=== PATIENT | male | born 1945 | race Caucasian/White ===

== ENCOUNTER 2017-06-01 18:57 | Emergency (ER) | payer MEDICARE, SELFPAY ==
[2017-06-01 18:59] VITALS: BP 133/97; PULSE 78; PULSE 82; RESP 16; TEMP 36.8; O2SAT 96; BMI 26.1
--- NOTE | 2017-06-01 19:07 | ED.DCSUM_ITS ---
- ER Visit Summary Date of Service: 06/01/17 Chief Complaint: Laceration History of Present Illness: The patient is a 71 M presents for evaluation laceration right inner thigh 7 hours prior to arrival. States was using a knife opening a box for his grandchild when it slipped down. No anticoagulation medications. Denies any pain. Tetanus unknown. Bleeding controlled. No other injuries. Physical Examination: General: Alert and oriented ?3, no acute distress HEENT: Normocephalic, atraumatic. Moist mucosa membranes Neck: supple, nontender. Cardiovascular: Regular rate and rhythm, no murmurs Respiratory: Normal breath sounds, symmetric, no distress Abdomen: Soft, nontender, nondistended Extremities: Nontender, no edema, pulses intact ?4 Neuro: no focal neurological deficits. Skin: Right thigh, 3 cm horizontal laceration across the distal medial aspect of the thigh. Subcu exposure. Dry blood. No active bleeding. Test Results: [] Emergency Department Course and Treatment: Tetanus updated. Wound was thoroughly washed and prepared. Total of 4, 4-0 nylon simple sutures were placed. Wound care discussed. He will follow-up with PCP 7-10 days for suture removal. Treatment Plan: [] Disposition: Discharge Impression: 1. Right thigh laceration status post repair 2. Tetanus update This note was generated with [employer] dictation software. It may contain incorrect words, spelling, and punctuation that were not noted in review of the chart prior to signing ED Disposition - Plan for ED Patient: Disposition: Home or Assisted Living Chief Complaint: Laceration Diagnosis: Laceration of right thigh Instructions: ED Laceration All Referrals: Corey Scott MD [Primary Care Provider] - 10 Day for suture removal
[2017-06-01] MEDS: Diphth,Pertuss(Acell),Tet Vac 0.5 ML Vial IM (19:18)
--- NOTE | 2017-06-01 20:16 | ED.RN ---
pt given written and verbal discharge instructions. pt ambulates out of dept. alone.
== END 2017-06-01 20:18 | disposition home or self-care (01) ==
PROVIDERS: Emergency Provider Emergency Medicine; Family Provider Family Medicine; PCP Family Medicine
DX: S71.111A Laceration without foreign body, right thigh, initial encounter (principal); Z23 Encounter for immunization; Z79.82 Long term (current) use of aspirin; W26.0XXA Contact with knife, initial encounter; Y93.89 Activity, other specified; Y92.009 Unspecified place in unspecified non-institutional (private) residence as the place of occurrence of the external cause; Y99.8 Other external cause status
CPT/HCPCS: 12002; 90471; 90715; 99284

== ENCOUNTER 2017-06-09 02:54 | Emergency (ER) | payer MEDICARE, SELFPAY ==
[2017-06-09 02:55] VITALS: BP 144/97; PULSE 69; RESP 16; TEMP 36.6; O2SAT 98; BMI 25.9
--- NOTE | 2017-06-09 04:11 | ED.DCSUM_ITS ---
- ER Visit Summary Date of Service: 06/09/17 Chief Complaint: Suture removal History of Present Illness: The patient is a 71 M patient returns for suture removal. Partially 1 week ago last Saturday he was using a knife and I say lacerated his right medial thigh. 4 sutures were placed at the time. He says been doing well. He has not been ill. Is been no discharge or bleeding. Physical Examination: Well-appearing older male. Vital signs are stable afebrile. Lungs are clear. Heart is regular rhythm without murmur. Right medial thigh well-healed laceration with 4 simple interrupted sutures. No signs of infection. No bleeding. No hematoma. I removed the sutures easily without difficulty patient tolerated that well. Test Results: None Emergency Department Course and Treatment: Suture removal. Treatment Plan: [] Disposition: Discharge Impression: Return for suture removal from right thigh laceration. This note was generated with [employer] dictation software. It may contain incorrect words, spelling, and punctuation that were not noted in review of the chart prior to signing ED Disposition - Plan for ED Patient: Chief Complaint: Suture Remv Referrals: Corey Scott MD [Primary Care Provider] -
--- NOTE | 2017-06-09 04:11 | ED.DEP ---
ED Disposition - Plan for ED Patient: Disposition: Home or Assisted Living Chief Complaint: Suture Remv Referrals: Corey Scott MD [Primary Care Provider] - As Needed Additional Instructions: Well healing wound. Keep the wound clean. Watch for any signs of infection.
== END 2017-06-09 04:21 | disposition home or self-care (01) ==
PROVIDERS: Emergency Provider Emergency Medicine; Family Provider Family Medicine; PCP Family Medicine
DX: Z48.02 Encounter for removal of sutures (principal); Z79.82 Long term (current) use of aspirin; Z79.899 Other long term (current) drug therapy
CPT/HCPCS: 99282

== ENCOUNTER 2025-02-12 09:23 | Emergency (ER) | payer MEDICARE, SELFPAY ==
[2025-02-12 09:24] VITALS: BP 148/86; PULSE 71; RESP 16; TEMP 36.3; O2SAT 98; BMI 23.9
--- NOTE | 2025-02-12 09:34 | CT_ITS ---
PROCEDURE: CHEST WITHOUT CONTRAST 02/12/2025 REASON FOR EXAM: LEFT MID POSTERIOR/LATERAL RIB TRAUMA TECHNIQUE: Chest CT without contrast. Coronal and Sagittal reconstruction series were provided. One or more dose reduction techniques were used (e.g., Automated exposure control, adjustment of the mA and/or kV according to patient size, use of iterative reconstruction technique RADIATION DOSE SUMMARY: CTDlvol: 22.90 mGy DLP: 439.65 mGycm COMPARISON: None FINDINGS: Lung windows show the lungs to be normally expanded with nonspecific pleural thickening in both hemithoraces. No organized infiltrate. Small bilateral pleural effusions, [id number]-right with associated atelectasis and linear scarring in the lung bases. No suspicious noncalcified mass or nodule. Soft tissue windows show a normal-appearing thyroid gland. No suspicious axillary mediastinal or perihilar adenopathy. The thoracic aorta tapers normally. Calcified coronary vessels are noted. Limited cuts through the upper abdomen do not show a suspicious abnormality. Incidental note is made of the hepatic flexure being transposed between the anterior edge of the liver in the peritoneal surface which can cause pain in the right clinical setting. Bony structures show degenerative change CT/Chest without Contrast IMPRESSION: Coronary artery calcification (CAC) is is present Small bilateral pleural effusions, [id number]-right with bibasilar atele ctasis and linear fibrotic scarring in the lung bases. No organized infiltrate or suspicious noncalcified mass or nodule No suspicious adenopathy Degenerative bony changes Reading Location: [id number]
--- NOTE | 2025-02-12 09:34 | EX.ED.GENINJ ---
HPI History of Present Illness Chief Complaint: Chest Other Informant: patient Narrative Narrative: 79-year-old male presenting to the emergency room with left rib pain. Patient states that on Saturday he slipped and fell on ice. He landed on his left side injuring the left ribs. He states he had some soreness in the left shoulder but that is better. He states he has been utilizing ibuprofen but it seems that the pain in the ribs seems to be worsening. He denies any hematuria. He denies any abdominal pain. He denies any shortness of breath or cough or hemoptysis. 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 PFSH PFS Home Medications ?Medication ?Instructions ?Recorded ?Last Taken ?Type atorvastatin 40 mg tablet 40 mg PO QHS cholesterol 02/12/25 Unknown History oxycodone-acetaminophen 5 mg-325 1 tab PO Q6H PRN pain 5 days #20 02/12/25 Unknown Rx mg tablet (Percocet) tabs Allergy/AdvReac Type Severity Reaction Status Date / Time No Known Allergies Allergy Verified 02/12/25 09:26 Family History no significant family his Surgical History (Updated 02/12/25 @ 10:25 by Ramila Samano) Status post hip replacement Social History Smoking Status: Never smoker ROS ROS ED Constitutional Constitutional ED: Denies chills or weight loss Eyes Eyes: Denies change in vision or diplopia ENT ENT ED: Denies ear pain, rhinorrhea or sore throat Cardiovascular Cardiovascular: Denies chest pain, orthopnea, palpitations or racing heartbeat Respiratory/Chest Respiratory/Chest: Reports other Details: Left rib pain ; Denies cough, dyspnea or orthopnea Gastrointestinal Gastrointestinal: Denies abdominal pain, diarrhea, nausea or vomiting Genitourinary Genitourinary ED: Denies dysuria, hematuria or urinary frequency Musculoskeletal Musculoskeletal: Denies arthralgias or myalgias Integumentary Denies abscess or rash Neurologic Neurologic: Denies headache(s) or weakness Psychiatric Psychiatric: Denies anxiety, depression, suicidal ideation or suicidal thoughts Endocrine Endocrinology: Denies polydipsia, polyphagia or polyuria Allergic/Immunologic Allergic/Immunologic ED: Denies mouth swelling, tongue swelling or urticaria EXAM Physical Exam Const Vital Signs: 02/12/25 09:24 02/12/25 10:23 02/12/25 12:19 Temperature 97.4 F L 97.9 F Temperature Source Oral Pulse Rate 71 60 Respiratory Rate 16 16 Respiratory Effort Normal Blood Pressure 148/86 H 144/77 H Blood Pressure Mean 106 99 Pulse Ox 98 99 Oxygen Delivery Method Room Air Positive well nourished and well developed General Appearance ED: well developed HEENT Reports normocephalic, head/scalp atraumatic and moist mucous membranes Eyes PERRL and EOMs intact bilaterally Neck no lymphadenopathy, supple and no JVD Chest Wall Chest Narrative: I do not appreciate any obvious chest wall deformity. There is some pain in the left mid lateral posterior ribs with movement. There is no ecchymosis or hematoma seen. Resp normal respiratory effort and clear to auscultation bilaterally Cardio regular rate, regular rhythm and no murmurs GI normal to inspection, nondistended, normoactive bowel sounds and non-tender Palpation: soft Back/Spine no CVA tenderness and normal ROM Extremity normal to inspection General Extremety ED: Negative for edema General Extremity: Negative for edema Neuro oriented x3 and CN's II-XII intact bilaterally Sensorium / Orientation: alert Motor Exam: strength 5/5 throughout Psych mental status grossly normal Mood & Affect: Negative for depressed or tearful Skin no rashes or lesions noted and no wounds MDM MDM MDM Narrative Medical decision making narrative: Differential diagnosis includes pneumothorax hemothorax rib fracture rib contusion thoracic myofascial strain CT of the chest was obtained. Please see radiologist read. Upon my review there are 3 nondisplaced fractures in the left posterior lateral aspect. There is a small associated hemothorax. No pneumothorax is appreciated. Discussed with the patient the above images as well as expected time of recovery and plan of care. I can write for some Percocet for pain control and I feel that is okay if he continues to use ibuprofen. Would recommend follow-up 1 to 2 weeks. Return if worsening or concerns History & Record Review Discussion w/independent historian: Patient Radiography Diagnostic Testing: Clinical Impression(s) from Imaging Studies Chest CT 02/12/25 09:34 IMPRESSION: Coronary artery calcification (CAC) is is present Small bilateral pleural effusions, [id number]-right with bibasilar atelectasis and linear fibrotic scarring in the lung bases. No organized infiltrate or suspicious noncalcified mass or nodule No suspicious adenopathy Degenerative bony changes Reading Location: [facility] Discharge Plan Triage Chief Complaint: Chest Other ED Provider: Aram Bush Dx/Rx/DC Orders Clinical Impression: Hemothorax on left, Multiple closed fractures of ribs of left side, Fall, Chest pain Instructions: ED Rib Fracture Prescriptions: New oxycodone-acetaminophen [Percocet] 5-325 mg tablet 1 tab PO Q6H PRN (Reason: pain) 5 Days Qty: 20 0RF No Action atorvastatin 40 mg tablet 40 mg PO QHS Primary Care Provider: Lonny Kee Referrals: Corey Scott MD [[facility]] - 1 Week Print Language: Indian Disposition Disposition: Home, Self Care Discharge Date/Time: 02/12/25 12:20
--- OUTSIDE RECORDS SUMMARY | 2025-02-12 09:44 | XMS RPT_ITS | CCD ---
Author Organization [facility] Care Team Providers Care Vp Global Name Role Phone Louis Scott MD Primary Care Provider [phone] LILIAN MARSHALL Referring Unavailable LOUIS SCOTT Primary Care Unavailable Louis Scott MD Primary Care Provider Irmahof BELT NOTCHER.Enid DAY Unavailable Jaron BELT NOTCHER.Patrice DAY Unavailable Chano Young Unavailable Unavailable LOUIS SCOTT Primary Care Unavailable ETHAN COYA Referring Unavailable LOUIS SCOTT Primary Care Unavailable ALFREDITO MICHELE Referring Unavailable YUDY DELACRUZ A Referring Unavailable LOUIS SCOTT Primary Care Unavailable SHAMAR KIRAN Consulting Unavailable ALFREDITO MICHELE Admitting Unavailable ALFREDITO MICHELE Attending Unavailable LOUIS SCOTT Primary Care Unavailable Randall Chatman MA Unavailable Randall Chatman MA Unavailable Tannhof BELT NOTCHER.Enid DAY Unavailable Unavail able Tannhof BELT NOTCHER.Enid DAY Unavailable LOUIS SCOTT Primary Care Unavailable LOUIS SCOTT Attending Unavailable LOUIS SCOTT Primary Care Unavailable ALFREDITO MICHELE Referring Unavailable LOUIS SCOTT Primary Care Unavailable ALFREDITO MICHELE Referring Unavailable ALFREDITO MICHELE Attending Unavailable LOUIS SCOTT Primary Care Unavailable LOUIS SCOTT Referring Unavailable DAVID KIMBROUGH Attending Unavailable LOUIS SCOTT Primary Care Unavailable LOUIS SCOTT Referring Unavailable DAVID KIMBROUGH Attending Unavailable LOUIS SCOTT Primary Care Unavailable LOUIS SCOTT Referring Unavailable DAVID KIMBROUGH Attending Unavailable ELDERBROCK, LOUIS D Primary Care Unavailable ELDERBROCK, LOUIS D Referring Unavailable RENNY KIMBROUGHN Attending Unavailable ELDERBROCK, LOUIS D Primary Care Unavailable ELDERBROCK, LOUIS D Referring Unavailable ELDERBROCK, LOUIS D Primary Care Unavailable ALFREDITO MICHELE Attending Unavailable CINTHIA KEE Primary Care Unavailab CINTHIA Porter Attending Unavailab le ELDERBROCK, LOUIS Choi Primary Care Unavailable VETOVITZ, SHELBY Attending Unavailable ELDERBROCK, LOUIS Choi Primary Care Unavailable VETOVITZ, SHELBY Referring Unavailable ELDERBROCK, LOUIS Steph Primary Care Unavailable ELDERBROCK, LOUIS D Referring Unavailable ELDERBROCK, LOUIS D Primary Care Unavailable ELDERBROCK, LOUIS D Referring Unavailable DAVID KIMBROUGH Attending Unavailable ELDERBROCK, LOUIS Choi Primary Care Unavailable ELDERBROCK, LOUIS D Referring Unavailable DAVID KIMBROUGH Attending Unavailable ELDERBROCK, LOUIS Choi Primary Care Unavailable ALFREDITO MICHELE Referring Unavailable ELDERBROCK, LOUIS Choi Primary Care Unavailable ALFREDITO MICHELE Referring Unavailable ALFREDITO MICHELE Attending Unavailable CINTHIA KEE Primary Care Unavailab CINTHIA Porter Referring Unavailab le ELDERBROCK, LOUIS Steph Primary Care Unavailable ELDERBROCK, LOUIS D Referring Unavailable DAVID KIMBROUGH Attending Unavailable ELDERBROCK, LOUIS Choi Primary Care Unavailable ELDERBROCK, LOUIS Steph Referring Unavailable ELDERBROCK, LOUIS D Primary Care Unavailable ELDERBROCK, LOUIS D Referring Unavailable ELDERBROCK, LOUIS D Primary Care Unavailable ELDERBROCK, LOUIS D Referring Unavailable ELDERBROCK, LOUIS D Primary Care Unavailable ELDERBROCK, LOUIS D Referring Unavailable ELDERBROCK, LOUIS D Primary Care Unavailable VETOVITZ, SHELBY Referring Unavailable ELDERBROCK, LOUIS Steph Primary Care Unavailable ELDERBROCK, LOUIS D Referring Unavailable ELDERBROCK, LOUIS D Primary Care Unavailable ELDERBROCK, LOUIS D Referring Unavailable RENNY KIMBROUGHN Attending Unavailable ELDERBROCK, LOUIS Choi Primary Care Unavailable ELDERBROCK, LOUIS D Referring Unavailable RENNY KIMBROUGHN Attending Unavailable ELDERBROCK, LOUIS D Primary Care Unavailable ELDERBROCK, LOUIS D Referring Unavailable RENNY KIMBROUGHN Attending Unavailable ELDERBROCK, LOUIS D Primary Care Unavailable ELDERBROCK, LOUIS D Referring Unavailable RENNY KIMBROUGHN Attending Unavailable ELDERBROCK, LOUIS D Primary Care Unavailable ALFREDITO MICHELE Referring Unavailable DRETOBRENTON, SHELBY Attending Unavailable Medications Current Medications Medication Drug Class(es) Dates Sig (Normalized) Sig (Original) acetaminophen 325 mg / HYDROcodone bitartrate 5 mg oral tablet (4 sources) Opioid Agonist Start: 04-02-2024 End: 04-09-2024 take 1-2 tablets by mouth every six hours as needed HYDROcodone-acetam inophen (NORCO) 5-325 mg per tablet Take 1-2 tablets by mouth every 6 hours as needed for pain for up to 7 days. 04/02/2024 04/09/2024 Active Administered Medications Medication Order MAR Action Action Date Dose Rate Site tuberculin skin test, unspecified formulation Given 04/03/2024 tuberculin skin test, unspecified formulation Given 04/12/2024 (2 sources) Administered Medications Medication Order MAR Action Action Date Dose Rate Site tuberculin skin test, unspecified formulation Given 04/03/2024 tuberculin skin test, unspecified formulation Given 04/12/2024 ascorbic acid 500 mg oral tablet (20 sources) Vitamin C Start: 04-02-2024 End: 04-16-2024 take 1 tablet by mouth twice daily at mealtime ascorbic acid, vitamin C, (VITAMIN C) 500 mg tablet Take 1 tablet by mouth two times a day with meals for 27 doses. 27 tablet 04/02/2024 Active aspirin 81 mg delayed release oral tablet (20 sources) Platelet Aggregation Inhibitor, Nonsteroidal Anti-inflammatory Drug Start: 04-02-2024 End: 04-30-2024 take 1 tablet by mouth twice daily aspirin, enteric coated (ASPIRIN, ENTERIC COATED) 81 mg EC tablet Take 1 tablet by mouth two times a day for 28 days. 56 tablet 04/02/2024 Active Start: 01-07-2008 End: 12-11-2022 aspirin(ECOTRIN LOW STRENGTH 81 MG TAB) Take one(1) tablet daily. 0 01/07/2008 12/11/2022 Discontinued Comment on above: Take one(1) tablet d aily. ferrous sulfate 325 mg oral tablet (20 sources) Start: 04-02-2024 End: 04-09-2024 take 1 tablet by mouth once daily at lunch ferrous sulfate 325 mg (65 mg iron) tablet Take 1 tablet by mouth daily with lunch for 7 doses. 7 tablet 04/02/2024 04/09/2024 Active take 1 tablet by mouth once sandra y ferrous sulfate (IRON) 325 mg (65 mg iron) tablet Take 325 mg by mouth once daily. Active mupirocin 0.02 mg/mg topical ointment (1 source) RNA Synthetase Inhibitor Antibacterial Start: 03-19-2024 End: 03-24-2024 mupirocin (BACTROBAN) 2 % ointment two times a day for 5 days. Apply 0.5 inch with cotton swab (Q-tip) to each nostril in the morning and evening for 5 days prior to and including day of surgery. 22 g 03/19/2024 03/24/2024 Active polyethylene glycol 3350 04995 mg powder for oral solution (4 sources) Osmotic Laxative Start: 04-02-2024 End: 04-12-2024 polyethylene glycol 3350 (MIRALAX) 17 gram/dose powder Take 17 g by mouth once daily as needed for constipation for up to 10 days. Dissolve dose in 4 - 8 ounces of liquid and take as directed. 170 g 04/02/2024 04/12/2024 Active Completed/Discontinued Medications Medication Drug Class(es) Dates Sig (Normalized) Sig (Original) acetaminophen 500 mg oral tablet (1 source) Start: 04-02-2024 End: 04-02-2024 take 2 tablets by mouth every eight hours as needed acetaminophen (TYLENOL) 500 mg tablet Take 2 tablets by mouth every 8 hours as needed for pain. 04/02/2024 04/02/2024 Discontinued docusate sodium 100 mg oral capsule (9 sources) Start: 04-02-2024 End: 05-02-2024 take 1 capsule by mouth every twelve hours as needed docusate sodium (COLACE) 100 mg capsule Take 1 capsule by mouth two times a day as needed for constipation. 60 capsule 04/02/2024 04/23/2024 Discontinued (Course of therapy completed) multivitamin ORAL tablet (1 source) Start: 05-24-2010 End: 12-11-2022 take 1 tablet by mouth once daily multivitamin ORAL tablet Take 1 tablet by mouth once daily. 0 05/24/2010 12/11/2022 Discontinued Comment on above: Take 1 tablet by narinder th once daily. OXcarbazepine 300 mg oral tablet (1 source) Anti-epileptic Agent Start: 01-20-2020 End: 12-11-2022 take 1 tablet by mouth once daily at bedtime OXcarbazepine (TRILEPTAL) 300 mg tablet Indications: Vertigo Take 1 tablet by mouth daily at bedtime. 90 tablet 3 01/20/2020 12/11/2022 Discontinued Comment on above: Take 1 tablet by narinder th daily at bedtime. pantoprazole 40 mg delayed release oral tablet (9 sources) Proton Pump Inhibitor Start: 04-02-2024 End: 05-02-2024 take 1 tablet by mouth once daily in the morning pantoprazole DR (PROTONIX) 40 mg tablet Take 1 tablet by mouth every morning. 30 tablet 04/02/2024 04/23/2024 Discontinued (Discontinued by Patient) sennosides, jail 8.6 mg oral tablet (1 source) Start: 04-02-2024 End: 04-02-2024 take 2 tablets by mouth once daily at bedtime senna (SENOKOT) 8.6 mg tab Take 2 tablets by mouth daily at bedtime. 60 tablet 04/02/2024 04/02/2024 Discontinued Problems Active Problems Problem Classification Problem Date Documented Date Episodic/Chronic Deficiency and other anemia (4 sources) Anemia; Translations: [Anemia, unspecified] 04-06-2024 Episodic Disorders of lipid metabolism (1 source) Hyperlipidemia; Translations: [Hyperlipidemia, unspecified] 12-11-2022 Chronic Immunizations and screening for infectious disease (5 sources) Patient encounter status; Translations: [Encounter for screening for other viral diseases] Onset: 12-16-2024 12-11-2022 Episodic Malaise and fatigue (4 sources) Asthenia; Translations: [Other malaise] 04-06-2024 Episodic Osteoarthritis (19 sources) Arthritis of hip; Translations: [Unilateral primary osteoarthritis, unspecified hip] Onset: 07-29-2023 04-16-2023 Chronic Other aftercare (1 source) Post-discharge follow-up; Translations: [Encounter for follow-up examination after completed treatment for conditions other than malignant neoplasm] 04-23-2024 Episodic Other connective tissue disease (20 sources) History of total hip arthroplasty; Translations: [Presence of right artificial hip joint] Onset: 04-02-2024 04-02-2024 Chronic Other connective tissue disease (20 sources) History of repair of hip joint; Translations: [Presence of right artificial hip joint] Onset: 04-02-2024 04-23-2024 Chronic Other connective tissue disease (2 sources) History of total replacement of right hip joint; Translations: [Presence of right artificial hip joint] 06-06-2024 Chronic Other connective tissue disease (4 sources) Presence of right artificial hip joint; Translations: [S/P hip replacement, right] Onset: 04-29-2024 Chronic Other connective tissue disease (1 source) Repeated falls; Translations: [Falling episodes] Onset: 12-16-2024 Episodic Other lower respiratory disease (1 source) Cough; Translations: [Acute cough] 09-19-2023 Episodic Other nervous system disorders (20 sources) Neuropathy; Translations: [Polyneuropathy, unspecified] Onset: 03-19-2024 03-19-2024 Chronic Other nervous system disorders (1 source) Polyneuropathy, unspecified; Translations: [Neuropathy] Onset: 03-19-2024 Chronic Other nervous system disorders (1 source) Other chronic pain; Translations: [Chronic pain of right knee] Onset: 03-19-2024 Chronic Other nervous system disorders (1 source) Paresthesia of foot ; Translations: [Anesthesia of skin] 12-11-2022 Episodic Other nervous system disorders (1 source) Unspecified abnormalities of gait and mobility; Translations: [Abnormality of gait] Onset: 12-16-2024 Episodic Other non-traumatic joint disorders (3 sources) Pain in right knee; Translations: [Pain in joint, lower leg] Onset: 03-19-2024 03-16-2024 Episodic Other non-traumatic joint disorders (1 source) Stiffness of left shoulder, not elsewhere classified; Translations: [Impaired range of motion of left shoulder] Onset: 12-16-2024 Episodic Other upper respiratory infections (2 sources) Acute upper respiratory infection; Translations: [Acute upper respiratory infection, unspecified] Onset: 12-16-2024 09-19-2023 Episodic Unclassified (1 source) OPENED IN ERROR 04-07-2024 Unclassified (1 source) History of repair of hip joint 04-23-2024 Past or Other Problems Problem Classification Problem Date Documented Da te Episodic/Chronic Abdominal hernia (20 sources) Right inguinal hernia ; Translations: [Unilateral inguinal hernia, without obstruction or gangrene, not specified as recurrent] Onset: 11-23-2013 11-23-2013 Episodic Conditions associated with dizziness or vertigo (20 sources) Vertigo; Translations: [Dizziness and giddiness] Onset: 03-22-2009 12-11-2022 Episodic Other connective tissue disease (20 sources) Adhesive capsulitis of shoulder; Translations: [Adhesive capsulitis of unspecified shoulder] Onset: 05-24-2008 05-24-2008 Episodic Other connective tissue disease (1 source) Adhesive capsulitis of left shoulder; Translations: [Adhesive capsulitis of left shoulder] Onset: 05-24-2008 Episodic Other non-traumatic joint disorders (6 sources) Pain in right hip joint; Translations: [Pain in right hip] Onset: 06-19-2023 06-17-2023 Episodic Other non-traumatic joint disorders (20 sources) Hip pain; Translations: [Pain in right hip] Onset: 06-19-2023 06-19-2023 Episodic Other non-traumatic joint disorders (2 sources) Pain in right hip; Translations: [Pain of right hip] Onset: 03-09-2024 Episodic Results Test Name Value Interpretation Reference Range Facility CBC W Auto Differential pane l (Bld)on 12-16-2024 Basophils (Bld) [#/Vol] 0.03 10*3/uL Normal <0.11 [facility] Comment on above: Order Comment: Speci men Type: BLOOD SPECIMEN Ordering Facility: [facility] Address: [address] [place] [address] Performed By: #### 5 7021-8 #### [facility] CLIA [id number] [address] [place] [address] [place] Basophils/100 WBC (Bld) 0.4 % Normal [facility] Comment on above: Order Comment: Speci men Type: BLOOD SPECIMEN Ordering Facility: [facility] Address: [address] [place] [address] Performed By: #### 5 7021-8 #### [facility] CLIA [id number] [address] [place] [address] [place] Differential cell count method Nom (Bld) Auto Normal [facility] Comment on above: Order Comment: Speci men Type: BLOOD SPECIMEN Ordering Facility: [facility] Address: [address] [place] [address] Performed By: #### 5 7021-8 #### [facility] CLIA [id number] [address] [place] [address] [place] Eosinophils (Bld) [#/Vol] 0.06 10*3/uL Normal <0.46 [facility] Comment on above: Order Comment: Speci men Type: BLOOD SPECIMEN Ordering Facility: [facility] Address: [address] [place] [address] Performed By: #### 5 7021-8 #### [facility] CLIA [id number] [address] [place] [address] [place] Eosinophils/100 WBC (Bld) 0.8 % Normal [facility] Comment on above: Order Comment: Speci men Type: BLOOD SPECIMEN Ordering Facility: [facility] Address: [address] [place] [address] Performed By: #### 5 7021-8 #### [facility] CLIA [id number] [address] [place] [address] [place] Erythrocyte distribution width (RBC) [Ratio] 16.0 % High 11.5-15.0 [facility] Comment on above: Order Comment: Speci men Type: BLOOD SPECIMEN Ordering Facility: [facility] Address: [address] [place] [address] Performed By: #### 5 7021-8 #### [facility] CLIA [id number] [address] [place] [address] [place] Hematocrit (Bld) [Volume fraction] 40.2 % Normal 39.0-51.0 [facility] Comment on above: Order Comment: Speci men Type: BLOOD SPECIMEN Ordering Facility: [facility] Address: [address] [place] [address] Performed By: #### 5 7021-8 #### [facility] CLIA [id number] [address] [place] [address] [place] Hemoglobin (Bld) [Mass/Vol] 12.7 g/dL Low 13.0-17.0 [facility] Comment on above: Order Comment: Speci men Type: BLOOD SPECIMEN Ordering Facility: [facility] Address: [address] [place] [address] Performed By: #### 5 7021-8 #### [facility] CLIA [id number] [address] [place] [address] [place] Immature granulocytes (Bld) [#/Vol] 0.03 10*3/uL Normal <0.10 [facility] Comment on above: Order Comment: Speci men Type: BLOOD SPECIMEN Ordering Facility: [facility] Address: [address] [place] [address] Performed By: #### 5 7021-8 #### [facility] CLIA [id number] [address] [place] [address] [place] Immature granulocytes/100 WBC (Bld) 0.4 % Normal [facility] Comment on above: Order Comment: Speci men Type: BLOOD SPECIMEN Ordering Facility: [facility] Address: [address] [place] [address] Performed By: #### 5 7021-8 #### [facility] CLIA [id number] [address] [place] [address] [place] Lymphocytes (Bld) [#/Vol] 1.30 10*3/uL Normal 1.00-4.00 [facility] Comment on above: Order Comment: Speci men Type: BLOOD SPECIMEN Ordering Facility: [facility] Address: [address] [place] [address] Performed By: #### 5 7021-8 #### [facility] CLIA [id number] [address] [place] [address] [place] Lymphocytes/100 WBC (Bld) 17.9 % Normal [facility] Comment on above: Order Comment: Speci men Type: BLOOD SPECIMEN Ordering Facility: [facility] Address: [address] [place] [address] Performed By: #### 5 7021-8 #### [facility] CLIA [id number] [address] [place] [address] [place] MCH (RBC) [Entitic mass] 26.1 pg Normal 26.0-34.0 [facility] Comment on above: Order Comment: Speci men Type: BLOOD SPECIMEN Ordering Facility: [facility] Address: [address] [place] [address] Performed By: #### 5 7021-8 #### [facility] CLIA [id number] [address] [place] [address] [place] MCHC (RBC) [Mass/Vol] 31.6 g/dL Normal 30.5-36.0 [facility] Comment on above: Order Comment: Speci men Type: BLOOD SPECIMEN Ordering Facility: [facility] Address: [address] [place] [address] Performed By: #### 5 7021-8 #### [facility] CLIA [id number] [address] [place] [address] [place] MCV (RBC) [Entitic vol] 82.7 fL Normal 80.0-100.0 [facility] Comment on above: Order Comment: Speci men Type: BLOOD SPECIMEN Ordering Facility: [facility] Address: [address] [place] [address] Performed By: #### 5 7021-8 #### [facility] CLIA [id number] [address] [place] [address] [place] Monocytes (Bld) [#/Vol] 0.43 10*3/uL Normal <0.87 [facility] Comment on above: Order Comment: Speci men Type: BLOOD SPECIMEN Ordering Facility: [facility] Address: [address] [place] [address] Performed By: #### 5 7021-8 #### [facility] CLIA [id number] [address] [place] [address] [place] Monocytes/100 WBC (Bld) 5.9 % Normal [facility] Comment on above: Order Comment: Speci men Type: BLOOD SPECIMEN Ordering Facility: [facility] Address: [address] [place] [address] Performed By: #### 5 7021-8 #### [facility] CLIA [id number] [address] [place] [address] [place] Neutrophils (Bld) [#/Vol] 5.42 10*3/uL Normal 1.45-7.50 [facility] Comment on above: Order Comment: Speci men Type: BLOOD SPECIMEN Ordering Facility: [facility] Address: [address] [place] [address] Performed By: #### 5 7021-8 #### [facility] CLIA [id number] [address] [place] [address] [place] Neutrophils/100 WBC (Bld) 74.6 % Normal [facility] Comment on above: Order Comment: Speci men Type: BLOOD SPECIMEN Ordering Facility: [facility] Address: [address] [place] [address] Performed By: #### 5 7021-8 #### [facility] CLIA [id number] [address] [place] [address] [place] Nucleated RBC (Bld) [#/Vol] 10*3/uL Normal <0.01 [facility] Comment on above: Order Comment: Speci men Type: BLOOD SPECIMEN Ordering Facility: [facility] Address: [address] [place] [address] Performed By: #### 5 7021-8 #### [facility] CLIA [id number] [address] [place] [address] [place] Nucleated RBC/100 WBC (Bld) [Ratio] 0.0 /100 WBC Normal [facility] Comment on above: Order Comment: Speci men Type: BLOOD SPECIMEN Ordering Facility: [facility] Address: [address] [place] [address] Performed By: #### 5 7021-8 #### [facility] CLIA [id number] [address] [place] [address] [place] Platelet mean volume (Bld) [Entitic vol] 11.3 fL Normal 9.0-12.7 [facility] Comment on above: Order Comment: Speci men Type: BLOOD SPECIMEN Ordering Facility: [facility] Address: [address] [place] [address] Performed By: #### 5 7021-8 #### [facility] CLIA [id number] [address] [place] [address] [place] Platelets (Bld) [#/Vol] 293 10*3/uL Normal 150-400 [facility] Comment on above: Order Comment: Speci men Type: BLOOD SPECIMEN Ordering Facility: [facility] Address: [address] [place] [address] Performed By: #### 5 7021-8 #### [facility] CLIA [id number] [address] [place] [address] [place] RBC (Bld) [#/Vol] 4.86 10*6/uL Normal 4.20-6.00 [facility] Comment on above: Order Comment: Speci men Type: BLOOD SPECIMEN Ordering Facility: [facility] Address: [address] [place] [address] Performed By: #### 5 7021-8 #### [facility] CLIA [id number] [address] [place] [address] [place] WBC (Bld) [#/Vol] 7.27 10*3/uL Normal 3.70-11.00 [facility] Comment on above: Order Comment: Speci men Type: BLOOD SPECIMEN Ordering Facility: [facility] Address: [address] [place] [address] Performed By: #### 5 7021-8 #### [facility] CLIA [id number] [address] [place] [address] [facility] [place] CNOVon 12-16-2024 CNOV Office Visit (FAMPWS ) PAOLO HERNANDEZ ([id number]) 1945 M Date Time Provider Department 12/16/24 2:00 PM CINTHIA KEE During your visit today, we recorded the following information about you: Temperature Pulse Respiration Blood pressure 97.7 degrees 68/minute 14/minute 134/71 Weight Height 72.2 kg 1.765 m Cinthia Kee MD 12/17/2024 9:05 AM Signed Paolo Hernandez is a 79 year old male here for a Medicare Wellness visit. Recording using [employer] software for draft documentation of the visit was discussed with the patient/authorized customer response representative; all questions welcomed and answered. Patient/authorized customer response representative agreed to proceed Paolo Hernandez is a 79-year-old male with a history of neuropathy, frozen shoulder, and GERD, presenting for a Medicare wellness exam. 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 - Denies pain, but reports weakness and inability to lift arm above head. - Engaging in exercises, including wall crawls and halos, with some improvement. - History of right shoulder rotator cuff issues ~15-20 years ago, resolved with cortisone injection and time. - Denies recent trauma or injury to the left shoulder. GERD: - Chronic mild sore throat x1 year, daily occurrence, worse at night. - Suspects GERD, has not tried OTC medications. - Denies pain with swallowing or food getting stuck. - Denies early satiety. - Denies specific food triggers for throat irritation. - Does get occasional post nasal drip. Hip Replacement: - Right hip replacement in March, follow-up with Dr. Michele next year. - Engaging in physical therapy exercises post-surgery. Family History: - Mother: Arthritis, HTN, tuberculosis. - Father: CVA. - Maternal grandmother: Breast cancer. - Siblings: Brother and sister, both healthy. - Children: Two daughters, both healthy. Advanced Directives: - No living will or healthcare power of environmental attorney. - Plans to discuss with a real estate lawyer for estate planning. Medicare Health Risk Assessment General Health Very good Exercise: Minutes/Day 20 min Exercise: Days/Week 7 days Alcohol: Daily Use Never Alcohol: Drinks/Day Patient does not drink Alcohol: 6 or more drinks Never Feel off balance No (Admits to balance not being as good as it once was. Think his Neuropathy has something to do with it.) Concerns: Teeth/Dentures No Concerns: Sexual function No Troubled by feelings None of the above Frequency: Eating healthy diet Nearly every day ADLs requiring help None of the above Safety precautions in home/vehicle Yes Smoke, vape, chews tobacco No Difficulty hearing No Difficulty seeing No Current Providers Specialists: I have reviewed specialist-related care of the patient in the medical record. Current care team: Patient Care Team: Louis Scott MD as PCP - General (Family Medicine) Patrice Salmeron APRN.CRIMINOLOGY TEACHER as Scrap Preparation Supervisor (Family Medicine) Outside specialists seen: Ortho: Dr. Michele, Dentist: [facility], Optho: Dr. Chau Medical/Family history review Reviewed and updated problem list, medical/surgical/famil y/social history, medications, and allergies. Opioid use review Prescribed: No opioid use on file in the last 90 days Patient-reported: No opioid use on file in the last 90 days Depression screening PHQ-2 Score: 0 PHQ-9 Score: 0 Anxiety screening NATASHA-2 Score: 0 Cognitive screening Mini Cog Score: 5 Cognitive screening reviewed and No further action needed (score 3-5). Functional Observation Was the patient's Timed Up AND Go test unsteady or >= 12 seconds? No Advance Directives Patient did not wish or was not able to name a surrogate decision maker or provide an advance care plan FULL CODE Measurements BP 134/71 Pulse 68 Temp 36.5 ?C (97.7 ?F) Resp 14 Ht 176.5 cm (5' 9.5) Wt 72.2 kg (159 lb 3.2 oz) BMI 23.17 kg/m? Vision Screening: Right: 20/25 Left: 20/ 20 Both: 20/25 Sees Ophthalmology yearly. General Appearance: Well appearing, alert, in no acute distress, well-hydrated, well nourished.. Skin: Skin color, texture, turgor normal, no suspicious rashes or lesions. Oropharynx: Lips, mucosa, and tongue normal, teeth and gums normal, oropharynx normal. Neck: Supple, no adenopathy; thyroid symmetric, normal size, no bruits. Lungs: Lungs clear to auscultation. No wheezing, rhonchi, rales.. Heart: RRR without murmur, gallop, or rubs. No ectopy. Abdomen: Normal abdominal exam, Abdomen soft, non-tender. Bowel sounds normal. No masses, organomegaly. Extremities: No deformities, edema, skin discoloration, clubbing or cyanosis. Good capillary refill. Shoulder: Location: Left. Redness: No. Warmth: No. Tenderness to palpation: No. Swelling: No. Range of motion: Limited to about 30 degrees abduction and flexion with pa (more content not included)... Normal [facility] Comprehensive metabolic 2000 panelon 12-16-2024 Albumin [Mass/Vol] 4.3 g/dL Normal 3.9-4.9 [facility] Comment on above: Order Comment: Speci men Type: BLOOD SPECIMENOrdering Facility: [facility] Address: [address] [place] [address] Performed By: #### 2 4323-8, LIPNF ####[facility] LABCLIA [id number] [place] [address] [place] ALP [Catalytic activity/Vol] 70 U/L Normal 38-113 [facility] Comment on above: Order Comment: Speci men Type: BLOOD SPECIMENOrdering Facility: [facility] Address: [address] [place] [address] Performed By: #### 2 4323-8, LIPNF ####[facility] LABCLIA [id number] [place] [address] [place] ALT [Catalytic activity/Vol] 23 U/L Normal 10-54 [facility] Comment on above: Order Comment: Speci men Type: BLOOD SPECIMENOrdering Facility: [facility] Address: [address] [place] [address] Performed By: #### 2 4323-8, LIPNF ####[facility] LABCLIA [id number] [place] [address] [place] Anion gap [Moles/Vol] 12 mmol/L Normal 8-15 [facility] Comment on above: Order Comment: Speci men Type: BLOOD SPECIMENOrdering Facility: [facility] Address: [address] [place] [address] Performed By: #### 2 4323-8, LIPNF ####[facility] LABCLIA [id number] [place] [address] [place] AST [Catalytic activity/Vol] 31 U/L Normal 14-40 [facility] Comment on above: Order Comment: Speci men Type: BLOOD SPECIMENOrdering Facility: [facility] Address: [address] [place] [address] Performed By: #### 2 4323-8, LIPNF ####[facility] LABCLIA [id number] [place] [address] [place] Bilirubin [Mass/Vol] 0.2 mg/dL Normal 0.2-1.3 [facility] Comment on above: Order Comment: Speci men Type: BLOOD SPECIMENOrdering Facility: [facility] Address: [address] [place] [address] Performed By: #### 2 4323-8, LIPNF ####[facility] LABCLIA [id number] [place] [address] [place] Calcium [Mass/Vol] 9.9 mg/dL Normal 8.5-10.2 [facility] Comment on above: Order Comment: Speci men Type: BLOOD SPECIMENOrdering Facility: [facility] Address: [address] [place] [address] Performed By: #### 2 4323-8, LIPNF ####[facility] LABCLIA [id number] [place] [address] [place] Chloride [Moles/Vol] 104 mmol/L Normal 98-107 [facility] Comment on above: Order Comment: Speci men Type: BLOOD SPECIMENOrdering Facility: [facility] Address: [address] [place] [address] Performed By: #### 2 4323-8, LIPNF ####[facility] LABCLIA [id number] [place] [address] [place] CO2 [Moles/Vol] 24 mmol/L Normal 22-30 [facility] Comment on above: Order Comment: Speci men Type: BLOOD SPECIMENOrdering Facility: [facility] Address: [address] [place] [address] Performed By: #### 2 4323-8, LIPNF ####[facility] LABCLIA [id number] [place] [address] [place] Creatinine [Mass/Vol] 0.99 mg/dL Normal 0.73-1.22 [facility] Comment on above: Order Comment: Speci men Type: BLOOD SPECIMENOrdering Facility: [facility] Address: [address] [place] [address] Performed By: #### 2 4323-8, LIPNF ####[facility] LABCLIA [id number] [place] [address] [place] eGFRcr SerPlBld CKD-EPI 2020 78 mL/min/1.73m??? Normal >=60 [facility] Comment on above: Order Comment: Speci men Type: BLOOD SPECIMENOrdering Facility: [facility] Address: [address] [place] [address] Result Comment: Dary mated Glomerular Filtration Rate (eGFR) is calculated using the 2020 CKD-EPI creatinine equation. This equation utilizes serum creatinine, sex, and age as parameters. The creatinine assay has traceable calibration to isotope dilution-mass spectrometry. Refer to KDIGO guidelines for clinical interpretation. In patients with unstable renal function, e.g. those with acute kidney injury, the eGFR may not accurately reflect actual GFR. Performed By: #### 2 4323-8, LIPNF ####[facility] LABCLIA [id number] [place] [address] [place] Glucose [Mass/Vol] 95 mg/dL Normal 74-99 [facility] Comment on above: Order Comment: Speci men Type: BLOOD SPECIMENOrdering Facility: [facility] Address: [address] [place] [address] Result Comment: The [place] Diabetes Association (ADA) provides guidance for cutoff values for fasting glucose and random glucose. The ADA defines fasting as no caloric intake for at least 8 hours. Fasting plasma glucose results between 100 to 125 mg/dL indicate increased risk for diabetes (prediabetes). Fasting plasma glucose results greater than or equal to 126 mg/dL meet the criteria for diagnosis of diabetes. In the absence of unequivocal hyperglycemia, results should be confirmed by repeat testing. In a patient with classic symptoms of hyperglycemia or hyperglycemic crisis, random plasma glucose results greater than or equal to 200 mg/dL meet the criteria for diagnosis of diabetes. Reference: Standards of Medical Care in Diabetes 2016, [place] Diabetes Association. Diabetes Care. 2016.39(Suppl 1). Performed By: #### 2 4323-8, LIPNF ####[facility] LABCLIA [id number] [place] [address] [place] Potassium [Moles/Vol] 4.1 mmol/L Normal 3.7-5.1 [facility] Comment on above: Order Comment: Speci men Type: BLOOD SPECIMENOrdering Facility: [facility] Address: [address] [place] [address] Performed By: #### 2 4323-8, LIPNF ####[facility] LABCLIA [id number] [place] [address] [place] Protein [Mass/Vol] 7.2 g/dL Normal 6.3-8.0 [facility] Comment on above: Order Comment: Speci men Type: BLOOD SPECIMENOrdering Facility: [facility] Address: [address] [place] [address] Performed By: #### 2 4323-8, LIPNF ####[facility] LABCLIA [id number] [place] [address] [place] Sodium [Moles/Vol] 140 mmol/L Normal 136-144 [facility] Comment on above: Order Comment: Speci men Type: BLOOD SPECIMENOrdering Facility: [facility] Address: [address] [place] [address] Performed By: #### 2 4323-8, LIPNF ####[facility] LABCLIA [id number] [place] [address] [place] Urea nitrogen [Mass/Vol] 23 mg/dL Normal 9-24 [facility] Comment on above: Order Comment: Speci men Type: BLOOD SPECIMENOrdering Facility: [facility] Address: [address] [place] [address] Performed By: #### 2 4323-8, LIPNF ####[facility] LABCLIA [id number] [place] [address] [place] LIPID PANEL, NONFASTINGon Cholesterol [Mass/Vol] 215 mg/dL High <200 [facility] Comment on above: Order Comment: Speci men Type: BLOOD SPECIMENOrdering Facility: [facility] Address: [address] [place] [address] Result Comment: <200 mg/dL, Desirable 200-239 mg/dL, Borderline high >239 mg/dL, High Performed By: #### 2 4323-8, LIPNF ####[facility] LABCLIA [id number] [place] [address] [place] HDL CHOLESTEROL, NF 58 mg/dL Normal >39 [facility] Comment on above: Order Comment: Speci men Type: BLOOD SPECIMENOrdering Facility: [facility] Address: [address] [place] [address] Result Comment: 40-5 9 mg/dL, Acceptable >59 mg/dL, High: Negative risk factor for coronary heart disease <40 mg/dL, Low: Positive risk factor for coronary heart disease Performed By: #### 2 4323-8, LIPNF ####[facility] LABCLIA [id number] [place] [address] [place] LDL CHOLESTEROL CALCULATED, NF 137 mg/dL High <100 [facility] Comment on above: Order Comment: Speci men Type: BLOOD SPECIMENOrdering Facility: [facility] Address: [address] [place] [address] Result Comment: <100 mg/dL, Optimal 100-129 mg/dL, Near optimal/above optimal 130-159 mg/dL, Borderline high 160-189 mg/dL, High >189 mg/dL, Very high Secondary prevention optimal LDL Cholesterol levels are recommended to be <70 mg/dL LDL cholesterol is calculated using the Marti-NIH equation. Performed By: #### 2 4323-8, LIPNF ####[facility] LABCLIA [id number] [address] LDL/HDL RATIO, NF 2.36 mg/dL Normal <2.[address] [facility] Comment on above: Order Comment: Speci men Type: BLOOD SPECIMENOrdering Facility: [facility] Address: [address] [place] [address] Result Comment: Refe rence: 1. National Cholesterol Education Program ATP III Guideline At-A-Glance Quick Desk Reference: National Heart, Lung, and Blood [place]. National Institutes of Health. 2001: NIH Publication No. 01-3305. 2. An International Atherosclerosis Society position paper: global recommendations for the management of dyslipidemia: executive summary, Atherosclerosis. 2014: 232(2):410-413. Performed By: #### 2 4323-8, LIPNF ####[facility] LABIA [id number] [address] NON HDL CHOL, NF 157 mg/dL High <130 [facility] Comment on above: Order Comment: Rebecca bailon Type: BLOOD SPECIMENOrdering Facility: [facility] Address: [address] [place] [address] Result Comment: <130 mg/dL, Optimal 130-159 mg/dL, Near optimal/above optimal 160-189 mg/dL, Borderline high 190-219 mg/dL, High >219 mg/dL, Very high Secondary prevention optimal non HDL Cholesterol levels are recommended to be <100 mg/dL Performed By: #### 2 4323-8, LIPNF ####[facility] LABCLIA [id number] [address] OF [facility] T CHOL/HDL RATIO NF 3.71 mg/dL Normal <5.10 [facility] Comment on above: Order Comment: Valentinei men Type: BLOOD SPECIMENOrdering Facility: [facility] Address: [address] [place] [address] Performed By: #### 2 4323-8, LIPNF ####[facility] LABCLIA [id number] [place] [address] [place] TRIGLYCERIDES, NF 111 mg/dL Normal <[address] [facility] Comment on above: Order Comment: Speci men Type: BLOOD SPECIMENOrdering Facility: [facility] Address: [address] [place] [address] Result Comment: <150 mg/dL, Normal 150-199 mg/dL, Borderline high 200-499 mg/dL, High >499 mg/dL, Very high Performed By: #### 2 4323-8, LIPNF ####[facility] LABCLIA [id number] [place] [address] [place] VLDL CHOLESTEROL, NF 20 mg/dL Normal <30 [facility] Comment on above: Order Comment: Speci men Type: BLOOD SPECIMENOrdering Facility: [facility] Address: [address] [place] [address] Performed By: #### 2 4323-8, LIPNF ####[facility] LABCLIA [id number] [address] OF [place] CNTHERAPYon 06-25-2024 CNTHERAPY OT/PT/Speech Visit (PTWS) PAOLO HERNANDEZ ([id number]) 1945 M Date Time Provider Department 06/25/24 10:45 AM DAVID KIMBROUGH PTWS Date Time Provider Department Center 06/25/2024 10:45 AM [id number], COLIN PTWS Tigist Navarrete Reason for Visit: PT Discharge [752] Primary Visit Diagnosis:S/P hip replacement, right [Z96.641] Allergies As of Date: 06/25/2024 (No Known Allergies) Date Reviewed: 06/22/2024 Reviewed by: Marbella Chicas MA - Fully Assessed Prescriptions as of 06/25/2024 - ferrous sulfate (IRON) 325 mg (65 mg iron) tablet Take 325 mg by mouth once daily. - aspirin, enteric coated (ASPIRIN, ENTERIC COATED) 81 mg EC tablet Take 1 tablet by mouth two times a day for 28 days. - ascorbic acid, vitamin C, (VITAMIN C) 500 mg tablet Take 1 tablet by mouth two times a day with meals for 27 doses. Facility-Administered Medications as of 06/25/2024 - lidocaine 10 mg/mL (1 %) injection (XYLOCAINE) - triamcinolone acetonide injection (KeNALog 40) Stoneworker: Therapy (PT/OT/Speech/Resp) ID: [id number] 06/25/2024 11:02 AM Author: DAVID KIMBROUGH Signed by DAVID KIMBROUGH PT on 06/25/2024 at 11:02 AM Document text: Program_ID:[id number] Access Code: [email or web address] URL: [email or web address] Date: 06-25-2024 Prepared By: David Kimbrough Program Notes Exercises - Standing Hip Abduction with Anchored Resistance - 2 x daily - 5 x weekly - 2 sets - 10 reps - Standing Hip Extension with Anchored Resistance - 2 x daily - 5 x weekly - 2 sets - 10 reps - Standing Hip Flexion with Anchored Resistance and Chair Support - 2 x daily - 5 x weekly - 2 sets - 10 reps - Side Stepping with Resistance at Ankles - 2 x daily - 5 x weekly - 1 sets - 4 reps - Standing Marching - 2 x daily - 5 x weekly - 2 sets - 10 reps - Standing Knee Flexion - 2 x daily - 5 x weekly - 2 sets - 10 reps - Goblet Squat with Kettlebell - 2 x daily - 5 x weekly - 2 sets - 8-12 reps - Supine Active Straight Leg Raise - 2 x daily - 5 x weekly - 2-3 sets - 10 reps - Forward and Backward Monster Walk with Resistance at Ankles and Counter Support - 2 x daily - 5 x weekly - 2 sets - 3 reps -- Normal [facility] THERAPY NTon 06-25-2024 THERAPY NT HNO ID: [id number] Author: DAVID KIMBROUGH PT Service: ? Author Type: Physical Therapist Type: Therapy (PT/OT/Speech/Resp) Filed: 06/25/2024 11:02 Note Text: Program_ID:[id number] Access Code: [email or web address] URL: [email or web address] Date: 06-25-2024 Prepared By: David Kimbrough Program Notes Exercises - Standing Hip Abduction with Anchored Resistance - 2 x daily - 5 x weekly - 2 sets - 10 reps - Standing Hip Extension with Anchored Resistance - 2 x daily - 5 x weekly - 2 sets - 10 reps - Standing Hip Flexion with Anchored Resistance and Chair Support - 2 x daily - 5 x weekly - 2 sets - 10 reps - Side Stepping with Resistance at Ankles - 2 x daily - 5 x weekly - 1 sets - 4 reps - Standing Marching - 2 x daily - 5 x weekly - 2 sets - 10 reps - Standing Knee Flexion - 2 x daily - 5 x weekly - 2 sets - 10 reps - Goblet Squat with Kettlebell - 2 x daily - 5 x weekly - 2 sets - 8-12 reps - Supine Active Straight Leg Raise - 2 x daily - 5 x weekly - 2-3 sets - 10 reps - Forward and Backward Monster Walk with Resistance at Ankles and Counter Support - 2 x daily - 5 x weekly - 2 sets - 3 reps Normal [facility] CNOVon 06-22-2024 CNOV Office Visit (ORTHWS ) PAOLO HERNANDEZ ([id number]) 1945 M Date Time Provider Department 06/22/24 8:30 AM ALFREDITO MICHELE During your visit today, we recorded the following information about you: Alfredito Michele MD 06/22/2024 9:21 AM Signed Alfredito Michele MD Department of Orthopaedics Orthopaedics [address] [facility] [address] Dept: [phone] Dept June 22, 2024 CHIEF COMPLAINT: Post Op of the Right Hip (11 weeks 5 days post op Robotic Assisted Right LOGAN) HPI: HPI Patient here for post op visit robotic assisted right LOGAN. Patient states he is continuing home exercises. Denies any pain. New x-rays done today. ASSESSMENT: Z96.641 History of total right hip arthroplasty (primary encounter diagnosis) PLAN: Feeling what sounds like, a little bit of right sided sciatica. If that persists, we could get him in with pain management to evaluate for possible injection treatment. In the meantime, he is going to continue strengthening of the hip and working on his balance and normal gait. 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 OBJECTIVE: Mr. Paolo Hernandez is a pleasant 78 year old in no apparent distress. Gen:There were no vitals taken for this visit. nl development, non obese, no deformities ENT: Normocephalic, normal hearing, moist mucosa CV: Pulses:DP/PT= 2+ and symmetric, capillary refill < 2 secs, no peripheral edema/varicosities Skin: no rash, bruising or lesions. Good turgor. Psych: cooperative and appropriate, alert and oriented x 3, good mood and affect. Musculoskeletal: He does appear to have a bit of an unsteady gait on observation. Healed incision. Range of motion without pain. Imaging: AP pelvis and 2 views of the hip show an intact arthroplasty without any concerns. Supporting Subjective Information Below: Past Medical History: PAST MEDICAL HISTORY Diagnosis Date Right inguinal hernia Rotator cuff tear Right shoulder Vertigo Past Surgical History: PAST SURGICAL HISTORY Procedure Laterality Date APPENDECTOMY 02/18/1963 LAPAROSCOPY SURG RPR INITIAL INGUINAL HERNIA 12/09/2013 right PAST SURGICAL HISTORY OF 10/19/1969 wisdom teeth PAST SURGICAL HISTORY OF Bilateral 2020 B/L cataract surgery TOTAL HIP REPLACEMENT Right 04/01/2024 Robotic assisted Right total hip arthroplasty Medications: Current Outpatient Medications Medication Sig ferrous sulfate (IRON) 325 mg (65 mg iron) tablet Take 325 mg by mouth once daily. (Patient not taking: Reported on 06/22/2024) aspirin, enteric coated (ASPIRIN, ENTERIC COATED) 81 mg EC tablet Take 1 tablet by mouth two times a day for 28 days. ascorbic acid, vitamin C, (VITAMIN C) 500 mg tablet Take 1 tablet by mouth two times a day with meals for 27 doses. No current facility-administered medications for this visit. Facility-Administered Medications Ordered in Other Visits Medication Dose Route Frequency lidocaine 10 mg/mL (1 %) injection (XYLOCAINE) OTHER PRN triamcinolone acetonide injection (KeNALog 40) INTRA-ARTICULAR PRN Allergies: Patient has no known allergies. ROS: General (negative for fatigue, malaise, weight loss/gain) HEENT (negative for headache, earache, recent vision changes, sinus pain, sore throat) Respiratory (no recent shortness of breath, hemoptysis) CV (negative for chest tightness, palpitations) Musculoskeletal (see HPI) Psych (no depression, anxiety) Recording using [employer] software for draft documentation of the visit was discussed with the patient/authorized customer response representative; all questions welcomed and answered. Patient/authorized customer response representative agreed to proceed Alfredito Michele MD Referring Provider: ALFREDITO MICHELE [[id number]] Allergies As of Date: 06/22/2024 (No Known Allergies) Date Reviewed: 06/22/2024 Reviewed by: Marbella Chicas MA - Fully Assessed Reason for Visit: Post Op [174] Cmt: 11 weeks 5 days post op Robotic Assisted Right LOGAN Primary Visit Diagnosis:History of total right hip arthroplasty [Z96.641] Prescriptions as of 06/22/2024 - ferrous sulfate (IRON) 325 mg (65 mg iron) tablet Take 325 mg by mouth once daily. - aspirin, enteric coated (ASPIRIN, ENTERIC COATED) 81 mg EC tablet Take 1 tablet by mouth two times a day for 28 days. - ascorbic acid, vitamin C, (VITAMIN C) 500 mg tablet Take 1 tablet by mouth two times a day with meals for 27 doses. 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 Normal [facility] CNTHERAPYon 06-22-2024 CNTHERAPY OT/PT/Speech Visit (PTWS) PAOLO HERNANDEZ ([id number]) 1945 M Date Time Provider Department 06/22/24 9:30 AM BECKA VALLE PTMIRIAM Date Time Provider Department Center 06/22/2024 9:30 AM [id number], MARIAH PTMIRIAM Navarrete Reason for Visit: Physical Therapy [503] Primary Visit Diagnosis:S/P hip replacement, right [Z96.641] Allergies As of Date: 06/22/2024 (No Known Allergies) Date Reviewed: 06/22/2024 Reviewed by: Marbella Chicas MA - Fully Assessed Prescriptions as of 06/22/2024 - ferrous sulfate (IRON) 325 mg (65 mg iron) tablet Take 325 mg by mouth once daily. - aspirin, enteric coated (ASPIRIN, ENTERIC COATED) 81 mg EC tablet Take 1 tablet by mouth two times a day for 28 days. - ascorbic acid, vitamin C, (VITAMIN C) 500 mg tablet Take 1 tablet by mouth two times a day with meals for 27 doses. Facility-Administered Medications as of 06/22/2024 - lidocaine 10 mg/mL (1 %) injection (XYLOCAINE) - triamcinolone acetonide injection (KeNALog 40) Normal [facility] XR HIP 3V PELV+ AP/LAT RTon 06-22-2024 XR HIP 3V PELV+ AP/LAT RT * * *Final Report* * * DATE OF EXAM: Jun 22 2024 8:16AM WRX 5352 - XR HIP 3V PELV+ AP/LAT RT / PROCEDURE REASON: multiple diagnoses * * * * Physician Interpretation * * * * EXAMINATION / TECHNIQUE: XR HIP 3V PELV+ AP/LAT RT HISTORY: PT STATES 3 MONTH FOLLOW UP RIGHT LOGAN Primary osteoarthritis of right hip Status post total replacement of right hip COMPARISON: 05/11/2024. FINDINGS: Status post right total hip arthroplasty with orthopedic hardware in standard position and alignment. There is no periprosthetic lucency or fracture. Left hip joint space is maintained. Lower lumbar degenerative changes. IMPRESSION: Status post right total hip arthroplasty without evidence of complication. Rolling Up Machine Operator: DELISA Transcribe Date/Time: Jun 25 2024 7:23P Dictated by : CECY WEIR MD This examination was interpreted and the report reviewed and electronically signed by: CECY WEIR MD on Jun 25 2024 7:23PM EST [id number] [facility] CNTHERAPYon 06-18-2024 CNTHERAPY OT/PT/Speech Visit (PTWS) PAOLO HERNANDEZ ([id number]) 1945 M Date Time Provider Department 06/18/24 11:30 AM DAVID KIMBROUGH PTWS Date Time Provider Department Center 06/18/2024 11:30 AM [id number], COLIN PTWS [facility] Navarrete Reason for Visit: Physical Therapy [503] Primary Visit Diagnosis:S/P hip replacement, right [Z96.641] Allergies As of Date: 06/18/2024 (No Known Allergies) Date Reviewed: 06/06/2024 Reviewed by: Alfredito Michele MD - Fully Assessed Prescriptions as of 06/18/2024 - ferrous sulfate (IRON) 325 mg (65 mg iron) tablet Take 325 mg by mouth once daily. - aspirin, enteric coated (ASPIRIN, ENTERIC COATED) 81 mg EC tablet Take 1 tablet by mouth two times a day for 28 days. - ascorbic acid, vitamin C, (VITAMIN C) 500 mg tablet Take 1 tablet by mouth two times a day with meals for 27 doses. Facility-Administered Medications as of 06/18/2024 - lidocaine 10 mg/mL (1 %) injection (XYLOCAINE) - triamcinolone acetonide injection (KeNALog 40) [facility] CNTHERAPYon 06-16-2024 CNTHERAPY OT/PT/Speech Visit (PTWS) PAOLO HERNANDEZ ([id number]) 1945 M Date Time Provider Department 06/16/24 10:00 AM DAVID KIMBROUGH PTMIRIAM Date Time Provider Department Center 06/16/2024 10:00 AM [id number], COLIN PTWS [facility] Navarrete Reason for Visit: Physical Therapy [503] Primary Visit Diagnosis:S/P hip replacement, right [Z96.641] Allergies As of Date: 06/16/2024 (No Known Allergies) Date Reviewed: 06/06/2024 Reviewed by: Alfredito Michele MD - Fully Assessed Prescriptions as of 06/16/2024 - ferrous sulfate (IRON) 325 mg (65 mg iron) tablet Take 325 mg by mouth once daily. - aspirin, enteric coated (ASPIRIN, ENTERIC COATED) 81 mg EC tablet Take 1 tablet by mouth two times a day for 28 days. - ascorbic acid, vitamin C, (VITAMIN C) 500 mg tablet Take 1 tablet by mouth two times a day with meals for 27 doses. Facility-Administered Medications as of 06/16/2024 - lidocaine 10 mg/mL (1 %) injection (XYLOCAINE) - triamcinolone acetonide injection (KeNALog 40) [facility]/PT/Speech Visit (PTWS) MARYPAOLO YANG ([id number]) 1945 M Date Time Provider Department 06/11/24 11:30 AM DAVID KIMBROUGH PTWS Date Time Provider Department Center 06/11/2024 11:30 AM [id number], COLIN PTWS [facility] Navarrete Reason for Visit: Physical Therapy [503] Primary Visit Diagnosis:S/P hip replacement, right [Z96.641] Allergies As of Date: 06/11/2024 (No Known Allergies) Date Reviewed: 06/06/2024 Reviewed by: Alfredito Michele MD - Fully Assessed Prescriptions as of 06/11/2024 - ferrous sulfate (IRON) 325 mg (65 mg iron) tablet Take 325 mg by mouth once daily. - aspirin, enteric coated (ASPIRIN, ENTERIC COATED) 81 mg EC tablet Take 1 tablet by mouth two times a day for 28 days. - ascorbic acid, vitamin C, (VITAMIN C) 500 mg tablet Take 1 tablet by mouth two times a day with meals for 27 doses. Facility-Administered Medications as of 06/11/2024 - lidocaine 10 mg/mL (1 %) injection (XYLOCAINE) - triamcinolone acetonide injection (KeNALog 40) [facility] OT/PT/Speech Visit (PTWS) PAOLO HERNANDEZ ([id number]) 1945 M Date Time Provider Department 06/09/24 10:00 AM DAVID KIMBROUGH PTWS Date Time Provider Department Center 06/09/2024 10:00 AM [id number], COLIN PTWS [facility] Ivett Reason for Visit: Physical Therapy [503] Primary Visit Diagnosis:S/P hip replacement, right [Z96.641] Allergies As of Date: 06/09/2024 (No Known Allergies) Date Reviewed: 06/06/2024 Reviewed by: Alfredito Michele MD - Fully Assessed Prescriptions as of 06/09/2024 - ferrous sulfate (IRON) 325 mg (65 mg iron) tablet Take 325 mg by mouth once daily. - aspirin, enteric coated (ASPIRIN, ENTERIC COATED) 81 mg EC tablet Take 1 tablet by mouth two times a day for 28 days. - ascorbic acid, vitamin C, (VITAMIN C) 500 mg tablet Take 1 tablet by mouth two times a day with meals for 27 doses. Facility-Administered Medications as of 06/09/2024 - lidocaine 10 mg/mL (1 %) injection (XYLOCAINE) - triamcinolone acetonide injection (KeNALog 40) [facility] [id number] 06-04-2024 [id number] HNO ID: [id number] Author: DAVID KIMBROUGH PT Service: ? Author Type: Physical Therapist Type: [id number] Filed: 06/04/2024 11:28 Note Text: [facility] Physical Therapy Plan of Care Certification Patient Name: Paolo Hernandez : 1945 CC #: [id number] Date: 06/04/2024 To: Louis Scott MD From Therapist: David Kimbrough PT RE: Patient Certification/ Recertification Your review, approval and electronic signature are required in order to comply with Payor: MEDICARE / Plan: MEDICARE A AND B / Product Type: Medicare / regulations. The identified Physical Therapy PLAN OF CARE for the patient is as follows: Z96.641 S/P hip replacement, right (primary encounter diagnosis) PLAN OF CARE UPDATE: Assessment: Paolo Hernandez is 64 days post-op Posterior R LOGAN. Today is his progress report and 12th appointment. He demonstrates significant improvement in stair negotiation without rail, walking far distances without fatigue, pain frequency AND severity, decreased R Hip stiffness and improved ROM, returning to lifting 30-35#, starting to do more yard AND home management phys. activities. No set RTW date yet, going to see Dr. Michele to discuss. The patient has progressed toward goals. Patient continues to present with impairments in ADL's, balance, gait, overall function, and strength that interfere with working, lifting (Balance vs. uneven surfaces. 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 Current prognosis is Excellent due to: current objective clinical presentation, good overall health status, positive past response to therapy . The patient will benefit from continued skilled therapy services to meet the updated goals for this plan of care as noted below. Updated: 06/04/24. Goals for Episode of Care: established 04/29/24 [place] in home exercise program. (Currently Met, Continuing) Patient will increase passive ROM of L hip to 120 degrees flexion to allow pt to improve performance of ADLs/IADLs. (Currently Met, Continuing) Improve R Hip ER, IR, AND ABD to WFL for improved functional mobility. (Currently Met, Continuing) Patient will demonstrate increase in RHip strength to 5/5 during manual muscle testing in order to improve function for home management tasks, occupational demands, and prior functional tasks. (Progressing Towards) Patient will be able to perform walking without pain and deviations. (Progressing Towards) Reciprocal Stair Negotiation without use of hands for assist. (Progressing Towards, can improve stability still). 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 (Progressing Towards) Time Frame for Goals and Treatment : 07/16/24 Planned Interventions, Frequency, and Duration: 2x/week, 2 weeks Total Number of Visits Planned: 4 (Schedule 4 more visits onto 6 planned.) Patient to be seen for Therapeutic exercise (02787), Neuromuscular re-education (31840), Manual therapy (75711), Therapeutic activities (27305), Self-senior care management (64775), Gait Training (22005), Patient/Family/Caregiv er Education PLAN FOR NEXT VISIT: Frontal Plane Strength; Balance. For further details regarding this patient refer to the Physical Therapy electronically documented visit dated 06/04/2024. Provider Attestation I have reviewed the treatment plan for Paolo Hernandez, [facility]# [id number] for the period of 06/05/24 -- 07/17/24, established on 06/04/2024. Signature certifies the need for therapy services. [facility] OT/PT/Speech Visit (PTWS) PAOLO HERNANDEZ ([id number]) 1945 M Date Time Provider Department 06/04/24 10:45 AM DAVID KIMBROUGH Date Time Provider Department Center 06/04/2024 10:45 AM [id number] KIMBROUGH Reason for Visit: Physical Therapy [503] Primary Visit Diagnosis:S/P hip replacement, right [Z96.641] Allergies As of Date: 06/04/2024 (No Known Allergies) Date Reviewed: 05/11/2024 Reviewed by: Marbella Chicas MA - Fully Assessed Prescriptions as of 06/04/2024 - ferrous sulfate (IRON) 325 mg (65 mg iron) tablet Take 325 mg by mouth once daily. - aspirin, enteric coated (ASPIRIN, ENTERIC COATED) 81 mg EC tablet Take 1 tablet by mouth two times a day for 28 days. - ascorbic acid, vitamin C, (VITAMIN C) 500 mg tablet Take 1 tablet by mouth two times a day with meals for 27 doses. Facility-Administered Medications as of 06/04/2024 - lidocaine 10 mg/mL (1 %) injection (XYLOCAINE) - triamcinolone acetonide injection (KeNALog 40) [facility]Y OT/PT/Speech Visit (PTWS) PAOLO HERNANDEZ ([id number]) 1945 M Date Time Provider Department 06/02/24 10:00 AM DAVID KIMBROUGH PTWS Date Time Provider Department Center 06/02/2024 10:00 AM [id number], COLIN PTWS [facility]arrete Reason for Visit: Physical Therapy [503] Primary Visit Diagnosis:S/P hip replacement, right [Z96.641] Allergies As of Date: 06/02/2024 (No Known Allergies) Date Reviewed: 05/11/2024 Reviewed by: Marbella Chicas MA - Fully Assessed Prescriptions as of 06/02/2024 - ferrous sulfate (IRON) 325 mg (65 mg iron) tablet Take 325 mg by mouth once daily. - aspirin, enteric coated (ASPIRIN, ENTERIC COATED) 81 mg EC tablet Take 1 tablet by mouth two times a day for 28 days. - ascorbic acid, vitamin C, (VITAMIN C) 500 mg tablet Take 1 tablet by mouth two times a day with meals for 27 doses. Facility-Administered Medications as of 06/02/2024 - lidocaine 10 mg/mL (1 %) injection (XYLOCAINE) - triamcinolone acetonide injection (KeNALog 40) Stoneworker: Therapy (PT/OT/Speech/Resp) ID: [id number] 06/02/2024 10:43 AM Author: DAVID KIMBROUGH Signed by DAVID KIMBROUGH PT on 06/02/2024 at 10:43 AM Document text: Program_ID:[id number] Access Code: [email or web address] URL: https://[email or web address]/ Date: 06-02-2024 Prepared By: David Kimbrough Program Notes Exercises - Standing Hip Abduction with Anchored Resistance - 2 x daily - 7 x weekly - 2 sets - 10 reps - Standing Hip Extension with Anchored Resistance - 2 x daily - 7 x weekly - 2 sets - 10 reps - Standing Hip Flexion with Anchored Resistance and Chair Support - 2 x daily - 7 x weekly - 2 sets - 10 reps - Side Stepping with Resistance at Ankles - 2 x daily - 7 x weekly - 1 sets - 4 reps - Squat with Chair Touch and Resistance Loop - 2 x daily - 7 x weekly - 2 sets - 15 reps - Standing Marching - 2 x daily - 7 x weekly - 2 sets - 10 reps - Standing Knee Flexion - 2 x daily - 7 x weekly - 2 sets - 10 reps -- [facility] THERAPY NTon 06-02-2024 THERAPY NT HNO ID: [id number] Author: DAVID KIMBROUGH PT Service: ? Author Type: Physical Therapist Type: Therapy (PT/OT/Speech/Resp) Filed: 06/02/2024 10:43 Note Text: Program_ID:[id number] Access Code: [email or web address] URL: [email or web address] Date: 06-02-2024 Prepared By: David Kimbrough Program Notes Exercises - Standing Hip Abduction with Anchored Resistance - 2 x daily - 7 x weekly - 2 sets - 10 reps - Standing Hip Extension with Anchored Resistance - 2 x daily - 7 x weekly - 2 sets - 10 reps - Standing Hip Flexion with Anchored Resistance and Chair Support - 2 x daily - 7 x weekly - 2 sets - 10 reps - Side Stepping with Resistance at Ankles - 2 x daily - 7 x weekly - 1 sets - 4 reps - Squat with Chair Touch and Resistance Loop - 2 x daily - 7 x weekly - 2 sets - 15 reps - Standing Marching - 2 x daily - 7 x weekly - 2 sets - 10 reps - Standing Knee Flexion - 2 x daily - 7 x weekly - 2 sets - 10 reps [facility] CNTHERAPYon 05-28-2024 CNTHERAPY OT/PT/Speech Visit (PTWS) PAOLO HERNANDEZ ([id number]) 1945 M Date Time Provider Department 05/28/24 11:30 AM DAVID KIMBROUGH Date Time Provider Department Center 05/28/2024 11:30 AM [id number] BATRES Reason for Visit: Physical Therapy [503] Primary Visit Diagnosis:S/P hip replacement, right [Z96.641] Allergies As of Date: 05/28/2024 (No Known Allergies) Date Reviewed: 05/11/2024 Reviewed by: Marbella Chicas MA - Fully Assessed Prescriptions as of 05/28/2024 - ferrous sulfate (IRON) 325 mg (65 mg iron) tablet Take 325 mg by mouth once daily. - aspirin, enteric coated (ASPIRIN, ENTERIC COATED) 81 mg EC tablet Take 1 tablet by mouth two times a day for 28 days. - ascorbic acid, vitamin C, (VITAMIN C) 500 mg tablet Take 1 tablet by mouth two times a day with meals for 27 doses. Facility-Administered Medications as of 05/28/2024 - lidocaine 10 mg/mL (1 %) injection (XYLOCAINE) - triamcinolone acetonide injection (KeNALog 40) [facility] CNTHERAPYon 05-26-2024 CNTHERAPY OT/PT/Speech Visit (PTWS) PAOLO HERNANDEZ ([id number]) 1945 M Date Time Provider Department 05/26/24 9:15 AM DAVID KIMBROUGH Date Time Provider Department Center 05/26/2024 9:15 AM [id number] KIMBROUGH Reason for Visit: Physical Therapy [503] Primary Visit Diagnosis:S/P hip replacement, right [Z96.641] Allergies As of Date: 05/26/2024 (No Known Allergies) Date Reviewed: 05/11/2024 Reviewed by: Marbella Chicas MA - Fully Assessed Prescriptions as of 05/26/2024 - ferrous sulfate (IRON) 325 mg (65 mg iron) tablet Take 325 mg by mouth once daily. - aspirin, enteric coated (ASPIRIN, ENTERIC COATED) 81 mg EC tablet Take 1 tablet by mouth two times a day for 28 days. - ascorbic acid, vitamin C, (VITAMIN C) 500 mg tablet Take 1 tablet by mouth two times a day with meals for 27 doses. Facility-Administered Medications as of 05/26/2024 - lidocaine 10 mg/mL (1 %) injection (XYLOCAINE) - triamcinolone acetonide injection (KeNALog 40) [facility] CNTHERAPYon 05-21-2024 CNTHERAPY OT/PT/Speech Visit (PTWS) PAOLO HERNANDEZ ([id number]) 1945 M Date Time Provider Department 05/21/24 11:45 AM BECKA VALLE Date Time Provider Department [place] 05/21/2024 11:45 AM [id number] VALLE Reason for Visit: Physical Therapy [503] Primary Visit Diagnosis:S/P hip replacement, right [Z96.641] Allergies As of Date: 05/21/2024 (No Known Allergies) Date Reviewed: 05/11/2024 Reviewed by: Marbella Chicas MA - Fully Assessed Prescriptions as of 05/21/2024 - ferrous sulfate (IRON) 325 mg (65 mg iron) tablet Take 325 mg by mouth once daily. - aspirin, enteric coated (ASPIRIN, ENTERIC COATED) 81 mg EC tablet Take 1 tablet by mouth two times a day for 28 days. - ascorbic acid, vitamin C, (VITAMIN C) 500 mg tablet Take 1 tablet by mouth two times a day with meals for 27 doses. Facility-Administered Medications as of 05/21/2024 - lidocaine 10 mg/mL (1 %) injection (XYLOCAINE) - triamcinolone acetonide injection (KeNALog 40) [facility] CNTHERAPYon 05-19-2024 CNTHERAPY OT/PT/Speech Visit (PTWS) PAOLO HERNANDEZ ([id number]) 1945 M Date Time Provider Department 05/19/24 2:00 PM BECKA VALLE Date Time Provider Department Center 05/19/2024 2:00 PM [id number] VALLE Reason for Visit: Physical Therapy [503] Primary Visit Diagnosis:S/P hip replacement, right [Z96.641] Allergies As of Date: 05/19/2024 (No Known Allergies) Date Reviewed: 05/11/2024 Reviewed by: Marbella Chicas MA - Fully Assessed Prescriptions as of 05/19/2024 - ferrous sulfate (IRON) 325 mg (65 mg iron) tablet Take 325 mg by mouth once daily. - aspirin, enteric coated (ASPIRIN, ENTERIC COATED) 81 mg EC tablet Take 1 tablet by mouth two times a day for 28 days. - ascorbic acid, vitamin C, (VITAMIN C) 500 mg tablet Take 1 tablet by mouth two times a day with meals for 27 doses. Facility-Administered Medications as of 05/19/2024 - lidocaine 10 mg/mL (1 %) injection (XYLOCAINE) - triamcinolone acetonide injection (KeNALog 40) [facility]/Speech [facility] (PTWS) PAOLO HERNANDEZ ([id number]) 1945 M Date Time Provider Department 05/14/24 8:45 AM BECKA VALLE Date Time Provider Department Center 05/14/2024 8:45 AM [id number] VALLE Reason for Visit: Physical Therapy [503] Primary Visit Diagnosis:S/P hip replacement, right [Z96.641] Allergies As of Date: 05/14/2024 (No Known Allergies) Date Reviewed: 05/11/2024 Reviewed by: Marbella Chicas MA - Fully Assessed Prescriptions as of 05/14/2024 - ferrous sulfate (IRON) 325 mg (65 mg iron) tablet Take 325 mg by mouth once daily. - aspirin, enteric coated (ASPIRIN, ENTERIC COATED) 81 mg EC tablet Take 1 tablet by mouth two times a day for 28 days. - ascorbic acid, vitamin C, (VITAMIN C) 500 mg tablet Take 1 tablet by mouth two times a day with meals for 27 doses. Facility-Administered Medications as of 05/14/2024 - lidocaine 10 mg/mL (1 %) injection (XYLOCAINE) - triamcinolone acetonide injection (KeNALog 40) [facility] CNTHERAPYon 05-12-2024 CNTHERAPY OT/PT/Speech Visit (PTWS) PAOLO HERNANDEZ ([id number]) 1945 M Date Time Provider Department 05/12/24 2:00 PM BECKA VALLE Date Time Provider Department Center 05/12/2024 2:00 PM [id number], MARIAH PTWS [facility] Navarrete Reason for Visit: Physical Therapy [503] Primary Visit Diagnosis:S/P hip replacement, right [Z96.641] Allergies As of Date: 05/12/2024 (No Known Allergies) Date Reviewed: 05/11/2024 Reviewed by: Marbella Chicas MA - Fully Assessed Prescriptions as of 05/12/2024 - ferrous sulfate (IRON) 325 mg (65 mg iron) tablet Take 325 mg by mouth once daily. - aspirin, enteric coated (ASPIRIN, ENTERIC COATED) 81 mg EC tablet Take 1 tablet by mouth two times a day for 28 days. - ascorbic acid, vitamin C, (VITAMIN C) 500 mg tablet Take 1 tablet by mouth two times a day with meals for 27 doses. Facility-Administered Medications as of 05/12/2024 - lidocaine 10 mg/mL (1 %) injection (XYLOCAINE) - triamcinolone acetonide injection (KeNALog 40) Stoneworker: Therapy (PT/OT/Speech/Resp) ID: [id number] 05/12/2024 2:27 PM Author: BECKA VALLE Signed by BECKA VALLE JUDICIAL ADMINISTRATIVE ASSISTANT on 05/12/2024 at 2:28 PM Document text: Program_ID:[id number] Access Code: [email or web address] URL: [email or web address] [employer]/ Date: 05-12-2024 Prepared By: David Kimbrough Program Notes Exercises - Supine Active Straight Leg Raise - 2 x daily - 7 x weekly - 2-3 sets - 10-15 reps - Sidelying Hip Abduction - 2 x daily - 7 x weekly - 2-3 sets - 10 reps - Sit to Stand Without Arm Support - 2 x daily - 7 x weekly - 2 sets - 6-10 reps - Heel Toe Raises with Counter Support - 2 x daily - 7 x weekly - 2 sets - 10-15 reps - Seated Gastroc Stretch with Strap - 1 x daily - 7 x weekly - 1 sets - 3 reps - Seated Soleus Stretch with Strap - 1 x daily - 7 x weekly - 1 sets - 3 reps - Seated Long Arc Quad - 2 x daily - 7 x weekly - 2 sets - 10 reps - Side Stepping with Resistance at Thighs - 2 x daily - 7 x weekly - 3 sets - reps - Standing Hip Extension with Anchored Resistance - 1-2 x daily - 7 x weekly - 1-2 sets - 10 reps - Standing Hip Abduction with Anchored Resistance - 1-2 x daily - 7 x weekly - 1-2 sets - 10 reps - Standing Hip Flexion with Resistance Loop - 1-2 x daily - 7 x weekly - 1-2 sets - 10 reps -- [facility] THERAPY NTon 05-12-2024 THERAPY NT HNO ID: [id number] Author: BECKA VALLE PTA Service: ? Author Type: Materials Development Engineer Type: Therapy (PT/OT/Speech/Resp) Filed: 05/12/2024 14:28 Note Text: Program_ID:[id number] Access Code: [email or web address] URL: https://[facility]/ Date: 05-12-2024 Prepared By: David Kimbrough Program Notes Exercises - Supine Active Straight Leg Raise - 2 x daily - 7 x weekly - 2-3 sets - 10-15 reps - Sidelying Hip Abduction - 2 x daily - 7 x weekly - 2-3 sets - 10 reps - Sit to Stand Without Arm Support - 2 x daily - 7 x weekly - 2 sets - 6-10 reps - Heel Toe Raises with Counter Support - 2 x daily - 7 x weekly - 2 sets - 10-15 reps - Seated Gastroc Stretch with Strap - 1 x daily - 7 x weekly - 1 sets - 3 reps - Seated Soleus Stretch with Strap - 1 x daily - 7 x weekly - 1 sets - 3 reps - Seated Long Arc Quad - 2 x daily - 7 x weekly - 2 sets - 10 reps - Side Stepping with Resistance at Thighs - 2 x daily - 7 x weekly - 3 sets - reps - Standing Hip Extension with Anchored Resistance - 1-2 x daily - 7 x weekly - 1-2 sets - 10 reps - Standing Hip Abduction with Anchored Resistance - 1-2 x daily - 7 x weekly - 1-2 sets - 10 reps - Standing Hip Flexion with Resistance Loop - 1-2 x daily - 7 x weekly - 1-2 sets - 10 reps [facility] CNOVon 05-11-2024 CNOV Office Visit (ORTHWS ) PAOLO HERNANDEZ ([id number]) 1945 M Date Time Provider Department 05/11/24 1:00 PM ALFREDITO MICHELE During your visit today, we recorded the following information about you: Alfredito Michele MD 06/06/2024 10:54 PM Signed Alfredito Michele MD Department of Orthopaedics Orthopaedics [address] [facility] [address] Dept: [phone] Dept May 11, 2024 CHIEF COMPLAINT: Post Op of the Right Hip (5 weeks 5 days post op Robotic assisted Right LOGAN). HPI Patient here for post op Robotic assisted right LOGAN. Patient denies any pain. Continuing home exercises. New x-rays done today. ASSESSMENT: Z96.641 History of total right hip arthroplasty (primary encounter diagnosis) SUMMARY/PLAN: Six weeks out and he is doing very well. Continue PT, hip precautions, etc. We'll see him back in 6 weeks. Exam: Healed incision. Walking well. Imaging: Normal post op films Supporting Information Below: Medications: Current Outpatient Medications Medication Sig ferrous sulfate (IRON) 325 mg (65 mg iron) tablet Take 325 mg by mouth once daily. aspirin, enteric coated (ASPIRIN, ENTERIC COATED) 81 mg EC tablet Take 1 tablet by mouth two times a day for 28 days. ascorbic acid, vitamin C, (VITAMIN C) 500 mg tablet Take 1 tablet by mouth two times a day with meals for 27 doses. No current facility-administered medications for this visit. Facility-Administered Medications Ordered in Other Visits Medication Dose Route Frequency lidocaine 10 mg/mL (1 %) injection (XYLOCAINE) OTHER PRN triamcinolone acetonide injection (KeNALog 40) INTRA-ARTICULAR PRN Allergies: Patient has no known allergies. Alfredito Michele MD Referring Provider: ALFREDITO MICHELE [[id number]] Allergies As of Date: 05/11/2024 (No Known Allergies) Date Reviewed: 05/11/2024 Reviewed by: Marbella Chicas MA - Fully Assessed Reason for Visit: Post Op [174] Cmt: 5 weeks 5 days post op Robotic assisted Right LOGAN Primary Visit Diagnosis:History of total right hip arthroplasty [Z96.641] Prescriptions as of 06/06/2024 - ferrous sulfate (IRON) 325 mg (65 mg iron) tablet Take 325 mg by mouth once daily. - aspirin, enteric coated (ASPIRIN, ENTERIC COATED) 81 mg EC tablet Take 1 tablet by mouth two times a day for 28 days. - ascorbic acid, vitamin C, (VITAMIN C) 500 mg tablet Take 1 tablet by mouth two times a day with meals for 27 doses. 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] 05/24/2008 Vertigo [R42] 03/22/2009 Right inguinal hernia [K40.90] 11/23/2013 Right hip pain [M25.551] 06/19/2023 Neuropathy [G62.9] 03/19/2024 S/P hip replacement, right [Z96.641] 04/02/2024 Encounter Status:Closed by ALFREDITO MICHELE on 06/06/24 [facility] XR HIP 3V PELV+ AP/LAT RTon 05-11-2024 XR HIP 3V PELV+ AP/LAT RT * * *Final Report* * * DATE OF EXAM: May 11 2024 12:19PM WRX 5352 - XR HIP 3V PELV+ AP/LAT RT / PROCEDURE REASON: multiple diagnoses * * * * Physician Interpretation * * * * PROCEDURE: Pelvis and right hip INDICATION: Primary osteoarthritis of right hip Status post total hip replacement, right .PT STATES RIGHT HIP POST OP 6 WEEKS TECHNIQUE: XR HIP 3V PELV+ AP/LAT RT COMPARISON: 04/13/2024 FINDINGS: The right total hip arthroplasty remains in satisfactory position. No periprosthetic lucency, fracture or subsidence. Mild left hip osteoarthrosis and advanced degenerative disc disease in the lower lumbar spine. 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[facility] Transcribe Date/Time: May 18 2024 9:11A Dictated by : FARZANEH CARRILLO MD This examination was interpreted and the report reviewed and electronically signed by: FARZANEH CARRILLO MD on May 18 2024 9:12AM EST [id number] [facility] CNTHERAPYon 05-08-2024 CNTHERAPY OT/PT/Speech Visit (PTWS) PAOLO HERNANDEZ ([id number]) 1945 M Date Time Provider Department 05/08/24 8:30 AM DAVID KIMBROUGH PTWS Date Time Provider Department Center 05/08/2024 8:30 AM [id number], COLIN PTWS Tigist Navarrete Reason for Visit: Physical Therapy [503] Primary Visit Diagnosis:S/P hip replacement, right [Z96.641] Allergies As of Date: 05/08/2024 (No Known Allergies) Date Reviewed: 04/23/2024 Reviewed by: Prudence Ornelas MA - Fully Assessed Prescriptions as of 05/08/2024 - ferrous sulfate (IRON) 325 mg (65 mg iron) tablet Take 325 mg by mouth once daily. - aspirin, enteric coated (ASPIRIN, ENTERIC COATED) 81 mg EC tablet Take 1 tablet by mouth two times a day for 28 days. - ascorbic acid, vitamin C, (VITAMIN C) 500 mg tablet Take 1 tablet by mouth two times a day with meals for 27 doses. Facility-Administered Medications as of 05/08/2024 - lidocaine 10 mg/mL (1 %) injection (XYLOCAINE) - triamcinolone acetonide injection (KeNALog 40) Stoneworker: Therapy (PT/OT/Speech/Resp) ID: [id number] 05/08/2024 9:08 AM Author: DAVID KIMBROUGH Signed by DAVID KIMBROUGH PT on 05/08/2024 at 9:08 AM Document text: Program_ID:[id number] Access Code: [email or web address] URL: [email or web address] Date: 05-08-2024 Prepared By: David Kimbrough Program Notes Exercises - Supine Active Straight Leg Raise - 2 x daily - 7 x weekly - 2-3 sets - 10-15 reps - Sidelying Hip Abduction - 2 x daily - 7 x weekly - 2-3 sets - 10 reps - Sit to Stand Without Arm Support - 2 x daily - 7 x weekly - 2 sets - 6-10 reps - Heel Toe Raises with Counter Support - 2 x daily - 7 x weekly - 2 sets - 10-15 reps - Seated Gastroc Stretch with Strap - 1 x daily - 7 x weekly - 1 sets - 3 reps - Seated Soleus Stretch with Strap - 1 x daily - 7 x weekly - 1 sets - 3 reps - Seated Long Arc Quad - 2 x daily - 7 x weekly - 2 sets - 10 reps - Side Stepping with Resistance at Thighs - 2 x daily - 7 x weekly - 3 sets - reps -- [facility] THERAPY NTon 05-08-2024 THERAPY NT HNO ID: [id number] Author: DAVID KIMBROUGH PT Service: ? Author Type: Physical Therapist Type: Therapy (PT/OT/Speech/Resp) Filed: 05/08/2024 09:08 Note Text: Program_ID:[id number] Access Code: [email or web address] URL: [email or web address] Date: 05-08-2024 Prepared By: David Kimbrough Program Notes Exercises - Supine Active Straight Leg Raise - 2 x daily - 7 x weekly - 2-3 sets - 10-15 reps - Sidelying Hip Abduction - 2 x daily - 7 x weekly - 2-3 sets - 10 reps - Sit to Stand Without Arm Support - 2 x daily - 7 x weekly - 2 sets - 6-10 reps - Heel Toe Raises with Counter Support - 2 x daily - 7 x weekly - 2 sets - 10-15 reps - Seated Gastroc Stretch with Strap - 1 x daily - 7 x weekly - 1 sets - 3 reps - Seated Soleus Stretch with Strap - 1 x daily - 7 x weekly - 1 sets - 3 reps - Seated Long Arc Quad - 2 x daily - 7 x weekly - 2 sets - 10 reps - Side Stepping with Resistance at Thighs - 2 x daily - 7 x weekly - 3 sets - reps [facility] CNTHERAPYon 05-05-2024 CNTHERAPY OT/PT/Speech Visit (PTWS) PAOLO HERNANDEZ ([id number]) 1945 M Date Time Provider Department 05/05/24 8:00 AM BECKA VALLE PTWS Date Time Provider Department Center 05/05/2024 8:00 AM [id number], MARIAH PTMIRIAM Navarrete Reason for Visit: Physical Therapy [503] Primary Visit Diagnosis:S/P hip replacement, right [Z96.641] Allergies As of Date: 05/05/2024 (No Known Allergies) Date Reviewed: 04/23/2024 Reviewed by: Prudence Ornelas MA - Fully Assessed Prescriptions as of 05/05/2024 - ferrous sulfate (IRON) 325 mg (65 mg iron) tablet Take 325 mg by mouth once daily. - aspirin, enteric coated (ASPIRIN, ENTERIC COATED) 81 mg EC tablet Take 1 tablet by mouth two times a day for 28 days. - ascorbic acid, vitamin C, (VITAMIN C) 500 mg tablet Take 1 tablet by mouth two times a day with meals for 27 doses. Facility-Administered Medications as of 05/05/2024 - lidocaine 10 mg/mL (1 %) injection (XYLOCAINE) - triamcinolone acetonide injection (KeNALog 40) [facility] CNTHERAPYon 05-01-2024 CNTHERAPY OT/PT/Speech Visit (PTWS) PAOLO HERNANDEZ ([id number]) 1945 M Date Time Provider Department 05/01/24 2:00 PM BECKA VALLE PTMIRIAM Date Time Provider Department [place] 05/01/2024 2:00 PM [id number] [id number] Reason for Visit: Physical Therapy [503] Primary Visit Diagnosis:S/P hip replacement, right [Z96.641] Allergies As of Date: 05/01/2024 (No Known Allergies) Date Reviewed: 04/23/2024 Reviewed by: Prudence Ornelas MA - Fully Assessed Prescriptions as of 05/04/2024 - ferrous sulfate (IRON) 325 mg (65 mg iron) tablet Take 325 mg by mouth once daily. - aspirin, enteric coated (ASPIRIN, ENTERIC COATED) 81 mg EC tablet Take 1 tablet by mouth two times a day for 28 days. - ascorbic acid, vitamin C, (VITAMIN C) 500 mg tablet Take 1 tablet by mouth two times a day with meals for 27 doses. Facility-Administered Medications as of 05/04/2024 - lidocaine 10 mg/mL (1 %) injection (XYLOCAINE) - triamcinolone acetonide injection (KeNALog 40) Stoneworker: Addendum Therapy (PT/OT/Speech/Resp) ID: [id number] 05/01/2024 2:26 PM Author: BECKA VALLE Signed by BECKA VALLE JUDICIAL ADMINISTRATIVE ASSISTANT on 05/01/2024 at 2:26 PM * * * This document replaces document [id number] * * * Document text: Program_ID:[id number] Access Code: [email or web address] URL: https://[email or web address]/ Date: 05-01-2024 Prepared By: David Kimbrough Program Notes Exercises - Supine Active Straight Leg Raise - 2 x daily - 7 x weekly - 2-3 sets - 10-15 reps - Sidelying Hip Abduction - 2 x daily - 7 x weekly - 2-3 sets - 10 reps - Sit to Stand Without Arm Support - 2 x daily - 7 x weekly - 2 sets - 6-10 reps - Heel Toe Raises with Counter Support - 2 x daily - 7 x weekly - 2 sets - 10-15 reps - Seated Gastroc Stretch with Strap - 1 x daily - 7 x weekly - 1 sets - 3 reps - Seated Soleus Stretch with Strap - 1 x daily - 7 x weekly - 1 sets - 3 reps - Seated Long Arc Quad - 2 x daily - 7 x weekly - 2 sets - 10 reps -- [facility] THERAPY NTon 05-01-2024 THERAPY NT HNO ID: [id number] Author: BECKA VALLE PTA Service: ? Author Type: Materials Development Engineer Type: Therapy (PT/OT/Speech/Resp) Filed: 05/01/2024 14:26 Note Text: Program_ID:[id number] Access Code: [email or web address] URL: https://[email or web address]/ Date: 05-01-2024 Prepared By: David Kimbrough Program Notes Exercises - Supine Active Straight Leg Raise - 2 x daily - 7 x weekly - 2-3 sets - 10-15 reps - Sidelying Hip Abduction - 2 x daily - 7 x weekly - 2-3 sets - 10 reps - Sit to Stand Without Arm Support - 2 x daily - 7 x weekly - 2 sets - 6-10 reps - Heel Toe Raises with Counter Support - 2 x daily - 7 x weekly - 2 sets - 10-15 reps - Seated Gastroc Stretch with Strap - 1 x daily - 7 x weekly - 1 sets - 3 reps - Seated Soleus Stretch with Strap - 1 x daily - 7 x weekly - 1 sets - 3 reps - Seated Long Arc Quad - 2 x daily - 7 x weekly - 2 sets - 10 reps [facility] [id number] 04-30-2024 [id number] HNO ID: [id number] Author: DAVID KIMBROUGH PT Service: ? Author Type: Physical Therapist Type: [id number] Filed: 04/30/2024 09:48 Note Text: [facility] Physical Therapy Plan of Care Certification Patient Name: Paolo Hernandez : 1945 CC #: [id number] Date: 04/29/2024 To: Louis Scott MD From Therapist: David Kimbrough PT RE: Patient Certification/ Recertification Your review, approval and electronic signature are required in order to comply with Payor: MEDICARE / Plan: MEDICARE A AND B / Product Type: Medicare / regulations. The identified Physical Therapy PLAN OF CARE for the patient is as follows: Z96.641 S/P hip replacement, right (primary encounter diagnosis) PLAN OF CARE: Assessment: Paolo Hernandez presents with diagnosis of 28 days status-post R Hip LOGAN (posterior) that interferes with stair negotiation, squatting, physical activities, working, walking in the community (Stiffness in the R Leg; Stairs without rail) . The patient presents with impairments in ADL's, balance, flexibility, gait, independence in exercise, overall function, range of motion, soft tissue healing, and strength. PROMIS? (Patient-Reported Outcomes Measurement Information System) scores were reviewed and identified as within normal limits. Prognosis for therapy is Good due to: current objective clinical presentation, good overall health status, good support system/ coping skills .The patient will benefit from skilled therapy services to meet the goals established for this plan of care as noted below. Goals for Episode of Care: established 04/29/24 [place] in home exercise program. Patient will increase passive ROM of L hip to 120 degrees flexion to allow pt to improve performance of ADLs/IADLs. Improve R Hip ER, IR, AND ABD to WFL for improved functional mobility. Patient will demonstrate increase in RHip strength to 5/5 during manual muscle testing in order to improve function for home management tasks, occupational demands, and prior functional tasks. Patient will be able to perform walking without pain and deviations. Reciprocal Stair Negotiation without use of hands for assist. 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 Planned Interventions, Frequency, and Duration: Current Frequency: 2x/week Duration: 8 weeks Total Number of Visits Planned: 16 Planned Treatment Interventions: Therapeutic exercise (20552), Neuromuscular re-education (75572), Manual therapy (03278), Therapeutic activities (31279), Self-senior care management (51442), Gait Training (44436), Patient/Family/Caregiv er Education PLAN FOR NEXT VISIT: Hip ABD Series as tolerated; Hip A/AA/PROM as tolerated. Patient demonstrates good understanding of plan of care and treatment. The above goals and plan of care were discussed and agreed upon by patient/family. For further details regarding this patient refer to the Physical Therapy electronically documented visit dated 04/29/2024. Provider Attestation I have reviewed the treatment plan for Paolo Hernandez, [facility]# [id number] for the period of 04/29/24 -- 06/05/24, established on 04/29/2024. Signature certifies the need for therapy services. [facility] THERAPY NTon 04-30-2024 THERAPY NT HNO ID: [id number] Author: DAVID KIMBROUGH, PT Service: ? Author Type: Physical Therapist Type: Therapy (PT/OT/Speech/Resp) Filed: 04/30/2024 09:46 Note Text: Program_ID:[id number] Access Code: [email or web address] URL: [email or web address]/ Date: 04-30-2024 Prepared By: David Kimbrough Program Notes Exercises - Supine Active Straight Leg Raise - 2 x daily - 7 x weekly - 2-3 sets - 10-15 reps - Sidelying Hip Abduction - 2 x daily - 7 x weekly - 2-3 sets - 10 reps - Sit to Stand Without Arm Support - 2 x daily - 7 x weekly - 2 sets - 6-10 reps - Heel Toe Raises with Counter Support - 2 x daily - 7 x weekly - 2 sets - 10-15 reps - Gastroc Stretch on Wall - 2 x daily - 7 x weekly - sets - 3 reps [facility] CNTHERAPYon 04-29-2024 CNTHERAPY OT/PT/Speech Visit (PTWS) PAOLO HERNANDEZ ([id number]) 1945 M Date Time Provider Department 04/29/24 1:30 PM DAVID KIMBROUGH PTWS Date Time Provider Department Center 04/29/2024 1:30 PM [id number], COLIN PTWS Tigist Navarrete Reason for Visit: PT Eval [747] Primary Visit Diagnosis:S/P hip replacement, right [Z96.641] Allergies As of Date: 04/29/2024 (No Known Allergies) Date Reviewed: 04/23/2024 Reviewed by: Prudence Ornelas MA - Fully Assessed Prescriptions as of 04/30/2024 - ferrous sulfate (IRON) 325 mg (65 mg iron) tablet Take 325 mg by mouth once daily. - aspirin, enteric coated (ASPIRIN, ENTERIC COATED) 81 mg EC tablet Take 1 tablet by mouth two times a day for 28 days. - ascorbic acid, vitamin C, (VITAMIN C) 500 mg tablet Take 1 tablet by mouth two times a day with meals for 27 doses. Facility-Administered Medications as of 04/30/2024 - lidocaine 10 mg/mL (1 %) injection (XYLOCAINE) - triamcinolone acetonide injection (KeNALog 40) Stoneworker: Therapy (PT/OT/Speech/Resp) ID: [id number] 04/30/2024 9:46 AM Author: DAVID KIMBROUGH Signed by DAVID KIMBROUGH PT on 04/30/2024 at 9:46 AM Document text: Program_ID:[id number] Access Code: [email or web address] URL: https://[employer]/ Date: 04-30-2024 Prepared By: David Kimbrough Program Notes Exercises - Supine Active Straight Leg Raise - 2 x daily - 7 x weekly - 2-3 sets - 10-15 reps - Sidelying Hip Abduction - 2 x daily - 7 x weekly - 2-3 sets - 10 reps - Sit to Stand Without Arm Support - 2 x daily - 7 x weekly - 2 sets - 6-10 reps - Heel Toe Raises with Counter Support - 2 x daily - 7 x weekly - 2 sets - 10-15 reps - Gastroc Stretch on Wall - 2 x daily - 7 x weekly - sets - 3 reps -- Therapy (PT/OT/Speech/Resp) ID: [id number] 04/29/2024 2:04 PM Author: DAVID KIMBROUGH Signed by DAVID KIMBROUGH PT on 04/29/2024 at 2:04 PM Document text: Program_ID:[id number] Access Code: [email or web address] URL: https://[employer]/ Date: 04-29-2024 Prepared By: David Kimbrough Program Notes Exercises - Supine Active Straight Leg Raise - 2 x daily - 7 x weekly - 2-3 sets - 10-15 reps - Sidelying Hip Abduction - 2 x daily - 7 x weekly - 2-3 sets - 10 reps - Sit to Stand Without Arm Support - 2 x daily - 7 x weekly - 2 sets - 6-10 reps - Heel Toe Raises with Counter Support - 2 x daily - 7 x weekly - 2 sets - 10-15 reps - Gastroc Stretch on Wall - 2 x daily - 7 x weekly - sets - 3 reps -- [facility] THERAPY NTon 04-29-2024 THERAPY NT HNO ID: [id number] Author: DAVID KIMBROUGH PT Service: ? Author Type: Physical Therapist Type: Therapy (PT/OT/Speech/Resp) Filed: 04/29/2024 14:04 Note Text: Program_ID:[id number] Access Code: [email or web address] URL: [email or web address]/ Date: 04-29-2024 Prepared By: David Kimbrough Program Notes Exercises - Supine Active Straight Leg Raise - 2 x daily - 7 x weekly - 2-3 sets - 10-15 reps - Sidelying Hip Abduction - 2 x daily - 7 x weekly - 2-3 sets - 10 reps - Sit to Stand Without Arm Support - 2 x daily - 7 x weekly - 2 sets - 6-10 reps - Heel Toe Raises with Counter Support - 2 x daily - 7 x weekly - 2 sets - 10-15 reps - Gastroc Stretch on Wall - 2 x daily - 7 x weekly - sets - 3 reps [facility] CNOVon 04-23-2024 CNOV Office Visit (FAMPWS ) PAOLO HERNANDEZ ([id number]) 1945 M Date Time Provider Department 04/23/24 10:00 AM LOUIS SCOTT FAMPWS During your visit today, we recorded the following information about you: Pulse Respiration Blood pressure Weight 68/minute 16/minute 118/78 71.1 kg Louis Scott MD 04/23/2024 11:31 AM Signed Chief Complaint Patient presents with: Hospital Follow Up: Penitentiary release HPI Paolo Hernandez is a 78 year old male who presents here today for rehab follow up. Pt here for a follow up from SNF. Pt had T THR replaced on 04/01/24 and was just recently discharged from [facility] on 04/18/24. Pt currently taking ASA 81 mg bid, Vit C 1 tab po bid, and Iron 65 mg once daily. This was given to him on d/c from the Hospital. These were prescribed to take for 28 days. Pt at this time overall feels pretty good. Is able to get around fairly well since being home. Notes with the weather being nicer, he tries to get out and walk a little bit. Right leg feels stiff and has some issues with neuropathy. Does have some aching when up and moving around a lot. Does note that he feels much better than prior to having his surgery. Denies using anything for pain at this time. Was d/c home from SNF with walker, but has not used for the past couple of days. Was d/c home with restrictions with bending past 90 degree, twisting, and crossing legs as well as modifications such as using a shower bench. Would like to continue his PT and prefers to stay locally in [place]. Reports that when he was d/c from SNF they went through a checklist and he went from Doctor to Doctor and unsure what he needed to do. Scheduled today to get PT so he could continue this. Do not see outreach to Ortho to obtain PT order? Has f/u appt with Dr. Michele on 05/11/24. Pt notes that after surgery he had issues with balance, but this has improved. Plans on returning back to work, but will have to have restrictions due to his occupation. Plans on discussing this with Dr. Michele. Hospital visit 04/01/24-04/02/24: SUMMARY OF WHAT HAPPENED WHILE PATIENT WAS IN THE HOSPITAL: The patient was followed by Dr. Michele in clinic for right hip osteoarthritis. It was determined the patient would benefit from right total hip arthroplasty. The procedure, its risks, benefits, and potential complications were discussed in detail prior to surgery. The patient conveyed understanding of all topics and consented to surgery. The patient was admitted to the hospital. Underwent an elective right total hip arthroplasty on 04/01/[address] Michele. The patient tolerated the procedure well and was returned to the Post Anesthesia Care Unit in stable condition. Vital signs per PACU protocol. VTE risk assessment performed. O2 therapy monitored by Respiratory Therapy to include incentive spirometry, ADL, wound and support per physician order set postop protocol. PT and OT to evaluate and treat. IV antibiotics, antiemetics, DVT prophylaxis and pain medication were given. The patient progressed with physical therapy. Lab values and vital signs were monitored and remained stable. The incision remained clean, dry and intact. Thigh and calf are not swollen. No signs of DVT or infection. The patient progressed with physical therapy towards goal of safety and independence. Patient was determined safe for discharge to SNF on 04/02/2024. Past medical history, appointments, medications, allergies reviewed. Previous Medical History PAST MEDICAL HISTORY Diagnosis Date Right inguinal hernia Rotator cuff tear Right shoulder Vertigo Previous Surgical History PAST SURGICAL HISTORY Procedure Laterality Date APPENDECTOMY 02/18/1963 LAPAROSCOPY SURG RPR INITIAL INGUINAL HERNIA 12/09/2013 right PAST SURGICAL HISTORY OF 10/19/1969 wisdom teeth PAST SURGICAL HISTORY OF Bilateral 2020 B/L cataract surgery TOTAL HIP REPLACEMENT Right 04/01/2024 Robotic assisted Right total hip arthroplasty Family History FAMILY HISTORY Problem Relation Age of Onset Hypertension Mother Arthritis Mother other (tuberculosis [Other]) Mother Stroke Father Breast Cancer Maternal Grandmother Anesthesia Problems No Family History Patient Allergies ALLERGIES No Known Allergies Current Medications Current Outpatient Medications on File Prior to Visit Medication Sig ferrous sulfate (IRON) 325 mg (65 mg iron) tablet Take 325 mg by mouth once daily. aspirin, enteric coated (ASPIRIN, ENTERIC COATED) 81 mg EC tablet Take 1 tablet by mouth two times a day for 28 days. ascorbic acid, vitamin C, (VITAMIN C) 500 mg tablet Take 1 tablet by mouth two times a day with meals for 27 doses. docusate sodium (COLACE) 100 mg capsule Take 1 capsule by mouth two times a day as needed for constipation. pantoprazole DR (PROTONIX) 40 mg tablet Take 1 t (more content not included)... [facility] CNOVon 04-13-2024 CNOV Office Visit (ORTHWS ) PAOLO HERNANDEZ ([id number]) 1945 M Date Time Provider Department 04/13/24 9:00 AM SHELBY COY During your visit today, we recorded the following information about you: Shelby Coy PA-C 04/13/2024 10:05 AM Signed Full weight bear as tolerated. Continue with hip protocol, follow up in 1 month as planned. Shelby Coy PA-C 04/13/2024 12:19 PM Signed Ortho Hip Follow Up Note Narrative Referring Provider: Alfredito Michele [address] [facility] [address] PCP: Louis Scott MD = IMPRESSION/PLAN: Impressions indicate: = 78 year old s/p Right Total Hip Replacement completed on 04/01/24. Patient here for post op visit Right LOGAN. Patient taking no med's for the pain. Continuing to use walker to ambulate. Has been getting therapy at nursing facility. Daughter with patient today. X-rays done today. Recent Surgeries this specialty 04/01/2024 (1w, 5d) ROBOTIC ASSISTED TOTAL HIP ARTHROPLASTY (Right), COMPUTER ASSIST MUSCULOSKETAL SURG NAVIGATION ORTHO PROCED W/IMAGE GUIDANCE BASED ON CT/MRI IMAGES (Right) Alfredito Michele MD - Posted PAIN EVALUATION 04/08/2024 7085 Pain Level: 2 Pain Location: Hip-Right Description: Aching Duration Amount of Time: 11 Duration Units: Months Frequency: Intermittent Intervention/Comfort measure: Reposition IMPRESSION: No complaints or limitations. PLAN: Continue current conservative treatment. Rest, Ice, Compression, Elevation PRN. Patient Reassurance: Progress appears to be with the normal speed of recovery. Patient reassured and supported. All questions answered. Follow up 1 month X-Rays Needed ACTIVE PROBLEM LIST Adhesive Capsulitis of Shoulder Vertigo Right Inguinal Hernia Right Hip Pain Neuropathy S/P Total Right Hip Arthroplasty HPI: Paolo Hernandez presents today for a routine 1st post-op visit. STATUS POST: BMI: There is no height or weight on file to calculate BMI. Post operative recovery was complicated by uneventful/none. Readmission(s) since surgery (90 days post)? No ED Visits AND Hospitalizations - Last 180 days 04/01/24 Alfredito Michele MD, ME2E Primary osteoarthritis of right hip, Admission (Discharged) Patient rates their condition as improving. Does the patient still experience pain? No. Post Op discharge patient location: at a rehab facility. Functional Assessment is as follows: remains in rehabilitation facility. Functional difficulties: None. Pain Medication: None 06/17/2023 Physical Therapy Data AROM R hip internal rotation 50 Degrees AROM R hip external rotation 50 Degrees AROM L hip internal rotation 60 Degrees AROM L hip external rotation 50 Degrees PROM R hip flexion 90 Degrees PROM L hip flexion 125 Degrees Therapist that will oversee plan of care Melinda Abernathy Prognosis Good Prognosis limited by chronic nature of impairments;occupation al demands Frequency 1 visit Duration 8 weeks Total number of visits 1 Planned treatment interventions Therapeutic exercise (78478);Manual therapy (76864);Self-senior care management (62665);Patient/Family /Caregiver Education;Gait Training (56893) Plan for next visit Assess response to HEP and modifications to work/daily activities. May progress exercises/HEP. May add manual soft tissue techniques as appropriate. May add gait training as needed. EXAM: POST OP HIP LEFT POST-OPERATIVE HIP SKIN: Appropriate postop appearance. Range of Motion: Pain Free Neurovascular Status: Sensation Intact, Moves foot and ankle up AND down, and 2+ dorsalis pedis Gait: Normal, the patient did not have trouble getting onto the exam table. HIP EXAM: Left: ROM: Extension: Normal Painless passive ROM Neurovascular Status: Sensation Intact and Moves foot and ankle up AND down IMAGING: X-ray Hips: Post op Implants are well fixed. Provider: Shelby Coy PA-C Completed by: Shelby Coy PA-C Referring Provider: ALFREDITO MICHELE [[id number]] Allergies As of Date: 04/13/2024 (No Known Allergies) Date Reviewed: 04/13/2024 Reviewed by: Marbella Chicas MA - Fully Assessed Reason for Visit: Post Op [174] Cmt: 1 week 5 days post op Robotic assisted Right LOGAN Primary Visit Diagnosis:Primary osteoarthritis of right hip [M16.11] Prescriptions as of 04/13/2024 - ferrous sulfate (IRON) 325 mg (65 mg iron) tablet Take 325 mg by mouth once daily. - aspirin, enteric coated (ASPIRIN, ENTERIC COATED) 81 mg EC tablet Take 1 tablet by mouth two times a day for 28 days. - ascorbic acid, vitamin C, (VITAMIN C) 500 mg tablet Take 1 tablet by mouth two times a day with meals for 27 doses. - docusate sodium (COLACE) 100 mg capsule Take 1 capsule by mouth (more content not included)... Normal [facility] XR HIP 3V PELV+ AP/LAT RTon 04-13-2024 XR HIP 3V PELV+ AP/LAT RT * * *Final Report* * * DATE OF EXAM: Apr 13 2024 9:26AM WRX [id number] - XR HIP 3V PELV+ AP/LAT RT / PROCEDURE REASON: multiple diagnoses * * * * Physician Interpretation * * * * Pelvis/RIGHT hip HISTORY: 78 years old Clinical information: Primary osteoarthritis of right hip Status post total hip replacement, right F/U. Hip replacement done 04/01/24. TECHNIQUE: Images: XR HIP 3V PELV+ AP/LAT RT Comparison: None. RESULT: Findings: Status post RIGHT total hip arthroplasty with noncemented femoral stem. No periprosthetic lucency or subsidence. Alignment anatomic. Narrowing lower lumbar disc spaces. IMPRESSION: No acute bony finding. No evidence of postsurgical complication. Lower lumbar degenerative disc disease Rolling Up Machine Operator: DELISA Transcribe Date/Time: Apr 15 2024 2:38P Dictated by : LOUIS BARTLETT MD This examination was interpreted and the report reviewed and electronically signed by: LOUIS BARTLETT MD on Apr 15 2024 2:40PM EST [id number] Normal [facility] Basic metabolic 2000 panelon 04-02-2024 Anion gap [Moles/Vol] 10 mmol/L Normal 8-15 [facility] Comment on above: Order Comment: Speci men Type: BLOOD SPECIMENOrdering Facility: [facility] Address: [address] [place] [address] Performed By: #### 2 4321-2 ####[facility] LABORATORYCLIA [id number] [place] [address] [place] Calcium [Mass/Vol] 9.9 mg/dL Normal 8.5-10.2 [facility] Comment on above: Order Comment: Speci men Type: BLOOD SPECIMENOrdering Facility: [facility] Address: [address] [place] [address] Performed By: #### 2 4321-2 ####MALLOY LABORATORYCLIA [id number] [place] [address] [place] Chloride [Moles/Vol] 103 mmol/L Normal 98-107 [facility] Comment on above: Order Comment: Speci men Type: BLOOD SPECIMENOrdering Facility: [facility] Address: [address] [place] [address] Performed By: #### 2 4321-2 ####MALLOY LABORATORYCLIA [id number] [place] [id number] [place] CO2 [Moles/Vol] 25 mmol/L Normal 22-30 [facility] Comment on above: Order Comment: Speci men Type: BLOOD SPECIMENOrdering Facility: [facility] Address: [address] [place] [address] Performed By: #### 2 4321-2 ####MALL[facility] LABORATORYCLIA [id number] [place] [address] [place] Creatinine [Mass/Vol] 0.89 mg/dL Normal 0.73-1.22 [facility] Comment on above: Order Comment: Speci men Type: BLOOD SPECIMENOrdering Facility: [facility] Address: [address] [place] [address] Performed By: #### 2 4321-2 ####MALLOY LABORATORYCLIA [id number] [place] [id number] [facility] Creatinine and Glomerular filtration rate.predicted panel (S/P/Bld) 88 mL/min/1.73m??? Normal >=60 [facility] Comment on above: Order Comment: Rebecca bailon Type: BLOOD SPECIMENOrdering Facility: [facility] Address: [address] [place] [address] Result Comment: Dary mated Glomerular Filtration Rate (eGFR) is calculated using the 2020 CKD-EPI creatinine equation. This equation utilizes serum creatinine, sex, and age as parameters. The creatinine assay has traceable calibration to isotope dilution-mass spectrometry. Refer to KDIGO guidelines for clinical interpretation. In patients with unstable renal function, e.g. those with acute kidney injury, the eGFR may not accurately reflect actual GFR. Performed By: #### 2 4321-2 ####MALLOY LABORATORYCLIA [id number] [place] [address] [place] [facility] Glucose [Mass/Vol] 124 mg/dL High 74-99 [facility] Comment on above: Order Comment: Rebecca bailon Type: BLOOD SPECIMENOrdering Facility: [facility] Address: [address] [place] [address] Result Comment: The [place] Diabetes Association (ADA) provides guidance for cutoff values for fasting glucose and random glucose. The ADA defines fasting as no caloric intake for at least 8 hours. Fasting plasma glucose results between 100 to 125 mg/dL indicate increased risk for diabetes (prediabetes). Fasting plasma glucose results greater than or equal to 126 mg/dL meet the criteria for diagnosis of diabetes. In the absence of unequivocal hyperglycemia, results should be confirmed by repeat testing. In a patient with classic symptoms of hyperglycemia or hyperglycemic crisis, random plasma glucose results greater than or equal to 200 mg/dL meet the criteria for diagnosis of diabetes. Reference: Standards of Medical Care in Diabetes 2016, [place] Diabetes Association. Diabetes Care. 2016.39(Suppl 1). Performed By: #### 2 4321-2 ####MALL[facility] LABORATORYCLIA [id number] [address] Potassium [Moles/Vol] 4.2 mmol/L Normal 3.7-5.1 [facility] Comment on above: Order Comment: Speci men Type: BLOOD SPECIMENOrdering Facility: [facility] Address: [address] [place] [address] Performed By: #### 2 4321-2 ####MALLOY LABORATORYCLIA [id number] [address] Sodium [Moles/Vol] 138 mmol/L Normal 136-144 [facility] Comment on above: Order Comment: Speci men Type: BLOOD SPECIMENOrdering Facility: [facility] Address: [address] [place] [address] Performed By: #### 2 4321-2 ####MALLOY LABORATORYCLIA [id number] [address] Urea nitrogen [Mass/Vol] 16 mg/dL Normal 9-24 [facility] Comment on above: Order Comment: Speci men Type: BLOOD SPECIMENOrdering Facility: [facility] Address: [address] [place] [address] Performed By: #### 2 4321-2 ####MALLOY LABORATORYCLIA [id number] [address] CASE MANAGEMon 04-02-2024 CASE MANAGEM HNO ID: [id number] Author: YOLANDA STERLING RN Service: ? Author Type: Registered Nurse Type: Care Mgt Progress Note Filed: 04/02/2024 14:31 Note Text: CARE MANAGEMENT DISCHARGE NOTE SERVICE DATE: April 02, 2024 SERVICE TIME: 12:21 PM Admission Date: 04/01/2024 LOS: 0 days Discharge Arrangement Discharge Arrangement: Jail Facility Was an expedited discharge program used?: Yes Type: Medicare ACO 3 Day Waiver Provider Name: Harshad Caregiver Assessment Caregiver is ready, willing and able to meet the patient's needs as recommended by the inter-professional team: Other: See Comment (Discharging to SNF) Transportation Arrangements Transportation Arrangements: Ambulance Transportation Agency and Phone #:: [facility] [phone] Date of Trip: 04/02/24 Time of Trip: 1800 Type of Service: BLS Non-emergency Is Patient Medicaid Pending?: No Was transportation financial coverage discussed with 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 Louis Scott- [phone] Additional Information: Discharge order written for today. [facility] ambulance transport set up for a 6:00 quill picking machine operator. Met with the patient regarding his discharge to [facility] today with a 6:00 quill picking machine operator time scheduled. Notified the RN and DECKHAND ENGINEER of the quill picking machine operator time. Notified [facility] of the patients discharge today and quill picking machine operator time. Discharge instructions sent to [facility] via [employer]. 2:31 pm- Daughter is now transporting the patient. SIGNATURE: Yolanda Sterling RN PATIENT NAME: Paolo Olmedo Mary DATE: April 02, 2024 TIME: 12:21 PM Normal [facility] CASE MANAGEM HNO ID: [id number] Author: YOLANDA STERLING RN Service: ? Author Type: Registered Nurse Type: Care Mgt Progress Note Filed: 04/02/2024 11:28 Note Text: CARE MANAGEMENT PROGRESS NOTE SERVICE DATE: 04/02/2024 SERVICE TIME: 10:28 AM LOS: 0 days Needs Prior to Discharge: Accepting Facility [place] of Choice Given: Yes Level of Care Discussed: Jail Facility Financial Disclosure Provided: Yes Provider List: Jail Facility Provider list within the patient's requested geographic area shared with the patient/family: Yes within: 30 miles of zip code: [address] Quality and resource use metrics shared with the patient that are relevant to the patient's goals of care and treatment preferences:: Yes PT-SNF. Met with the patient. Discussed PT recommendations with the patient. Patient is an ACO patient. ACO SNF list given to the patient. The patient would like [facility] and [facility]. Referrals placed. CM department will continue to follow for DC needs. 11:27 am- Both facilities able to accept, Updated the patient, the patient would like [facility]. SIGNATURE: Yolanda Sterling RN PATIENT NAME: Paolo Hernandez DATE: April 02, 2024 TIME: 10:28 AM Normal [facility] CBC panel Auto (Bld)on 04-02 Erythrocyte distribution width (RBC) [Ratio] 15.9 % High 11.5-15.0 [facility] Comment on above: Order Comment: Speci men Type: BLOOD SPECIMENOrdering Facility: [facility] Address: [address] [place] [address] Performed By: #### 5 8410-2 ####M[facility] LABORATORYCLIA [id number] [address] Hematocrit (Bld) [Volume fraction] 38.1 % Low 39.0-51.0 [facility] Comment on above: Order Comment: Speci men Type: BLOOD SPECIMENOrdering Facility: [facility] Address: [address] [place] [address] Performed By: #### 5 8410-2 ####MALLOY LABORATORYCLIA [id number] [address] OF [facility] Hemoglobin (Bld) [Mass/Vol] 12.3 g/dL Low 13.0-17.0 [facility] Comment on above: Order Comment: Speci men Type: BLOOD SPECIMENOrdering Facility: [facility] Address: [address] [place] [address] Performed By: #### 5 8410-2 ####M[facility] LABORATORYCLIA [id number] [address] MCH (RBC) [Entitic mass] 26.5 pg Normal 26.0-34.0 [facility] Comment on above: Order Comment: Speci men Type: BLOOD SPECIMENOrdering Facility: [facility] Address: [address] [place] [address] Performed By: #### 5 8410-2 ####MALL[facility] LABORATORYCLIA [id number] [address] MCHC (RBC) [Mass/Vol] 32.3 g/dL Normal 30.5-36.0 [facility] Comment on above: Order Comment: Speci men Type: BLOOD SPECIMENOrdering Facility: [facility] Address: [address] [place] [address] Performed By: #### 5 8410-2 ####MALLOY LABORATORYCLIA [id number] [place] [address] [place] MCV (RBC) [Entitic vol] 82.1 fL Normal 80.0-100.0 [facility] Comment on above: Order Comment: Speci men Type: BLOOD SPECIMENOrdering Facility: [facility] Address: [address] [place] [address] Performed By: #### 5 8410-2 ####M[facility] LABORATORYCLIA [id number] [address] OF [place] Nucleated RBC (Bld) [#/Vol] 10*3/uL Normal <0.01 [facility] Comment on above: Order Comment: Speci men Type: BLOOD SPECIMENOrdering Facility: [facility] Address: [address] [place] [address] Performed By: #### 5 8410-2 ####MALLOY LABORATORYCLIA [id number] [address] [place] Platelet mean volume (Bld) [Entitic vol] 10.2 fL Normal 9.0-12.7 [facility] Comment on above: Order Comment: Speci men Type: BLOOD SPECIMENOrdering Facility: [facility] Address: [address] [place] [address] Performed By: #### 5 8410-2 ####MALLOY LABORATORYCLIA [id number] [address] OF [place] Platelets (Bld) [#/Vol] 307 10*3/uL Normal 150-400 [facility] Comment on above: Order Comment: Speci men Type: BLOOD SPECIMENOrdering Facility: [facility] Address: [address] [place] [address] Performed By: #### 5 8410-2 ####MALLOY LABORATORYCLIA [id number] [place] [address] [facility] OF [place] RBC (Bld) [#/Vol] 4.64 10*6/uL Normal 4.20-6.00 [facility] Comment on above: Order Comment: Rebecca bailon Type: BLOOD SPECIMENOrdering Facility: [facility] Address: [address] [facility] [place] [id number] Performed By: #### 5 8410-2 ####MALLOY LABORATORYCLIA [id number] [address] OF [place] WBC (Bld) [#/Vol] 10.47 10*3/uL Normal 3.70-11.00 [facility] Comment on above: Order Comment: Rebecca bailon Type: BLOOD SPECIMENOrdering Facility: [facility] Address: [address] [place] [address] Performed By: #### 5 8410-2 ####[facility] LABORATORYCLIA [id number] [place] [id number] [facility] CNDSon 04-02-2024 CNDS HNO ID: [id number] Author: ARAM ALFARO PA-C Service: Orthopaedic Surgery Author Type: Physician Airplane Pilot Helper Type: Discharge Summary Filed: 04/02/2024 11:56 Note Text: Attestation signed by Alfredito Michele MD at 04/02/2024 4:28 PM Alfredito Michele MD DISCHARGE SUMMARY PATIENT NAME: Paolo Hernandez ADMISSION DATE: 04/01/2024 DISCHARGE DATE: 04/02/2024 PATIENT DISCHARGE SUMMARY C O N F I D E N T I A L I N F O R M A T I O N The following is a brief overview of your hospitalization. Some of the information contained on this summary may be confidential. This information should be kept in your records and should be shared with your regular doctor. These instructions explain what you or your acute care surgeon need to do to continue your care at home or at another healthcare facility Please go over these instructions with your nurse and acute care surgeon. If you are not sure about something, please ask. Highest Readmission Risk Score: 8 The 30 day readmissions risk score is derived from an internally validated risk model which evaluates patient level characteristics, utilization history, medication orders and lab results up until the day of discharge. Patients with a score of 40 or above are considered highest risk for readmission. Specific patient level drivers will be listed at the bottom of the summary. The 30 day readmissions risk score is derived from an internally validated risk model which evaluates patient level characteristics, utilization history, medication orders and lab results up until the day of discharge. Patients with a score of 40 or above are considered highest risk for readmission. Where I Will be Going after Discharge: Jail Facility My Condition at Discharge: Stable PRINCIPAL DIAGNOSIS: (Reason after study for this admission): Procedure(s): ROBOTIC ASSISTED TOTAL HIP ARTHROPLASTY OTHER DIAGNOSES: Patient Active Hospital Problem List: S/P total right hip arthroplasty Date Noted: 04/02/2024 OPERATIONS PERFORMED: Procedure(s): ROBOTIC ASSISTED TOTAL HIP ARTHROPLASTY My Doctors and Medical Team: My Main Hospital Doctor: Alfredito Cardenas MD PHYSICAL EXAM: See daily progress note Vitals: BP 100/61 Pulse 105 Temp 36.9 ?C (98.4 ?F) (Oral) Resp 16 Ht 177.8 cm (5' 10) Wt 70 kg (154 lb 5.2 oz) SpO2 96% BMI 22.14 kg/m? SUMMARY OF WHAT HAPPENED WHILE PATIENT WAS IN THE HOSPITAL: The patient was followed by Dr. Michele in clinic for right hip osteoarthritis. It was determined the patient would benefit from right total hip arthroplasty. The procedure, its risks, benefits, and potential complications were discussed in detail prior to surgery. The patient conveyed understanding of all topics and consented to surgery. The patient was admitted to the hospital. Underwent an elective right total hip arthroplasty on 04/01/[address] Michele. The patient tolerated the procedure well and was returned to the Post Anesthesia Care Unit in stable condition. Vital signs per PACU protocol. VTE risk assessment performed. O2 therapy monitored by Respiratory Therapy to include incentive spirometry, ADL, wound and support per physician order set postop protocol. PT and OT to evaluate and treat. IV antibiotics, antiemetics, DVT prophylaxis and pain medication were given. The patient progressed with physical therapy. Lab values and vital signs were monitored and remained stable. The incision remained clean, dry and intact. Thigh and calf are not swollen. No signs of DVT or infection. The patient progressed with physical therapy towards goal of safety and independence. Patient was determined safe for discharge to SNF on 04/02/2024. TREATMENT / WOUND CARE: If you have any concerns about your wound, please contact the office. Keep wound and incision area clean and dry. You may remove your dressing on POD #7-10 (7 to 10 days after surgery). If it remains drainage-free, you may leave the dressing off, keeping the wound open to air. If there is any drainage please contact the office You may not submerge the wound under standing water for 6 weeks time after surgery (i.e. no baths, no hot tubs, no swimming pools). Do not rub the wound, but rather pat dry. If you have non-absorbable sutures in place, these will be taken out on your 1st follow-up appointment. Observe the wound for signs of infection, including increased redness, swelling, or persistent drainage around the incision site. It is normal for your wound to be warmer immediately after surgery (even up to 4-6 weeks after surgery). If you begin to experience fevers, chills, night sweats, or flu-like symptoms and yo (more content not included)... Normal [facility] 04-02-2024 [facility] Telephone (HCS[facility]) POALO HERNANDEZ ([id number]) 1945 M Date Time Provider Department 04/02/24 DONALD VOSSIND During your visit today, we recorded the following information about you: Donald Voss, [facility] 04/02/2024 10:37 AM Signed Patient would like to go to rehab. Allergies As of Date: 04/02/2024 (No Known Allergies) Date Reviewed: 04/02/2024 Reviewed by: Emily Merrill RN - Fully Assessed Reason for Visit: Home Care [4073] Cmt: Confirmation Call Prescriptions as of 04/02/2024 - acetaminophen (TYLENOL) 500 mg tablet Take 2 tablets by mouth every 8 hours as needed for pain. - aspirin, enteric coated (ASPIRIN, ENTERIC COATED) 81 mg EC tablet Take 1 tablet by mouth two times a day for 28 days. - ferrous sulfate 325 mg (65 mg iron) tablet Take 1 tablet by mouth daily with lunch for 7 doses. - senna (SENOKOT) 8.6 mg tab Take 2 tablets by mouth daily at bedtime. Facility-Administered Medications as of 04/02/2024 - ondansetron orally disintegrating 4 mg tab(s) (ZOFRAN ODT) - ondansetron (PF) 4 mg injection (ZOFRAN) - magnesium hydroxide 400 mg/5 mL 30 mL (MOM) - bisacodyl EC 10 mg tab(s) (DULCOLAX) - aluminum-magnesium hydroxide-simethicone 200-200-20 mg/5 mL 30 mL - ferrous sulfate 325 mg tab(s) - ascorbic acid (vitamin C) 500 mg tab(s) (VITAMIN C) - senna 17.2 mg tab(s) (SENOKOT) - aspirin, enteric coated 81 mg tab(s) - acetaminophen 1,000 mg tab(s) (TYLENOL) - traMADol 50 mg tab(s) (ULTRAM) - HYDROcodone 5 mg - acetaminophen 325 mg tablet (NORCO) - lidocaine 10 mg/mL (1 %) injection (XYLOCAINE) - triamcinolone acetonide injection (KeNALog 40) Problem List As Of Date 04/02/2024 Noted Resolved 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] 05/24/2008 Vertigo [R42] 03/22/2009 Right inguinal hernia [K40.90] 11/23/2013 Right hip pain [M25.551] 06/19/2023 Neuropathy [G62.9] 03/19/2024 S/P total right hip arthroplasty [Z96.641] 04/02/2024 Encounter Status:Closed by DONALD VOSS on 04/02/24 [facility] THERAPY NTon 04-02-2024 THERAPY NT HNO ID: [id number] Author: DONNY LACKEY OTR/Mark Service: Occupational Therapy Author Type: Occupational Therapist Type: Therapy (PT/OT/Speech/Resp) Filed: 04/02/2024 10:56 Note Text: Summary: OT evaluation Occupational Therapy Evaluation Summary SERVICE DATE: 04/02/2024 SERVICE TIME: 909 to 1004 ROOM: [place] [address] OT 6 Clicks Score: 17 Total Joint Replacement Discharge Readiness: Cleared from Occupational Therapy DISCHARGE RECOMMENDATIONS Subacute/SNF Recommended Discharge Disposition Comments: patient is below functional baseline and could benefit from continued OT services to progress independence with ADLS, IADLS Recommended Discharge Disposition Due to: Functional deficits requiring ongoing therapy service prior to discharge home., ADL impairment, Anticipated community discharge, Functional status decline, Requires multiple therapy disciplines Anticipated Discharge Needs: Physical Assist at Home Physical Assist at Home for: Cleaning, Laundry, Meals, Safety, Self Care Recommended Discharge Equipment: Commode-Raised, ADL Kit ASSESSMENT Response to Therapy Interventions: Good Participation in Activities, Improved Tolerance for Activity, Pain, Requires Additional Time to Complete Activities Patient willing to participate in all tasks. Patient was unknowledgable of several aspects of equipment and post hip replacement recommendations. Patient requires Fletcher- modA for sit to stand transfers with fair standing balance. PRECAUTIONS Fall Risk, Lines/Tubes/Drains, Posterior Hip Precautions, Weight Bearing Restrictions Right Lower Extremity Weight Bearing Status: (PWB 40-50#) CURRENT HOSPITAL COURSE 04/01/24 right total hip replacement Relevant Past Medical History: vertigo, rotator cuff tear HOME LIVING Patient Lives With: Self/Alone Assistance Available: PRN (plans to go to daughter's home at discharge) Entry To Home: Stairs, Without Rail Number Of Stairs Into Home: 2 Number Of Stairs To Bed/Bath: 0 Tub/Shower Type: tub shower with grab bars Laundry: daughter to assist Equipment Owned: Walker- Standard, Rollator, Cane, Grab Bars- Shower, Shower Chair PRIOR FUNCTIONAL LEVEL Within Functional Limits Pt reports independence with ADLs/IADLs, intermittent use of cane, + driving, denies falls in last 6 months, plans to sleep in recliner at daughter's home. 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 COGNITION Orientation Deficits: (AO x4) THERAPY DIAGNOSIS Decreased activities of daily living (ADL) TREATMENT INTERVENTIONS Evaluation, Therapeutic Activity (10026), Self Skilled Nursing Management (46194) Timed Code Treatment (minutes): 40 Skilled Treatment Time (minutes): 55 TRAINING AND EDUCATION PROVIDED Activity Adaptation/Gas Engine Operator Compressors y Strategies, Adaptive Equipment/DME, Assistive Device Use, Bed Mobility, Benefits of In-Hospital Mobility, Discharge Planning, Expected Functional Level, Functional Mobility Involving ADLs, Home Set-up/Modifications, Identification of Systems of Support, Lower Extremity Bathing, Lower Extremity Dressing, Pain Management, Positioning, Precautions/Restrictio ns, Role of Occupational Therapy, Safety/Judgment, Toileting , Standing Balance to Improve [place] with ADLs/Self-Care, Transfer - Sit to Stand, Transfer - Toilet/Commode THERAPEUTIC SKILLS USED Assessment of Tolerance Including Vitals Response to Activity, Cues for Sequencing/Proper Technique for Activity, Cuing Tactile, Cuing Verbal, Cuing Visual, Physical Assist, Therapeutic Use of Self, Teach-Back for Education FUNCTIONAL STATUS Activities of Daily Living Assist Level Additional Information Feeding Independent Grooming Minimal Assistance, Additional Information for safety during standing portion of task Bathing Upper Body Set Up Bathing Lower Body Moderate Assistance, Additional Information for thoroughness of task Dressing Upper Body Set Up Dressing Lower Body Moderate Assistance, Additional Information for safety in standing, pt able to don underwear and sock aid with adaptive equipment Toileting Minimal Assistance Mobility Assist Level Additional Information Bed Mobility Sit to Stand Moderate Assistance Stand to Sit Contact Guard Assistance Bed to Chair Toilet/Commode Shower Functional Mobility GOALS Patient will demonstrate progress to optimize self-care activities, cognitive and/or coping to maximize function upon discharge. Progress Toward Goals: Progressing as expected Rehab Potential: Good PLAN OT Frequency: 3 Times Per Week Treatment Interventions: Education, Self Care/Home Management, Functional Mobility Training Plan for Next Visit: Bathing Training, Dressing Training, Standing Tolerance, Standing Balance SI (more content not included)... [facility] THERAPY NT HNO ID: [id number] Author: MARIANNE JOY, PT Service: Physical Therapy Author Type: Physical Therapist Type: Therapy (PT/OT/Speech/Resp) Filed: 04/02/2024 09:19 Note Text: Summary: PT Eval Physical Therapy Evaluation Summary SERVICE DATE: 04/02/2024 SERVICE TIME: 1210 to 7514 ROOM: [place] [address] PT 6 Clicks Score: 16 Total Joint Replacement Discharge Readiness: Pending Physical Therapy Clearance DISCHARGE RECOMMENDATIONS Subacute/SNF Recommended Discharge Disposition Comments: Pt with decreased balance and strength post LOGAN, requires increased assist with functional activity indicating a need for continued daily skilled therapy post acute stay. Recommended Discharge Disposition Due to: Functional deficits requiring ongoing therapy service prior to discharge home., Balance deficits, Functional status decline Recommended Discharge Equipment: To Be Determined (possible FWW) ASSESSMENT Response to Therapy Interventions: Good Participation in Activities, On-Track to Achieve Discharge Goals, Needs Frequent Redirection or Reinstruction, Requires Additional Time to Complete Activities Pt is moderate to minimal assist with activity, unsteady with transfers and ambulation, requries frequent cues for safety, proper technique for ambulation. Pt is AANDO x 3, delayed processing however follows cues appropriately. SNF is currently recommended. PRECAUTIONS Fall Risk, Lines/Tubes/Drains, Posterior Hip Precautions, Weight Bearing Restrictions Right Lower Extremity Weight Bearing Status: (PWB 40-50#) CURRENT HOSPITAL COURSE post ROBOTIC ASSISTED TOTAL HIP ARTHROPLASTY, Right Relevant Past Medical History: vertigo, rotator cuff tear HOME LIVING Patient Lives With: Self/Alone Assistance Available: PRN (plans to go to daughter's home at discharge) Entry To Home: Stairs, Without Rail Number Of Stairs Into Home: 2 Number Of Stairs To Bed/Bath: 0 Tub/Shower Type: tub shower Laundry: daughter to assist Equipment Owned: Walker- Standard, Rollator, Cane, Grab Bars- Shower, Shower Chair PRIOR FUNCTIONAL LEVEL Within Functional Limits Pt reports independence with ADLs/IADLs, intermittent use of cane, + driving, denies falls in last 6 months, plans to sleep in recliner at daughter's home. SUBJECTIVE Pt agreeable to PT, ok per nursing to treat. THERAPY DIAGNOSIS Reduced mobility-other, Difficulty walking-musculoskeleta l TREATMENT INTERVENTIONS $ Evaluation-Low (33432) Billed Units: 1 unit Therapeutic Activity (17522) Treatment Minutes: 13 $ Therapeutic Activity (52787) Billed Units: 1 unit Exercise Ankle Pumps (number of reps): BLE x 10 Quad Sets (number of reps): BLE x 10 Glut Sets (number of reps): BLE x 10 Exercise: Pt educated in purpose and parameters of performance of anti-embolics. Gait Training (36366) Treatment Minutes: 13 $ Gait Training (89109) Billed Units: 1 unit Evaluation, Therapeutic Activity (55499), Gait Training (71796) Timed Code Treatment (minutes): 26 Skilled Treatment Time (minutes): 41 TRAINING AND EDUCATION PROVIDED Advanced Balance Activities, Anatomy and Impact on Deficits, Assistive Device Use, Bed Mobility, Benefits of In-Hospital Mobility, Discharge Planning, Disease Specific Education, Equipment, Exercise Program, Expected Functional Level, Falls Prevention, Gait Pattern, Reduction of Deviations, Home Safety, Modalities, Positioning, Precautions/Restrictio ns, Pre-gait Activities, Role of Physical Therapy, Sitting Balance, Standing Balance, Transfers, Treatment Protocol THERAPEUTIC SKILLS USED Activity Dosing, Assessment of Tolerance Including Vitals Response to Activity, Cues for Sequencing/Proper Technique for Activity, Cuing Tactile, Cuing Verbal, Cuing Visual, Muscle Activation Facilitation, Physical Assist, Postural Alignment Correction FUNCTIONAL STATUS Bed Mobility Rolling: Additional Information Supine To Sit: Minimal Assistance HOB elevated, assist with operative LE management, cues for technique and effective use of UEs for assist. Performed toward side to emulate home environment Sit to Supine: Additional Information in chair upon exit Scooting: Contact Guard Assistance cues to maintain LOGAN precautions with progression of forward scooting Transfers Sit To Stand: Moderate Assistance, Minimal Assistance, Additional Information Cues provided for proper hand and operative LE positioning, initial demonstration provided. Initial poor weight shifting and with difficulty transitioning hands to walker. Progression to Fletcher, X 5 trials Stand To Sit: Moderate Assistance Cues for safe approach to surface, proper hand and operative LE positioning and controlled descent to sit, decreased eccentric conrol. unsteady. Bed to Chair Gait Minimal As (more content not included)... Normal [facility] ANES POSTPROC EVALon 025 ANES POSTPROC EVAL HNO ID: [id number] Author: KEVIN EVERETT MD Service: Anesthesiology Author Type: Anesthesiologist Type: Anesthesia Postprocedure Evaluation Filed: 04/01/2024 14:14 Note Text: POST ANESTHESIA EVALUATION NOTE : 1945 Procedure Summary Date: 04/01/24 Room / Location: [place] OR / IA OR Anesthesia Start: 1116 Anesthesia Stop: 1408 Procedure: ROBOTIC ASSISTED TOTAL HIP ARTHROPLASTY (Right: Hip) Diagnosis: Primary osteoarthritis of right hip (Primary osteoarthritis of right hip [M16.11]) Surgeons: Alfredito Michele MD Responsible Provider: Kevin Everett MD Anesthesia Type: spinal ASA Status: 3 Anesthesia Type: spinal Last Vitals Vitals Value Taken Time BP 93/51 04/01/24 1407 Temp 36.3 ?C (97.3 ?F) 04/01/24 1407 Pulse 54 04/01/24 1413 Resp 12 04/01/24 1413 SpO2 97 % 04/01/24 1413 Vitals shown include unfiled device data. Post Anesthesia Patient Status Patient Evaluation: bedside. Anticipated Disposition: inpatient floor planned admission. Neurological Status: aware and responsive. Pulmonary Status: breathing comfortably on room air Airway Control: returned to baseline unsupported. Cardiovascular Status: stable. Pain Management: clinically adequate Postoperative Hydration: acceptable. Intraoperative Events: no significant anesthesia events Post Operative Nausea/Vomiting Status: no significant post operative nausea or vomiting Recommendation: continue current plan of care. Anesthesia Observations No Documentation SIGNATURE: Kevin Everett MD PATIENT NAME: Paolo Hernandez DATE: April 01, 2024 TIME: 2:14 PM CSN: [id number] [facility] ANES PRE-OPon 04-01-2024 ANES PRE-OP HNO ID: [id number] Author: KEVIN EVERETT MD Service: Anesthesiology Author Type: Anesthesiologist Type: Anesthesia Preprocedure Evaluation Filed: 04/01/2024 09:21 Note Text: ANESTHESIOLOGY DAY OF SURGERY NOTE : 1945 Procedure Information Date/Time: 04/01/2455 Procedure: ROBOTIC ASSISTED TOTAL HIP ARTHROPLASTY (Right: Hip) Location: [place] OR / [place] OR Surgeons: Alfredito Michele MD Estimated body mass index is 22.11 kg/m? as calculated from the following: Height as of 03/19/24: 177.8 cm (5' 10). Weight as of 03/19/24: 69.9 kg (154 lb 1.6 oz). Most recent hematocrit and potassium results: Hematocrit 40.1 03/19/2024 Potassium 4.4 03/19/2024 Relevant Problems No relevant active problems I - PHYSICAL EVALUATION AIRWAY Patient intubated: No. Tracheostomy tube not present Mallampati: II. TM distance: >3 FB. Neck ROM: full ROM without neurological symptoms. Mouth opening: adequate. Short neck: no. Thick neck: no DENTAL Normal dental observations. Dental findings: teeth intact and poor dentition. II - ANESTHESIA PLAN ASA Score: 3 Anesthetic Plan: spinal The patient is not a current smoker. NPO Status: adequate Beta Vira Monitoring Plan Monitoring plan: standard ASA. Post Procedure Analgesic Plan Postoperative analgesic plan: parenteral or oral opioids and multimodal analgesia. Informed Consent Anesthetic risks, benefits, alternatives, personnel and consent discussed: yes. Patient / Responsible Democrat agrees to proceed: yes Patient / Surrogate agrees to blood products: blood products not planned DNR status not reviewed with patient and/or family prior to surgery. Significant changes in the patient condition since the History and Physical, not otherwise documented in primary service progress note: no. Potential Anesthesia issues that may suggest increased risk of complications or contraindication to planned procedure: none. Discussed the possibility of lip / dental damage: yes Vitals Value Taken Time BP 140/85 04/01/24810 Pulse 80 04/01/24810 Resp 16 04/01/24810 Temp 36.5 ?C (97.7 ?F) 04/01/24810 SpO2 99 % 04/01/24810 Facility-Administered Medications as of 04/01/2024 Medication Dose Route Frequency lidocaine (PF) 10 mg/mL (1 %) 1-2 mg injection (XYLOCAINE) 0.1-0.2 mL INTRADERMAL PRN NaCl 0.9% iv flush bag 20 mL INTRAVENOUS PRN ceFAZolin iv piggyback 2 g in D5W (iso-osmotic) 100 mL (ANCEF) 2 g INTRAVENOUS Pre-Op Once [COMPLETED] acetaminophen 1,000 mg tab(s) (TYLENOL) 1,000 mg ORAL Pre-Op Once [COMPLETED] celecoxib 200 mg cap(s) (CeleBREX) 200 mg ORAL Pre-Op Once [COMPLETED] oxyCODONE ER 10 mg tab(s) (OxyCONTIN) 10 mg ORAL Pre-Op Once scopolamine (delivers 1 mg over 3 days) 1 Patch (TRANSDERM-SCOP) 1 Patch TRANSDERMAL ONCE scopolamine - VERIFY patch OTHER q 8 H [START ON 04/02/2024] scopolamine - REMOVE PATCH OTHER ONCE lactated ringers iv infusion 5-30 mL/hr INTRAVENOUS CONTINUOUS lidocaine 10 mg/mL (1 %) injection (XYLOCAINE) OTHER PRN triamcinolone acetonide injection (KeNALog 40) INTRA-ARTICULAR PRN No current outpatient medications on file as of 04/01/2024. I have interviewed and examined the patient. I have reviewed the medical record and/or the pre-anesthesia evaluation, pertinent labs, and test results. This contains updated information obtained within 48 hours of Surgery/Procedure. SIGNATURE: Kevin Everett MD PATIENT NAME: Paolo Hernandez DATE: April 01, 2024 TIME: 9:21 AM CSN: [id number] [facility] CASE MGT INIT Lauren [facility]: [id number] Author: ANDREY BECERRA LSW Service: ASSESSMENT Author Type: Legal Secretary Receptionist Type: Care Mgt Initial Assessment Filed: 04/01/2024 22:32 Note Text: CARE MANAGEMENT: ASSESSMENT AND DISCHARGE PLAN SERVICE DATE: April 01, 2024 SERVICE TIME: 10:29 PM PCP: Louis Scott MD/reviewed Primary Contact: Extended Emergency Contact Information Primary Emergency Contact: Karis chatman Relation: Daughter Admission Status: Extended Recovery Insurance Provider: MEDICARE A AND B Discharge Planning requested by: Per Department Practice Potential Transition Plans Home, Home Care, Home OT/PT, To Be Determined Advance Directives Current Advance Directive: Health Care Power of Lead Javascript Engineer, Living Will In Chart: No Industrial Engineering Director Attempted to Assist with AD Completion: Yes Action: Education Provided Current Living Arrangements and Support Lives with: Alone Type of Residence: Private Residence (Apartment or Condo) Does the patient have to climb stairs at home?: Yes, stairs outside the home (1 outside/0 inside) Support: Children How do you manage to accomplish the following: Independent: Dress, Bathe/Shower, Ambulation, Meals/Meal Prep, Going to the bathroom, Medication Management, Transportation to appointments/community Current Services/Equipment Current Post-Acute Service(s): None Discharge Planning Patient Goal(s): Better mobility, General wellness, Increase strength [place]ige[place] of Choice Explained: [place]ige[place] of Choice Given: Yes Level of Care Discussed: Home Care Are you interested in bedside delivery of your medications? No Discharge Planning Participant(s): Patient Patient/Family Comments: Pt plans to d/c home when medically clear. Caregiver Assessment: Caregiver is ready, willing and able to meet the patient's needs as recommended by the inter-professional team: No Caregiver needed Transport at Discharge: Transportation Arrangements: Car Needs Prior to Discharge: Needs Prior to Discharge: To Be Determined, OT/PT Evaluation Post-Acute Discharge Plan: CM reviewed EMR. Diagnosis include: Osteoarthritis lt hip, Neuropathy of feet, HTN. Pt lives alone. Pt is independent in ADL's. Pt stated he uses a cane, as needed. No hx of SNF. Pt stated he would be agreeable to [facility], if recommended. Pt uses [facility], in [place]. Daughter will p/u on d/c. CM will follow with d/c planning needs. SIGNATURE: RAIN Martel, ACYi PATIENT NAME: Paolo Hernandez DATE: April 01, 2024 TIME: 10:29 PM Normal [facility] CONSULTon 04-01-2024 CONSULT HNO ID: [id number] Author: SHAMAR KIRAN MD Service: General Internal Medicine Author Type: Physician Type: Consults Filed: 04/09/2024 21:02 Note Text: [facility]- Consultation PAOLO HERNANDEZ : 1945 AGE: 78 SEX: M ACCTNUM: [id number] [facility]: [facility] LOCATION: [address] ATTENDING PHYSICIAN: ALFREDITO MICHELE DATE OF SERVICE: 04/01/2024 TIME OF SERVICE: 05:25 PM REASON FOR CONSULTATION: Medical management. HISTORY: This 78-year-old gentleman, whose significant medical history includes osteoarthritis and neuropathy of feet, etiology not clear. The patient underwent electively right total hip arthroplasty. The patient had uneventful intraoperative course. Estimated blood loss 250 mL. During initial evaluation, alert, oriented. No nausea, lightheaded, dizzy, shortness of breath. Continued to have numbness of the lower extremities. PAST MEDICAL HISTORY: As mentioned above. PAST SURGICAL HISTORY: Arthroscopic surgery, inguinal hernia repair, and bilateral cataract surgery. FAMILY HISTORY: Positive for hypertension. SOCIAL HISTORY: Does not smoke or drink alcohol. MEDICATIONS: His current home medication none. ALLERGIES: He has no known drug allergies. REVIEW OF SYSTEMS: Essentially unremarkable. He has occasionally once a night micturition. PHYSICAL EXAM: General: Elderly gentleman who is alert, oriented. HEENT: Sclerae anicteric. No thyromegaly. No carotid bruit. No lymphadenopathy of the neck. Lungs: Clear to auscultation bilaterally. No wheezing, rales present. Cardiovascular: S1, S2. Regular rhythm. No murmur, gallop, or rub appreciated. Abdomen: Soft, nontender, nondistended. No mass felt. Extremities: Lower extremities examination, no ankle edema noted. IMPRESSION: 1. Osteoarthritis, status post right total hip arthroplasty. Deep venous thrombosis prophylaxis with aspirin 81 mg twice a day. 2. Neuropathy of the feet, etiology not clear. Thank you very much for kind referral. Continue to follow while in the hospital. Shamar Kiran M.D. Internal Medicine SKJ:[id number] /[id number] [facility] OPERATIVE NOon 04-01-2024 OPERATIVE NO HNO ID: [id number] Author: ALFREDITO MICHELE MD Service: Orthopaedic Surgery Author Type: Physician Type: Operative Report Filed: 04/15/2024 10:14 Note Text: OPERATIVE/PROCEDURE REPORT LOG ID: [id number] SURGERY/PROCEDURE DATE: 04/01/2024 INCISION/PROCEDURE START TIME: 12:00 PM INCISION CLOSE/PROCEDURE END TIME: 1:51 PM SURGEON(S)/PROCEDURALI ST(S) AND AGRICULTURAL SCIENCES PROFESSOR(S): Surgeons and Role: * Alfredito Michele MD - Primary Nurse Practitioner: Beba Patel APRN.CRIMINOLOGY TEACHER Physician Airplane Pilot Helper: Shelby Coy PA-C (retail administrative assistant) SURGERY/PROCEDURE(S): ROBOTIC ASSISTED TOTAL HIP ARTHROPLASTY, Right Anesthesia: Spinal with supplemental. Attestation: I was present for and performed all critical portions of the case. retail administrative assistant was necessary for proctoring with the Robot, safe patient positioning, assistance, positioning and protection, soft tissue retraction, protection of vital structures and suture management during the case. Skin closure, bandage and pillow application and safe transport to the hospital bed. Preop Diagnosis: Pre-Op Diagnosis Codes: Right hip, osteoarthritis. Postop Diagnosis: Same as Pre-Op Diagnosis OPERATIVE INDICATIONS: The patient has a history of progressive Right hip pain and arthritis. Their hip pain is severe with activity and has progressed significantly over time . X-rays reveal severe loss of articular cartilage of the hip with osteophytes consistent with advanced hip osteoarthritis. Non-operative treatment has been attempted, but is now ineffective at controlling symptoms during normal daily activities. Motion has become limited and rotation severely restricted. A total hip arthroplasty was recommended at this time. The risks, benefits and potential complications of the arthroplasty surgery were discussed with the patient in detail. Specific details of the procedure, hospitalization, recovery, rehabilitation, and long-term precautions were also provided. Pre-operative teaching was provided. Implant/prosthesis selection was outlined, and the many options available were explained; the final choice will be made at the time of the procedure to match the anatomy and condition of the bone, ligaments, tendons, and muscles. Understanding of all topics was conveyed to me by the patient, and consent was given to proceed with a Right total hip arthroplasty. The patient was evaluated medically for pre-operative optimization. Nicole-operative blood management and the potential for blood transfusion were discussed with risks and options clearly outlined. OPERATIVE PROCEDURE: The patient was identified and brought into the Operating Room by the anesthesia and nursing team. Spinal was placed. Intravenous antibiotic prophylaxis dosing was confirmed as was use of TXA during the case of 1 and 1. The patient was then positioned in the lateral decubitus position with the assistance of a beanbag. An axillary roll was placed, and all other pressure points were checked and padded. The hip was then examined and restrictions noted. A relative leg length assessment was carried out. The leg was then prepped and draped in the usual sterile fashion. We reviewed the operative template according to the CT scan and navigation screen on the robotic device. We assessed an altered cup size and position, stem size and position, as well as possible areas of impingement in changes to leg length and offset. Once satisfied we confirmed the plan is appropriate. A surgical time-out was performed immediately preceding the incision with all personnel in the operating room; the patient identity was again confirmed, the surgical site and extremity were identified and confirmed, X-rays were reviewed, and availability of the appropriate surgical equipment was established. 3 small poke incisions were made over the iliac crest. The 3 robotic array pins were placed individually, each via palpation, feeling the bone anteriorly and posteriorly, and then directing the pain in the middle of the iliac crest. The array was then placed on the pins, sliding to bone, and firmly tightened. We confirmed that the robot was able to see this. The hip was then exposed through a skin incision centered over the greater trochanter. Dissection was carried down through skin and subcutaneous tissue to the tensor and gluteal fascia. The fascia was split posteriorly over the trochanter in the direction of its fibers, and the gluteus freddie muscle was spread. Bleeders were controlled with electrocautery. A Charnley self retaining retractor was then placed after careful palpation of the sciatic nerve. The bursa was taken down off of the back of the femur. The gluteus medius was identified and protected with a cobra retractor. The foot was placed on the curtis stand to facilitated internal rotation and exposure. The piriformis was identified and taken down off of its insertion. And the capsule was divided, f (more content not included)... Normal [facility] Pathology biopsy report Carlton (Tiss)on 04-01-2024 CASE REPORT [facility] Comment on above: Order Comment: Speci men Type: TISSUE SPECIMENOrdering Facility: [facility] Address: [address] [place] [address] Result Comment: Surg ica Pathology Report Case: [id number] Authorizing Provider: Alfredito Michele MD Collected: 04/01/2024 12:07 PM Ordering Location: [facility] Surgery Received: 04/01/2024 02:47 PM Pathologist: Dylan Beltran MD Specimen: Femoral Head, Right Performed By: #### 6 6121-5 ####[facility] [id number] [address] LABIA [id number] [address] OF [facility] CLINICAL HISTORY Normal [facility] Comment on above: Order Comment: Speci men Type: TISSUE SPECIMENOrdering Facility: [facility] Address: [address] [place] [address] Result Comment: Pre- op diagnosis: Primary osteoarthritis of right hip [M16.11] Performed By: #### 6 6121-5 ####[facility] LABORATORYIA [id number] [place], [place] [id number] [place] [address] LABCLIA [id number] [address] FINAL DIAGNOSIS [facility] Comment on above: Order Comment: Rebecca bailon Type: TISSUE SPECIMENOrdering Facility: [facility] Address: [address] [place] [address] Result Comment: A. R ight femoral head, arthroplasty: - Severe degenerative joint disease. - Nonspecific chronic synovitis. at 0922 EST Performed By: #### 6 6121-5 ####[facility]ORYCLIA [id number] [place] [address] [facility] LABCLIA [id number] [address] FINAL PERFORMING LAB [facility] Comment on above: Order Comment: Speci uvaldo Type: TISSUE SPECIMENOrdering Facility: [facility] Address: [address] [place] [address] Result Comment: Diag nostic interpretation performed at: [facility], [address] [address] [facility] [address] CLIA# [id number] Slot Router: Louis Lindsay MD Performed By: #### 6 6121-5 ####[facility]ORYCLIA [id number] [place] [address] [facility] LABCLIA [id number] [address] GROSS DESCRIPTION [facility] Comment on above: Order Comment: [facility] Type: TISSUE SPECIMENOrdering Facility: [facility] Address: [address] [place] [address] Result Comment: A. F emoral Head, Right Received in formalin, labeled right femoral head is a femoral head measuring approximately 5.5 x 5.0 x 4.8 cm. The articular surface shows an area of eburnation. Recognizable cartilage appears roughened and several osteophytes are present. The femoral head is cut with a band saw, revealing hard, trabecular bone beneath areas of eburnation. No grossly necrotic bone is identified. Sql Report Analyst sections are submitted, as follows: A1: Articulating surface, following decalcification A2: Non-articulating, peripheral surface, following decalcification A3: Soft tissue from femoral neck AKA April 02, 2024 11:11 AM Gross examination performed at [facility], [address], [place] [address] Performed By: #### 6 6121-5 ####[facility] LABORATORYCLIA [id number] [facility] [place] [address] [facility] LABCLIA [id number] [facility] [address] [id number] [id number] [facility] XR PELVIS 1V APon 04-01-2024 XR PELVIS 1V AP * * *Final Report* * * DATE OF EXAM: Apr 01 2024 2:28PM MDX 5239 - XR PELVIS 1V AP / PROCEDURE REASON: Post-operative / post-procedure assessment, asymptomatic * * * * Physician Interpretation * * * * TITLE: XR PELVIS 1V AP CLINICAL INDICATION: Postprocedure assessment TECHNIQUE: Portable AP radiograph of the pelvis COMPARISON: A radiograph dated 03/09/2024 FINDINGS: Immediate post surgical changes from a new total right hip replacement including right subcutaneous emphysema. No radiographic evidence of hardware complications. Status post right pelvic herniorrhaphy with mesh. Atherosclerotic calcification of the vasculature IMPRESSION: Immediate post surgical changes from a new total right hip replacement Rolling Up Machine Operator: DELISA Transcribe Date/Time: Apr 01 2024 2:36P Dictated by : BRYON ALDRIDGE MD This examination was interpreted and the report reviewed and electronically signed by: BRYON ALDRIDGE MD on Apr 01 2024 2:37PM EST [id number] [facility] PAOLO HERNANDEZ ([id number]) 1945 M Date Time Provider Department 03/31/24 ALFREDITO MICHELE During your visit today, we recorded the following information about you: Joanna Ybarra 03/31/2024 11:38 AM Signed Patient called in stating the last few mornings he has woken up with a slight sore throat that goes away during the day. He is asking if this will affect his surgery tomorrow. Please advise. Meena Alejo MA 03/31/2024 2:54 PM Addendum I spoke with the patient to further clarify. He reports throat is scratchy when he wakes up, but clears up quickly. He noticed this started about the same time that he started using mupirocin ointment in his nose for surgery. He denies any fever, congestion, nausea, vomiting, diarrhea, headache. He does not feel ill. Asking if ok to proceed with surgery tomorrow? Shelby Coy PA-C 03/31/2024 2:56 PM Signed Patient should be fine to proceed with surgery as planned. Thank you. Meena Alejo MA 03/31/2024 2:58 PM Signed Patient has been notified of message from Shelby Coy PA-C and verbalized understanding. 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] 05/24/2008 Vertigo [R42] 03/22/2009 Right inguinal hernia [K40.90] 11/23/2013 Right hip pain [M25.551] 06/19/2023 Neuropathy [G62.9] 03/19/2024 Encounter Status:Closed by MEENA ALEJO on 03/31/24 Normal [facility] CBC W Auto Differential pane l (Bld)on 03-19-2024 Basophils (Bld) [#/Vol] 0.03 10*3/uL [facility] Basophils/100 WBC (Bld) 0.4 % [facility] Differential cell count method Nom (Bld) Auto [facility] Eosinophils (Bld) [#/Vol] 0.03 10*3/uL [facility] Eosinophils/100 WBC (Bld) 0.4 % [facility] Erythrocyte distribution width (RBC) [Ratio] 15.8 % High 11.5 - 15.0 % [facility] Hematocrit (Bld) [Volume fraction] 40.1 % 39.0 - 51.0 % [facility] Hemoglobin (Bld) [Mass/Vol] 12.9 g/dL Low 13.0 - 17.0 g/dL [facility] Immature granulocytes (Bld) [#/Vol] [facility] Immature granulocytes/100 WBC (Bld) 0.3 % [facility] Interpretation and review of laboratory results Abnormal [facility] Lymphocytes (Bld) [#/Vol] 1.45 10*3/uL [facility] Lymphocytes/100 WBC (Bld) 20.2 % [facility] MCH (RBC) [Entitic mass] 26.1 pg 26.0 - 34.0 pg [facility] MCHC (RBC) [Mass/Vol] 32.2 g/dL 30.5 - 36.0 g/dL [facility] MCV (RBC) [Entitic vol] 81.0 fL 80.0 - 100.0 fL [facility] Monocytes (Bld) [#/Vol] 0.43 10*3/uL [facility] Monocytes/100 WBC (Bld) 6.0 % [facility] Neutrophils (Bld) [#/Vol] 5.23 10*3/uL [facility] Neutrophils/100 WBC (Bld) 72.7 % [facility] Nucleated RBC (Bld) [#/Vol] [facility] Nucleated RBC/100 WBC (Bld) [Ratio] 0.0 % /100 WBC [facility] Platelet mean volume (Bld) [Entitic vol] 10.1 fL 9.0 - 12.7 fL [facility] Platelets (Bld) [#/Vol] 370 10*3/uL [facility] RBC (Bld) [#/Vol] 4.95 10*6/uL 4.20 - 6.0 0 m/uL [facility] WBC (Bld) [#/Vol] 7.19 10*3/uL [facility] Basophils (Bld) [#/Vol] 0.03 10*3/uL Normal <0.11 [facility] Comment on above: Order Comment: Speci men Type: BLOOD SPECIMENOrdering Facility: [facility] Address: [address] [place] [address] Performed By: #### 5 7021-8 ####[facility] LABORATORYCLIA [id number] [address] Basophils/100 WBC (Bld) 0.4 % Normal [facility] Comment on above: Order Comment: Speci men Type: BLOOD SPECIMENOrdering Facility: [facility] Address: [address] [place] [address] Performed By: #### 5 7021-8 ####[facility] LABORATORYCLIA [id number] [address] [place] Differential cell count method Nom (Bld) Auto Normal [facility] Comment on above: Order Comment: Speci men Type: BLOOD SPECIMENOrdering Facility: [facility] Address: [address] [place] [address] Performed By: #### 5 7021-8 ####[facility] LABORATORYCLIA [id number] [address] [place] Eosinophils (Bld) [#/Vol] 0.03 10*3/uL Normal <0.46 [facility] Comment on above: Order Comment: Speci men Type: BLOOD SPECIMENOrdering Facility: [facility] Address: [address] [place] [address] Performed By: #### 5 7021-8 ####[facility] LABORATORYCLIA [id number] [address] STATES [facility] Eosinophils/100 WBC (Bld) 0.4 % Normal [facility] Comment on above: Order Comment: Speci men Type: BLOOD SPECIMENOrdering Facility: [facility] Address: [address] [place] [address] Performed By: #### 5 7021-8 ####M[facility] LABORATORYCLIA [id number] [place] [address] [place] Erythrocyte distribution width (RBC) [Ratio] 15.8 % High 11.5-15.0 [facility] Comment on above: Order Comment: Speci men Type: BLOOD SPECIMENOrdering Facility: [facility] Address: [address] [place] [address] Performed By: #### 5 7021-8 ####[facility] LABORATORYCLIA [id number] [place] [address] [place] Hematocrit (Bld) [Volume fraction] 40.1 % Normal 39.0-51.0 [facility] Comment on above: Order Comment: Speci men Type: BLOOD SPECIMENOrdering Facility: [facility] Address: [address] [place] [address] Performed By: #### 5 7021-8 ####M[facility] LABORATORYCLIA [id number] [place] [address] [place] Hemoglobin (Bld) [Mass/Vol] 12.9 g/dL Low 13.0-17.0 [facility] Comment on above: Order Comment: Speci men Type: BLOOD SPECIMENOrdering Facility: [facility] Address: [address] [place] [address] Performed By: #### 5 7021-8 ####MALL[facility] LABORATORYCLIA [id number] [address] [place] Immature granulocytes (Bld) [#/Vol] 10*3/uL Normal <0.10 [facility] Comment on above: Order Comment: Speci men Type: BLOOD SPECIMENOrdering Facility: [facility] Address: [address] [place] [address] Performed By: #### 5 7021-8 ####MALL[facility] LABORATORYCLIA [id number] [address] [place] Immature granulocytes/100 WBC (Bld) 0.3 % Normal [facility] Comment on above: Order Comment: Speci men Type: BLOOD SPECIMENOrdering Facility: [facility] Address: [address] [place] [address] Performed By: #### 5 7021-8 ####[facility] LABORATORYCLIA [id number] [address] Lymphocytes (Bld) [#/Vol] 1.45 10*3/uL Normal 1.00-4.00 [facility] Comment on above: Order Comment: Speci men Type: BLOOD SPECIMENOrdering Facility: [facility] Address: [address] [place] [address] Performed By: #### 5 7021-8 ####M[facility] LABORATORYCLIA [id number] [address] Lymphocytes/100 WBC (Bld) 20.2 % Normal [facility] Comment on above: Order Comment: Speci men Type: BLOOD SPECIMENOrdering Facility: [facility] Address: [address] [place] [address] Performed By: #### 5 7021-8 ####M[facility] LABORATORYCLIA [id number] [address] MCH (RBC) [Entitic mass] 26.1 pg Normal 26.0-34.0 [facility] Comment on above: Order Comment: Speci men Type: BLOOD SPECIMENOrdering Facility: [facility] Address: [address] [place] [address] Performed By: #### 5 7021-8 ####[facility] LABORATORYCLIA [id number] [address] MCHC (RBC) [Mass/Vol] 32.2 g/dL Normal 30.5-36.0 [facility] Comment on above: Order Comment: Speci men Type: BLOOD SPECIMENOrdering Facility: [facility] Address: [address] [place] [address] Performed By: #### 5 7021-8 ####[facility] LABORATORYCLIA [id number] [address] MCV (RBC) [Entitic vol] 81.0 fL Normal 80.0-100.0 [facility] Comment on above: Order Comment: Speci men Type: BLOOD SPECIMENOrdering Facility: [facility] Address: [address] [place] [address] Performed By: #### 5 7021-8 ####M[facility] LABORATORYCLIA [id number] [place] [address] [place] Monocytes (Bld) [#/Vol] 0.43 10*3/uL Normal <0.87 [facility] Comment on above: Order Comment: Speci men Type: BLOOD SPECIMENOrdering Facility: [facility] Address: [address] [place] [address] Performed By: #### 5 7021-8 ####[facility] LABORATORYCLIA [id number] [address] [place] Monocytes/100 WBC (Bld) 6.0 % Normal [facility] Comment on above: Order Comment: Speci men Type: BLOOD SPECIMENOrdering Facility: [facility] Address: [address] [place] [address] Performed By: #### 5 7021-8 ####[facility] LABORATORYCLIA [id number] [address] [place] Neutrophils (Bld) [#/Vol] 5.23 10*3/uL Normal 1.45-7.50 [facility] Comment on above: Order Comment: Speci men Type: BLOOD SPECIMENOrdering Facility: [facility] Address: [address] [place] [address] Performed By: #### 5 7021-8 ####[facility] LABORATORYCLIA [id number] [address] [place] Neutrophils/100 WBC (Bld) 72.7 % Normal [facility] Comment on above: Order Comment: Speci men Type: BLOOD SPECIMENOrdering Facility: [facility] Address: [address] [place] [address] Performed By: #### 5 7021-8 ####[facility] LABORATORYCLIA [id number] [address] [place] Nucleated RBC (Bld) [#/Vol] 10*3/uL Normal <0.01 [facility] Comment on above: Order Comment: Speci men Type: BLOOD SPECIMENOrdering Facility: [facility] Address: [address] [place] [address] Performed By: #### 5 7021-8 ####[facility] LABORATORYCLIA [id number] [address] [place] Nucleated RBC/100 WBC (Bld) [Ratio] 0.0 /100 WBC Normal [facility] Comment on above: Order Comment: Speci men Type: BLOOD SPECIMENOrdering Facility: [facility] Address: [address] [place] [address] Performed By: #### 5 7021-8 ####[facility] LABORATORYCLIA [id number] [address] [place] Platelet mean volume (Bld) [Entitic vol] 10.1 fL Normal 9.0-12.7 [facility] Comment on above: Order Comment: Speci men Type: BLOOD SPECIMENOrdering Facility: [facility] Address: [address] [place] [address] Performed By: #### 5 7021-8 ####M[facility] LABORATORYCLIA [id number] [address] [place] Platelets (Bld) [#/Vol] 370 10*3/uL Normal 150-400 [facility] Comment on above: Order Comment: Speci men Type: BLOOD SPECIMENOrdering Facility: [facility] Address: [address] [place] [address] Performed By: #### 5 7021-8 ####M[facility] LABORATORYCLIA [id number] [address] [place] RBC (Bld) [#/Vol] 4.95 10*6/uL Normal 4.20-6.00 [facility] Comment on above: Order Comment: Speci men Type: BLOOD SPECIMENOrdering Facility: [facility] Address: [address] [place] [address] Performed By: #### 5 7021-8 ####M[facility] LABORATORYCLIA [id number] [address] [place] WBC (Bld) [#/Vol] 7.19 10*3/uL Normal 3.70-11.00 [facility] Comment on above: Order Comment: Speci men Type: BLOOD SPECIMENOrdering Facility: [facility] Address: [address] [place] [place] [id number] Performed By: #### 5 7021-8 ####[facility] LABORATORYCLIA [id number] [place] [address] [place] HIP WO IVCON RTon 025 CT HIP WO IVCON RT * * *Final Report* * * DATE OF EXAM: Mar 19 2024 2:09PM [facility] [place] H[place] WO IVCON RT / PROCEDURE REASON: M25.551-Pain of right hip * * * * Physician Interpretation * * * * EXAMINATION: CT HIP WO IVCON RT CLINICAL HISTORY: 78 years old Male with Pain of right hip . Preoperative planning . TECHNIQUE: CT RIGHT hip without contrast Christian protocol, 0.62 mm axial slices pelvis-hips, 2.5 mm axial slices both knees CT Radiation dose: Integrated Dose-length product (DLP) for this visit = 920 mGy*cm. CT Dose Reduction Employed: Automated exposure control(AEC) and iterative recon COMPARISON: Radiographs 03/09/2024 RESULT: Advanced right hip osteoarthritis. 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 Partially visualized large left lower pole renal cyst. Atherosclerotic calcifications without aneurysm. Prior right herniorrhaphy. Sigmoid diverticulosis. Bilateral knees: No significant finding Pension Examiner: No significant finding. IMPRESSION: Limited CT images for the purposes of presurgical planning. Rolling Up Machine Operator: DELISA Transcribe Date/Time: Mar 19 2024 3:19P Dictated by : FARZANEH CARRILLO MD This examination was interpreted and the report reviewed and electronically signed by: FARZANEH CARRILLO MD on Mar 19 2024 3:21PM EST [id number] Normal [facility] CT Hip - right WO contraston 03-19-2024 IMPRESSION: Limited CT images for the purposes of presurgical planning. Rolling Up Machine Operator: DELISA Transcribe Date/Time: Mar 19 2024 3:19P Dictated by : FARZANEH CARRILLO MD This examination was interpreted and the report reviewed and electronically signed by: FARZANEH CARRILLO MD on Mar 19 2024 3:21PM EST [facility] * * *Final Report* * * DATE OF EXAM: Mar 19 2024 2:09PM [facility] [place] HIP WO IVCON RT / PROCEDURE REASON: M25.551-Pain of right hip * * * * Physician Interpretation * * * * EXAMINATION: CT HIP WO IVCON RT CLINICAL HISTORY: 78 years old Male with Pain of right hip . Preoperative planning . TECHNIQUE: CT RIGHT hip without contrast Christian protocol, 0.62 mm axial slices pelvis-hips, 2.5 mm axial slices both knees CT Radiation dose: Integrated Dose-length product (DLP) for this visit = 920 mGy*cm. CT Dose Reduction Employed: Automated exposure control(AEC) and iterative recon COMPARISON: Radiographs 03/09/2024 RESULT: Advanced right hip osteoarthritis. 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 Partially visualized large left lower pole renal cyst. Atherosclerotic calcifications without aneurysm. Prior right herniorrhaphy. Sigmoid diverticulosis. Bilateral knees: No significant finding Pension Examiner: No significant finding. [facility] Provider, [facility] - 03/19/2024 * * *Final Report* * * DATE OF EXAM: Mar 19 2024 2:09PM [facility] [place] HIP WO IVCON RT / PROCEDURE REASON: M25.551-Pain of right hip * * * * Physician Interpretation * * * * EXAMINATION: CT HIP WO IVCON RT CLINICAL HISTORY: 78 years old Male with Pain of right hip . Preoperative planning . TECHNIQUE: CT RIGHT hip without contrast Christian protocol, 0.62 mm axial slices pelvis-hips, 2.5 mm axial slices both knees CT Radiation dose: Integrated Dose-length product (DLP) for this visit = 920 mGy*cm. CT Dose Reduction Employed: Automated exposure control(AEC) and iterative recon COMPARISON: Radiographs 03/09/2024 RESULT: Advanced right hip osteoarthritis. 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 Partially visualized large left lower pole renal cyst. Atherosclerotic calcifications without aneurysm. Prior right herniorrhaphy. Sigmoid diverticulosis. Bilateral knees: No significant finding Pension Examiner: No significant finding. IMPRESSION IMPRESSION: Limited CT images for the purposes of presurgical planning. Rolling Up Machine Operator: DELISA Transcribe Date/Time: Mar 19 2024 3:19P Dictated by : FARZANEH CARRILLO MD This examination was interpreted and the report reviewed and electronically signed by: FARZANEH CARRILLO MD on Mar 19 2024 3:21PM EST [facility] Radiology Study observation (narrative) [facility] CT Hip - right WO contrastOr dered By: [facility] Provider on 03-19-2024 [facility] Comprehensive metabolic 2000 panelon 03-19-2024 Albumin [Mass/Vol] 4.2 g/dL 3.9 - 4.9 g/dL [facility] ALP [Catalytic activity/Vol] 109 U/L 38 - 113 U/L [facility] ALT [Catalytic activity/Vol] 12 U/L 10 - 54 U/L [facility] Anion gap [Moles/Vol] 11 mmol/L 8 - 15 mmol/L [facility] AST [Catalytic activity/Vol] 21 U/L 14 - 40 U/L [facility] Bilirubin [Mass/Vol] 0.5 mg/dL 0.2 - 1 .3 mg/dL [facility] Calcium [Mass/Vol] 10.7 mg/dL High 8.5 - 10. 2 mg/dL [facility] Chloride [Moles/Vol] 101 mmol/L 98 - 10 7 mmol/L [facility] CO2 [Moles/Vol] 26 mmol/L 22 - 30 mmol/L [facility] Creatinine [Mass/Vol] 0.79 mg/dL 0.73 - 1.22 mg/dL [facility] GFR/1.73 sq M.predicted among non-blacks MDRD (S/P/Bld) [Vol rate/Area] 91 mL/min/{1.73_m2} - PINF [facility] Comment on above: Estimated Glomerular Filtration Rate (eGFR) is calculated using the 2020 CKD-EPI creatinine equation. This equation utilizes serum creatinine, sex, and age as parameters. The creatinine assay has traceable calibration to isotope dilution-mass spectrometry. Refer to KDIGO guidelines for clinical interpretation. In patients with unstable renal function, e.g. those with acute kidney injury, the eGFR may not accurately reflect actual GFR. Glucose [Mass/Vol] 97 mg/dL 74 - 99 mg/dL [facility] Comment on above: The [place] Diab[employer] s Association (ADA) provides guidance for cutoff values for fasting glucose and random glucose. The ADA defines fasting as no caloric intake for at least 8 hours. Fasting plasma glucose results between 100 to 125 mg/dL indicate increased risk for diabetes (prediabetes). Fasting plasma glucose results greater than or equal to 126 mg/dL meet the criteria for diagnosis of diabetes. In the absence of unequivocal hyperglycemia, results should be confirmed by repeat testing. In a patient with classic symptoms of hyperglycemia or hyperglycemic crisis, random plasma glucose results greater than or equal to 200 mg/dL meet the criteria for diagnosis of diabetes. Reference: Standards of Medical Care in Diabetes 2016, [place] [employer]. Diabetes Care. 2016.39(Suppl 1). Interpretation and review of laboratory results Abnormal [facility] Potassium [Moles/Vol] 4.4 mmol/L 3.7 - 5.1 mmol/L [facility] Protein [Mass/Vol] 8.0 g/dL 6.3 - 8.0 g/dL [facility] Sodium [Moles/Vol] 138 mmol/L 136 - 144 mmol/L [facility] Urea nitrogen [Mass/Vol] 18 mg/dL 9 - 24 mg/dL [facility] Albumin [Mass/Vol] 4.2 g/dL Normal 3.9-4.9 [facility] Comment on above: Order Comment: Rebecca bailon Type: BLOOD SPECIMENOrdering Facility: [facility] Address: [address] [place] [address] Performed By: #### 2 4323-8 ####[facility] LABORATORYCLIA [id number] [place] [address] [place] [facility] ALP [Catalytic activity/Vol] 109 U/L Normal 38-113 [facility] Comment on above: Order Comment: Rebecca bailon Type: BLOOD SPECIMENOrdering Facility: [facility] Address: [address] [place] [address] Performed By: #### 2 4323-8 ####[facility] LABORATORYCLIA [id number] [place] [address] [place] [facility] ALT [Catalytic activity/Vol] 12 U/L Normal 10-54 [facility] Comment on above: Order Comment: Rebecca bailon Type: BLOOD SPECIMENOrdering Facility: [facility] Address: [address] [place] [address] Performed By: #### 2 4323-8 ####[facility] LABORATORYCLIA [id number] [place] [address] [place] Anion gap [Moles/Vol] 11 mmol/L Normal 8-15 [facility] Comment on above: Order Comment: Speci men Type: BLOOD SPECIMENOrdering Facility: [facility] Address: [address] [place] [address] [place] [address] Performed By: #### 2 4323-8 ####[facility] LABORATORYCLIA [id number] [place] [address] [place] AST [Catalytic activity/Vol] 21 U/L Normal 14-40 [facility] Comment on above: Order Comment: Speci men Type: BLOOD SPECIMENOrdering Facility: [facility] Address: [address] [place] [address] Performed By: #### 2 4323-8 ####[facility] LABORATORYCLIA [id number] [place] [address] [place] Bilirubin [Mass/Vol] 0.5 mg/dL Normal 0.2-1.3 [facility] Comment on above: Order Comment: Speci men Type: BLOOD SPECIMENOrdering Facility: [facility] Address: [address] [place] [address] Performed By: #### 2 4323-8 ####[facility] LABORATORYCLIA [id number] [place] [address] [place] Calcium [Mass/Vol] 10.7 mg/dL High 8.5-10.2 [facility] Comment on above: Order Comment: Speci men Type: BLOOD SPECIMENOrdering Facility: [facility] Address: [address] [place] [address] Performed By: #### 2 4323-8 ####[facility] LABORATORYCLIA [id number] [place] [address] [place] Chloride [Moles/Vol] 101 mmol/L Normal 98-107 [facility] Comment on above: Order Comment: Speci men Type: BLOOD SPECIMENOrdering Facility: [facility] Address: [address] [place] [address] Performed By: #### 2 4323-8 ####[facility] LABORATORYCLIA [id number] [place] [address] [place] CO2 [Moles/Vol] 26 mmol/L Normal 22-30 [facility] Comment on above: Order Comment: Speci men Type: BLOOD SPECIMENOrdering Facility: [facility] Address: [address] [place] [address] Performed By: #### 2 4323-8 ####[facility] LABORATORYCLIA [id number] [address] Creatinine [Mass/Vol] 0.79 mg/dL Normal 0.73-1.22 [facility] Comment on above: Order Comment: Rebecca men Type: BLOOD SPECIMENOrdering Facility: [facility] Address: [address] [place] [address] Performed By: #### 2 4323-8 ####[facility] LABORATORYCLIA [id number] [address] Creatinine and Glomerular filtration rate.predicted panel (S/P/Bld) 91 mL/min/1.73m??? Normal >=60 [facility] Comment on above: Order Comment: Rebecca uvaldo Type: BLOOD SPECIMENOrdering Facility: [facility] Address: [address] [place] [address] Result Comment: Dary mated Glomerular Filtration Rate (eGFR) is calculated using the 2020 CKD-EPI creatinine equation. This equation utilizes serum creatinine, sex, and age as parameters. The creatinine assay has traceable calibration to isotope dilution-mass spectrometry. Refer to KDIGO guidelines for clinical interpretation. In patients with unstable renal function, e.g. those with acute kidney injury, the eGFR may not accurately reflect actual GFR. Performed By: #### 2 4323-8 ####[facility] LABORATORYCLIA [id number] [address] Glucose [Mass/Vol] 97 mg/dL Normal 74-99 [facility] Comment on above: Order Comment: Rebecca uvaldo Type: BLOOD SPECIMENOrdering Facility: [facility] Address: [address] [place] [address] Result Comment: The [place] Diabetes Association (ADA) provides guidance for cutoff values for fasting glucose and random glucose. The ADA defines fasting as no caloric intake for at least 8 hours. Fasting plasma glucose results between 100 to 125 mg/dL indicate increased risk for diabetes (prediabetes). Fasting plasma glucose results greater than or equal to 126 mg/dL meet the criteria for diagnosis of diabetes. In the absence of unequivocal hyperglycemia, results should be confirmed by repeat testing. In a patient with classic symptoms of hyperglycemia or hyperglycemic crisis, random plasma glucose results greater than or equal to 200 mg/dL meet the criteria for diagnosis of diabetes. Reference: Standards of Medical Care in Diabetes 2016, [place] [employer] Association. Diabetes Care. 2016.39(Suppl 1). Performed By: #### 2 4323-8 ####[facility] LABORATORYCLIA [id number] [place] [address] [place] Potassium [Moles/Vol] 4.4 mmol/L Normal 3.7-5.1 [facility] Comment on above: Order Comment: Speci men Type: BLOOD SPECIMENOrdering Facility: [facility] Address: [address] [place] [address] Performed By: #### 2 4323-8 ####MALLOY LABORATORYCLIA [id number] [place] [address] [place] Protein [Mass/Vol] 8.0 g/dL Normal 6.3-8.0 [facility] Comment on above: Order Comment: Speci men Type: BLOOD SPECIMENOrdering Facility: [facility] Address: [address] [place] [address] Performed By: #### 2 4323-8 ####MALLOY LABORATORYCLIA [id number] [place] [address] [place] Sodium [Moles/Vol] 138 mmol/L Normal 136-144 [facility] Comment on above: Order Comment: Speci men Type: BLOOD SPECIMENOrdering Facility: [facility] Address: [address] [place] [address] Performed By: #### 2 4323-8 ####MALLOY LABORATORYCLIA [id number] [place] [address] [place] Urea nitrogen [Mass/Vol] 18 mg/dL Normal 9-24 [facility] Comment on above: Order Comment: Valentinei men Type: BLOOD SPECIMENOrdering Facility: [facility] Address: [address] [place] [address] Performed By: #### 2 4323-8 ####MALLOY LABORATORYCLIA [id number] [place] [address] [place] ECG COMPLETEon 03-19-2024 Atrial Rate 80 BPM [facility] Calculated P Turner 39 degrees [facility] Calculated R Turner -41 degrees [facility] Calculated T Turner 45 degrees [facility] P-R Interval 174 ms [facility] QRS Duration 104 ms [facility] QT Interval 382 ms [facility] Calculation (Bazett) 440 ms [facility] Ventricular Rate 80 BPM [facility] NORMAL SINUS RHYTHM WITH SINUS ARRHYTHMIA LEFT AXIS DEVIATION ABNORMAL ECG NO PREVIOUS ECGS AVAILABLE Confirmed by MD DUGAN QARAB ([id number]) on 03/19/2024 3:09:12 PM [place] C[facility] NAME : PAOLO HERNANDEZ PID : [id number] : 1945 Gender : Male Race : ORD : [id number] Procedure Date : Mar 19 2024 14:32:21 Edit Date : Mar 19 2024 15:09:14 Diagnosis: NORMAL SINUS RHYTHM WITH SINUS ARRHYTHMIA LEFT AXIS DEVIATION ABNORMAL ECG NO PREVIOUS ECGS AVAILABLE Confirmed by MD DUGAN QARAB ([id number]) on 03/19/2024 3:09:12 PM Test Reason : [facility] Location : : [facility] Overread By : MD DUGAN QARAB Edited By : MD DUGAN QARAB Referred By : ALFREDITO MICHELE Acquired by : MELLISSA GARCIA CPD [facility] ECG COMPLETE Ventricular Rate : 8 0 BPM Atrial Rate : 80 BPM P-R Interval : 174 ms QRS Duration : 104 ms Q-T Interval : 382 ms QTC Calculation(Bazett) : 440 ms Calculated P Turner : 39 degrees Calculated R Turner : -41 degrees Calculated T Turner : 45 degrees NORMAL SINUS RHYTHM WITH SINUS ARRHYTHMIA LEFT AXIS DEVIATION ABNORMAL ECG NO PREVIOUS ECGS AVAILABLE Confirmed by MD DUGAN QARAB ([id number]) on 03/19/2024 3:09:12 PM NAME : PAOLO HERNANDEZ PID : [id number] : 1945 Gender : Male Race : ORD : [id number] Procedure Date : Mar 19 2024 14:32:21 Edit Date : Mar 19 2024 15:09:14 Diagnosis: NORMAL SINUS RHYTHM WITH SINUS ARRHYTHMIA LEFT AXIS DEVIATION ABNORMAL ECG NO PREVIOUS ECGS AVAILABLE Confirmed by MD DUGAN QARAB ([id number]) on 03/19/2024 3:09:12 PM Test Reason : [facility] Location : 10 : [facility]/ Overread By : MD DUGAN QARAB Edited By : MD DUGAN QARAB Referred By : ALFREDITO MICHELE Acquired by : Deana GARCIA [facility] HISTORY PHYSICALon HISTORY PHYSICAL HNO ID: [id number] Author: YUDY DELACRUZ PA-C Service: ? Author Type: Physician Airplane Pilot Helper Type: H&P Filed: 03/20/2024 08:28 Note Text: [facility] HISTORY AND PHYSICAL EXAMINATION SERVICE DATE: 03/19/2024 SERVICE TIME: 2:54 PM PRIMARY CARE PHYSICIAN: Louis Scott MD Assessment Patient has the following medical conditions which may affect nicole-operative course: Neuropathy Assessment: b/l feet with elevation at the end of the day, not on medications [place] Activity Status Index: METS: Walk indoors, such as around the house (1.75 METs) Do light work around the house, such as dusting or washing dishes (2.70 METs) Take care of self; that is eating, dressing, bathing, using the toilet (2.75 METs) Walk a block or two on level ground (2.75 METs) Do moderate work around the house, such as vacuuming, sweeping floors, or carrying in groceries (3.50 METs) Do yardwork, such as raking leaves, weeding, or pushing a power mower (4.50 METs) Climb a flight of stairs or walk up a hill (5.50 METs) DASI Score: 23.45 Patient denies any chest pain or undue shortness of breath with the above physical activity. Clinical Frailty Scale: 2. Well STOP-Bang Score: STOP-Bang Score: 0 ANESTHESIA FINDINGS: Intubation History: No history of difficult intubation. No abnormal airway history Significant Anesthesia Considerations: none Airway History: No history of difficult airway No abnormal airway history I - PHYSICAL EVALUATION AIRWAY Patient intubated: No. Tracheostomy tube not present Mallampati: I. TM distance: >3 FB. Neck ROM: full ROM without neurological symptoms. Mouth opening: adequate. Short neck: no. Thick neck: no DENTAL Dental findings: teeth intact. II - ANESTHESIA PLAN Beta Vira Monitoring Plan Post Procedure Analgesic Plan Prepared for Surgery: optimally prepared for surgery. -EKG reviewed, labs pending -Given pre-op mupirocin rx AND instructions ADDENDUM: March 20, 2024 8:26 AM -Labs and/or EKG reviewed and acceptable for upcoming procedure CONSULTS: Patient does not require consults for optimization at this time Planned Anesthetic: anesthesia choice The Following Tests/Procedures Have Been Initiated: Orders Placed This Encounter CBC diff Standing Status: Future Number of Occurrences: 1 Standing Expiration Date: 06/18/2024 CMP Standing Status: Future Number of Occurrences: 1 Standing Expiration Date: 06/18/2024 mupirocin (BACTROBAN) 2 % ointment Sig: two times a day for 5 days. Apply 0.5 inch with cotton swab (Q-tip) to each nostril in the morning and evening for 5 days prior to and including day of surgery. Dispense: 22 g Refill: 0 ECG (IN OFFICE) REASON FOR VISIT: Paolo Hernandez is a 78 year old male who is scheduled for Procedure(s): ROBOTIC ASSISTED TOTAL HIP ARTHROPLASTY (Right) at the request of Dr. Alferdito Michele for consultation. My final recommendation will be communicated back to the requesting physician by way of shared medical record or letter. Subjective The patient has the following: COVID-19 Immunization Status Overdue - Covid-19 Vaccine ( season) Overdue since 01/29/2024 12/04/2023 Imm Admin: COVID-19 original vaccine, age 12+ yr, monovalent ([facility]) 12/11/2022 Imm Admin: COVID-19 vaccine, age 12+ yr, 2022- season ([employer]) 11/22/2021 Imm Admin: COVID-19 vaccine, age 12+ yr, bivalent ([employer]) Only the first 3 history entries have been loaded, but more history exists. CHIEF COMPLAINT: Pre-op HPI: Patient is a 78 year old male presenting for pre-anesthesia consultation. Has been with right hip worsened over the past few months. Denies specific injury. Reports pain today of 4/10, described as sharp, aching, worsens with movement. Denies swelling, numbness or tingling. Has tried conservative methods with little relief. Patient denies other specific radiating, alleviating, or aggravating factors. Denies signs of infection or pain. Patient has completed a comprehensive course of conservative treatment and has elected for above surgery. REVIEW OF SYSTEMS: General: No weight loss, malaise or fevers. Neurological: Positive for: peripheral neuropathy. Negative for: dementia, headaches, impaired sensorium, seizures, TIA and strokes. Respiratory: Negative for: asthma, bronchitis, COPD, current cough, bronchodilator used daily for the last 3 months, dyspnea, home oxygen, orthopnea, pneumonia within 6 weeks, tobacco use, URI < 2 weeks and obstructive sleep apnea. Cardiovascular: Negative for: abdominal aortic aneurysm, AICD/PPM, angina, anticoagulation therapy, arrhythmia, atrial fibrillation, CAD, chest pain, CHF, congenital heart defect, DVT/PE, hyperlipidemia, hypertension, recent AL, murmur/valvular heart disease, PTCA, PVD, open heart surgery and valve surgery. (more content not included)... Normal [facility] HISTORY PHYSICAL HNO ID: [id number] Author: YUDY DELACRUZ PA-C Service: ? Author Type: Physician Airplane Pilot Helper Type: H&P Filed: 03/19/2024 15:12 Note Text: [facility] HISTORY AND PHYSICAL EXAMINATION SERVICE DATE: 03/19/2024 SERVICE TIME: 3:11 PM PRIMARY CARE PHYSICIAN: Louis Scott MD Assessment Patient has the following medical conditions which may affect nicole-operative course: Neuropathy Assessment: b/l feet with elevation at the end of the day, not on medications [place] Activity Status Index: METS: Walk indoors, such as around the house (1.75 METs) Do light work around the house, such as dusting or washing dishes (2.70 METs) Take care of self; that is eating, dressing, bathing, using the toilet (2.75 METs) Walk a block or two on level ground (2.75 METs) Do moderate work around the house, such as vacuuming, sweeping floors, or carrying in groceries (3.50 METs) Do yardwork, such as raking leaves, weeding, or pushing a power mower (4.50 METs) Climb a flight of stairs or walk up a hill (5.50 METs) DASI Score: 23.45 Patient denies any chest pain or undue shortness of breath with the above physical activity. Clinical Frailty Scale: 2. Well STOP-Bang Score: STOP-Bang Score: 0 ANESTHESIA FINDINGS: Intubation History: No history of difficult intubation. No abnormal airway history Significant Anesthesia Considerations: none Airway History: No history of difficult airway No abnormal airway history I - PHYSICAL EVALUATION AIRWAY Patient intubated: No. Tracheostomy tube not present Mallampati: I. TM distance: >3 FB. Neck ROM: full ROM without neurological symptoms. Mouth opening: adequate. Short neck: no. Thick neck: no DENTAL Dental findings: teeth intact. II - ANESTHESIA PLAN Beta Vira Monitoring Plan Post Procedure Analgesic Plan Prepared for Surgery: optimally prepared for surgery, pending [see comment]. -EKG reviewed, labs pending -Given pre-op mupirocin rx AND instructions CONSULTS: Patient does not require consults for optimization at this time Planned Anesthetic: anesthesia choice The Following Tests/Procedures Have Been Initiated: Orders Placed This Encounter CBC diff Standing Status: Future Number of Occurrences: 1 Standing Expiration Date: 06/18/2024 CMP Standing Status: Future Number of Occurrences: 1 Standing Expiration Date: 06/18/2024 mupirocin (BACTROBAN) 2 % ointment Sig: two times a day for 5 days. Apply 0.5 inch with cotton swab (Q-tip) to each nostril in the morning and evening for 5 days prior to and including day of surgery. Dispense: 22 g Refill: 0 ECG (IN OFFICE) REASON FOR VISIT: Paolo Hernandez is a 78 year old male who is scheduled for Procedure(s): ROBOTIC ASSISTED TOTAL HIP ARTHROPLASTY (Right) at the request of Dr. Alfredito Michele for consultation. My final recommendation will be communicated back to the requesting physician by way of shared medical record or letter. Subjective The patient has the following: COVID-19 Immunization Status Overdue - Covid-19 Vaccine () Overdue since 01/29/2024 12/04/2023 Imm Admin: COVID-19 original vaccine, age 12+ yr, monovalent ([facility]) 12/11/2022 Imm Admin: COVID-19 vaccine, age 12+ yr, season ([employer]) 11/22/2021 Imm Admin: COVID-19 vaccine, age 12+ yr, bivalent ([employer]) Only the first 3 history entries have been loaded, but more history exists. CHIEF COMPLAINT: Pre-op HPI: Patient is a 78 year old male presenting for pre-anesthesia consultation. Has been with right hip pain significantly worse over the past few months. Denies specific injury. Reports pain today of 4/10, described as sharp, aching, worsens with movement. Denies swelling, numbness or tingling. Has tried conservative methods with little relief. Patient denies other specific radiating, alleviating, or aggravating factors. Denies signs of infection or pain. Patient has completed a comprehensive course of conservative treatment and has elected for above surgery. REVIEW OF SYSTEMS: General: No weight loss, malaise or fevers. Neurological: Positive for: peripheral neuropathy. Negative for: dementia, headaches, impaired sensorium, seizures, TIA and strokes. Respiratory: Negative for: asthma, bronchitis, COPD, current cough, bronchodilator used daily for the last 3 months, dyspnea, home oxygen, orthopnea, pneumonia within 6 weeks, tobacco use, URI < 2 weeks and obstructive sleep apnea. Cardiovascular: Negative for: abdominal aortic aneurysm, AICD/PPM, angina, anticoagulation therapy, arrhythmia, atrial fibrillation, CAD, chest pain, CHF, congenital heart defect, DVT/PE, hyperlipidemia, hypertension, recent AL, murmur/valvular heart disease, PTCA, PVD, open heart surgery and valve surgery. GI: Negative for: abdominal pain, GERD, GI bleed <30 days, hep (more content not included)... Normal [facility] CNCOon 03-17-2024 CNCO Letter Text [facility] ([id number]) 1945 M Date Time Provider Department 03/17/24 ALFREDITO MICHELE IA2E During your visit today, we recorded the following information about you: Chano Conklin PSS 03/17/2024 10:47 AM Signed TOTAL JOINT COMPLETE CARE PROGRAM PRE-OPERATIVE TEACHING Service Date: 03/17/2024 Service Time: 10:44 AM Date of : 1945 Gender: male Date of Surgery: 04/01/24 Procedure: Right Total Hip Replacement Complete Care Program was discussed with the patient: Scrap Preparation Supervisor Identification: Patient identified a acute care surgeon to help when discharged to home: daughter, plans to stay at her house for a little bit. Home Environment: Home Layout: Ranch, Entry Steps: 1, Bedroom Location: 1st floor, Bathroom Location: 1st floor, and tub shower. Has walker, cane, shower seat. Discussed with patient importance of attending joint education class and provided date and times of class: YES signed up for 03/19/24 Patient received Joint Education Binder: Yes Plans discharge home to daughters with [facility]. SIGNATURE: HERSON Novak PATIENT NAME: Paolo Hernandez DATE: March 17, 2024 TIME: 10:44 AM Allergies As of Date: 03/17/2024 (No Known Allergies) Date Reviewed: 03/16/2024 Reviewed by: Alfredito Michele MD - Fully Assessed Reason for Visit: Pre-Op Teaching [134] Facility-Administered Medications as of 03/17/2024 - lidocaine 10 mg/mL (1 %) injection (XYLOCAINE) - triamcinolone acetonide injection (KeNALog 40) Problem List As Of Date 03/17/2024 Noted Resolved 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] 05/24/2008 Vertigo [R42] 03/22/2009 Right inguinal hernia [K40.90] 11/23/2013 Right hip pain [M25.551] 06/19/2023 Encounter Status:Closed by CHANO CONKLIN on 03/17/24 [facility] Telephone (ORTHWS) PAOLO HERNANDEZ ([id number]) 1945 M Date Time Provider Department 03/17/24 ALFREDITO MICHELE During your visit today, we recorded the following information about you: Meena Alejo MA 03/17/2024 4:07 PM Signed Surgical request completed for robotic assisted right LOGAN at [facility] on 04/01/2024. Post op appointments have been scheduled and mailed to the patient. CT scan scheduled on 03/19/2024. Email sent to [facility]. Meena Alejo MA 03/18/2024 8:54 AM Signed Surgery has been scheduled as requested. Allergies As of Date: 03/17/2024 (No Known Allergies) Date Reviewed: 03/16/2024 Reviewed by: Alfredito Michele MD - Fully Assessed Reason for Visit: Schedule Surgery [1330] Primary Visit Diagnosis:Primary osteoarthritis of right hip [M16.11] Order(s):SURGICAL REQUEST - ELECTIVE (09/2019) [4049299] Order #: [id number]: 1 Facility-Administered Medications as of 03/18/2024 - lidocaine 10 mg/mL (1 %) injection (XYLOCAINE) - triamcinolone acetonide injection (KeNALog 40) Problem List As Of Date 03/17/2024 Noted Resolved 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] 05/24/2008 Vertigo [R42] 03/22/2009 Right inguinal hernia [K40.90] 11/23/2013 Right hip pain [M25.551] 06/19/2023 Encounter Status:Closed by MEENA ALEJO on 03/18/24 [facility] CNOVon 03-16-2024 CNOV Office Visit (ORTHWS ) PAOLO HERNANDEZ ([id number]) 1945 M Date Time Provider Department 03/16/24 10:00 AM ALFREDITO MICHELE During your visit today, we recorded the following information about you: Alfredito Michele MD 03/16/2024 12:11 PM Signed CONSULT ORTHOPAEDIC: HIP PRIMARY CARE PHYSICIAN: Louis Scott MD REFERRING PROVIDER: No referring provider defined for this encounter. ASSESSMENT AND PLAN Impression: Right Avascular Necrosis, Idiopathic Diagnoses: (M25.561, G89.29) Chronic pain of right knee (primary encounter diagnosis) Based upon the evaluation today and after discussions with Paolo Hernandez, Paolo Hernandez has significant, worsening pain at the hip. This pain is increased with activity and weight bearing, and interferes with activities of daily living. These symptoms have continued despite a number of non-surgical measures, including a trial of oral pain medication (for at least 12 weeks). At this point, the patient will not benefit from further PT due to the severity of their condition. The patient's physical examination is consistent with limitations in range of motion, pain with passive range of motion, and an antalgic gait. These examination findings are corroborated by imaging findings of joint space narrowing, periarticular osteophyte formation, and subchondral sclerosis. The patient has been treated by the practice and all reasonable treatments have failed to control the disease, which causes significant pain and limits activities of daily living. The patient has failed conservative treatment and joint replacement surgery was discussed and agreed upon by both provider and patient. The patient has elected to proceed with surgical management to improve function and relieve pain refractory to non-surgical measures: Right Primary Total Hip Arthroplasty as evidenced by six months of unsuccessful non-operative treatment as outlined in the HPI below and progressive symptoms. Progressive symptoms include: Pain impacting sleep or causing fatigue Pain impacting work Pain effecting living situation Pain limiting ability to stay fit and healthy. Surgery Details Date and Location: At [place] [address] Implants: [place] Robotic: Yes Predicted LOS: 2 days (Inpatient candidate) The risks and benefits of surgery were discussed at length including but not limited to the risks of infection, bleeding, nerve or blood vessel injury, deep venous thrombosis, pulmonary embolism, , paralysis, hip dislocation, leg length discrepancy (including requiring use of permanent shoe lift), bone fracture, component loosening or failure requiring re-operation or amputation. Informed consent was obtained and the patient was scheduled. We also discussed fixation strategies including cement and cementless fixation and modern alternative bearings including metal or ceramic with cross-linked polyethylene, dxsyhmr-lp-cspniol and myxvx-cr-qtvdm as well as advantages and disadvantages of each. We also discussed less invasive surgical approaches and reported benefits and risks of these approaches. The patient has been ordered: Office Visit on 03/16/24 CT KNEE WO IVCON RIGHT Paolo Hernandez meets the following criteria for CT: [facility] Protocol CONSULTS: Patient does not require consults for optimization at this time. Total Joint Arthroplasty: Risk Calculator Paolo Hernandez has a 21.51% chance of NOT returning home at discharge for a Primary total Hip replacement. Paolo's estimated Length of Stay is 2 days (Inpatient candidate). Paolo's 30 day chance of readmission is 5.52%. Readmission Probability 5.52 % (within 30 days following surgery) Estimated LOS 2 days Discharge Disposition Probability D/C to Home 78.49 % D/C to SNF 21.51 % These calculations are based on the following factors: - 78 years of age - sex is male - BMI of 22 kg/m2 - NarxCare score of 0 - 0 hospitalizations in the last 12 months - no history of heart disease - no history of diabetes - no history of COPD - no history of anemia - preoperative ambulation: impaired community distances - 2 step(s) to enter home - bed location is on the first floor - bath location is on the first floor - caregiver is inconsistent - home is not more than 150 miles away - PROMIS-10 Mental Health T score 50+ - Marital status: Risk Factors for Total Knee Arthroplasty (TKA) Major Risk Factors Obesity Unknown Risk High: BMI > 40 Moderate: BMI 30-40 Normal: BMI < 30 Diabetes normal High: A1C > 8 Moderate: A1C 7-8 Normal: A1C < 7 Hx of DVT / PE normal High: dx of DVT / PE Normal: no dx of DVT / PE Smoking normal High: Current smoker Normal: Non smoker Narcotics Use normal High:NarxCare >=300 Moderate: 100-299 Normal: 0-99 Depression normal High: PHQ-9 >14 Moderate: PHQ-9 5-14 Normal: PHQ-9 < 5 Are (more content not included)... Normal [facility] CNOVon 03-09-2024 CNOV Office Visit (ORTHWS ) PAOLO HERNANDEZ ([id number]) 1945 M Date Time Provider Department 03/09/24 8:00 AM SHELBY COY During your visit today, we recorded the following information about you: Marbella Chicas MA 03/09/2024 10:32 AM Signed Patient presents with: Right Hip - New, Pain Last seen by Lilian Whatley 06/17/23 OA right hip: US Guided injection done on 07/29/23 AMB ROOMING INTAKE FLOWSHEET DATA Risk Screening Do you have concerns about personal safety or safety in the home?: No Pain Pain Level: 5 Pain Location: Hip-Right Description: Aching, Stabbing Duration Amount of Time: 6 Duration Units: Months Frequency: Intermittent Intervention/Comfort measure: Reposition, Positioning Patient states he is having pain in groin area. His pain is mostly with weight bearing. He has difficulty getting up out of a chair, out of his car and tying his shoes. Patients US guided injection only helped for a short period and then his pain returns. Patient is limping when walking to the exam room. 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 Taking Ibuprofen only if he is going to be walking a long distances. He is not sure if helps. X-rays done today. Shelby Coy PA-C 03/09/2024 10:32 AM Signed Shelby Coy PA-C Department of Orthopaedics Orthopaedics [address] [facility] [address] Dept: [phone] Dept March 09, 2024 CHIEF COMPLAINT: New and Pain of the Right Hip and Last seen by Lilian Whatley 06/17/23 OA right hip (US Guided injection done on 07/29/23) Mr. Paolo Hernandez is a 78 year old male who presents with right hip pain which has been getting progressively worse over the past several years. Pain is a 5 out of 10 aching, stabbing that is worse with most activities. 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 He had an ultrasound guided injection a little over 6 months ago, the injection was somewhat helpful but the pain relief was only short-lived. The patient does take intermittent ibuprofen which again is only somewhat helpful. He is able to find a comfortable position for sleep and is able to find a comfortable position if he is seated and driving. ASSESSMENT: M16.11 Primary osteoarthritis of right hip (primary encounter diagnosis) PLAN: Patient has severe right hip osteoarthritis. We discussed his surgical options, he would like to get in with one of our surgeons to discuss total hip arthroplasty. Mr. Paolo Hernandez was advised as to contrast therapies and/or to take analgesics/anti-inflam matories as needed and all contraindications were reviewed. OBJECTIVE: Mr. Paolo Hernandez is a pleasant 78 year old in no apparent distress. Gen:There were no vitals taken for this visit. nl development, non obese, no deformities ENT: Normocephalic, normal hearing, moist mucosa CV: Pulses:Radial= 2+ and symmetric, capillary refill < 2 secs, no peripheral edema/varicosities Skin: no rash, bruising or lesions. Good turgor. Psych: cooperative and appropriate, alert and oriented x 3, good mood and affect. Musculoskeletal: HIP EXAM: Right: ROM: Extension: slight flexion contracture Flexion: 100 degrees Internal Rotation: 10 degrees External Rotation: 10 degrees Abduction: 20 degrees Adduction: 15 degrees Strength: Pain with resisted abduction and Pain with resisted hip flexion Palpation: Tenderness over right greater trochanter and SI joint Log roll: non-painful. Straight leg raise: Negative Neurovascular Status: Sensation Intact, Moves foot and ankle up AND down, and 2+ dorsalis pedis Imaging: IMPRESSION: Findings as discussed under Results portion of report. Rolling Up Machine Operator: PSCB Transcribe Date/Time: Mar 09 2024 8:17A Dictated by : SCOOBY HOLLY DO This examination was interpreted and the report reviewed and electronically signed by: SCOOBY HOLLY DO on Mar 09 2024 8:18AM EST Results-Findings * * *Final Report* * * DATE OF EXAM: Mar 09 2024 7:59AM [id number] - XR HIP 3V PELV+ AP/LAT RT / PROCEDURE REASON: Pain in right hip * * * * Physician Interpretation * * * * Pelvis and right hip HISTORY: Indication: Pain in right hip TECHNIQUE: Images: XR HIP 3V PELV+ AP/LAT RT Comparison: 04/16/2023 RESULT: Findings: Moderate LEFT convex rotoscoliosis Pelvis: No fractures or dislocations are seen. Mesh markers are noted projecting over the pelvis on the RIGHT side Right hip: No fractures or dislocations are seen. Significant change in RIGHT hip joint to previous study. There are multiple lucencies was surrounding sclerosis in the femoral head with sclerosis and some lucency in the superior lateral aspect of the acetabulum. Some of these changes probably represent osteonecrosis. (more content not included)... [facility] XR HIP 3V PELV+ AP/LAT RTon 03-09-2024 XR HIP 3V PELV+ AP/LAT RT * * *Final Report* * * DATE OF EXAM: Mar 09 2024 7:59AM [id number] - XR HIP 3V PELV+ AP/LAT RT / PROCEDURE REASON: Pain in right hip * * * * Physician Interpretation * * * * Pelvis and right hip HISTORY: Indication: Pain in right hip TECHNIQUE: Images: XR HIP 3V PELV+ AP/LAT RT Comparison: 04/16/2023 RESULT: Findings: Moderate LEFT convex rotoscoliosis Pelvis: No fractures or dislocations are seen. Mesh markers are noted projecting over the pelvis on the RIGHT side Right hip: No fractures or dislocations are seen. Significant change in RIGHT hip joint to previous study. There are multiple lucencies was surrounding sclerosis in the femoral head with sclerosis and some lucency in the superior lateral aspect of the acetabulum. Some of these changes probably represent osteonecrosis. IMPRESSION: Findings as discussed under Results portion of report. Rolling Up Machine Operator: DELISA Transcribe Date/Time: Mar 09 2024 8:17A Dictated by : SCOOBY HOLLY DO This examination was interpreted and the report reviewed and electronically signed by: SCOOBY HOLLY DO on Mar 09 2024 8:18AM EST [id number] [facility] XR Pelvis and Hip - right AP and Lateral frogon 03-09-2024 IMPRESSION: Findings as discussed under Results portion of report. Rolling Up Machine Operator: DELISA Transcribe Date/Time: Mar 09 2024 8:17A Dictated by : SCOOBY HOLLY DO This examination was interpreted and the report reviewed and electronically signed by: SCOOBY HOLLY DO on Mar 09 2024 8:18AM [facility] DIVISION OF RADIOLOGY * * *Final Report* * * DATE OF EXAM: Mar 09 2024 7:59AM [id number] - XR HIP 3V PELV+ AP/LAT RT / PROCEDURE REASON: Pain in right hip * * * * Physician Interpretation * * * * Pelvis and right hip HISTORY: Indication: Pain in right hip TECHNIQUE: Images: XR HIP 3V PELV+ AP/LAT RT Comparison: 04/16/2023 RESULT: Findings: Moderate LEFT convex rotoscoliosis Pelvis: No fractures or dislocations are seen. Mesh markers are noted projecting over the pelvis on the RIGHT side Right hip: No fractures or dislocations are seen. Significant change in RIGHT hip joint to previous study. There are multiple lucencies was surrounding sclerosis in the femoral head with sclerosis and some lucency in the superior lateral aspect of the acetabulum. Some of these changes probably represent osteonecrosis. DIVISION OF RADIOLOGY Provider, [facility] - 03/09/2024 * * *Final Report* * * DATE OF EXAM: Mar 09 2024 7:59AM [id number] - XR HIP 3V PELV+ AP/LAT RT / PROCEDURE REASON: Pain in right hip * * * * Physician Interpretation * * * * Pelvis and right hip HISTORY: Indication: Pain in right hip TECHNIQUE: Images: XR HIP 3V PELV+ AP/LAT RT Comparison: 04/16/2023 RESULT: Findings: Moderate LEFT convex rotoscoliosis Pelvis: No fractures or dislocations are seen. Mesh markers are noted projecting over the pelvis on the RIGHT side Right hip: No fractures or dislocations are seen. Significant change in RIGHT hip joint to previous study. There are multiple lucencies was surrounding sclerosis in the femoral head with sclerosis and some lucency in the superior lateral aspect of the acetabulum. Some of these changes probably represent osteonecrosis. IMPRESSION IMPRESSION: Findings as discussed under Results portion of report. Rolling Up Machine Operator: DELISA Transcribe Date/Time: Mar 09 2024 8:17A Dictated by : SCOOBY HOLLY DO This examination was interpreted and the report reviewed and electronically signed by: SCOOBY HOLLY DO on Mar 09 2024 8:18AM EST [facility] Radiology Study observation (narrative) [facility] XR Pelvis and Hip - right AP and Lateral frogOrdered By: Ccf Provider on 03-09-2024 [facility] CNPNon 03-02-2024 CNPN Telephone (ORTHWS) PAOLO HERNANDEZ ([id number]) 1945 M Date Time Provider Department 03/02/24 ALFREDITO MICHELE During your visit today, we recorded the following information about you: Bette Nichols LPN 03/02/2024 1:55 PM Signed Patient calling and states he is scheduled on March 20 to be seen for hip arthritis. He had traveled over the weekend and did a significant amount of walking and now is having trouble with increasing discomfort and difficulty with mobility. He wasn't sure if it would be best to be evaluated in urgent care or if he needs a sooner appt? Please advise. Bette Nichlos LPN Allergies As of Date: 03/02/2024 (No Known Allergies) Date Reviewed: 09/19/2023 Reviewed by: Rosio Campuzano MA - Fully Assessed Reason for Visit: Appointment [186] Facility-Administered Medications as of 03/03/2024 - lidocaine 10 mg/mL (1 %) injection (XYLOCAINE) - triamcinolone acetonide injection (KeNALog 40) Problem List As Of Date 03/02/2024 Noted Resolved 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] 05/24/2008 Vertigo [R42] 03/22/2009 Right inguinal hernia [K40.90] 11/23/2013 Right hip pain [M25.551] 06/19/2023 Encounter Status:Closed by PAMELA NUNES on 03/03/24 [facility] XR Chest PA and Lateralon IMPRESSION: No acute radiographic abnormality. Rolling Up Machine Operator: DELISA Transcribe Date/Time: Sep 19 2023 4:54P Dictated by : BRET ARMANDO DO This examination was interpreted and the report reviewed and electronically signed by: BRET ARMANDO DO on Sep 19 2023 4:56PM [facility] DIVISION OF RADIOLOGY * * *Final Report* * * DATE OF EXAM: Sep 19 2023 4:54PM WOX [id number] - XR CHEST 2V FRONTAL/LAT / PROCEDURE REASON: Acute cough * * * * Physician Interpretation * * * * EXAMINATION: CHEST RADIOGRAPH (2 VIEW FRONTAL & LATERAL) PATIENT/TECHNOLOGIST PROVIDED HISTORY: Acute cough, fever. CLINICAL HISTORY: 77 years old Male with Acute cough MQ: XC2_6 EXAM DATE/TIME: 09/19/2023 4:54 PM COMPARISON: No relevant prior studies available. RESULT: Lines, tubes, and devices: None. Lungs and pleura: No consolidation. No pleural effusion. No pneumothorax. Cardiomediastinal silhouette: Normal cardiomediastinal silhouette. Bones and soft tissues: Degenerative changes. DIVISION OF RADIOLOGY Provider, [facility] - 09/19/2023 * * *Final Report* * * DATE OF EXAM: Sep 19 2023 4:54PM WOX [id number] - XR CHEST 2V FRONTAL/LAT / PROCEDURE REASON: Acute cough * * * * Physician Interpretation * * * * EXAMINATION: CHEST RADIOGRAPH (2 VIEW FRONTAL & LATERAL) PATIENT/TECHNOLOGIST PROVIDED HISTORY: Acute cough, fever. CLINICAL HISTORY: 77 years old Male with Acute cough MQ: XC2_6 EXAM DATE/TIME: 09/19/2023 4:54 PM COMPARISON: No relevant prior studies available. RESULT: Lines, tubes, and devices: None. Lungs and pleura: No consolidation. No pleural effusion. No pneumothorax. Cardiomediastinal silhouette: Normal cardiomediastinal silhouette. Bones and soft tissues: Degenerative changes. IMPRESSION IMPRESSION: No acute radiographic abnormality. Rolling Up Machine Operator: DELISA Transcribe Date/Time: Sep 19 2023 4:54P Dictated by : BRET ARMANDO DO This examination was interpreted and the report reviewed and electronically signed by: BRET ARMANDO DO on Sep 19 2023 4:56PM EST [facility] Radiology Study observation (narrative) [facility] XR Chest PA and LateralOrder ed By: Ccf Provider on 09-19-2023 [facility] BRIEF OP NOTon 07-29-2023 BRIEF OP NOT HNO ID: [id number] Author: SLIM ZHU APRN.CNP Service: Interventional Radiology Author Type: Nurse Practitioner Type: Brief Op Note Filed: 07/29/2023 10:31 Note Text: BRIEF OP NOTE LOG ID: [id number] Surgery/Procedure Date: 07/29/2023 Surgeon(s)/Procedurali st(s) and Airplane Pilot Helper(s): Slim Zhu APRN.CNP Procedure(s): Imaging guided right hip pain injection Anesthesia: local 5 ml lidocaine Findings: Successful right hip pain injection of 3 ccLidocaine 1% and Kenalog 40mg/ml - 2 cc's . Pre-procedure pain of 2/10 Post-procedure pain of 1/10 Estimated Blood Loss: <1 ml Specimens: None Complications: None Pre-Op/Pre-Procedure Diagnosis: right hip pain Post-Op/Post-Procedure Diagnosis: same SIGNATURE: Slim Zhu APRN.CNP PATIENT NAME: Paolo Hernandez DATE: July 29, 2023 TIME: 10:31 AM PAGER/CONTACT #: [facility] Guidance for injection of Hi karen 07-29-2023 IMPRESSION: Technically successful fluoroscopy guided right hip injection for pain management. Procedure was performed by Slim Zhu APRN, CNP. Rolling Up Machine Operator: DELISA Transcribe Date/Time: Jul 29 2023 10:47A Dictated by : SLIM ZHU CNP This examination was interpreted and the report reviewed and electronically signed by: SLIM ZHU CNP on Jul 29 2023 10:51AM [facility] RADIOLOGY * * *Final Report* * * DATE OF EXAM: Jul 29 2023 10:38AM [id number] - XR ASP/INJ HIP JT/BURSA RT / PROCEDURE REASON: osteoarthritis of right hip * * * * Physician Interpretation * * * * EXAM TITLE: FLUOROSCOPY GUIDED RIGHT HIP INJECTION DATE: 07/29/2023 COMPARISON: X-ray hip dated 04/16/2023 CLINICAL INDICATION/HISTORY: The patient is a 77-year-old male with known osteoarthritis and right hip pain. TECHNIQUE: Informed consent was obtained from the patient. The patient was placed in a supine position and the right groin was prepped and draped in a sterile fashion. With fluoroscopy an appropriate skin entry site was identified and anesthetized. A 22-gauge spinal needle was directed into the hip joint and contrast was injected to confirm the intra-articular position of the needle tip. 2 cc of Kenalog and 3 cc of 1% lidocaine was injected into the hip joint. The hip was exercised. 0 minutes and 3 seconds of fluoroscopy time was utilized during the procedure. There were no apparent complications. FINDINGS: Spot film demonstrates joint space narrowing of the hip. Preprocedure pain was 2 out of 10. Post procedure pain was 1 out of 10. Procedure was performed by: [facility] RADIOLOGY Provider, Harshil Lara - 07/29/2023 * * *Final Report* * * DATE OF EXAM: Jul 29 2023 10:38AM X [id number] - XR ASP/INJ HIP JT/BURSA RT / PROCEDURE REASON: osteoarthritis of right hip * * * * Physician Interpretation * * * * EXAM TITLE: FLUOROSCOPY GUIDED RIGHT HIP INJECTION DATE: 07/29/2023 COMPARISON: X-ray hip dated 04/16/2023 CLINICAL INDICATION/HISTORY: The patient is a 77-year-old male with known osteoarthritis and right hip pain. TECHNIQUE: Informed consent was obtained from the patient. The patient was placed in a supine position and the right groin was prepped and draped in a sterile fashion. With fluoroscopy an appropriate skin entry site was identified and anesthetized. A 22-gauge spinal needle was directed into the hip joint and contrast was injected to confirm the intra-articular position of the needle tip. 2 cc of Kenalog and 3 cc of 1% lidocaine was injected into the hip joint. The hip was exercised. 0 minutes and 3 seconds of fluoroscopy time was utilized during the procedure. There were no apparent complications. FINDINGS: Spot film demonstrates joint space narrowing of the hip. Preprocedure pain was 2 out of 10. Post procedure pain was 1 out of 10. Procedure was performed by: IMPRESSION IMPRESSION: Technically successful fluoroscopy guided right hip injection for pain management. Procedure was performed by Slim Zhu APRN, CNP. Rolling Up Machine Operator: DELISA Transcribe Date/Time: Jul 29 2023 10:47A Dictated by : SLIM ZHU CNP This examination was interpreted and the report reviewed and electronically signed by: SLIM ZHU CNP on Jul 29 2023 10:51AM EST [facility] Radiology Study observation (narrative) [facility] Guidance for injection of Hi pOrdered By: Ccf Provider on 07-29-2023 [facility] XR ASP/INJ HIP JT/BURSA RTon 07-29-2023 XR ASP/INJ HIP JT/BURSA RT * * *Final Report* * * DATE OF EXAM: Jul 29 2023 10:38AM [id number] [id number] - XR ASP/INJ HIP JT/BURSA RT / PROCEDURE REASON: osteoarthritis of right hip * * * * Physician Interpretation * * * * EXAM TITLE: FLUOROSCOPY GUIDED RIGHT HIP INJECTION DATE: 07/29/2023 COMPARISON: X-ray hip dated 04/16/2023 CLINICAL INDICATION/HISTORY: The patient is a 77-year-old male with known osteoarthritis and right hip pain. TECHNIQUE: Informed consent was obtained from the patient. The patient was placed in a supine position and the right groin was prepped and draped in a sterile fashion. With fluoroscopy an appropriate skin entry site was identified and anesthetized. A 22-gauge spinal needle was directed into the hip joint and contrast was injected to confirm the intra-articular position of the needle tip. 2 cc of Kenalog and 3 cc of 1% lidocaine was injected into the hip joint. The hip was exercised. 0 minutes and 3 seconds of fluoroscopy time was utilized during the procedure. There were no apparent complications. FINDINGS: Spot film demonstrates joint space narrowing of the hip. Preprocedure pain was 2 out of 10. Post procedure pain was 1 out of 10. Procedure was performed by: IMPRESSION: Technically successful fluoroscopy guided right hip injection for pain management. Procedure was performed by Slim Zhu APRN, CNP. Rolling Up Machine Operator: DELISA Transcribe Date/Time: Jul 29 2023 10:47A Dictated by : SLIM ZHU CNP This examination was interpreted and the report reviewed and electronically signed by: SLIM ZHU CNP on Jul 29 2023 10:51AM EST [id number] [facility] XR Pelvis and Hip - right AP and Lateral frogon 04-16-2023 IMPRESSION: Findings as discussed under Results portion of report. Rolling Up Machine Operator: DELISA Transcribe Date/Time: Apr 16 2023 4:45P Dictated by : SCOOBY HOLLY DO This examination was interpreted and the report reviewed and electronically signed by: SCOOBY HOLLY DO on Apr 16 2023 4:46PM EST DIVISION OF RADIOLOGY * * *Final Report* * * DATE OF EXAM: Apr 16 2023 3:53PM WOX [id number] - XR HIP 3V PELV+ AP/LAT RT / PROCEDURE REASON: Arthritis of hip * * * * Physician Interpretation * * * * Pelvis and right hip HISTORY: Indication: Arthritis of hip TECHNIQUE: Images: XR HIP 3V PELV+ AP/LAT RT Comparison: None. RESULT: Findings: Surgical mesh markers are noted over the RIGHT inguinal area. Pelvis: No fractures or dislocations are seen. Mild narrowing of the LEFT hip joint Right hip: No fractures or dislocations are seen. Mild narrowing of the RIGHT hip joint [facility]16/[facility] * * *Final Report* * * DATE OF EXAM: Apr 16 2023 3:53PM WOX [id number] - XR HIP 3V PELV+ AP/LAT RT / PROCEDURE REASON: Arthritis of hip * * * * Physician Interpretation * * * * Pelvis and right hip HISTORY: Indication: Arthritis of hip TECHNIQUE: Images: XR HIP 3V PELV+ AP/LAT RT Comparison: None. RESULT: Findings: Surgical mesh markers are noted over the RIGHT inguinal area. Pelvis: No fractures or dislocations are seen. Mild narrowing of the LEFT hip joint Right hip: No fractures or dislocations are seen. Mild narrowing of the RIGHT hip joint IMPRESSION IMPRESSION: Findings as discussed under Results portion of report. Rolling Up Machine Operator: DELISA Transcribe Date/Time: Apr 16 2023 4:45P Dictated by : SCOOBY HOLLY DO This examination was interpreted and the report reviewed and electronically signed by: SCOOBY HOLLY DO on Apr 16 2023 4:46PM EST [facility] Radiology Study observation (narrative) [facility] XR Pelvis and Hip - right AP and Lateral frogOrdered By: Ccf Provider on 04-16-2023 [facility] CBC W Auto Differential pane l (Bld)on 12-11-2022 Basophils (Bld) [#/Vol] 0.03 10*3/uL <0.11 k/uL [facility] Basophils/100 WBC (Bld) 0.4 % [facility] Differential cell count method Nom (Bld) Auto [facility] Eosinophils (Bld) [#/Vol] 0.10 10*3/uL <0.46 k/uL [facility] Eosinophils/100 WBC (Bld) 1.4 % [facility] Erythrocyte distribution width (RBC) [Ratio] 14.2 % 11.5 - 15.0 % [facility] Hematocrit (Bld) [Volume fraction] 42.2 % 39.0 - 51.0 % [facility] Hemoglobin (Bld) [Mass/Vol] 13.6 g/dL 13.0 - 17.0 g/dL [facility] Immature granulocytes (Bld) [#/Vol] <0.10 k/uL [facility] Immature granulocytes/100 WBC (Bld) 0.3 % [facility] Lymphocytes (Bld) [#/Vol] 1.65 10*3/uL 1.00 - 4.00 k/uL [facility] Lymphocytes/100 WBC (Bld) 22.9 % [facility] MCH (RBC) [Entitic mass] 30.0 pg 26.0 - 34.0 pg [facility] MCHC (RBC) [Mass/Vol] 32.2 g/dL 30.5 - 36.0 g/dL [facility] MCV (RBC) [Entitic vol] 93.0 fL 80.0 - 100.0 fL [facility] Monocytes (Bld) [#/Vol] 0.53 10*3/uL <0.87 k/uL [facility] Monocytes/100 WBC (Bld) 7.4 % [facility] Neutrophils (Bld) [#/Vol] 4.86 10*3/uL 1.45 - 7.50 k/uL [facility] Neutrophils/100 WBC (Bld) 67.6 % [facility] Nucleated RBC (Bld) [#/Vol] <0.01 k/uL [facility] Nucleated RBC/100 WBC (Bld) [Ratio] 0.0 /100 WBC [facility] Platelet mean volume (Bld) [Entitic vol] 10.8 fL 9.0 - 12.7 fL [facility] Platelets (Bld) [#/Vol] 322 10*3/uL 150 - 400 k/uL [facility] RBC (Bld) [#/Vol] 4.54 10*6/uL 4.20 - 6.0 0 m/uL [facility] WBC (Bld) [#/Vol] 7.19 10*3/uL 3.70 - 11. 00 k/uL [facility] Vital Signs Date Time Vital Sign Value Performing Clinician Faci lity 04-23-2024 09:49-0500 Body mass index (BMI) [Ratio] 22.49 kg/m2 Louis Scott MD Work Phone: [facility] 04-23-2024 09:49-0500 Body weight 71.1 kg Louis Scott MD Work Phone: [facility] 04-23-2024 09:49-0500 Diastolic blood pressure 78 mm[Hg] Louis Scott MD Work Phone: [facility] 04-23-2024 09:49-0500 Heart rate 68 /min Louis Scott MD Work Phone: [facility] 04-23-2024 09:49-0500 Respiratory rate 16 /min Louis Scott MD Work Phone: [facility] 04-23-2024 09:49-0500 Systolic blood pressure 118 mm[Hg] Louis Scott MD Work Phone: [facility] 04-16-2024 10:06-0500 Body temperature 98.1 [degF] Rome Farr APRN.CRIMINOLOGY TEACHER Work Phone: [facility] 04-16-2024 10:06-0500 Diastolic blood pressure 60 mm[Hg] Rome Farr APRN.CRIMINOLOGY TEACHER Work Phone: [facility] 04-16-2024 10:06-0500 Heart rate 65 /min Rome Farr APRN.CRIMINOLOGY TEACHER Work Phone: [facility] 04-16-2024 10:06-0500 Respiratory rate 18 /min Rome Farr APRN.CRIMINOLOGY TEACHER Work Phone: [facility] 04-16-2024 10:06-0500 SaO2% (BldA) [Mass fraction] 97 % Rome Farr APRN.CRIMINOLOGY TEACHER Work Phone: [facility] 04-16-2024 10:06-0500 Systolic blood pressure 120 mm[Hg] Rome Farr APRN.CRIMINOLOGY TEACHER Work Phone: [facility] 04-14-2024 13:09-0500 Body mass index (BMI) [Ratio] 22.44 kg/m2 Rome Farr APRN.CRIMINOLOGY TEACHER Work Phone: [facility] 04-14-2024 13:09-0500 Body temperature 98.2 [degF] Rome Farr APRN.CRIMINOLOGY TEACHER Work Phone: [facility] 04-14-2024 13:09-0500 Body weight 70.94 kg Rome Farr APRN.CRIMINOLOGY TEACHER Work Phone: [facility] 04-14-2024 13:09-0500 Diastolic blood pressure 54 mm[Hg] Rome Farr APRN.CRIMINOLOGY TEACHER Work Phone: [facility] 04-14-2024 13:09-0500 Heart rate 62 /min Rome Farr APRN.CRIMINOLOGY TEACHER Work Phone: [facility] 04-14-2024 13:09-0500 Respiratory rate 17 /min Rome Farr APRN.CRIMINOLOGY TEACHER Work Phone: [facility] 04-14-2024 13:09-0500 SaO2% (BldA) [Mass fraction] 98 % Rome Farr APRN.CRIMINOLOGY TEACHER Work Phone: [facility] 04-14-2024 13:09-0500 Systolic blood pressure 118 mm[Hg] Rome Farr APRN.CRIMINOLOGY TEACHER Work Phone: [facility] 04-09-2024 14:04-0500 Body mass index (BMI) [Ratio] 22.44 kg/m2 Rome Helbert BELT NOTCHER.CRIMINOLOGY TEACHER Work Phone: [facility] 04-09-2024 14:04-0500 Body temperature 98.01 [degF] Rome Helbert BELT NOTCHER.CRIMINOLOGY TEACHER Work Phone: [facility] 04-09-2024 14:04-0500 Body weight 70.94 kg Rome Shaybert BELT NOTCHER.CRIMINOLOGY TEACHER Work Phone: [facility] 04-09-2024 14:04-0500 Diastolic blood pressure 62 mm[Hg] Rome Helbert BELT NOTCHER.CRIMINOLOGY TEACHER Work Phone: [facility] 04-09-2024 14:04-0500 Heart rate 67 /min Rome Helbert BELT NOTCHER.CRIMINOLOGY TEACHER Work Phone: [facility] 04-09-2024 14:04-0500 Respiratory rate 18 /min Rome Helbert BELT NOTCHER.CRIMINOLOGY TEACHER Work Phone: [facility] 04-09-2024 14:04-0500 SaO2% (BldA) [Mass fraction] 97 % Rome Daybert BELT NOTCHER.CRIMINOLOGY TEACHER Work Phone: [facility] 04-09-2024 14:04-0500 Systolic blood pressure 124 mm[Hg] Rome Helbert BELT NOTCHER.CRIMINOLOGY TEACHER Work Phone: [facility] 04-06-2024 20:27-0500 Body temperature 98.71 [degF] Rome Helbert BELT NOTCHER.CRIMINOLOGY TEACHER Work Phone: [facility] 04-06-2024 20:27-0500 Diastolic blood pressure 66 mm[Hg] Rome Helbert BELT NOTCHER.CRIMINOLOGY TEACHER Work Phone: [facility] 04-06-2024 20:27-0500 Heart rate 70 /min Rome Helbert BELT NOTCHER.CRIMINOLOGY TEACHER Work Phone: [facility] 04-06-2024 20:27-0500 Respiratory rate 16 /min Rome Helbert BELT NOTCHER.CRIMINOLOGY TEACHER Work Phone: [facility] 04-06-2024 20:27-0500 SaO2% (BldA) [Mass fraction] 98 % Rome Farr APRN.CRIMINOLOGY TEACHER Work Phone: [facility] 04-06-2024 20:27-0500 Systolic blood pressure 121 mm[Hg] Rome Farr APRN.CRIMINOLOGY TEACHER Work Phone: [facility] 03-19-2024 14:27-0500 Body height 177.8 cm Pacc 1 Work Phone: [facility] 03-19-2024 14:27-0500 Body mass index (BMI) [Ratio] 22.11 kg/m2 Pacc 1 Work Phone: [facility] 03-19-2024 14:27-0500 Body temperature 98.4 [degF] Pacc 1 Work Phone: [facility] 03-19-2024 14:27-0500 Body weight 69.9 kg Pacc 1 Work Phone: [facility] 03-19-2024 14:27-0500 Diastolic blood pressure 81 mm[Hg] Pacc 1 Work Phone: [facility] 03-19-2024 14:27-0500 Heart rate 87 /min Pacc 1 Work Phone: [facility] 03-19-2024 14:27-0500 Respiratory rate 16 /min Pacc 1 Work Phone: [facility] 03-19-2024 14:27-0500 SaO2% (BldA) [Mass fraction] 99 % Pacc 1 Work Phone: [facility] 03-19-2024 14:27-0500 Systolic blood pressure 145 mm[Hg] Pacc 1 Work Phone: [facility] 09-19-2023 16:26-0400 Body mass index (BMI) [Ratio] 22.33 kg/m2 Cecy Johnson APRN.CNP Work Phone: [facility] 09-19-2023 16:26-0400 Body temperature 101.5 [degF] Cecy Alex BELT NOTCHER.CRIMINOLOGY TEACHER Work Phone: [facility] 09-19-2023 16:26-0400 Body weight 71.1 kg Cecy Alex BELT NOTCHER.CRIMINOLOGY TEACHER Work Phone: [facility] 09-19-2023 16:26-0400 Diastolic blood pressure 74 mm[Hg] Cecy Alex BELT NOTCHER.CRIMINOLOGY TEACHER Work Phone: [facility] 09-19-2023 16:26-0400 Heart rate 105 /min Cecy Alex BELT NOTCHER.CRIMINOLOGY TEACHER Work Phone: [facility] 09-19-2023 16:26-0400 Respiratory rate 18 /min Cecy Alex BELT NOTCHER.CRIMINOLOGY TEACHER Work Phone: [facility] 09-19-2023 16:26-0400 SaO2% (BldA) [Mass fraction] 98 % Cecy Alex BELT NOTCHER.CRIMINOLOGY TEACHER Work Phone: [facility] 09-19-2023 16:26-0400 Systolic blood pressure 153 mm[Hg] Cecy Alex BELT NOTCHER.CRIMINOLOGY TEACHER Work Phone: [facility] 04-16-2023 15:12-0500 Body weight 71.94 kg Louis Scott MD Work Phone: [facility] 04-16-2023 15:12-0500 Diastolic blood pressure 70 mm[Hg] Louis Scott MD Work Phone: [facility] 04-16-2023 15:12-0500 Heart rate 74 /min Louis Scott MD Work Phone: [facility] 04-16-2023 15:12-0500 Respiratory rate 16 /min Louis Scott MD Work Phone: [facility] 04-16-2023 15:12-0500 Systolic blood pressure 116 mm[Hg] Louis Scott MD Work Phone: [facility] 12-11-2022 15:34-0400 Body weight 72.39 kg Louis Scott MD Work Phone: [facility] 12-11-2022 15:34-0400 Diastolic blood pressure 78 mm[Hg] Louis Scott MD Work Phone: [facility] 12-11-2022 15:34-0400 Heart rate 70 /min Louis Scott MD Work Phone: [facility] 12-11-2022 15:34-0400 Respiratory rate 16 /min Louis Scott MD Work Phone: [facility] 12-11-2022 15:34-0400 Systolic blood pressure 122 mm[Hg] Louis Scott MD Work Phone: [facility] Encounters Encounter Date Encounter Type Care Provider Facility Start: 12-16-2024 End: 12-16-2024 ambulatory CINTHIA KEE Facility:[facility] Start: 12-16-2024 End: 12-16-2024 ambulatory CINTHIA KEE Facility:[facility] Start: 12-16-2024 Patient encounter procedure CINTHIA KEE [facility] Start: 06-25-2024 End: 06-25-2024 ambulatory David Kimbrough PT Work Phone: [facility] Comment on above: S/P hip replacement, right (Primary Dx) Start: 06-22-2024 End: 06-22-2024 ambulatory Becka Valle JUDICIAL ADMINISTRATIVE ASSISTANT Work Phone: [facility] Comment on above: S/P hip replacement, right (Primary Dx) Start: 06-22-2024 End: 06-22-2024 Patient encounter procedure Alfredito Michele MD Work Phone: Orthopaedics Comment on above: History of total rig ht hip arthroplasty (Primary Dx) Start: 06-22-2024 End: 06-22-2024 ambulatory LOUIS SCOTT Facility:[facility] Start: 06-22-2024 End: 06-22-2024 Subsequent hospital visit by physician Martine [facility] [place] Work Phone: Radiology Comment on above: Primary osteoarthrit is of right hip [M16.11] Start: 06-18-2024 End: 06-18-2024 ambulatory David Kimbrough PT Work Phone: [facility] Comment on above: S/P hip replacement, right (Primary Dx) Start: 06-17-2024 End: 06-17-2024 ambulatory Katty Smiley RN [employer] Management Start: 06-17-2024 End: 06-17-2024 Patient encounter procedure Katty Smiley RN [employer] [facility] [employer] Comment on above: Initial enrollment o bud for Chronic Disease Management Start: 06-16-2024 End: 06-16-2024 ambulatory David Kimbrough PT Work Phone: [facility] Comment on above: S/P hip replacement, right (Primary Dx) Start: 06-11-2024 End: 06-11-2024 ambulatory [facility] Start: 06-09-2024 End: 06-09-2024 ambulatory David Kimbrough PT Work Phone: [facility] Comment on above: S/P hip replacement, right (Primary Dx) Start: 06-04-2024 End: 06-04-2024 ambulatory Davidscott Kimbrough PT Work Phone: [facility] Comment on above: S/P hip replacement, right (Primary Dx) Start: 06-03-2024 End: 06-03-2024 Orders Only Alfredito Michele MD Work Phone: Orthopaedics Comment on above: Primary osteoarthrit is of right hip (Primary Dx); Status post total replacement of right hip Start: 06-02-2024 End: 06-02-2024 ambulatory David Kimbrough PT Work Phone: [facility] Comment on above: S/P hip replacement, right (Primary Dx) Start: 05-28-2024 End: 05-28-2024 ambulatory [facility] Facility:[facility] Start: 05-26-2024 End: 05-26-2024 ambulatory David Kimbrough PT Work Phone: [facility] Comment on above: S/P hip replacement, right (Primary Dx) Start: 05-21-2024 End: 05-21-2024 ambulatory Becka Valle JUDICIAL ADMINISTRATIVE ASSISTANT Work Phone: [facility] Comment on above: S/P hip replacement, right (Primary Dx) Start: 05-19-2024 End: 05-19-2024 ambulatory Becka Whytejanessa JUDICIAL ADMINISTRATIVE ASSISTANT Work Phone: [facility] Comment on above: S/P hip replacement, right (Primary Dx) Start: 05-15-2024 End: 05-15-2024 ambulatory Randall Chatman MA Work Phone: Internal Medicine Comment on above: SNF Discharge Phone Outreach (Week 4) for Post Acute Care Start: 05-14-2024 End: 05-14-2024 ambulatory [facility] Facility:[facility] Start: 05-12-2024 End: 05-12-2024 ambulatory Becka Kasjanessa JUDICIAL ADMINISTRATIVE ASSISTANT Work Phone: [facility] Comment on above: S/P hip replacement, right (Primary Dx) Start: 05-11-2024 End: 05-11-2024 Patient encounter procedure Alfredito Michele MD Work Phone: Orthopaedics Comment on above: History of total rig ht hip arthroplasty (Primary Dx) Start: 05-11-2024 End: 05-11-2024 ambulatory [facility] Facility:[facility] Start: 05-11-2024 End: 05-11-2024 Subsequent hospital visit by physician Martine [facility] [place] [place] Work Phone: Radiology Comment on above: Primary osteoarthrit is of right hip [M16.11] Start: 05-08-2024 End: 05-08-2024 ambulatory David Kimbrough PT Work Phone: [facility] Comment on above: S/P hip replacement, right (Primary Dx) Start: 05-05-2024 End: 05-05-2024 ambulatory Becka Kasjanessa JUDICIAL ADMINISTRATIVE ASSISTANT Work Phone: [facility] Comment on above: S/P hip replacement, right (Primary Dx) Start: 05-01-2024 End: 05-01-2024 ambulatory Becka Whytecristineba JUDICIAL ADMINISTRATIVE ASSISTANT Work Phone: [facility] Comment on above: S/P hip replacement, right (Primary Dx) Start: 04-29-2024 End: 04-29-2024 ambulatory David Kimbrough PT Work Phone: [facility] Comment on above: S/P hip replacement, right (Primary Dx) Start: 04-27-2024 End: 04-28-2024 Orders Only Alfredito Michele MD Work Phone: Orthopaedics Comment on above: Primary osteoarthrit is of right hip (Primary Dx); Status post total hip replacement, right SNF Discharge Phone Outreach (Week 2) for Post Acute Care Start: 04-23-2024 End: 04-23-2024 ambulatory LOUIS SCOTT Facility:[facility] Start: 04-23-2024 End: 04-23-2024 Patient encounter procedure Louis Scott MD Work Phone: [facility] Comment on above: Hospital discharge f ollow-up (Primary Dx); S/P hip replacement, right Start: 04-20-2024 End: 04-28-2024 ambulatory Randall Chatman MA Work Phone: Internal Medicine Comment on above: SNF Discharge Initia l Outreach (Week 1) for Post Acute Care Start: 04-16-2024 End: 04-16-2024 ambulatory Rome Shaycandice CRIMINOLOGY TEACHER Work Phone: [facility] Comment on above: Right hip pain (Prim ronny Dx); S/P total right hip arthroplasty; Anemia, unspecified type; Debility Start: 04-16-2024 End: 04-16-2024 Telemedicine consultation with patient Rome Farr APRN.CRIMINOLOGY TEACHER Work Phone: [facility] Start: 04-14-2024 End: 04-14-2024 ambulatory Rome Daycandice SANDI.CRIMINOLOGY TEACHER Work Phone: [facility] Comment on above: Right hip pain (Prim ronny Dx); S/P total right hip arthroplasty; Anemia, unspecified type; Debility Start: 04-14-2024 End: 04-14-2024 Telemedicine consultation with patient Rome Farr APRN.CRIMINOLOGY TEACHER Work Phone: [facility] Start: 04-13-2024 End: 04-13-2024 ambulatory LOUIS Choi [facility] Facility:[facility] Start: 04-13-2024 End: 04-13-2024 Patient encounter procedure Shelby Coy PA-C Work Phone: Orthopaedics Comment on above: Primary osteoarthrit is of right hip (Primary Dx) Start: 04-13-2024 End: 04-13-2024 Subsequent hospital visit by physician Xr [facility] [place] Work Phone: Radiology Comment on above: Primary osteoarthrit is of right hip [M16.11] Start: 04-09-2024 End: 04-09-2024 ambulatory Rome Farr APRN.BARB Work Phone: [facility] Comment on above: Right hip pain (Prim ronny Dx); S/P total right hip arthroplasty; Anemia, unspecified type; Debility Start: 04-09-2024 End: 04-09-2024 Telemedicine consultation with patient Rome Farr APRN.BARB Work Phone: [facility] Start: 04-08-2024 End: 04-08-2024 Orders Only Shelby Coy PA-C Work Phone: Orthopaedics Comment on above: Primary osteoarthrit is of right hip (Primary Dx); Status post total hip replacement, right Start: 04-07-2024 End: 04-07-2024 ambulatory Rome Farr APRN.BARB Work Phone: [facility] Comment on above: OPENED IN ERROR (Beatriz joe Dx) Start: 04-07-2024 End: 04-07-2024 Telemedicine consultation with patient Rome Farr APRN.CRIMINOLOGY TEACHER Work Phone: [facility] Start: 04-06-2024 End: 04-06-2024 ambulatory Rome Farr APRN.BARB Work Phone: [facility] Comment on above: Right hip pain (Prim ronny Dx); S/P total right hip arthroplasty; Anemia, unspecified type; Debility Start: 04-06-2024 End: 04-06-2024 Telemedicine consultation with patient Rome Farr APRN.CRIMINOLOGY TEACHER Work Phone: [facility] Start: 04-02-2024 End: 04-02-2024 Telephone encounter Donald Voss [facility] Comment on above: Home Care (Confirmat ion Call ) Start: 04-01-2024 End: 04-02-2024 ambulatory SHAMAR KIRAN Facility:[facility] Start: 03-31-2024 End: 03-31-2024 Telephone encounter Alfredito Michele MD Work Phone: Orthopaedics Comment on above: Patient Question Start: 03-19-2024 Encounter for other preprocedural examination [facility] Start: 03-19-2024 End: 03-19-2024 Preprocedural examination done [place] [id number] Work Phone: [facility] Work Phone: Start: 03-19-2024 End: 03-19-2024 Orders Only Shelby Coy PA-C Work Phone: Orthopaedics Comment on above: Pain of right hip (P rimary Dx) Pre-op evaluation (P rimary Dx); Neuropathy Chronic pain of righ t knee [M25.561, G89.29] Start: 03-17-2024 End: 03-18-2024 Telephone encounter Aflredito Michele MD Work Phone: [address] Comment on above: Pre-Op Teaching Schedule Surgery Start: 03-16-2024 End: 03-16-2024 ambulatory [facility] Facility:[facility] Start: 03-16-2024 End: 03-16-2024 Patient encounter procedure Alfredito Michele MD Work Phone: Orthopaedics Comment on above: Chronic pain of righ t knee (Primary Dx) Start: 03-09-2024 End: 03-09-2024 ambulatory [facility] Facility:[facility] Start: 03-09-2024 End: 03-09-2024 Patient encounter procedure Shelby Coy PA-C Work Phone: Orthopaedics Comment on above: Primary osteoarthrit is of right hip (Primary Dx) Start: 03-09-2024 End: 03-09-2024 Subsequent hospital visit by physician Martine [facility] [place] [place] Work Phone: Radiology Comment on above: Pain in right hip [M 25.551] Start: 03-05-2024 End: 03-05-2024 Orders Only Shelby Coy PA-C Work Phone: Orthopaedics Comment on above: Pain in right hip (P rimary Dx) Start: 03-02-2024 End: 03-03-2024 Telephone encounter Alfredito Michele MD Work Phone: Orthopaedics Comment on above: Appointment Start: 09-19-2023 End: 09-19-2023 Subsequent hospital visit by physician Martine [facility] [place] Work Phone: Radiology Comment on above: Acute cough [R05.1] Start: 09-19-2023 End: 09-19-2023 Patient encounter procedure Cecy Johnson APRN.CNP Work Phone: [facility] Comment on above: URI, acute (Primary Dx); Acute cough Start: 07-29-2023 ambulatory LILIAN Ferreira lity:[id number] Start: 07-29-2023 End: 07-29-2023 Subsequent hospital visit by physician Gi/Gu [facility] Comment on above: Primary osteoarthrit is of right hip [M16.11] Start: 06-17-2023 End: 06-17-2023 Patient encounter procedure Lilian Marshall PA-C Work Phone: Orthopaedics Comment on above: Primary osteoarthrit is of right hip (Primary Dx); Right hip pain Start: 06-17-2023 End: 06-17-2023 ambulatory Melinda Escoto [facility] Comment on above: Right hip pain Start: 04-16-2023 End: 04-16-2023 Patient encounter procedure Louis Scott MD Work Phone: [facility] [place] Comment on above: Arthritis of hip (Pr imary Dx) Start: 04-16-2023 End: 04-16-2023 Subsequent hospital visit by physician Martine [facility] [place] Work Phone: Radiology Comment on above: Arthritis of hip [M1 6.10] Start: 12-11-2022 End: 12-11-2022 Patient encounter procedure Louis Scott MD Work Phone: [facility] [place] Comment on above: Numbness and tinglin g of both feet (Primary Dx); Encounter to establish care; Vertigo; Encounter for hepatitis C virus screening test for high risk patient; Need for influenza vaccination; Need for vaccination; Hyperlipidemia, unspecified hyperlipidemia type Procedures Date Procedure Procedure Detail Performing Clinician Start: 03-19-2024 Ecg routine ecg w/le ast 12 lds i&r only Yudy Delacruz PA-C Work Phone: Start: 03-19-2024 Ct lower extremity w /o contrast material Shelby [employer] PA-C Work Phone: Start: 03-09-2024 Radex hip unilateral with pelvis 2-3 views Shelby [employer] PA-C Work Phone: Start: 09-19-2023 Radiologic exam ches t 2 views Cecy Johnson APRN.CNP Work Phone: Start: 07-29-2023 Arthrocentesis aspir &/inj major jt/bursa w/us Lilian Marshall PA-C Work Phone: Start: 04-16-2023 Radex hip unilateral with pelvis 2-3 views Louis Scott MD Work Phone: Start: 04-16-2023 Adult depression scr eening assessment Alfredito Michele MD Work Phone: Start: 12-11-2022 INFLUENZA VACCINE, P RSV FREE, AGE 65+ YR, HIGH DOSE, QUADRIVALENT (FLUZONE HIGH-DOSE) Louis Scott MD Work Phone: Start: 12-11-2022 GIVINGtrax COVI D-19 VACCINE ( SEASON) AGE 12+ YR Louis Scott MD Work Phone: Plan of Treatment Date Care Activity Detail Author Start: 06-02-2027 Urine microalbumin profile DTaP,Tdap,Td Vaccine (3 - Td or Tdap) [facility] Start: 04-02-2027 Diabetes Screening Diabetes Screen[facility] Start: 03-19-2027 Diabetes Screening [facility] Screen[facility] Start: 12-11-2025 Diabetes Screening Diabetes Screenin [facility] Start: 07-09-2024 End: 07-09-2024 ambulatory 07/09/2024 10:45 AM EDT OT/PT/Speech Visit [facility] [address] [place], [place] [id number] David Kimbrough, PT [address], [place] [id number] S/P hip replacement, right [Z96.641] [facility] Comment on above: S/P hip replacement, right [Z96.641] Start: 07-07-2024 End: 07-07-2024 ambulatory 07/07/2024 11:00 AM EDT OT/PT/Speech Visit [facility] [address] [facility] [place] [address] Becka Valle, JUDICIAL ADMINISTRATIVE ASSISTANT [address] [place] [address] S/P hip replacement, right [Z96.641] [facility] Comment on above: S/P hip replacement, right [Z96.641] Start: 07-02-2024 End: 07-02-2024 ambulatory 07/02/2024 10:45 AM EDT OT/PT/Speech Visit [facility] [address] [facility] [address] David Kimbrough, PT [address] [place] [address] S/P hip replacement, right [Z96.641] [facility] Comment on above: S/P hip replacement, right [Z96.641] Start: 06-30-2024 End: 06-30-2024 ambulatory 06/30/2024 11:00 AM EDT OT/PT/Speech Visit [facility] [address] [place] [address] Becka Valle, JUDICIAL ADMINISTRATIVE ASSISTANT [address] [place] [address] S/P hip replacement, right [Z96.641] [facility] Comment on above: S/P hip replacement, right [Z96.641] Start: 06-25-2024 End: 06-25-2024 ambulatory 06/25/2024 10:45 AM EDT OT/PT/Speech Visit [facility] [address] [place] [address] David Kimbrough, PT [address] [facility] [place] [address] S/P hip replacement, right [Z96.641] [facility] Comment on above: S/P hip replacement, right [Z96.641] Start: 06-22-2024 End: 06-22-2024 ambulatory 06/22/2024 9:30 AM EDT OT/PT/Speech Visit [facility] [address] [place] [address] Becka Valle, JUDICIAL ADMINISTRATIVE ASSISTANT [address] [place] [address] S/P hip replacement, right [Z96.641] [facility] Comment on above: S/P hip replacement, right [Z96.641] Start: 06-22-2024 End: 06-22-2024 Patient encounter procedure 06/22/2024 8:30 AM EDT Office Visit Orthopaedics [address] [place] [address] Alfredito Michele MD [address] [place] [address] Post op robotic assisted right [facility] Comment on above: Post op robotic assi sted right [facility] Start: 06-18-2024 End: 06-18-2024 ambulatory 06/18/2024 11:30 AM EDT OT/PT/Speech Visit [facility] [address] [place] [address] David Kimbrough, PT [address], [place] [phone] S/P hip replacement, right [Z96.641] [facility] Comment on above: S/P hip replacement, right [Z96.641] Start: 06-16-2024 End: 06-16-2024 ambulatory 06/16/2024 10:00 AM EDT OT/PT/Speech Visit [facility] [address] [facility], [place] [id number] David Kimbrough, PT [address], [place] [phone] S/P hip replacement, right [Z96.641] [facility] Comment on above: S/P hip replacement, right [Z96.641] Start: 06-11-2024 End: 06-11-2024 ambulatory 06/11/2024 11:30 AM EDT OT/PT/Speech Visit [facility] [address] [facility], [place] [id number] David Kimbrough, PT [address], [place] [phone] S/P hip replacement, right [Z96.641] [facility] Comment on above: S/P hip replacement, right [Z96.641] Start: 06-09-2024 End: 06-09-2024 ambulatory 06/09/2024 10:00 AM EDT OT/PT/Speech Visit [facility] [address] [place] [address] David Kimbrough, PT [address] [facility] [place] [address] S/P hip replacement, right [Z96.641] [facility] Comment on above: S/P hip replacement, right [Z96.641] Start: 06-04-2024 End: 06-04-2024 Documentation procedure 06/04/2024 Plan of Care Documentation [facility] [address] [place] [address] [facility] Start: 06-04-2024 End: 06-04-2024 ambulatory 06/04/2024 10:45 AM EDT OT/PT/Speech Visit [facility] [address] [place] [address] David Kimbrough, PT [address] [facility] [place] [address] S/P hip replacement, right [Z96.641] [facility] Comment on above: S/P hip replacement, right [Z96.641] Start: 06-02-2024 End: 06-02-2024 ambulatory 06/02/2024 10:00 AM EDT OT/PT/Speech Visit [facility] [address] [place] [address] Daivd Kimbrough, PT [address] [facility] [place] [address] S/P hip replacement, right [Z96.641] [facility] Comment on above: S/P hip replacement, right [Z96.641] Start: 05-28-2024 End: 05-28-2024 ambulatory 05/28/2024 11:30 AM EDT OT/PT/Speech Visit [facility] [address] [place] [address] David Kimbrough, PT [address] [facility] [place] [address] S/P hip replacement, right [Z96.641] [facility] Comment on above: S/P hip replacement, right [Z96.641] Start: 05-26-2024 End: 05-26-2024 ambulatory 05/26/2024 9:15 AM EDT OT/PT/Speech Visit [facility] [address] [place] [address] David Kimbrough, PT [address] [facility] [place] [address] S/P hip replacement, right [Z96.641] [facility] Comment on above: S/P hip replacement, right [Z96.641] Start: 05-21-2024 End: 05-21-2024 ambulatory 05/21/2024 11:45 AM EDT OT/PT/Speech Visit [facility] [address] [place] [address] Becka Valle, JUDICIAL ADMINISTRATIVE ASSISTANT [address] [place] [address] S/P hip replacement, right [Z96.641] [facility] Comment on above: S/P hip replacement, right [Z96.641] Start: 05-19-2024 End: 05-19-2024 ambulatory 05/19/2024 2:00 PM EDT OT/PT/Speech Visit [facility] [address] [place] [address] Becka Valle, JUDICIAL ADMINISTRATIVE ASSISTANT [address] [place] [address] S/P hip replacement, right [Z96.641] [facility] Comment on above: S/P hip replacement, right [Z96.641] Start: 05-14-2024 End: 05-14-2024 ambulatory 05/14/2024 8:45 AM EDT OT/PT/Speech Visit [facility] [address] [place] [address] Becka Valle, JUDICIAL ADMINISTRATIVE ASSISTANT [address] [place] [address] S/P hip replacement, right [Z96.641] [facility] [facility] Comment on above: S/P hip replacement, right [Z96.641] Start: 05-12-2024 End: 05-12-2024 ambulatory 05/12/2024 2:00 PM EDT OT/PT/Speech Visit [facility] [address] [place] [address] Becka Valle, JUDICIAL ADMINISTRATIVE ASSISTANT [address] [address] S/P hip replacement, right [Z96.641] [facility] Comment on above: S/P hip replacement, right [Z96.641] Start: 05-11-2024 End: 05-11-2024 Patient encounter procedure Orthopaedics Comment on above: Post op robotic assi sted right LOGAN xray Start: 05-08-2024 End: 05-08-2024 ambulatory 05/08/2024 1:45 PM EDT OT/PT/Speech Visit [facility] [address] [place] [address] David Kimbrough, PT [address] [facility] [place] [address] S/P hip replacement, right [Z96.641] [facility] Comment on above: S/P hip replacement, right [Z96.641] Start: 05-08-2024 End: 05-08-2024 ambulatory 05/08/2024 8:30 AM EDT OT/PT/Speech Visit [facility] [address] [place] [address] David Kimbrough, PT [address] [facility] [place] [address] S/P hip replacement, right [Z96.641] [facility] Comment on above: S/P hip replacement, right [Z96.641] Start: 05-01-2024 End: 05-01-2024 ambulatory 05/01/2024 2:00 PM EDT OT/PT/Speech Visit [facility] [address] [place] [address] Becka Valle, JUDICIAL ADMINISTRATIVE ASSISTANT [address] [place] [address] S/P hip replacement, right [Z96.641] [facility] Comment on above: S/P hip replacement, right [Z96.641] Start: 04-29-2024 End: 04-29-2024 ambulatory 04/29/2024 1:30 PM EDT OT/PT/Speech Visit [facility] [address] [place] [address] David Kimbrough, PT [address] [facility] [place] [address] S/P hip replacement, right [Z96.641] [facility] Comment on above: S/P hip replacement, right [Z96.641] Start: 04-23-2024 End: 04-23-2024 Patient encounter procedure 04/23/2024 10:00 AM EST Office Visit [facility] [place] [address] [place] [address] Louis Scott MD [address] [place] [address] follow up from [facility] in [place] / right hip replaced [facility] Comment on above: follow up from [facility] in [place] / right hip replaced Start: 04-16-2024 Anxiety Screening Anxiety Screening [facility] Start: 04-16-2024 Depression Screening Depression Scre ening [facility] Start: 04-13-2024 End: 04-13-2024 Patient encounter procedure 04/13/2024 9:00 AM EST Office Visit Orthopaedics [address] [place] [address] Shelby Coy PA-C [address], [place] [id number] Post op robotic assisted right [facility] Comment on above: Post op robotic assi sted right LOGAN Start: 04-01-2024 End: 04-01-2024 Admission to same day surgery center [facility] Comment on above: ROBOTIC ASSISTED TOT AL HIP ARTHROPLASTY Start: 04-01-2024 End: 04-01-2024 Anesthesia consultation 04/01/2024 9:55 AM EST Anesthesia Event [facility] [address] [place] [address] Yudy Washburn APRN.TRANSPLANT WORKER [address] [place] [address] [facility] Start: 04-01-2024 End: 04-01-2024 Arthrp acetblr/prox fem prostc agrft/algrft [facility] OR Start: 04-01-2024 Subsequent hospital visit by physician [facility] Comment on above: Primary osteoarthrit is of right hip [M16.11] Start: 03-19-2024 End: 03-19-2024 Patient encounter procedure 03/19/2024 1:15 PM EST Appointment Radiology [address] [place] [address] [facility] Robotic total knee replacement [facility] Comment on above: CHRISTIAN Robotic total k nee replacement [facility] Start: 03-16-2024 End: 03-16-2024 Patient encounter procedure 03/16/2024 10:00 AM EST Office Visit Orthopaedics [address] [place] [address] Alfredito Michele MD [address] [place], [place] [id number] Discuss and sign consent right hip [facility] Comment on above: Discuss and sign con sent right hip LOGAN Start: 03-09-2024 End: 03-09-2024 Patient encounter procedure 03/09/2024 8:00 AM EST Office Visit Orthopaedics [address] [place] [address] Shelby Coy PA-C [address], [place] [id number] right hip pain- xray in epic Orthopaedics Comment on above: right hip pain- xray in epic Start: 02-19-2024 Advance Directive Discussion Advance Directive Discussion [facility] Start: 01-29-2024 Covid-19 Vaccine () Covid-19 Vaccine () [facility] Start: 12-20-2023 End: 12-20-2023 Patient encounter procedure 12/20/2023 10:00 AM EDT Office Visit Orthopaedics [address] [place] [address] Lambert Nieto PA-C [address] [address] right hip pain Orthopaedics Comment on above: right hip pain Start: 10-20-2023 Covid-19 Vaccine ( season) Covid-19 Vaccine () [facility] Start: 10-20-2023 Influenza vaccination Influenza Vacc ine (#1) [facility] Start: 04-13-2023 Covid-19 Vaccine ( season) Covid-19 Vaccine () [facility] Start: 02-18-2023 Advance Directive Discussion Advance Directive Discussion [facility] Start: 02-18-2023 Behavioral Health Screening Behavioral Health Screening [facility] Start: 12-11-2022 End: 03-12-2023 Cobalamin (Vitamin B12) [Mass/volume] in Serum or Plasma [facility] Work Phone: Comment on above: Expected: 12/11/2022 , Expires: 03/12/2023 Start: 12-11-2022 End: 03-12-2023 Comprehensive metabolic 2000 panel - Serum or Plasma [facility] Work Phone: Comment on above: Expected: 12/11/2022 , Expires: 03/12/2023 Start: 12-11-2022 End: 03-12-2023 Hepatitis C virus Ab [Presence] in Serum [facility] Work Phone: Comment on above: Expected: 12/11/2022 , Expires: 03/12/2023 Start: 12-11-2022 End: 03-12-2023 LIPID PANEL, NONFASTING [facility] Work Phone: Comment on above: Expected: 12/11/2022 , Expires: 03/12/2023 Start: 12-11-2022 End: 03-12-2023 Thyrotropin [Units/volume] in Serum or Plasma [facility] Work Phone: Comment on above: Expected: 12/11/2022 , Expires: 03/12/2023 Start: 02-18-2022 Advance Directive Discussion Advance Directive Discussion [facility] Start: 2021 RSV Vaccine (1 - 1-d ose 75+ series) RSV Vaccine (1 - 1-dose 75+ series) [facility] Start: 09-01-2021 Diabetes Screening Diabetes Screenin g [facility] Start: 2006 RSV Vaccine (1 - 1-d ose 60+ series) RSV Vaccine (1 - 1-dose 60+ series) [facility] Start: 1996 Shingrix Vaccine (1 of 2) Shingrix Vaccine (1 of 2) [facility] Start: 1964 Anxiety Screening Anxiety Screening [facility] Start: 1964 Depression Screening Depression Scre ening [facility] Start: 1964 Hepatitis C Screening Hepatitis C [facility] COVID & INFLUENZA A/ B & RSV NAAT, ROUTINE COVID & INFLUENZA A/B & RSV NAAT, ROUTINE Microbiology Routine URI, acute 09/19/2023 4:47 PM EDT [facility] Work Phone: End: 04-15-2025 CT Knee - right WO contrast CT KNEE WO IVCON RIGHT Radiology Routine Chronic pain of right knee 1 Occurrences starting 03/16/2024 until 04/15/2025 [facility] Work Phone: Comment on above: 1 Occurrences starti ng 03/16/2024 until 04/15/2025 CT Knee - right WO contrast CT KNEE WO IVCON RIGHT Radiology Routine Chronic pain of right knee 03/19/2024 1:50 PM EST [facility] Work Phone: End: 07-16-2024 Guidance for injection of Hip IMAGING GUIDED HIP INJECTION RIGHT Radiology Routine Primary osteoarthritis of right hip 1 Occurrences starting 06/17/2023 until 07/16/2024 [facility] Work Phone: Comment on above: 1 Occurrences starti ng 06/17/2023 until 07/16/2024 End: 04-04-2025 XR Pelvis and Hip - right AP and Lateral frog XR HIP GENERAL 3V PELV/AP/LAT RIGHT Radiology Routine Pain in right hip 1 Occurrences starting 03/05/2024 until 04/04/2025 [facility] Work Phone: Comment on above: 1 Occurrences starti ng 03/05/2024 until 04/04/2025 End: 05-08-2025 XR Pelvis and Hip - right AP and Lateral frog XR HIP GENERAL 3V PELV/AP/LAT RIGHT Radiology Routine Primary osteoarthritis of right hip Status post total hip replacement, right 1 Occurrences starting 04/08/2024 until 05/08/2025 [facility] Work Phone: Comment on above: 1 Occurrences starti ng 04/08/2024 until 05/08/2025 XR Pelvis and Hip - right AP and Lateral frog XR HIP GENERAL 3V PELV/AP/LAT RIGHT Radiology Routine Primary osteoarthritis of right hip Status post total hip replacement, right 04/13/2024 9:26 AM EST [facility] Work Phone: End: 05-27-2025 XR Pelvis and Hip - right AP and Lateral frog XR HIP GENERAL 3V PELV/AP/LAT RIGHT Radiology Routine Primary osteoarthritis of right hip Status post total hip replacement, right 1 Occurrences starting 04/27/2024 until 05/27/2025 [facility] Work Phone: Comment on above: 1 Occurrences starti ng 04/27/2024 until 05/27/2025 XR Pelvis and Hip - right AP and Lateral frog XR HIP GENERAL 3V PELV/AP/LAT RIGHT Radiology Routine Primary osteoarthritis of right hip Status post total hip replacement, right 05/11/2024 12:19 PM EDT [facility] Work Phone: End: 07-03-2025 XR Pelvis and Hip - right AP and Lateral frog XR HIP GENERAL 3V PELV/AP/LAT RIGHT Radiology Routine Primary osteoarthritis of right hip Status post total replacement of right hip 1 Occurrences starting 06/03/2024 until 07/03/2025 [facility] Work Phone: Comment on above: 1 Occurrences starti ng 06/03/2024 until 07/03/2025 XR Pelvis and Hip - right AP and Lateral frog XR HIP GENERAL 3V PELV/AP/LAT RIGHT Radiology Routine Primary osteoarthritis of right hip Status post total replacement of right hip 06/22/2024 8:16 AM EDT [facility] Work Phone: Immunizations Immunization Date Immunization Notes Care Provider Nolan irwin 04-07-2024 respiratory syncytia l virus (RSV) vaccine, adjuvanted (AREXVY) Louis Scott MD Work Phone: [facility] 12-04-2023 COVID-19 original vaccine, age 12+ yr, monovalent (PFIZER-BIONTGreystripe - VARNER TOP) Alfredito Michele MD Work Phone: [facility] 12-04-2023 influenza (HD-IIV4) vaccine, age 65+ yr, high dose, quadrivalent, PF (FLUZONE HIGH-DOSE) Alfredito Michele MD Work Phone: [facility] 12-11-2022 COVID-19 vaccine, ag e 12+ yr, season (PFIZER-BIONTECH) Louis Scott MD Work Phone: [facility] 12-11-2022 influenza (HD-IIV4) vaccine, age 65+ yr, high dose, quadrivalent, PF (FLUZONE HIGH-DOSE) Louis Scott MD Work Phone: [facility] 12-11-2022 influenza virus vacc ine, unspecified formulation Cecy Johnson APRN.CNP Work Phone: [facility] 11-22-2021 COVID-19 vaccine, ag e 12+ yr, bivalent (PFIZER-BIONTECH) Louis Scott MD Work Phone: [facility] 11-22-2021 influenza, high dose seasonal, preservative-free Louis Scott MD Work Phone: [facility] 11-21-2019 influenza, high dose seasonal, preservative-free Louis Scott MD Work Phone: [facility] 12-01-2018 influenza, high dose seasonal, preservative-free Louis Scott MD Work Phone: [facility] 11-11-2017 influenza, high dose seasonal, preservative-free Louis Scott MD Work Phone: [facility] Work Phone: 06-01-2017 tetanus toxoid, redu christiano diphtheria toxoid, and acellular pertussis vaccine, adsorbed Louis Scott MD Work Phone: [facility] 12-04-2016 influenza, high dose seasonal, preservative-free Louis Scott MD Work Phone: [facility] Work Phone: 11-03-2015 influenza, high dose seasonal, preservative-free Louis Scott MD Work Phone: [facility] 11-03-2015 pneumococcal conjuga te vaccine, 13 valent Louis Scott MD Work Phone: [facility] 12-06-2014 influenza, high dose seasonal, preservative-free Louis Scott MD Work Phone: [facility] 08-03-2013 pneumococcal polysaccharide vaccine, 23 valent Louis Scott MD Work Phone: [facility] 12-08-2011 influenza virus vacc ine, unspecified formulation Louis Scott MD Work Phone: [facility] Work Phone: 03-22-2009 tetanus toxoid, redu christiano diphtheria toxoid, and acellular pertussis vaccine, adsorbed Louis Scott MD Work Phone: [facility] 12-29-2007 influenza virus vacc ine, unspecified formulation Louis Scott MD Work Phone: [facility] Work Phone: 01-09-2006 influenza virus vacc ine, unspecified formulation Louis Scott MD Work Phone: [facility] Work Phone: Payers Date Payer Category Payer Medicare [id number] 2011 Medicare [id number] Social History Date Type Detail Facility Start: 12-11-2022 Tobacco smoking stat [facility] Never smoked tobacco [facility] Start: 12-11-2022 Tobacco use and exposure Smoke less tobacco non-user [facility] Start: 12-11-2022 End: 06-22-2024 Alcohol intake Current non-drinker of alcohol (finding) [facility] Start: 12-10-2022 End: 12-11-2022 History of Social function [facility] Start: 12-10-2022 End: 12-11-2022 [facility] Has the [employer], or [employer] threatened to shut off services in your home in past 12Mo No [facility] Are you now , , , , never or living with a partner? [facility] How often to you hav e a drink containing alcohol? Never [facility] How many standard dr inks containing alcohol do you have on a typical day? Patient does not drink [facility] Do you feel stress - tense, restless, nervous, or anxious, or unable to sleep at night because your mind is troubled all the time - these days [OSQ] Not at all [facility] (I/We) worried mark er (my/our) food would run out before (I/we) got money to buy more. Never true [facility] Start: 1945 Sex Assigned At Male [facility] Start: 08-25-2018 Gender identity Identifies as male gender (finding) [facility] Start: 08-25-2018 Sexual orientation Heterosexual (tono malone) [facility] How hard is it for y ou to pay for the very basics like food, housing, medical care, and heating Not very hard [facility] Medical Equipment Procedure Code Equipment Code Equipment Origin al Text Equipment Identifier Dates Mesh Srg Pariete x 6x6in Mariano - [id number] Start: 12-09-2013 Head V40 36mm +2 .5mm Offset Taper Biolox Delta Femoral Hip - [id number] Start: 04-01-2024 Trident X3 Eccen tric 0deg 36mm Size F Id - [id number] Start: 04-01-2024 Shell Trident Ii 56mm F Tritanium Acetabular 5 Screw Hole Cluster Sterile - [id number] Start: 04-01-2024 Stem Accolade Ii 6 127d Femoral - [id number] Start: 04-01-2024 Screw Trident Ii 6.5mm 25mm Bone Low Profile Hexagonal Sterile - [id number] Start: 04-01-2024 Functional Status Date Assessment Result Facility 04-16-2024 Total score [AUDIT-C] 0 04/16/19 2:45 PM EST User, [email or web address] [facility] 04-16-2024 Within the last year , have you been humiliated or emotionally abused in other ways by your partner or ex-partner? No 04/16/2024 2:45 PM EST User, [email or web address] No [facility] 04-16-2024 Within the last year , have you been afraid of your partner or ex-partner? No 04/16/2024 2:45 PM EST User, [email or web address] No [facility] 04-16-2024 Within the last year , have you been raped or forced to have any kind of sexual activity by your partner or ex-partner? No 04/16/2024 2:45 PM EST User, [email or web address] No [facility] 04-16-2024 Within the last year , have you been kicked, hit, slapped, or otherwise physically hurt by your partner or ex-partner? No 04/16/2024 2:45 PM EST User, [email or web address] No [facility] 04-16-2024 How often to you hav e a drink containing alcohol? Never 04/16/2024 2:45 PM EST User, [email or web address] Never [facility] 04-16-2024 Functional status Patient does n ot drink 04/16/2024 2:45 PM EST User, [email or web address] Patient does not drink [facility] 04-16-2024 How often do you hav e 6 or more drinks on 1 occasion? Never 04/16/2024 2:45 PM EST User, [email or web address] Never [facility] 04-02-2024 Are you deaf, or do you have serious difficulty hearing No 04/02/2024 1:04 PM Emily Vargas RN No [facility] 04-02-2024 Are you blind, or do you have serious difficulty seeing, even when wearing glasses No 04/02/2024 1:04 PM Emily Vargas RN No [facility] 04-02-2024 Do you have serious difficulty walking or climbing stairs Yes 04/02/2024 1:04 PM Emily Vargas RN Yes [facility] 04-02-2024 Do you have difficul ty dressing or bathing Yes 04/02/2024 1:04 PM Emily Vargas RN Yes [facility] 04-02-2024 Because of a physica l, mental, or emotional condition, do you have difficulty doing errands alone such as visiting a physician's office or shopping Yes 04/02/2024 1:04 PM Emily Vargas RN Yes [facility] 05-25-2014 Are you deaf, or do you have serious difficulty hearing No 05/25/2014 1:40 PM Melinda García MA No [facility] 05-25-2014 Are you blind, or do you have serious difficulty seeing, even when wearing glasses No 05/25/2014 1:40 PM EDT Melinda Urbano MA No [facility] 05-25-2014 Do you have serious difficulty walking or climbing stairs No 05/25/2014 1:40 PM EDT Melinda Urbano MA [facility] 05-25-2014 Do you have difficul ty dressing or bathing No 05/25/2014 1:40 PM EDT Melinda Urbano MA [facility] 05-25-2014 Because of a physica l, mental, or emotional condition, do you have difficulty doing errands alone such as visiting a physician's office or shopping No 05/25/2014 1:40 PM EDT Melinda Urbano MA [facility] Mental Status Date Assessment Result Facility 04-02-2024 Because of a physica l, mental, or emotional condition, do you have serious difficulty concentrating, remembering, or making decisions No 04/02/2024 1:04 PM Emily Vargas RN No [facility] 05-25-2014 Because of a physica l, mental, or emotional condition, do you have serious difficulty concentrating, remembering, or making decisions No 05/25/2014 1:40 PM EDT Melinda Urbano MA [facility] Clinical Notes 12-11-2022 to 12-16-2024 David Kimbrough, PT - 06/25/2024 11:02 AM David Kang, PT - 06/25/2024 10:24 AM David Kang, PT - 06/22/2024 9:32 AM Alfredito Nobles MD - 06/22/2024 8:39 AM EDTPatient Instructions Note Date & Type Note Facility 12-16-2024 Note HNO ID: [id number] Author: CINTHIA KEE MD Service: ? Author Type: Physician Type: Progress Notes Filed: 12/17/2024 09:05 Note Text: Paolo Hernandez is a 79 year old male here for a Medicare Wellness visit. Recording using ambient Stagee software for draft documentation of the visit was discussed with the patient/authorized customer response representative; all questions welcomed and answered. Patient/authorized customer response representative agreed to proceed Paolo Hernandez is a 79-year-old male with a history of neuropathy, frozen shoulder, and GERD, presenting for a Medicare wellness exam. 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 - Denies pain, but reports weakness and inability to lift arm above head. - Engaging in exercises, including wall crawls and halos, with some improvement. - History of right shoulder rotator cuff issues ~15-20 years ago, resolved with cortisone injection and time. - Denies recent trauma or injury to the left shoulder. GERD: - Chronic mild sore throat x1 year, daily occurrence, worse at night. - Suspects GERD, has not tried OTC medications. - Denies pain with swallowing or food getting stuck. - Denies early satiety. - Denies specific food triggers for throat irritation. - Does get occasional post nasal drip. Hip Replacement: - Right hip replacement in March, follow-up with Dr. Michele next year. - Engaging in physical therapy exercises post-surgery. Family History: - Mother: Arthritis, HTN, tuberculosis. - Father: CVA. - Maternal grandmother: Breast cancer. - Siblings: Brother and sister, both healthy. - Children: Two daughters, both healthy. Advanced Directives: - No living will or healthcare power of environmental attorney. - Plans to discuss with a real estate lawyer for estate planning. Medicare Health Risk Assessment General Health Very good Exercise: Minutes/Day 20 min Exercise: Days/Week 7 days Alcohol: Daily Use Never Alcohol: Drinks/Day Patient does not drink Alcohol: 6 or more drinks Never Feel off balance No (Admits to balance not being as good as it once was. Think his Neuropathy has something to do with it.) Concerns: Teeth/Dentures No Concerns: Sexual function No Troubled by feelings None of the above Frequency: Eating healthy diet Nearly every day ADLs requiring help None of the above Safety precautions in home/vehicle Yes Smoke, vape, chews tobacco No Difficulty hearing No Difficulty seeing No Current Providers Specialists: I have reviewed specialist-related care of the patient in the medical record. Current care team: Patient Care Team: Louis Scott MD as PCP - General (Family Medicine) Patrice Salmeron APRN.BARB as Scrap Preparation Supervisor (Family Medicine) Outside specialists seen: Ortho: Dr. Michele, Dentist: [facility], Optho: Dr. Chau Medical/Family history review Reviewed and updated problem list, medical/surgical/family/social history, medications, and allergies. Opioid use review Prescribed: No opioid use on file in the last 90 days Patient-reported: No opioid use on file in the last 90 days Depression screening PHQ-2 Score: 0 PHQ-9 Score: 0 Anxiety screening NATASHA-2 Score: 0 Cognitive screening Mini Cog Score: 5 Cognitive screening reviewed and No further action needed (score 3-5). Functional Observation Was the patient's Timed Up AND Go test unsteady or >= 12 seconds? No Advance Directives Patient did not wish or was not able to name a surrogate decision maker or provide an advance care plan FULL CODE Measurements BP 134/71 Pulse 68 Temp 36.5 ?C (97.7 ?F) Resp 14 Ht 176.5 cm (5' 9.5) Wt 72.2 kg (159 lb 3.2 oz) BMI 23.17 kg/m? Vision Screening: Right: 20/25 Left: 20/ 20 Both: 20/25 Sees Ophthalmology yearly. General Appearance: Well appearing, alert, in no acute distress, well-hydrated, well nourished.. Skin: Skin color, texture, turgor normal, no suspicious rashes or lesions. Oropharynx: Lips, mucosa, and tongue normal, teeth and gums normal, oropharynx normal. Neck: Supple, no adenopathy; thyroid symmetric, normal size, no bruits. Lungs: Lungs clear to auscultation. No wheezing, rhonchi, rales.. Heart: RRR without murmur, gallop, or rubs. No ectopy. Abdomen: Normal abdominal exam, Abdomen soft, non-tender. Bowel sounds normal. No masses, organomegaly. Extremities: No deformities, edema, skin discoloration, clubbing or cyanosis. Good capillary refill. Shoulder: Location: Left. Redness: No. Warmth: No. Tenderness to palpation: No. Swelling: No. Range of motion: Limited to about 30 degrees abduction and flexion with passive ROM. Able to abduct to 110 degrees with active ROM. Empty can test: Unable to perform due to limited ROM Latest Ref Rng 03/19/2024 04/02/2024 WBC 3.70 - 11.00 k/uL 7.19 10.47 RBC 4.20 - 6.00 m/uL 4.95 4.64 Hemoglobin 13.0 - 17.0 g/dL 12.9 (L) 12.3 (L) Hematocrit 39.0 - 51.0 % 40.1 38.1 (L) MCV 80.0 - 100.0 f (more content not included)... [facility] 06-25-2024 History of Presen t illness Narrative Program_ID:[id number] Access Code: [email or web address] URL: [email or web address] Date: 06-25-2024 Prepared By: David Kimbrough Program Notes Exercises - Standing Hip Abduction with Anchored Resistance - 2 x daily - 5 x weekly - 2 sets - 10 reps - Standing Hip Extension with Anchored Resistance - 2 x daily - 5 x weekly - 2 sets - 10 reps - Standing Hip Flexion with Anchored Resistance and Chair Support - 2 x daily - 5 x weekly - 2 sets - 10 reps - Side Stepping with Resistance at Ankles - 2 x daily - 5 x weekly - 1 sets - 4 reps - Standing Marching - 2 x daily - 5 x weekly - 2 sets - 10 reps - Standing Knee Flexion - 2 x daily - 5 x weekly - 2 sets - 10 reps - Goblet Squat with Kettlebell - 2 x daily - 5 x weekly - 2 sets - 8-12 reps - Supine Active Straight Leg Raise - 2 x daily - 5 x weekly - 2-3 sets - 10 reps - Forward and Backward Monster Walk with Resistance at Ankles and Counter Support - 2 x daily - 5 x weekly - 2 sets - 3 reps Images from the original note were not included. Episode Visit Count: 18 Therapist That Will Accept/Oversee The Plan Of Care: David Kimbrough PT. Start of Care Date: 04/29/24 Onset Date: 04/30/23 Plan of Care Certification Date: 06/05/24 Next Certification Due Date: 07/17/24 Patient Identified by Name and Date of : Yes REHABILITATION AND SPORTS THERAPY PHYSICAL THERAPY DISCONTINUANCE OF CARE PLAN OF CARE UPDATE: Assessment: Paolo Hernandez is discontinued from Physical Therapy services due to goal achievement.. Patient was seen for 18 visits from Start of Care Date: 04/29/24 to 06/25/2024 and treatment included: Therapeutic exercise, Neuromuscular re-education, and Gait training. Updated: 06/04/24 & 06/25/24. Goals for Episode of Care: established 04/29/24 [place] in home exercise program. (Goal Met) Patient will increase passive ROM of L hip to 120 degrees flexion to allow pt to improve performance of ADLs/IADLs. (Goal Met) Improve R Hip ER, IR, & ABD to WFL for improved functional mobility. (Goal Met) Patient will demonstrate increase in RHip strength to 5/5 during manual muscle testing in order to improve function for home management tasks, occupational demands, and prior functional tasks. (Goal Met) Patient will be able to perform walking without pain (Goal Met) Reciprocal Stair Negotiation without use of hands for assist. 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 (Goal Met) SUBJECTIVE: Patient returns to work on Saturday06/29/24. Feels confident with doing exercises at home and making today last visit. Pain: Pain Pain Level: 0 PROMIS Scales 06/18/2024 05/25/2024 04/30/2024 Higher is Better Phys Func - T Score 52 (within normal limits) 48 (within normal limits) 41 (mild dysfunction) Phys Func - Percentile 58 42 18 Self-Eff Symptom - T Score 48 (Average) 48 (Average) Self-Eff Symptom - Percentile 42 42 T-scores: mean of general population = 50. 5 points is clinically meaningfully difference Percentiles provide an indication of how the patient's score ranks in relation to the general population. Higher percentile rankings indicate better function/quality of life. 50th percentile is the average of the general population and indicates half of respondents had a worse score. OBJECTIVE MEASURES WITH LEVEL OF FUNCTION: LE PROM R Hip Flexion: 120 Degrees R Hip ABduction: 45 Degrees LE Strength R LE Strength: R SLR: x20. Gait Gait Observation: Slight R Trendelenburg. Stairs: Reciprocal TREATMENT: Therapeutic Exercise: 1: Upright Stationary Bike: Seat 8, 5 Min, Level 6.5 (Direct 1:1 and subjective taken.) 2: Goblet STS w/ 10#KB: 3x10. Focus on no medial knee collapse. 3: Lateral Monster Walks, BTB around ankle: 4 Laps of 10 Feet. 4: FWD Monster Walks, BTB around ankle: 4 Laps of 10 Feet. 5: HEP was reviewed and the patient was instructed to continue with HEP to tolerance. New handouts and bands presented Skilled Intervention: Patient was educated in proper exercise technique and purpose for exercises. Reviewed and educated patient on additions/changes for home exercise program as above (*). Skilled judgment was used in selection of appropriate interventions. Provided written instruction for home exercise program to facilitate proper performance and compliance. Correct performance of therapeutic exercises was facilitated with verbal, visual, and tactile cuing. Patient education as noted. Billing Therapeutic Exercise Treatment Minutes: 28 Skilled Treatment Time Minutes (timed and untimed codes): 28 Total Session Time (minutes): 28 Session Start Time : 1037 Session Stop Time : 1105 David Kimbrough PT documented in this encounter [facility] 06-25-2024 Note HNO ID: [id number] Author: DAVID KIMBROUGH PT Service: ? Author Type: Physical Therapist Type: Progress Notes Filed: 06/25/2024 11:12 Note Text: Episode Visit Count: 18 Therapist That Will Accept/Oversee The Plan Of Care: David Kimbrough PT. Start of Care Date: 04/29/24 Onset Date: 04/30/23 Plan of Care Certification Date: 06/05/24 Next Certification Due Date: 07/17/24 Patient Identified by Name and Date of : Yes REHABILITATION AND SPORTS THERAPY PHYSICAL THERAPY DISCONTINUANCE OF CARE PLAN OF CARE UPDATE: Assessment: Paolo Hernandez is discontinued from Physical Therapy services due to goal achievement.. Patient was seen for 18 visits from Start of Care Date: 04/29/24 to 06/25/2024 and treatment included: Therapeutic exercise, Neuromuscular re-education, and Gait training. Updated: 06/04/24 AND 06/25/24. Goals for Episode of Care: established 04/29/24 [place] in home exercise program. (Goal Met) Patient will increase passive ROM of L hip to 120 degrees flexion to allow pt to improve performance of ADLs/IADLs. (Goal Met) Improve R Hip ER, IR, AND ABD to WFL for improved functional mobility. (Goal Met) Patient will demonstrate increase in RHip strength to 5/5 during manual muscle testing in order to improve function for home management tasks, occupational demands, and prior functional tasks. (Goal Met) Patient will be able to perform walking without pain (Goal Met) Reciprocal Stair Negotiation without use of hands for assist. 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 (Goal Met) SUBJECTIVE: Patient returns to work on Saturday06/29/24. Feels confident with doing exercises at home and making today last visit. Pain: Pain Pain Level: 0 PROMIS Scales 06/18/2024 05/25/2024 04/30/2024 Higher is Better Phys Func - T Score 52 (within normal limits) 48 (within normal limits) 41 (mild dysfunction) Phys Func - Percentile 58 42 18 Self-Eff Symptom - T Score 48 (Average) 48 (Average) Self-Eff Symptom - Percentile 42 42 T-scores: mean of general population = 50. 5 points is clinically meaningfully difference Percentiles provide an indication of how the patient's score ranks in relation to the general population. Higher percentile rankings indicate better function/quality of life. 50th percentile is the average of the general population and indicates half of respondents had a worse score. OBJECTIVE MEASURES WITH LEVEL OF FUNCTION: LE PROM R Hip Flexion: 120 Degrees R Hip ABduction: 45 Degrees LE Strength R LE Strength: R SLR: x20. Gait Gait Observation: Slight R Trendelenburg. Stairs: Reciprocal TREATMENT: Therapeutic Exercise: 1: Upright Stationary Bike: Seat 8, 5 Min, Level 6.5 (Direct 1:1 and subjective taken.) 2: Goblet STS w/ 10#KB: 3x10. Focus on no medial knee collapse. 3: Lateral Monster Walks, BTB around ankle: 4 Laps of 10 Feet. 4: FWD Monster Walks, BTB around ankle: 4 Laps of 10 Feet. 5: HEP was reviewed and the patient was instructed to continue with HEP to tolerance. New handouts and bands presented Skilled Intervention: Patient was educated in proper exercise technique and purpose for exercises. Reviewed and educated patient on additions/changes for home exercise program as above (*). Skilled judgment was used in selection of appropriate interventions. Provided written instruction for home exercise program to facilitate proper performance and compliance. Correct performance of therapeutic exercises was facilitated with verbal, visual, and tactile cuing. Patient education as noted. Billing Therapeutic Exercise Treatment Minutes: 28 Skilled Treatment Time Minutes (timed and untimed codes): 28 Total Session Time (minutes): 28 Session Start Time : 1037 Session Stop Time : 1105 David Kimbrough PT [facility] 06-22-2024 Note HNO ID: [id number] Author: DAVID KIMBROUGH PT Service: ? Author Type: Physical Therapist Type: Progress Notes Filed: 06/22/2024 11:34 Note Text: Episode Visit Count: 17 Therapist That Will Accept/Oversee The Plan Of Care: David Kimbrough PT. Start of Care Date: 04/29/24 Onset Date: 04/30/23 Plan of Care Certification Date: 06/05/24 Next Certification Due Date: 07/17/24 Patient Identified by Name and Date of : Yes REHABILITATION AND SPORTS THERAPY PHYSICAL THERAPY TREATMENT NOTE ASSESSMENT: Paolo Hernandez tolerated the session with fatigue and expected muscle soreness. He demonstrated improvements in step ups with increased step height. The patient will continue to benefit from ongoing skilled physical therapy to progress toward set goals. PLAN FOR NEXT VISIT: Discuss continuation of therapy services. SUBJECTIVE: Pt saw this morning and pt is able to RTW. Pt states that his hip is feeling good today. Pain: Pain Pain Level: 1 Pain Location: Low Back/Lumbar Spine - Right OBJECTIVE MEASURES WITH LEVEL OF FUNCTION: Minimal unsteadiness with R SLS. TREATMENT: Therapeutic Exercise: 1: Upright Stationary Bike: Seat 8, 5 Min, Level 6.5 (Direct 1:1 and subjective taken.) 2: Seated, repeated lumbar flexion x5 for when sciatic flares up. 3: Step ups on 15 inch step 2x10 to facilitate getting up into semi. 4: Multi Hip: B Hip Flex; 3x10, 40#. 5: Multi Hip: B Hip ABD; 3x10, 40# 6: Multi Hip: B Hip EXT; 3x10, 40#. 7: SL Press: 3x10 each leg, 30#. 8: DBL Leg Press: 3x10, 40#. Skilled Intervention: Patient was educated in proper exercise technique and purpose for exercises. Skilled judgment was used in selection of appropriate interventions. Correct performance of therapeutic exercises was facilitated with verbal and visual cuing. Neuromuscular Re-Education: 1: Fwd/Bwd Rockers on Board: 3x15 each way. 2: R SLS 4x30 seconds with occasional BUE taps on // bars Skilled Intervention: Skilled judgment used to assess appropriate program for balance and coordination activity. Billing Therapeutic Exercise Treatment Minutes: 32 Neuromuscular Re-Education Treatment Minutes: 9 Skilled Treatment Time Minutes (timed and untimed codes): 41 Total Session Time (minutes): 41 Session Start Time : 927 Session Stop Time : 1008 Becka Valle, MARVA Kimbrough, PT, DPT. [facility] 06-22-2024 History of Presen t illness Narrative Episode Visit Count: 17 Therapist That Will Accept/Oversee The Plan Of Care: David Kimbrough PT. Start of Care Date: 04/29/24 Onset Date: 04/30/23 Plan of Care Certification Date: 06/05/24 Next Certification Due Date: 07/17/24 Patient Identified by Name and Date of : Yes REHABILITATION AND SPORTS THERAPY PHYSICAL THERAPY TREATMENT NOTE ASSESSMENT: Paolo Hernandez tolerated the session with fatigue and expected muscle soreness. He demonstrated improvements in step ups with increased step height. The patient will continue to benefit from ongoing skilled physical therapy to progress toward set goals. PLAN FOR NEXT VISIT: Discuss continuation of therapy services. SUBJECTIVE: Pt saw this morning and pt is able to RTW. Pt states that his hip is feeling good today. Pain: Pain Pain Level: 1 Pain Location: Low Back/Lumbar Spine - Right OBJECTIVE MEASURES WITH LEVEL OF FUNCTION: Minimal unsteadiness with R SLS. TREATMENT: Therapeutic Exercise: 1: Upright Stationary Bike: Seat 8, 5 Min, Level 6.5 (Direct 1:1 and subjective taken.) 2: Seated, repeated lumbar flexion x5 for when sciatic flares up. 3: Step ups on 15 inch step 2x10 to facilitate getting up into semi. 4: Multi Hip: B Hip Flex; 3x10, 40#. 5: Multi Hip: B Hip ABD; 3x10, 40# 6: Multi Hip: B Hip EXT; 3x10, 40#. 7: SL Press: 3x10 each leg, 30#. 8: DBL Leg Press: 3x10, 40#. Skilled Intervention: Patient was educated in proper exercise technique and purpose for exercises. Skilled judgment was used in selection of appropriate interventions. Correct performance of therapeutic exercises was facilitated with verbal and visual cuing. Neuromuscular Re-Education: 1: Fwd/Bwd Rockers on Board: 3x15 each way. 2: R SLS 4x30 seconds with occasional BUE taps on // bars Skilled Intervention: Skilled judgment used to assess appropriate program for balance and coordination activity. Billing Therapeutic Exercise Treatment Minutes: 32 Neuromuscular Re-Education Treatment Minutes: 9 Skilled Treatment Time Minutes (timed and untimed codes): 41 Total Session Time (minutes): 41 Session Start Time : 927 Session Stop Time : 1008 Becka Valle, JUDICIAL ADMINISTRATIVE ASSISTANT David Kimbrough, HUMZA, DPT. documented in this encounter [facility] 06-22-2024 Note HNO ID: [id number] Author: ALFREDITO MICHELE MD Service: ? Author Type: Physician Type: Progress Notes Filed: 06/22/2024 09:21 Note Text: Alfredito Michele MD Department of Orthopaedics Orthopaed[facility] [address] [facility] [address] [address] Dept: [phone] Dept June 22, 2024 CHIEF COMPLAINT: Post Op of the Right Hip (11 weeks 5 days post op Robotic Assisted Right LOGAN) HPI: HPI Patient here for post op visit robotic assisted right LOGAN. Patient states he is continuing home exercises. Denies any pain. New x-rays done today. ASSESSMENT: Z96.641 History of total right hip arthroplasty (primary encounter diagnosis) PLAN: Feeling what sounds like, a little bit of right sided sciatica. If that persists, we could get him in with pain management to evaluate for possible injection treatment. In the meantime, he is going to continue strengthening of the hip and working on his balance and normal gait. 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 OBJECTIVE: Mr. Paolo Hernandez is a pleasant 78 year old in no apparent distress. Gen:There were no vitals taken for this visit. nl development, non obese, no deformities ENT: Normocephalic, normal hearing, moist mucosa CV: Pulses:DP/PT= 2+ and symmetric, capillary refill < 2 secs, no peripheral edema/varicosities Skin: no rash, bruising or lesions. Good turgor. Psych: cooperative and appropriate, alert and oriented x 3, good mood and affect. Musculoskeletal: He does appear to have a bit of an unsteady gait on observation. Healed incision. Range of motion without pain. Imaging: AP pelvis and 2 views of the hip show an intact arthroplasty without any concerns. Supporting Subjective Information Below: Past Medical History: PAST MEDICAL HISTORY Diagnosis Date Right inguinal hernia Rotator cuff tear Right shoulder Vertigo Past Surgical History: PAST SURGICAL HISTORY Procedure Laterality Date APPENDECTOMY 02/18/1963 LAPAROSCOPY SURG RPR INITIAL INGUINAL HERNIA 12/09/2013 right PAST SURGICAL HISTORY OF 10/19/1969 wisdom teeth PAST SURGICAL HISTORY OF Bilateral 2020 B/L cataract surgery TOTAL HIP REPLACEMENT Right 04/01/2024 Robotic assisted Right total hip arthroplasty Medications: Current Outpatient Medications Medication Sig ferrous sulfate (IRON) 325 mg (65 mg iron) tablet Take 325 mg by mouth once daily. (Patient not taking: Reported on 06/22/2024) aspirin, enteric coated (ASPIRIN, ENTERIC COATED) 81 mg EC tablet Take 1 tablet by mouth two times a day for 28 days. ascorbic acid, vitamin C, (VITAMIN C) 500 mg tablet Take 1 tablet by mouth two times a day with meals for 27 doses. No current facility-administered medications for this visit. Facility-Administered Medications Ordered in Other Visits Medication Dose Route Frequency lidocaine 10 mg/mL (1 %) injection (XYLOCAINE) OTHER PRN triamcinolone acetonide injection (KeNALog 40) INTRA-ARTICULAR PRN Allergies: Patient has no known allergies. ROS: General (negative for fatigue, malaise, weight loss/gain) HEENT (negative for headache, earache, recent vision changes, sinus pain, sore throat) Respiratory (no recent shortness of breath, hemoptysis) CV (negative for chest tightness, palpitations) Musculoskeletal (see HPI) Psych (no depression, anxiety) Recording using [employer] software for draft documentation of the visit was discussed with the patient/authorized customer response representative; all questions welcomed and answered. Patient/authorized customer response representative agreed to proceed Alfredito Michele MD [facility] 06-22-2024 History of Presen t illness Narrative Alfredito Michele MD Department of Orthopaedics Orthopaedics [address] [place] [address] Dept: [phone] Dept June 22, 2024 CHIEF COMPLAINT: Post Op of the Right Hip (11 weeks 5 days post op Robotic Assisted Right LOGAN) HPI: HPI Patient here for post op visit robotic assisted right LOGAN. Patient states he is continuing home exercises. Denies any pain. New x-rays done today. ASSESSMENT: Z96.641 History of total right hip arthroplasty (primary encounter diagnosis) PLAN: Feeling what sounds like, a little bit of right sided sciatica. If that persists, we could get him in with pain management to evaluate for possible injection treatment. In the meantime, he is going to continue strengthening of the hip and working on his balance and normal gait. 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 OBJECTIVE: Mr. Paolo Hernandez is a pleasant 78 year old in no apparent distress. Gen:There were no vitals taken for this visit. nl development, non obese, no deformities ENT: Normocephalic, normal hearing, moist mucosa CV: Pulses:DP/PT= 2+ and symmetric, capillary refill < 2 secs, no peripheral edema/varicosities Skin: no rash, bruising or lesions. Good turgor. Psych: cooperative and appropriate, alert and oriented x 3, good mood and affect. Musculoskeletal: He does appear to have a bit of an unsteady gait on observation. Healed incision. Range of motion without pain. Imaging: AP pelvis and 2 views of the hip show an intact arthroplasty without any concerns. Supporting Subjective Information Below: Past Medical History: PAST MEDICAL HISTORY Diagnosis Date Right inguinal hernia Rotator cuff tear Right shoulder Vertigo Past Surgical History: PAST SURGICAL HISTORY Procedure Laterality Date APPENDECTOMY 02/18/1963 LAPAROSCOPY SURG RPR INITIAL INGUINAL HERNIA 12/09/2013 right PAST SURGICAL HISTORY OF 10/19/1969 wisdom teeth PAST SURGICAL HISTORY OF Bilateral 2020 B/L cataract surgery TOTAL HIP REPLACEMENT Right 04/01/2024 Robotic assisted Right total hip arthroplasty Medications: Current Outpatient Medications Medication Sig ferrous sulfate (IRON) 325 mg (65 mg iron) tablet Take 325 mg by mouth once daily. (Patient not taking: Reported on 06/22/2024) aspirin, enteric coated (ASPIRIN, ENTERIC COATED) 81 mg EC tablet Take 1 tablet by mouth two times a day for 28 days. ascorbic acid, vitamin C, (VITAMIN C) 500 mg tablet Take 1 tablet by mouth two times a day with meals for 27 doses. No current facility-administered medications for this visit. Facility-Administered Medications Ordered in Other Visits Medication Dose Route Frequency lidocaine 10 mg/mL (1 %) injection (XYLOCAINE) OTHER PRN triamcinolone acetonide injection (KeNALog 40) INTRA-ARTICULAR PRN Allergies: Patient has no known allergies. ROS: General (negative for fatigue, malaise, weight loss/gain) HEENT (negative for headache, earache, recent vision changes, sinus pain, sore throat) Respiratory (no recent shortness of breath, hemoptysis) CV (negative for chest tightness, palpitations) Musculoskeletal (see HPI) Psych (no depression, anxiety) Recording using [employer] software for draft documentation of the visit was discussed with the patient/authorized customer response representative; all questions welcomed and answered. Patient/authorized customer response representative agreed to proceed Alfredito Michele MD documented in this encounter [facility] 06-18-2024 Note HNO ID: [id number] Author: DAVID KIMBROUGH PT Service: ? Author Type: Physical Therapist Type: Progress Notes Filed: 06/18/2024 12:12 Note Text: Episode Visit Count: 16 Therapist That Will Accept/Oversee The Plan Of Care: David Kimbrough PT. Start of Care Date: 04/29/24 Onset Date: 04/30/23 Plan of Care Certification Date: 06/05/24 Next Certification Due Date: 07/17/24 Patient Identified by Name and Date of : Yes REHABILITATION AND SPORTS THERAPY PHYSICAL THERAPY TREATMENT NOTE ASSESSMENT: Paolo Hernandez tolerated the session with expected muscle soreness. He demonstrated improvements in tandem balancing. The patient will continue to benefit from ongoing skilled physical therapy to progress toward set goals and to continue with post-operative protocol. PLAN FOR NEXT VISIT: Discuss visit with Dr. Michele and RTW status. SUBJECTIVE: Patient see's Dr. Michele next Saturday06/22/24. States low back dull ache on the R today, states this comes and goes. Comes on anthony. with bending and lifting, does not last till the next day. Pain: Pain Pain Level: 1 Pain Location: Low Back/Lumbar Spine - Right Description: Dull OBJECTIVE MEASURES WITH LEVEL OF FUNCTION: LE PROM R Hip Flexion: 120 Degrees R Hip ABduction: 45 Degrees R Hip Internal Rotation: 35 Degrees R Hip External Rotation: 30 Degrees TREATMENT: Therapeutic Exercise: 1: Upright Stationary Bike: Seat 8, 5 Min, Level 6.5 (Direct 1:1 and subjective taken.) 2: Multi Hip: B Hip ABD; 3x10, 40# 3: Multi Hip: B Hip Flex; 3x10, 40#. 4: Multi Hip: B Hip EXT; 3x10, 40#. 5: Retro Walking at Hoist w/ Waist Belt: 1 x 8 Reps, 2 Plates. Skilled Intervention: Patient was educated in proper exercise technique and purpose for exercises. Skilled judgment was used in selection of appropriate interventions. Correct performance of therapeutic exercises was facilitated with verbal cuing. Neuromuscular Re-Education: 1: Narrow JORDAN on Foam, EC: 3x30. SBA. 2: Semitandem: 4x15 each. on Foam, EO, intermittent // bar touch. 3: B Tandem Stance, EO, Airex: 4 sets of [address] SBA 4: Fwd/Bwd Rockers on Board: 3x[address] Skilled Intervention: Skilled judgment used to assess appropriate program for balance and coordination activity. Ensured patient safety with use of gait belt. Billing Therapeutic Exercise Treatment Minutes: 26 Neuromuscular Re-Education Treatment Minutes: 18 Skilled Treatment Time Minutes (timed and untimed codes): 44 Total Session Time (minutes): 44 Session Start Time : 1128 Session Stop Time : 1212 David Kimbrough PT, DPT. [facility] 06-18-2024 History of Presen t illness Narrative Episode Visit Count: 16 Therapist That Will Accept/Oversee The Plan Of Care: David Kimbrough PT. Start of Care Date: 04/29/24 Onset Date: 04/30/23 Plan of Care Certification Date: 06/05/24 Next Certification Due Date: 07/17/24 Patient Identified by Name and Date of : Yes REHABILITATION AND SPORTS THERAPY PHYSICAL THERAPY TREATMENT NOTE ASSESSMENT: Paolo Hernandez tolerated the session with expected muscle soreness. He demonstrated improvements in tandem balancing. The patient will continue to benefit from ongoing skilled physical therapy to progress toward set goals and to continue with post-operative protocol. PLAN FOR NEXT VISIT: Discuss visit with Dr. Michele and RTW status. SUBJECTIVE: Patient see's Dr. Michele next Saturday06/22/24. States low back dull ache on the R today, states this comes and goes. Comes on anthony. with bending and lifting, does not last till the next day. Pain: Pain Pain Level: 1 Pain Location: Low Back/Lumbar Spine - Right Description: Dull OBJECTIVE MEASURES WITH LEVEL OF FUNCTION: LE PROM R Hip Flexion: 120 Degrees R Hip ABduction: 45 Degrees R Hip Internal Rotation: 35 Degrees R Hip External Rotation: 30 Degrees TREATMENT: Therapeutic Exercise: 1: Upright Stationary Bike: Seat 8, 5 Min, Level 6.5 (Direct 1:1 and subjective taken.) 2: Multi Hip: B Hip ABD; 3x10, 40# 3: Multi Hip: B Hip Flex; 3x10, 40#. 4: Multi Hip: B Hip EXT; 3x10, 40#. 5: Retro Walking at Hoist w/ Waist Belt: 1 x 8 Reps, 2 Plates. Skilled Intervention: Patient was educated in proper exercise technique and purpose for exercises. Skilled judgment was used in selection of appropriate interventions. Correct performance of therapeutic exercises was facilitated with verbal cuing. Neuromuscular Re-Education: 1: Narrow JORDAN on Foam, EC: 3x30. SBA. 2: Semitandem: 4x15 each. on Foam, EO, intermittent // bar touch. 3: B Tandem Stance, EO, Airex: 4 sets of [address] SBA 4: Fwd/Bwd Rockers on Board: 3x[address] Skilled Intervention: Skilled judgment used to assess appropriate program for balance and coordination activity. Ensured patient safety with use of gait belt. Billing Therapeutic Exercise Treatment Minutes: 26 Neuromuscular Re-Education Treatment Minutes: 18 Skilled Treatment Time Minutes (timed and untimed codes): 44 Total Session Time (minutes): 44 Session Start Time : 1128 Session Stop Time : 1212 David Kimbrough PT, DPT. documented in this encounter [facility] 06-17-2024 Note HNO ID: [id number] Author: KATTY SMILEY RN Service: ? Author Type: Registered Nurse Type: Progress Notes Filed: 06/17/2024 11:23 Note Text: CDM ENROLLMENT Provider Action / FYI: Patient identified by name and date of . Discussed care with patient. Program Details Chronic Disease Management Status: Declined High Intensity Decline - Not interested now Effective Dates: unknown - 06/17/2024 Responsible Staff: Katty Smiley RN Support and Services: None active Assessments No documentation this encounter Interventions No episode Katty Smiley RN June 17, 2024 11:22 AM [facility] 06-17-2024 History of Presen t illness Narrative CDM ENROLLMENT Provider Action / FYI: Patient identified by name and date of . Discussed care with patient. Program Details Chronic Disease Management Status: Declined High Intensity Decline - Not interested now Effective Dates: unknown - 06/17/2024 Responsible Staff: Katty Smiley RN Support and Services: None active Assessments No documentation this encounter Interventions No episode Katty Smiley RN June 17, 2024 11:22 AM documented in this encounter [facility] 06-17-2024 Note Patient Outreach ([facility] PAOLO HERNANDEZ ([id number]) 1945 M Date Time Provider Department 06/17/24 KATTY SMILEY [facility] During your visit today, we recorded the following information about you: Katty Smiley RN 06/17/2024 11:23 AM Signed CDM ENROLLMENT Provider Action / FYI: Patient identified by name and date of . Discussed care with patient. Program Details Chronic Disease Management Status: Declined High Intensity Decline - Not interested now Effective Dates: unknown - 06/17/2024 Responsible Staff: Katty mSiley RN Support and Services: None active Assessments No documentation this encounter Interventions No episode Katty Smiley RN June 17, 2024 11:22 AM Allergies As of Date: 06/17/2024 (No Known Allergies) Date Reviewed: 06/06/2024 Reviewed by: Alfredito Michele MD - Fully Assessed Prescriptions as of 06/17/2024 - ferrous sulfate (IRON) 325 mg (65 mg iron) tablet Take 325 mg by mouth once daily. - aspirin, enteric coated (ASPIRIN, ENTERIC COATED) 81 mg EC tablet Take 1 tablet by mouth two times a day for 28 days. - ascorbic acid, vitamin C, (VITAMIN C) 500 mg tablet Take 1 tablet by mouth two times a day with meals for 27 doses. 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 Author Type: Physical Therapist Type: Progress Notes Filed: 06/16/2024 10:36 Note Text: Episode Visit Count: 15 Therapist That Will Accept/Oversee The Plan Of Care: David Kimbrough PT. Start of Care Date: 04/29/24 Onset Date: 04/30/23 Plan of Care Certification Date: 06/05/24 Next Certification Due Date: 07/17/24 Patient Identified by Name and Date of : Yes REHABILITATION AND SPORTS THERAPY PHYSICAL THERAPY TREATMENT NOTE ASSESSMENT: Paolo Hernandez tolerated the session with expected muscle soreness. He demonstrated quad burning and fatigue with SL press during eccentric control. The patient will continue to benefit from ongoing skilled physical therapy to progress toward set goals and to continue with post-operative protocol. PLAN FOR NEXT VISIT: Continue Hip Strengthening as tolerated. SUBJECTIVE: Patient reports no pain or anything new to speak on. R Hip is feeling better week to week. Pain: Pain Pain Level: 0 OBJECTIVE MEASURES WITH LEVEL OF FUNCTION: Good form demonstrated throughout session and completion of ther-ex. TREATMENT: Therapeutic Exercise: 1: Upright Stationary Bike: Seat 8, 5 Min, Level 6.5 (Direct 1:1 and subjective taken.) 2: Retro Walking at [facility] w/ Waist Belt: 2 x 8 Reps, 2 Plates. 3: Unilat Carvajal Carries: 2 Laps of 50 Feet Each Arm, 15#kb. (Advised for upright posture) 4: SL Press: 3x8-10 each leg, 30#. 5: DBL Leg Press: 3x10, 40#. 6: 10inch F QUINN: 3x12 each leg. Skilled Intervention: Patient was educated in proper exercise technique and purpose for exercises. Skilled judgment was used in selection of appropriate interventions. Correct performance of therapeutic exercises was facilitated with verbal cuing. Billing Therapeutic Exercise Treatment Minutes: 40 Skilled Treatment Time Minutes (timed and untimed codes): 40 Total Session Time (minutes): 40 Session Start Time : 954 Session Stop Time : 1034 David Kimbrough PT [facility] 06-16-2024 History of Presen t illness Narrative Episode Visit Count: 15 Therapist That Will Accept/Oversee The Plan Of Care: David Kimbrough PT. Start of Care Date: 04/29/24 Onset Date: 04/30/23 Plan of Care Certification Date: 06/05/24 Next Certification Due Date: 07/17/24 Patient Identified by Name and Date of : Yes REHABILITATION AND SPORTS THERAPY PHYSICAL THERAPY TREATMENT NOTE ASSESSMENT: Paolo Hernandez tolerated the session with expected muscle soreness. He demonstrated quad burning and fatigue with SL press during eccentric control. The patient will continue to benefit from ongoing skilled physical therapy to progress toward set goals and to continue with post-operative protocol. PLAN FOR NEXT VISIT: Continue Hip Strengthening as tolerated. SUBJECTIVE: Patient reports no pain or anything new to speak on. R Hip is feeling better week to week. Pain: Pain Pain Level: 0 OBJECTIVE MEASURES WITH LEVEL OF FUNCTION: Good form demonstrated throughout session and completion of ther-ex. TREATMENT: Therapeutic Exercise: 1: Upright Stationary Bike: Seat 8, 5 Min, Level 6.5 (Direct 1:1 and subjective taken.) 2: Retro Walking at ist w/ Waist Belt: 2 x 8 Reps, 2 Plates. 3: Unilat Carvajal Carries: 2 Laps of 50 Feet Each Arm, 15#kb. (Advised for upright posture) 4: SL Press: 3x8-10 each leg, 30#. 5: DBL Leg Press: 3x10, 40#. 6: 10inch F QUINN: 3x12 each leg. Skilled Intervention: Patient was educated in proper exercise technique and purpose for exercises. Skilled judgment was used in selection of appropriate interventions. Correct performance of therapeutic exercises was facilitated with verbal cuing. Billing Therapeutic Exercise Treatment Minutes: 40 Skilled Treatment Time Minutes (timed and untimed codes): 40 Total Session Time (minutes): 40 Session Start Time : 954 Session Stop Time : 5 David Kimbrough PT documented in this encounter [facility] 06-11-2024 Note HNO ID: [id number] Author: DAVID KIMBROUGH PT Service: ? Author Type: Physical Therapist Type: Progress Notes Filed: 06/11/2024 12:12 Note Text: Episode Visit Count: 14 Therapist That Will Accept/Oversee The Plan Of Care: David Kimbrough PT. Start of Care Date: 04/29/24 Onset Date: 04/30/23 Plan of Care Certification Date: 06/05/24 Next Certification Due Date: 07/17/24 REHABILITATION AND SPORTS THERAPY PHYSICAL THERAPY TREATMENT NOTE ASSESSMENT: Paolo Hernandez tolerated the session with expected muscle soreness. He demonstrated improvements in tandem stance control with no intermittent hand touch to counter. The patient will continue to benefit from ongoing skilled physical therapy to progress toward set goals and to continue with post-operative protocol. PLAN FOR NEXT VISIT: Hip Lateral Strengthening; SL Press; Balance. SUBJECTIVE: Doing good overall, no changes. Denies Pain today. Pain: Pain Pain Level: 0 OBJECTIVE MEASURES WITH LEVEL OF FUNCTION: Good form demonstrated throughout session and completion of ther-ex. TREATMENT: Therapeutic Exercise: 1: Upright Stationary Bike: Seat 9, 5.5 Min, Level 6.5 (Direct 1:1 and subjective taken.) 2: Multi Hip: B Hip ABD; 3x10, 40# 3: Multi Hip: B Hip Flex; 3x10, 40#. 4: Multi Hip: B Hip EXT; 3x10, 40#. 5: Seated LAQ: [id number], with 20-sec hold on last rep. 10#. 6: Straight arm pulldowns at hoist: 4x10, 3 plates. For his back. Skilled Intervention: Patient was educated in proper exercise technique and purpose for exercises. Skilled judgment was used in selection of appropriate interventions. Correct performance of therapeutic exercises was facilitated with verbal cuing. Neuromuscular Re-Education: 1: B Tandem Stance, EO, Ground: 5 sets of [address] 2: B Semi-Tandem Stance, EC, Ground: 5 sets of [address], with intermittent finger tip touch from 1 UE. Skilled Intervention: Skilled judgment used to assess appropriate program for balance and coordination activity. Ensured patient safety with use of supervision Billing Therapeutic Exercise Treatment Minutes: 30 Neuromuscular Re-Education Treatment Minutes: 10 Skilled Treatment Time Minutes (timed and untimed codes): 40 Total Session Time (minutes): 40 Session Start Time : 1130 Session Stop Time : 1210 David Kimbrough PT [facility] 06-09-2024 Note HNO ID: [id number] Author: DAVID KIMBROUGH PT Service: ? Author Type: Physical Therapist Type: Progress Notes Filed: 06/09/2024 10:42 Note Text: Episode Visit Count: 13 Therapist That Will Accept/Oversee The Plan Of Care: David Kimbrough PT. Start of Care Date: 04/29/24 Onset Date: 04/30/23 Plan of Care Certification Date: 06/05/24 Next Certification Due Date: 07/17/24 REHABILITATION AND SPORTS THERAPY PHYSICAL THERAPY TREATMENT NOTE ASSESSMENT: Paolo Hernandez tolerated the session with expected muscle soreness. He demonstrated improved form with hip hikes following tactile cues. Fatigue with lateral Maricruz w/ weight. The patient will continue to benefit from ongoing skilled physical therapy to progress toward set goals and to continue with post-operative protocol. PLAN FOR NEXT VISIT: Hip Lateral Strengthening; SL Press; Balance. SUBJECTIVE: Sees Dr. Michele in 13 days. Doing good overall, slight irritation in his low back this date per report Pain: Pain Pain Level: 2 Pain Location: Low Back/Lumbar Spine- Midline Description: Dull Post Treatment Pain Post Treatment Pain Level: No Change Post Treatment Pain Location: Low Back/Lumbar Spine- Midline OBJECTIVE MEASURES WITH LEVEL OF FUNCTION: Good form demonstrated throughout session and completion of ther-ex. Continued challenged by balance. TREATMENT: Therapeutic Exercise: 1: Upright Stationary Bike: Seat 9, 5.5 Min, Level 6.5 (Direct 1:1 and subjective taken.) 2: Multi Hip: B Hip ABD; 3x12, 30#. 3: Multi Hip: B Hip Flex; 3x12, 30#. 4: Multi Hip: B Hip EXT; 3x12, 30#. 5: R Lateral 6inch Maricruz with 10#kb at chest: 3x10. 6: 4-inch B Hip Hikes: 3x8 each. Skilled Intervention: Patient was educated in proper exercise technique and purpose for exercises. Skilled judgment was used in selection of appropriate interventions. Correct performance of therapeutic exercises was facilitated with verbal and tactile cuing. Neuromuscular Re-Education: 1: B Tandem Stance, EO, Ground: 4 sets of [address], with intermittent finger tip touch from 1 UE. 2: Feet Together, EC, Ground: 4x30. 3: R SLS with B UE resting on // bars 4x30 seconds Skilled Intervention: Skilled judgment used to assess appropriate program for balance and coordination activity. Ensured patient safety with use of gait belt and supervision. Billing Therapeutic Exercise Treatment Minutes: 29 Neuromuscular Re-Education Treatment Minutes: 10 Skilled Treatment Time Minutes (timed and untimed codes): 39 Total Session Time (minutes): 39 Session Start Time : 1003 Session Stop Time : 1042 David Kimbrough PT [facility] 06-09-2024 History of Presen t illness Narrative Episode Visit Count: 13 Therapist That Will Accept/Oversee The Plan Of Care: David Kimbrough PT. Start of Care Date: 04/29/24 Onset Date: 04/30/23 Plan of Care Certification Date: 06/05/24 Next Certification Due Date: 07/17/24 REHABILITATION AND SPORTS THERAPY PHYSICAL THERAPY TREATMENT NOTE ASSESSMENT: Paolo Hernandez tolerated the session with expected muscle soreness. He demonstrated improved form with hip hikes following tactile cues. Fatigue with lateral Maricruz w/ weight. The patient will continue to benefit from ongoing skilled physical therapy to progress toward set goals and to continue with post-operative protocol. PLAN FOR NEXT VISIT: Hip Lateral Strengthening; SL Press; Balance. SUBJECTIVE: Sees Dr. Michele in 13 days. Doing good overall, slight irritation in his low back this date per report Pain: Pain Pain Level: 2 Pain Location: Low Back/Lumbar Spine- Midline Description: Dull Post Treatment Pain Post Treatment Pain Level: No Change Post Treatment Pain Location: Low Back/Lumbar Spine- Midline OBJECTIVE MEASURES WITH LEVEL OF FUNCTION: Good form demonstrated throughout session and completion of ther-ex. Continued challenged by balance. TREATMENT: Therapeutic Exercise: 1: Upright Stationary Bike: Seat 9, 5.5 Min, Level 6.5 (Direct 1:1 and subjective taken.) 2: Multi Hip: B Hip ABD; 3x12, 30#. 3: Multi Hip: B Hip Flex; 3x12, 30#. 4: Multi Hip: B Hip EXT; 3x12, 30#. 5: R Lateral 6inch Maricruz with 10#kb at chest: 3x10. 6: 4-inch B Hip Hikes: 3x8 each. Skilled Intervention: Patient was educated in proper exercise technique and purpose for exercises. Skilled judgment was used in selection of appropriate interventions. Correct performance of therapeutic exercises was facilitated with verbal and tactile cuing. Neuromuscular Re-Education: 1: B Tandem Stance, EO, Ground: 4 sets of [address], with intermittent finger tip touch from 1 UE. 2: Feet Together, EC, Ground: 4x30. 3: R SLS with B UE resting on // bars 4x30 seconds Skilled Intervention: Skilled judgment used to assess appropriate program for balance and coordination activity. Ensured patient safety with use of gait belt and supervision. Billing Therapeutic Exercise Treatment Minutes: 29 Neuromuscular Re-Education Treatment Minutes: 10 Skilled Treatment Time Minutes (timed and untimed codes): 39 Total Session Time (minutes): 39 Session Start Time : 1003 Session Stop Time : 1042 David Kimbrough PT documented in this encounter [facility] 06-04-2024 Note HNO ID: [id number] Author: DAVID KIMBROUGH PT Service: ? Author Type: Physical Therapist Type: Progress Notes Filed: 06/04/2024 11:28 Note Text: Episode Visit Count: 12 Therapist That Will Accept/Oversee The Plan Of Care: David Kimbrough PT. Start of Care Date: 04/29/24 Onset Date: 04/30/23 Plan of Care Certification Date: 06/05/24 Next Certification Due Date: 07/17/24 Patient Identified by Name and Date of : Yes REHABILITATION AND SPORTS THERAPY PHYSICAL THERAPY PROGRESS REPORT PLAN OF CARE UPDATE: Assessment: Paolo Hernandez is 64 days post-op Posterior R LOGAN. Today is his progress report and 12th appointment. He demonstrates significant improvement in stair negotiation without rail, walking far distances without fatigue, pain frequency AND severity, decreased R Hip stiffness and improved ROM, returning to lifting 30-35#, starting to do more yard AND home management phys. activities. No set RTW date yet, going to see Dr. Michele to discuss. The patient has progressed toward goals. Patient continues to present with impairments in ADL's, balance, gait, overall function, and strength that interfere with working, lifting (Balance vs. uneven surfaces. 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 Current prognosis is Excellent due to: current objective clinical presentation, good overall health status, positive past response to therapy . The patient will benefit from continued skilled therapy services to meet the updated goals for this plan of care as noted below. Updated: 06/04/24. Goals for Episode of Care: established 04/29/24 [facility] in home exercise program. (Currently Met, Continuing) Patient will increase passive ROM of L hip to 120 degrees flexion to allow pt to improve performance of ADLs/IADLs. (Currently Met, Continuing) Improve R Hip ER, IR, AND ABD to WFL for improved functional mobility. (Currently Met, Continuing) Patient will demonstrate increase in RHip strength to 5/5 during manual muscle testing in order to improve function for home management tasks, occupational demands, and prior functional tasks. (Progressing Towards) Patient will be able to perform walking without pain and deviations. (Progressing Towards) Reciprocal Stair Negotiation without use of hands for assist. (Progressing Towards, can improve stability still). 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 (Progressing Towards) Time Frame for Goals and Treatment : 07/16/24 Planned Interventions, Frequency, and Duration: 2x/week, 2 weeks Total Number of Visits Planned: 4 (Schedule 4 more visits onto 6 planned.) Patient to be seen for Therapeutic exercise (81106), Neuromuscular re-education (24962), Manual therapy (61819), Therapeutic activities (03036), Self-senior care management (81490), Gait Training (42843), Patient/Family/Caregiver Education PLAN FOR NEXT VISIT: Frontal Plane Strength; Balance. SUBJECTIVE: Patient reports he feels he is doing pretty good; not completely 100% however moving in that direction. Lower back has been bothering him more than the R Hip. Patient feels about 80% currently. Functional Limitations: working, lifting (Balance vs. uneven surfaces. Getting up in truck with work, pulling pallets at work.) Pain: Pain Pain Level: 1 Pain Location: Hip - Right Description: Aching PROMIS Scales 05/25/2024 04/30/2024 04/27/2024 Higher is Better Phys Func - T Score 48 (within normal limits) 41 (mild dysfunction) Phys Func - Percentile 42 18 Self-Eff Symptom - T Score 48 (Average) 48 (Average) Self-Eff Symptom - Percentile 42 42 Mobility - T Score 42 (mild dysfunction) Mobility - Percentile 21 T-scores: mean of general population = 50. 5 points is clinically meaningfully difference Percentiles provide an indication of how the patient's score ranks in relation to the general population. Higher percentile rankings indicate better function/quality of life. 50th percentile is the average of the general population and indicates half of respondents had a worse score. OBJECTIVE MEASURES WITH LEVEL OF FUNCTION: LE PROM R Hip Flexion: 120 Degrees R Hip ABduction: 45 Degrees R Hip Internal Rotation: 35 Degrees R Hip External Rotation: 30 Degrees LE Strength R LE Strength: R Hip ABD: 8.0 HHD;; R Hip Flexion 11.6 HHD. L LE Strength: L Hip ABD: 9.6 HHD;; Hip Flexion 13.0 HHD. Lower Extremity Dynamometer Testing : Yes Dynamometer Strength Right Quadriceps Strength (lbs): 28.4 Left Quadriceps Strength (lbs): 29 Quad Strength Limb Symmetry Index (%): 97.93 Right Hamstring Strength (lbs): 23 Left Hamstring Strength (lbs): 26 Hamstring Strength Limb Symmetry Index(%): 88.46 Gait Gait Observation: Slight R Trendelenburg. Stairs: Slight wobble, slight body turn to diagonal (R side) without use of rails. 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 [facility] 06-04-2024 History of Presen t illness Narrative Images from the original note were not included. Episode Visit Count: 12 Therapist That Will Accept/Oversee The Plan Of Care: David Kimbrough,PT. Start of Care Date: 04/29/24 Onset Date: 04/30/23 Plan of Care Certification Date: 06/05/24 Next Certification Due Date: 07/17/24 Patient Identified by Name and Date of : Yes REHABILITATION AND SPORTS THERAPY PHYSICAL THERAPY PROGRESS REPORT PLAN OF CARE UPDATE: Assessment: Paolo Hernandez is 64 days post-op Posterior R LOGAN. Today is his progress report and 12th appointment. He demonstrates significant improvement in stair negotiation without rail, walking far distances without fatigue, pain frequency & severity, decreased R Hip stiffness and improved ROM, returning to lifting 30-35#, starting to do more yard & home management phys. activities. No set RTW date yet, going to see Dr. Michele to discuss. The patient has progressed toward goals. Patient continues to present with impairments in ADL's, balance, gait, overall function, and strength that interfere with working, lifting (Balance vs. uneven surfaces. 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 Current prognosis is Excellent due to: current objective clinical presentation, good overall health status, positive past response to therapy . The patient will benefit from continued skilled therapy services to meet the updated goals for this plan of care as noted below. Updated: 06/04/24. Goals for Episode of Care: established 04/29/24 [facility] in home exercise program. (Currently Met, Continuing) Patient will increase passive ROM of L hip to 120 degrees flexion to allow pt to improve performance of ADLs/IADLs. (Currently Met, Continuing) Improve R Hip ER, IR, & ABD to WFL for improved functional mobility. (Currently Met, Continuing) Patient will demonstrate increase in RHip strength to 5/5 during manual muscle testing in order to improve function for home management tasks, occupational demands, and prior functional tasks. (Progressing Towards) Patient will be able to perform walking without pain and deviations. (Progressing Towards) Reciprocal Stair Negotiation without use of hands for assist. (Progressing Towards, can improve stability still). 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 (Progressing Towards) Time Frame for Goals and Treatment : 07/16/24 Planned Interventions, Frequency, and Duration: 2x/week, 2 weeks Total Number of Visits Planned: 4 (Schedule 4 more visits onto 6 planned.) Patient to be seen for Therapeutic exercise (07534), Neuromuscular re-education (15962), Manual therapy (01635), Therapeutic activities (03616), Self-senior care management (26626), Gait Training (68273), Patient/Family/Caregiver Education PLAN FOR NEXT VISIT: Frontal Plane Strength; Balance. SUBJECTIVE: Patient reports he feels he is doing pretty good; not completely 100% however moving in that direction. Lower back has been bothering him more than the R Hip. Patient feels about 80% currently. Functional Limitations: working, lifting (Balance vs. uneven surfaces. Getting up in truck with work, pulling pallets at work.) Pain: Pain Pain Level: 1 Pain Location: Hip - Right Description: Aching PROMIS Scales 05/25/2024 04/30/2024 04/27/2024 Higher is Better Phys Func - T Score 48 (within normal limits) 41 (mild dysfunction) Phys Func - Percentile 42 18 Self-Eff Symptom - T Score 48 (Average) 48 (Average) Self-Eff Symptom - Percentile 42 42 Mobility - T Score 42 (mild dysfunction) Mobility - Percentile 21 T-scores: mean of general population = 50. 5 points is clinically meaningfully difference Percentiles provide an indication of how the patient's score ranks in relation to the general population. Higher percentile rankings indicate better function/quality of life. 50th percentile is the average of the general population and indicates half of respondents had a worse score. OBJECTIVE MEASURES WITH LEVEL OF FUNCTION: LE PROM R Hip Flexion: 120 Degrees R Hip ABduction: 45 Degrees R Hip Internal Rotation: 35 Degrees R Hip External Rotation: 30 Degrees LE Strength R LE Strength: R Hip ABD: 8.0 HHD;; R Hip Flexion 11.6 HHD. L LE Strength: L Hip ABD: 9.6 HHD;; Hip Flexion 13.0 HHD. Lower Extremity Dynamometer Testing : Yes Dynamometer Strength Right Quadriceps Strength (lbs): 28.4 Left Quadriceps Strength (lbs): 29 Quad Strength Limb Symmetry Index (%): 97.93 Right Hamstring Strength (lbs): 23 Left Hamstring Strength (lbs): 26 Hamstring Strength Limb Symmetry Index(%): 88.46 Gait Gait Observation: Slight R Trendelenburg. Stairs: Slight wobble, slight body turn to diagonal (R side) without use of rails. Functional Performance Test Results Assistive Device: None 30 Second Chair Stand Test: 18 reps (Arms crossed at chest.) 5 Times Sit to Stand Test : 8 sec (Arms crossed at chest.) Timed Up and Go (sec): 8.98 sec 4 Stage Balance Test Narrow base of support (sec): 10 sec (10 Eyes Closed, however wobbly.) Semi-tandem base of support (sec): 10 sec (R Leg Back EO; With EC does 1.5 sec.) Tandem base of support (sec): 6.8 sec Single leg stance - right (sec): 1 sec Single leg stance - left (sec): 1 sec TREATMENT: Therapeutic Exercise: 1: Re-assessment and objectives collected. Pt. condition and goals assessed. HEP was reviewed and the patient was instructed to continue with HEP to tolerance. 2: Upright Stationary Bike: Seat 9, 5.5 Min, Level 6.5 (Direct 1:1 & subjective taken.) 3: Multi Hip: B Hip ABD; 3x12, 30#. 4: Multi Hip: B Hip Flex; 3x12, 30#. 5: R ADDuctor Walkout: O Band, 1x8. 6: R ABDuctor Walkout: OTB, 1x10. Skilled Intervention: Patient was educated in proper exercise technique and purpose for exercises. Reviewed and educated patient on additions/changes for home exercise program as above (*). Skilled judgment was used in selection of appropriate interventions. Provided written instruction for home exercise program to facilitate proper performance and compliance. Correct performance of therapeutic exercises was facilitated with verbal and visual cuing. Billing Therapeutic Exercise Treatment Minutes: 45 Skilled Treatment Time Minutes (timed and untimed codes): 45 Total Session Time (minutes): 45 Session Start Time : 1044 Session Stop Time : 1129 David Kimbrough PT documented in this encounter [facility] 06-02-2024 History of Presen t illness Narrative Program_ID:[id number] Access Code: [email or web address] URL: [email or web address] Date: 06-02-2024 Prepared By: David Kimbrough Program Notes Exercises - Standing Hip Abduction with Anchored Resistance - 2 x daily - 7 x weekly - 2 sets - 10 reps - Standing Hip Extension with Anchored Resistance - 2 x daily - 7 x weekly - 2 sets - 10 reps - Standing Hip Flexion with Anchored Resistance and Chair Support - 2 x daily - 7 x weekly - 2 sets - 10 reps - Side Stepping with Resistance at Ankles - 2 x daily - 7 x weekly - 1 sets - 4 reps - Squat with Chair Touch and Resistance Loop - 2 x daily - 7 x weekly - 2 sets - 15 reps - Standing Marching - 2 x daily - 7 x weekly - 2 sets - 10 reps - Standing Knee Flexion - 2 x daily - 7 x weekly - 2 sets - 10 reps Episode Visit Count: 11 Therapist That Will Accept/Oversee The Plan Of Care: David KimbroughPT. Start of Care Date: 04/29/24 Onset Date: 04/30/23 Plan of Care Certification Date: 04/29/24 Next Certification Due Date: 06/05/24 Patient Identified by Name and Date of : Yes REHABILITATION AND SPORTS THERAPY PHYSICAL THERAPY TREATMENT NOTE ASSESSMENT: Paolo Hernandez tolerated the session with expected muscle soreness. He demonstrated improvements in R Hip Drop exercise with cueing. The patient will continue to benefit from ongoing skilled physical therapy to progress toward set goals and to continue with post-operative protocol. PLAN FOR NEXT VISIT: CT; Gait Training. SUBJECTIVE: Patient reports going for 3 mile walk the other day and that helped his back quite a bit. Pain: Pain Pain Level: (Nothing to report on the R Hip this date per patient.) Pain Location: Hip - Right OBJECTIVE MEASURES WITH LEVEL OF FUNCTION: Good form demonstrated throughout session and completion of ther-ex. TREATMENT: Therapeutic Exercise: 1: Upright Stationary Bike: Seat 9, 5.5 Min, Level 6.5 (Direct 1:1 and subj taken) 2: Hoist Lateral Walks: 2x8 Reps each, 1 Plate, 1round. 4: R ADDuctor Walkout: O Band, 1x10. 5: R ABDuctor Walkout: OTB, 1x10. 6: R Lateral QUINN: 3x10, 3# on RLE. 7: R Frontal QUINN: 3x10, 3# weight on ankle 8: R Hip Dips from 4-inch step: 3x10. PT tactile cue at knee for no bend/eccentric lower, want to feel it all in lateral R Hip. Skilled Intervention: Patient was educated in proper exercise technique and purpose for exercises. Reviewed and educated patient on additions/changes for home exercise program as above (*). Skilled judgment was used in selection of appropriate interventions. Provided written instruction for home exercise program to facilitate proper performance and compliance. Correct performance of therapeutic exercises was facilitated with verbal and tactile cuing. Billing Therapeutic Exercise Treatment Minutes: 49 Skilled Treatment Time Minutes (timed and untimed codes): 49 Total Session Time (minutes): 49 Session Start Time : 955 Session Stop Time : 1045 David Kimbrough PT documented in this encounter [facility] 06-02-2024 Note HNO ID: [id number] Author: DAVID KIMBROUGH PT Service: ? Author Type: Physical Therapist Type: Progress Notes Filed: 06/02/2024 10:46 Note Text: Episode Visit Count: 11 Therapist That Will Accept/Oversee The Plan Of Care: David Kimbrough PT. Start of Care Date: 04/29/24 Onset Date: 04/30/23 Plan of Care Certification Date: 04/29/24 Next Certification Due Date: 06/05/24 Patient Identified by Name and Date of : Yes REHABILITATION AND SPORTS THERAPY PHYSICAL THERAPY TREATMENT NOTE ASSESSMENT: Paolo Hernandez tolerated the session with expected muscle soreness. He demonstrated improvements in R Hip Drop exercise with cueing. The patient will continue to benefit from ongoing skilled physical therapy to progress toward set goals and to continue with post-operative protocol. PLAN FOR NEXT VISIT: CT; Gait Training. SUBJECTIVE: Patient reports going for 3 mile walk the other day and that helped his back quite a bit. Pain: Pain Pain Level: (Nothing to report on the R Hip this date per patient.) Pain Location: Hip - Right OBJECTIVE MEASURES WITH LEVEL OF FUNCTION: Good form demonstrated throughout session and completion of ther-ex. TREATMENT: Therapeutic Exercise: 1: Upright Stationary Bike: Seat 9, 5.5 Min, Level 6.5 (Direct 1:1 and subj taken) 2: Hoist Lateral Walks: 2x8 Reps each, 1 Plate, 1round. 4: R ADDuctor Walkout: O Band, 1x10. 5: R ABDuctor Walkout: OTB, 1x10. 6: R Lateral QUINN: 3x10, 3# on RLE. 7: R Frontal QUINN: 3x10, 3# weight on ankle 8: R Hip Dips from 4-inch step: 3x10. PT tactile cue at knee for no bend/eccentric lower, want to feel it all in lateral R Hip. Skilled Intervention: Patient was educated in proper exercise technique and purpose for exercises. Reviewed and educated patient on additions/changes for home exercise program as above (*). Skilled judgment was used in selection of appropriate interventions. Provided written instruction for home exercise program to facilitate proper performance and compliance. Correct performance of therapeutic exercises was facilitated with verbal and tactile cuing. Billing Therapeutic Exercise Treatment Minutes: 49 Skilled Treatment Time Minutes (timed and untimed codes): 49 Total Session Time (minutes): 49 Session Start Time : 955 Session Stop Time : 1045 David Kimbrough PT [facility] 05-28-2024 Note HNO ID: [id number] Author: DAVID KIMBROUGH PT Service: ? Author Type: Physical Therapist Type: Progress Notes Filed: 05/28/2024 12:11 Note Text: Episode Visit Count: 10 Therapist That Will Accept/Oversee The Plan Of Care: David Kimbrough PT. Start of Care Date: 04/29/24 Onset Date: 04/30/23 Plan of Care Certification Date: 04/29/24 Next Certification Due Date: 06/05/24 Patient Identified by Name and Date of : Yes REHABILITATION AND SPORTS THERAPY PHYSICAL THERAPY TREATMENT NOTE ASSESSMENT: Paolo Hernandez tolerated the session with expected muscle soreness. He demonstrated tolerance to increased stability frontal plane interventions.. The patient will continue to benefit from ongoing skilled physical therapy to progress toward set goals and to continue with post-operative protocol. PLAN FOR NEXT VISIT: HEP Reconcile; Hip mobility and stability progressions. SUBJECTIVE: Patient reports doing hip abd with the left and SLS on the R and it feeling weaker than doing it vice versa -- discussed with patient why this is for acute post-op status and the anatomy involved. Patient states understanding. Good workout after last session, was not to sore. Pain: Pain Pain Level: 2 Pain Location: Low Back/Lumbar Spine- Midline Description: Dull Post Treatment Pain Post Treatment Pain Level: No Change Post Treatment Pain Location: Low Back/Lumbar Spine- Midline OBJECTIVE MEASURES WITH LEVEL OF FUNCTION: Increased difficulty with lateral walks to Left compared to Right. TREATMENT: Therapeutic Exercise: 1: Upright Stationary Bike: Seat 9, 5.5 Min, Level 6.5 (Direct 1:1 and subj taken) 2: Hoist Lateral Walks: 1x8 Reps each, 1 Plate, 1round. 3: R Hip IR/ER Stool Rotations: 2x15. 4: R ADDuctor Walkout: O Band, 1x10. 5: R ABDuctor Walkout: OTB, 1x10. 6: R HS Curl: 4x10, 40# 7: Standing Hip March w/ control: 3x15 each side, emphasis on tight core, slow eccentric low and erect back. Skilled Intervention: Patient was educated in proper exercise technique and purpose for exercises. Skilled judgment was used in selection of appropriate interventions. Correct performance of therapeutic exercises was facilitated with verbal cuing. Billing Therapeutic Exercise Treatment Minutes: 41 Skilled Treatment Time Minutes (timed and untimed codes): 41 Total Session Time (minutes): 41 Session Start Time : 1129 Session Stop Time : 1210 David Kimbrough PT [facility] 05-26-2024 Note HNO ID: [id number] Author: DAVID KIMBROUGH PT Service: ? Author Type: Physical Therapist Type: Progress Notes Filed: 05/26/2024 09:58 Note Text: Episode Visit Count: 9 Therapist That Will Accept/Oversee The Plan Of Care: David Kimbrough PT. Start of Care Date: 04/29/24 Onset Date: 04/30/23 Plan of Care Certification Date: 04/29/24 Next Certification Due Date: 06/05/24 Patient Identified by Name and Date of : Yes REHABILITATION AND SPORTS THERAPY PHYSICAL THERAPY TREATMENT NOTE ASSESSMENT: Paolo Hernandez tolerated the session with expected muscle soreness. He demonstrated fatigue with hip flexor lift offs. The patient will continue to benefit from ongoing skilled physical therapy to progress toward set goals and to continue with post-operative protocol. PLAN FOR NEXT VISIT: Reconcile HEP; CT 06/04/24; Hip mobility and stability progressions. SUBJECTIVE: Patient doing good overall. Has noticed improvement since beginning PT. Home program is going good. Some low back pain today due to working outside and maybe overdoing it with bending. Pain: Pain Pain Level: 2 Pain Location: Low Back/Lumbar Spine- Midline Description: Dull Post Treatment Pain Post Treatment Pain Location: Hip - Right Post Treatment Pain Description: Sore Post Treatment Symptoms: Workout sore OBJECTIVE MEASURES WITH LEVEL OF FUNCTION: Poor form with TRX squats - better following cues. TREATMENT: Therapeutic Exercise: 1: Upright Stationary Bike: Seat 9, 5 Min, Level 6.5 (Direct 1:1 and subj taken) 2: TRX squats: 2x15, verbal and tactile cues for form. Educated on less use of arms, upright trunk posture and proper knee bend. 3: Lateral walks with band around ankles: 4 laps of 12 feet, blueband. (Verbal and visual cues given for eccentric control of back leg and no sliding. Better once cued with use of fingers on // bars.) 4: R Hip March w/ control: 3x15. 5: R Hip IR/ER Stool Rotations: 3x15. 6: R Hip Flexor Lift Off of 4-inch step: 3x12, 4#. 7: R Hip Flexor Lift Off of 8-inch step: 3x8, 4#. 8: R HS Curl: 3x15, 4#. Skilled Intervention: Patient was educated in proper exercise technique and purpose for exercises. Skilled judgment was used in selection of appropriate interventions. Correct performance of therapeutic exercises was facilitated with verbal and tactile cuing. Billing Therapeutic Exercise Treatment Minutes: 43 Skilled Treatment Time Minutes (timed and untimed codes): 43 Total Session Time (minutes): 43 Session Start Time : 914 Session Stop Time : 957 David Kimbrough, PT [facility] 05-26-2024 History of Presen t illness Narrative Episode Visit Count: 9 Therapist That Will Accept/Oversee The Plan Of Care: David Kimbrough PT. Start of Care Date: 04/29/24 Onset Date: 04/30/23 Plan of Care Certification Date: 04/29/24 Next Certification Due Date: 06/05/24 Patient Identified by Name and Date of : Yes REHABILITATION AND SPORTS THERAPY PHYSICAL THERAPY TREATMENT NOTE ASSESSMENT: Paolo Hernandez tolerated the session with expected muscle soreness. He demonstrated fatigue with hip flexor lift offs. The patient will continue to benefit from ongoing skilled physical therapy to progress toward set goals and to continue with post-operative protocol. PLAN FOR NEXT VISIT: Reconcile HEP; CT 06/04/24; Hip mobility and stability progressions. SUBJECTIVE: Patient doing good overall. Has noticed improvement since beginning PT. Home program is going good. Some low back pain today due to working outside and maybe overdoing it with bending. Pain: Pain Pain Level: 2 Pain Location: Low Back/Lumbar Spine- Midline Description: Dull Post Treatment Pain Post Treatment Pain Location: Hip - Right Post Treatment Pain Description: Sore Post Treatment Symptoms: Workout sore OBJECTIVE MEASURES WITH LEVEL OF FUNCTION: Poor form with TRX squats - better following cues. TREATMENT: Therapeutic Exercise: 1: Upright Stationary Bike: Seat 9, 5 Min, Level 6.5 (Direct 1:1 and subj taken) 2: TRX squats: 2x15, verbal and tactile cues for form. Educated on less use of arms, upright trunk posture and proper knee bend. 3: Lateral walks with band around ankles: 4 laps of 12 feet, blueband. (Verbal and visual cues given for eccentric control of back leg and no sliding. Better once cued with use of fingers on // bars.) 4: R Hip March w/ control: 3x15. 5: R Hip IR/ER Stool Rotations: 3x15. 6: R Hip Flexor Lift Off of 4-inch step: 3x12, 4#. 7: R Hip Flexor Lift Off of 8-inch step: 3x8, 4#. 8: R HS Curl: 3x15, 4#. Skilled Intervention: Patient was educated in proper exercise technique and purpose for exercises. Skilled judgment was used in selection of appropriate interventions. Correct performance of therapeutic exercises was facilitated with verbal and tactile cuing. Billing Therapeutic Exercise Treatment Minutes: 43 Skilled Treatment Time Minutes (timed and untimed codes): 43 Total Session Time (minutes): 43 Session Start Time : 914 Session Stop Time : 957 David Kimbrough PT documented in this encounter [facility] 05-21-2024 Note HNO ID: [id number] Author: DAVID KIMBROUGH PT Service: ? Author Type: Physical Therapist Type: Progress Notes Filed: 05/21/2024 13:51 Note Text: Episode Visit Count: 8 Therapist That Will Accept/Oversee The Plan Of Care: David KimbroughPT. Start of Care Date: 04/29/24 Onset Date: 04/30/23 Plan of Care Certification Date: 04/29/24 Next Certification Due Date: 06/05/24 Patient Identified by Name and Date of : Yes REHABILITATION AND SPORTS THERAPY PHYSICAL THERAPY TREATMENT NOTE ASSESSMENT: Paolo Hernandez tolerated the session with fatigue and expected muscle soreness. He demonstrated improvements in technique with 3 way hip with PiTB. The patient will continue to benefit from ongoing skilled physical therapy to progress toward set goals. PLAN FOR NEXT VISIT: Include more balance exercises. SUBJECTIVE: Pt reports that his R hip is feeling good today. Feels that his RLE is now stronger than his LLE. Pain: Pain Pain Level: 0 Pain Location: Hip - Right Post Treatment Pain Post Treatment Pain Location: Hip - Right OBJECTIVE MEASURES WITH LEVEL OF FUNCTION: Improved stability of RLE. TREATMENT: Therapeutic Exercise: 1: Upright Stationary Bike: Seat 9, 5 Min, Level 6.5 2: TRX squats 3x10 3: Step downs on 6 inch step 3x10 BLE 4: 3 way hip with PiTB 2x10 B each 5: Lateral Walks: GTB Around Thighs: 4 Laps of 10 Feet 6: R LAQ: 3x10, 4#. Skilled Intervention: Patient was educated in proper exercise technique and purpose for exercises. Skilled judgment was used in selection of appropriate interventions. Correct performance of therapeutic exercises was facilitated with verbal and visual cuing. Neuromuscular Re-Education: 1: R SLS with B UE resting on // bars 3x30 seconds 2: Lateral stepping up and over dome side of BOSU 2x10 B 3: Step ups on BOSU 2x10 RLE Skilled Intervention: Skilled judgment used to assess appropriate program for balance and coordination activity. Billing Therapeutic Exercise Treatment Minutes: 26 Neuromuscular Re-Education Treatment Minutes: 12 Skilled Treatment Time Minutes (timed and untimed codes): 38 Total Session Time (minutes): 38 Session Start Time : 1145 Session Stop Time : 1223 MARVA Ragsdale, PT, DPT. [facility] 05-21-2024 History of Presen t illness Narrative Episode Visit Count: 8 Therapist That Will Accept/Oversee The Plan Of Care: David Kimbrough PT. Start of Care Date: 04/29/24 Onset Date: 04/30/23 Plan of Care Certification Date: 04/29/24 Next Certification Due Date: 06/05/24 Patient Identified by Name and Date of : Yes REHABILITATION AND SPORTS THERAPY PHYSICAL THERAPY TREATMENT NOTE ASSESSMENT: Paolo Hernandez tolerated the session with fatigue and expected muscle soreness. He demonstrated improvements in technique with 3 way hip with PiTB. The patient will continue to benefit from ongoing skilled physical therapy to progress toward set goals. PLAN FOR NEXT VISIT: Include more balance exercises. SUBJECTIVE: Pt reports that his R hip is feeling good today. Feels that his RLE is now stronger than his LLE. Pain: Pain Pain Level: 0 Pain Location: Hip - Right Post Treatment Pain Post Treatment Pain Location: Hip - Right OBJECTIVE MEASURES WITH LEVEL OF FUNCTION: Improved stability of RLE. TREATMENT: Therapeutic Exercise: 1: Upright Stationary Bike: Seat 9, 5 Min, Level 6.5 2: TRX squats 3x10 3: Step downs on 6 inch step 3x10 BLE 4: 3 way hip with PiTB 2x10 B each 5: Lateral Walks: GTB Around Thighs: 4 Laps of 10 Feet 6: R LAQ: 3x10, 4#. Skilled Intervention: Patient was educated in proper exercise technique and purpose for exercises. Skilled judgment was used in selection of appropriate interventions. Correct performance of therapeutic exercises was facilitated with verbal and visual cuing. Neuromuscular Re-Education: 1: R SLS with B UE resting on // bars 3x30 seconds 2: Lateral stepping up and over dome side of BOSU 2x10 B 3: Step ups on BOSU 2x10 RLE Skilled Intervention: Skilled judgment used to assess appropriate program for balance and coordination activity. Billing Therapeutic Exercise Treatment Minutes: 26 Neuromuscular Re-Education Treatment Minutes: 12 Skilled Treatment Time Minutes (timed and untimed codes): 38 Total Session Time (minutes): 38 Session Start Time : 1145 Session Stop Time : 1223 MARVA Ragsdale PT, DPT. documented in this encounter [facility] 05-19-2024 Note HNO ID: [id number] Author: DVAID KIMBROUGH PT Service: ? Author Type: Physical Therapist Type: Progress Notes Filed: 05/19/2024 14:49 Note Text: Episode Visit Count: 7 Therapist That Will Accept/Oversee The Plan Of Care: David KimbroughPT. Start of Care Date: 04/29/24 Onset Date: 04/30/23 Plan of Care Certification Date: 04/29/24 Next Certification Due Date: 06/05/24 Patient Identified by Name and Date of : Yes REHABILITATION AND SPORTS THERAPY PHYSICAL THERAPY TREATMENT NOTE ASSESSMENT: Paolo Hernandez tolerated the session with fatigue and expected muscle soreness. He demonstrated difficulty with R SLS . The patient will continue to benefit from ongoing skilled physical therapy to progress toward set goals. PLAN FOR NEXT VISIT: Do balance and single leg stability directly after stationary bike SUBJECTIVE: Pt reports no tightness or pain in his R hip. Pt states that he has been working on heel to toe gait pattern. Pain: Pain Pain Level: 0 Pain Location: Hip - Right Post Treatment Pain Post Treatment Pain Location: Hip - Right OBJECTIVE MEASURES WITH LEVEL OF FUNCTION: Improved gait with decreased limp. TREATMENT: Therapeutic Exercise: 1: Upright Stationary Bike: Seat 9, 5 Min, Level 6.0 2: Lateral Walks: BTB Around Thighs: 4 Laps of 10 Feet (*BTB issued for HEP) 3: 3 way hip with PiTB 2x10 each B 4: TRX squats 3x10 5: Step downs on 4 inch step 2x10 RLE, then 2x10 on 6 inch step (slight valgus at very end range on both steps.) 6: R LAQ: 3x10, 4#. Skilled Intervention: Patient was educated in proper exercise technique and purpose for exercises. Skilled judgment was used in selection of appropriate interventions. Correct performance of therapeutic exercises was facilitated with verbal and visual cuing. Neuromuscular Re-Education: 1: Lateral stepping up and over dome side of BOSU 2x10 B 2: Step ups on BOSU 2x10 RLE 3: R SLS with B UE resting on // bars 3x30 seconds Skilled Intervention: Skilled judgment used to assess appropriate program for balance and coordination activity. Billing Therapeutic Exercise Treatment Minutes: 42 Neuromuscular Re-Education Treatment Minutes: 12 Skilled Treatment Time Minutes (timed and untimed codes): 54 Total Session Time (minutes): 54 Session Start Time : 1341 Session Stop Time : 1435 Becka Valle, MARVA Kimbrough, PT, DPT. [facility] 05-19-2024 History of Presen t illness Narrative Episode Visit Count: 7 Therapist That Will Accept/Oversee The Plan Of Care: Dvaid KimbroughPT. Start of Care Date: 04/29/24 Onset Date: 04/30/23 Plan of Care Certification Date: 04/29/24 Next Certification Due Date: 06/05/24 Patient Identified by Name and Date of : Yes REHABILITATION AND SPORTS THERAPY PHYSICAL THERAPY TREATMENT NOTE ASSESSMENT: Paolo Hernandez tolerated the session with fatigue and expected muscle soreness. He demonstrated difficulty with R SLS . The patient will continue to benefit from ongoing skilled physical therapy to progress toward set goals. PLAN FOR NEXT VISIT: Do balance and single leg stability directly after stationary bike SUBJECTIVE: Pt reports no tightness or pain in his R hip. Pt states that he has been working on heel to toe gait pattern. Pain: Pain Pain Level: 0 Pain Location: Hip - Right Post Treatment Pain Post Treatment Pain Location: Hip - Right OBJECTIVE MEASURES WITH LEVEL OF FUNCTION: Improved gait with decreased limp. TREATMENT: Therapeutic Exercise: 1: Upright Stationary Bike: Seat 9, 5 Min, Level 6.0 2: Lateral Walks: BTB Around Thighs: 4 Laps of 10 Feet (*BTB issued for HEP) 3: 3 way hip with PiTB 2x10 each B 4: TRX squats 3x10 5: Step downs on 4 inch step 2x10 RLE, then 2x10 on 6 inch step (slight valgus at very end range on both steps.) 6: R LAQ: 3x10, 4#. Skilled Intervention: Patient was educated in proper exercise technique and purpose for exercises. Skilled judgment was used in selection of appropriate interventions. Correct performance of therapeutic exercises was facilitated with verbal and visual cuing. Neuromuscular Re-Education: 1: Lateral stepping up and over dome side of BOSU 2x10 B 2: Step ups on BOSU 2x10 RLE 3: R SLS with B UE resting on // bars 3x30 seconds Skilled Intervention: Skilled judgment used to assess appropriate program for balance and coordination activity. Billing Therapeutic Exercise Treatment Minutes: 42 Neuromuscular Re-Education Treatment Minutes: 12 Skilled Treatment Time Minutes (timed and untimed codes): 54 Total Session Time (minutes): 54 Session Start Time : 1341 Session Stop Time : 1435 MARVA Ragsdale, PT, DPT. documented in this encounter [facility] 05-15-2024 Note HNO ID: [id number] Author: RANDALL CHATMAN MA Service: ? Author Type: Javascript Developer Type: Progress Notes Filed: 05/15/2024 10:13 Note Text: [facility] ([facility]) TRANSITIONAL CARE MANAGEMENT (TCM) POST-ACUTE CARE (PAC) PROGRAM Transitions Navigator Outreach Provider Action/FYI: Program Completion Colin note: Pt states he is doing very well. Pt states that he is almost back to normal. Pt states he is only taking a vitamin. Pt is doing outpatient therapy. Pt states he will return to work in june per doctor recommendation. Pt has only seen Dr. Michele. Pt will call to schedule with PCP Pt is aware CC Team will further outreach. Program Details Post Acute Care Status: Enrolled Effective Dates: 04/20/2024 - present Responsible Staff: Randall Chatman MA Support and Services: Post-SNF Transition Support TYPE OF OUTREACH: PAC TCM Program Completion Steve Boone this is Randall Chatman MA calling from the [facility] on behalf of Louis Scott MD I am calling to check in with you to see how you?re feeling since we spoke last. I'd like to ask you a few questions and hear updates on how you've been doing. Yes Contact with patient post discharge, spoke to patient. Patient identified by name and . Do you feel your health is BETTER, WORSE, or the SAME since we last spoke? Better PROGRAM COMPLETION NOTES Do you have any questions about taking your medications or which medications you should be on? No Do you need any medication refills at this time? No ACTION TAKEN: No - No action required Do you have the equipment needed to be safe at home? Yes - That's good to hear! - no action needed Is your home health agency still coming to your home? NA Do you feel you need any assistance with your personal safety, housing, securing meals or food, transportation, or affording your medications? If so, would you like to speak with a social work steamship agent to help give you support for any of these needs? No ACTION TAKEN: No - Patient has no needs at this time - No action taken Your insurance covers an Annual Wellness Visit during which you can meet with a provider to create a personalized prevention plan that helps you stay as healthy as possible. Would you like to schedule that at this time? No - declines scheduling at this time Do you have any questions for your provider or is there anything you would like us to share with your primary care team? No - No action needed Can I help you with anything else at this time? No - No action needed NAVIGATOR: Please remind patient of upcoming primary and specialty care appointments. Appointments for Next 60 Days Date Time Provider Location Dept Phone 05/19/2024 2:00 PM [facility] [phone] 05/21/2024 11:45 AM [facility] [phone] 05/26/2024 9:15 AM DAVID KIMBROUGH [place] [facility] [phone] 05/28/2024 11:30 AM DAVID KIMBROUGH [place] [facility] [phone] 06/02/2024 10:00 AM DAVID KIMBROUGH [place] [facility] [phone] 06/04/2024 10:45 AM DAVID KIMBROUGH [place] [facility] [phone] 06/09/2024 10:00 AM DAVID KIMBROUGH [place] [facility] [phone] 06/11/2024 11:30 AM DAVID KIMBROUGH [place] [phone] 06/16/2024 10:00 AM DAVID KIMBROUGH [place] [facility] [phone] 06/18/2024 11:30 AM DAVID KIMBROUGH [place] [facility] [phone] 06/22/2024 8:30 AM [facility] [phone] 06/22/2024 9:30 AM [facility] [place] [facility] [phone] 06/25/2024 10:45 AM [facility] [phone] ?Thank you for taking the time to speak with me over these past few weeks. I wanted to let you know that one of my nursing partners, a Chemical Test Engineer, will continue to follow your progress and ensure you are connected to the most appropriate services and resources needed to maintain your health and wellness. I will also be sure to let your doctor, Louis Scott MD, know how you?ve been doing. Please know that if you need anything, you have a great team around you. You may call your Primary Care Provider?s office if you have any questions or need anything at all. Congratulations on taking good care of yourself and managing your health! I wish you well.? End call NAVIGATOR: Route completed note to PCP Route the note to the Post-Acute [employer] Supervisor [[id number]] for the care coordination review End outreach [facility] 05-15-2024 History of Presen t illness Narrative [facility]) TRANSITIONAL CARE MANAG[facility] (TCM) POST-ACUTE CARE (PAC) PROGRAM Transitions Navigator Outreach Provider Action/FYI: Program Completion Colin note: Pt states he is doing very well. Pt states that he is almost back to normal. Pt states he is only taking a vitamin. Pt is doing outpatient therapy. Pt states he will return to work in june per doctor recommendation. Pt has only seen Dr. Michele. Pt will call to schedule with PCP Pt is aware CC Team will further outreach. Program Details Post Acute Care Status: Enrolled Effective Dates: 04/20/2024 - present Responsible Staff: Randall Chatman MA Support and Services: Post-SNF Transition Support TYPE OF OUTREACH: PAC TCM Program Completion Steve Boone this is Randall Chatman MA calling from the [facility] on behalf of Louis Scott MD I am calling to check in with you to see how you re feeling since we spoke last. I'd like to ask you a few questions and hear updates on how you've been doing. Yes Contact with patient post discharge, spoke to patient. Patient identified by name and . Do you feel your health is BETTER, WORSE, or the SAME since we last spoke? Better PROGRAM COMPLETION NOTES Do you have any questions about taking your medications or which medications you should be on? No Do you need any medication refills at this time? No ACTION TAKEN: No - No action required Do you have the equipment needed to be safe at home? Yes - That's good to hear! - no action needed Is your home health agency still coming to your home? NA Do you feel you need any assistance with your personal safety, housing, securing meals or food, transportation, or affording your medications? If so, would you like to speak with a social work steamship agent to help give you support for any of these needs? No ACTION TAKEN: No - Patient has no needs at this time - No action taken Your insurance covers an Annual Wellness Visit during which you can meet with a provider to create a personalized prevention plan that helps you stay as healthy as possible. Would you like to schedule that at this time? No - declines scheduling at this time Do you have any questions for your provider or is there anything you would like us to share with your primary care team? No - No action needed Can I help you with anything else at this time? No - No action needed NAVIGATOR: Please remind patient of upcoming primary and specialty care appointments. Appointments for Next 60 Days Date Time Provider Location Dept Phone 05/19/2024 2:00 PM [facility] [phone] 05/21/2024 11:45 AM [facility] [phone] 05/26/2024 9:15 AM [facility] [phone] 05/28/2024 11:30 AM [facility] [phone] 06/02/2024 10:00 AM [facility] [phone] 06/04/2024 10:45 AM [facility] [phone] 06/09/2024 10:00 AM [facility] [phone] 06/11/2024 11:30 AM [facility] [phone] 06/16/2024 10:00 AM [facility] [phone] 06/18/2024 11:30 AM [facility] [phone] 06/22/2024 8:30 AM [facility] [phone] 06/22/2024 9:30 AM [facility] [phone] 06/25/2024 10:45 AM DAVID KIMBROUGH [phone] Thank you for taking the time to speak with me over these past few weeks. I wanted to let you know that one of my nursing partners, a Chemical Test Engineer, will continue to follow your progress and ensure you are connected to the most appropriate services and resources needed to maintain your health and wellness. I will also be sure to let your doctor, Louis Scott MD, know how you ve been doing. Please know that if you need anything, you have a great team around you. You may call your Primary Care Provider s office if you have any questions or need anything at all. Congratulations on taking good care of yourself and managing your health! I wish you well. End call NAVIGATOR: Route completed note to PCP Route the note to the Post-Acute [employer] Supervisor [[id number]] for the care coordination review End outreach documented in this encounter [facility] 05-15-2024 Note Patient Outreach (IN TMPA) PAOLO HERNANDEZ ([id number]) 1945 M Date Time Provider Department 05/15/24 RANDALL CHATMAN During your visit today, we recorded the following information about you: Randall Chatman MA 05/15/2024 10:13 AM Signed [facility] TRANSITIONAL CARE MANAG[facility] (TCM) POST-ACUTE CARE (PAC) PROGRAM Transitions Navigator Outreach Provider Action/FYI: Program Completion Colin note: Pt states he is doing very well. Pt states that he is almost back to normal. Pt states he is only taking a vitamin. Pt is doing outpatient therapy. Pt states he will return to work in june per doctor recommendation. Pt has only seen Dr. Michele. Pt will call to schedule with PCP Pt is aware CC Team will further outreach. Program Details Post Acute Care Status: Enrolled Effective Dates: 04/20/2024 - present Responsible Staff: Randall Chatman MA Support and Services: Post-SNF Transition Support TYPE OF OUTREACH: PAC TCM Program Completion Steve Boone this is Randall Chatman MA calling from the [facility] on behalf of Louis Scott MD I am calling to check in with you to see how you?re feeling since we spoke last. I'd like to ask you a few questions and hear updates on how you've been doing. Yes Contact with patient post discharge, spoke to patient. Patient identified by name and . Do you feel your health is BETTER, WORSE, or the SAME since we last spoke? Better PROGRAM COMPLETION NOTES Do you have any questions about taking your medications or which medications you should be on? No Do you need any medication refills at this time? No ACTION TAKEN: No - No action required Do you have the equipment needed to be safe at home? Yes - That's good to hear! - no action needed Is your home health agency still coming to your home? NA Do you feel you need any assistance with your personal safety, housing, securing meals or food, transportation, or affording your medications? If so, would you like to speak with a social work steamship agent to help give you support for any of these needs? No ACTION TAKEN: No - Patient has no needs at this time - No action taken Your insurance covers an Annual Wellness Visit during which you can meet with a provider to create a personalized prevention plan that helps you stay as healthy as possible. Would you like to schedule that at this time? No - declines scheduling at this time Do you have any questions for your provider or is there anything you would like us to share with your primary care team? No - No action needed Can I help you with anything else at this time? No - No action needed NAVIGATOR: Please remind patient of upcoming primary and specialty care appointments. Appointments for Next 60 Days Date Time Provider Location Dept Phone 05/19/2024 2:00 PM [facility] [phone] 05/21/2024 11:45 AM [facility] [phone] 05/26/2024 9:15 AM DAVID K[facility]BR[facility] [phone] 05/28/2024 11:30 AM DAV[facility] [phone] 06/02/2024 10:00 AM [facility] [phone] 06/04/2024 10:45 AM DAVID [facility] [phone] 06/09/2024 10:00 AM DAV[facility] [phone] 06/11/2024 11:30 AM DAV[facility] [phone] 06/16/2024 10:00 AM [facility] [phone] 06/18/2024 11:30 AM [facility] [phone] 06/22/2024 8:30 AM [facility] [phone] 06/22/2024 9:30 AM [facility] [phone] 06/25/2024 10:45 AM DAVID KIMBROUGH [phone] ?Thank you for taking the time to speak with me over these past few weeks. I wanted to let you know that one of my nursing partners, a Chemical Test Engineer, will continue to follow your progress and ensure you are connected to the most appropriate services and resources needed to maintain your health and wellness. I will also be sure to let your doctor, Louis Scott MD, know how you?ve been doing. Please know that if you need anything, you have a great team around you. You may call your Primary Care Provider?s office if you have any questions or need anything at all. Congratulations on taking good care of yourself and managing your health! I wish you well.? End call NAVIGATOR: Route completed note to PCP Route the note to the Post-Acute Water [employer]er [employer] Supervisor [[id number]] for the care coordination review End outreach Allergies As of Date: 05/15/2024 (No Known Allergies) Date Reviewed: 05/11/2024 Reviewed by: Marbella Chicas MA - Fully Assessed Prescriptions as of 05/15/2024 - ferrous sulfate (IRON) 325 mg (65 mg iron) tablet Take 325 mg by mouth once daily. - aspirin, enteric coated (ASPIRIN, ENTERIC COATED) 81 mg EC tablet Take 1 tablet by mout (more content not included)... [facility] 05-14-2024 Note HNO ID: [id number] Author: KARON MCDOWELL, PT Service: ? Author Type: Physical Therapist Type: Progress Notes Filed: 05/14/2024 11:18 Note Text: Episode Visit Count: 6 Therapist That Will Accept/Oversee The Plan Of Care: David KimbroughPT. Start of Care Date: 04/29/24 Onset Date: 04/30/23 Plan of Care Certification Date: 04/29/24 Next Certification Due Date: 06/05/24 Patient Identified by Name and Date of : Yes REHABILITATION AND SPORTS THERAPY PHYSICAL THERAPY TREATMENT NOTE ASSESSMENT: Paolo Hernandez tolerated the session with fatigue and expected muscle soreness. He demonstrated improvements in form and eccentric control with 3 way hip with PiTB. The patient will continue to benefit from ongoing skilled physical therapy to progress toward set goals. PLAN FOR NEXT VISIT: Continue with gait training and quad strengthening. SUBJECTIVE: Pt feels that he is pretty much back to normal. Still notices a small limp on his R leg. Pain: Pain Pain Level: 0 Pain Location: Hip - Right Post Treatment Pain Post Treatment Pain Location: Hip - Right OBJECTIVE MEASURES WITH LEVEL OF FUNCTION: Mild limp with ambulation this visit. TREATMENT: Therapeutic Exercise: 1: Upright Stationary Bike: Seat 9, 5 Min, Level 3.5. 2: Weight shifts on // bars x 10 with each LE leading 3: Toe raises in standing 2x10 B 4: TRX squats 3x10 (verbal and visaul cueing to shift weight posteriorly.) 5: 3 way hip with PiTB 2x10 each 6: Step downs on 4 inch step 3x10 RLE 7: Step ups on 9 inch step 3x10 RLE 8: R SLS Hip alphabet on LLE A-Z x 1 9: Lateral Walks: GTB Around Thighs: 4 Laps of 10 Feet 10: R LAQ: 3x10, 3#. Skilled Intervention: Patient was educated in proper exercise technique and purpose for exercises. Skilled judgment was used in selection of appropriate interventions. Correct performance of therapeutic exercises was facilitated with verbal and visual cuing. Gait Trainin: Gait training with emphasis on heel to toe pattern with increased heel strike and push off on RLE. Demonstrated decreased stance time on RLE. Skilled Intervention: Patient was provided stand by assist during pre-gait/gait training to prevent falls and insure safety. Facilitated proper gait cycle with the use of verbal and visual cues for correction of gait deviations identified in the objective section above. Billing Therapeutic Exercise Treatment Minutes: 37 Gait Training Treatment Minutes: 8 Skilled Treatment Time Minutes (timed and untimed codes): 45 Total Session Time (minutes): 45 Session Start Time : 827 Session Stop Time : 912 MARVA Ragsdale, PT [facility] 05-12-2024 History of Presen t illness Narrative Program_ID:[id number] Access Code: [email or web address] URL: [email or web address] Date: 05-12-2024 Prepared By: David Kimbrough Program Notes Exercises - Supine Active Straight Leg Raise - 2 x daily - 7 x weekly - 2-3 sets - 10-15 reps - Sidelying Hip Abduction - 2 x daily - 7 x weekly - 2-3 sets - 10 reps - Sit to Stand Without Arm Support - 2 x daily - 7 x weekly - 2 sets - 6-10 reps - Heel Toe Raises with Counter Support - 2 x daily - 7 x weekly - 2 sets - 10-15 reps - Seated Gastroc Stretch with Strap - 1 x daily - 7 x weekly - 1 sets - 3 reps - Seated Soleus Stretch with Strap - 1 x daily - 7 x weekly - 1 sets - 3 reps - Seated Long Arc Quad - 2 x daily - 7 x weekly - 2 sets - 10 reps - Side Stepping with Resistance at Thighs - 2 x daily - 7 x weekly - 3 sets - reps - Standing Hip Extension with Anchored Resistance - 1-2 x daily - 7 x weekly - 1-2 sets - 10 reps - Standing Hip Abduction with Anchored Resistance - 1-2 x daily - 7 x weekly - 1-2 sets - 10 reps - Standing Hip Flexion with Resistance Loop - 1-2 x daily - 7 x weekly - 1-2 sets - 10 reps Episode Visit Count: 5 Therapist That Will Accept/Oversee The Plan Of Care: David KimbroughPT. Start of Care Date: 04/29/24 Onset Date: 04/30/23 Plan of Care Certification Date: 04/29/24 Next Certification Due Date: 06/05/24 Patient Identified by Name and Date of : Yes REHABILITATION AND SPORTS THERAPY PHYSICAL THERAPY TREATMENT NOTE ASSESSMENT: Paolo Hernandez tolerated the session with fatigue and expected muscle soreness. He demonstrated difficulty with hip flexion with PiTB. The patient will continue to benefit from ongoing skilled physical therapy to progress toward set goals. PLAN FOR NEXT VISIT: Asses response to 3 way hip with PiTB. SUBJECTIVE: Pt reports that his hip is not feeling too bad, doesn't really notice his hip anymore. Pt had follow-up with yesterday and he says progress is good, but does not want pt to RTW yet due to heavy lifting at work. Pain: Pain Pain Location: Hip - Right Post Treatment Pain Post Treatment Pain Level: No Change OBJECTIVE MEASURES WITH LEVEL OF FUNCTION: Challenged with 3-way hip with PiTB. TREATMENT: Therapeutic Exercise: 1: Upright Stationary Bike: Seat 9, 5.5Min, Level 3.5. 2: Supine R HIP PROM (Flexion and ABD) 2x10 each. 3: *3 way hip with PiTB 2x10 each (PiTB vended) 4: TRX squats to chair 3x10 5: Lateral Walks: GTB Around Thighs: 4 Laps of 10 Feet 6: Step ups on 9 inch step 2x10 RLE 7: R LAQ: 3x10, 3#. Skilled Intervention: Patient was educated in proper exercise technique and purpose for exercises. Reviewed and educated patient on additions/changes for home exercise program as above (*). Skilled judgment was used in selection of appropriate interventions. Provided written instruction for home exercise program to facilitate proper performance and compliance. Correct performance of therapeutic exercises was facilitated with verbal and visual cuing. Billing Therapeutic Exercise Treatment Minutes: 42 Skilled Treatment Time Minutes (timed and untimed codes): 42 Total Session Time (minutes): 42 Session Start Time : 1400 Session Stop Time : 1442 MARVA Ragsdale, PT, DPT. documented in this encounter [facility] 05-12-2024 Note HNO ID: [id number] Author: DAVID KIMBROUGH PT Service: ? Author Type: Physical Therapist Type: Progress Notes Filed: 05/12/2024 15:04 Note Text: Episode Visit Count: 5 Therapist That Will Accept/Oversee The Plan Of Care: David KimbroughPT. Start of Care Date: 04/29/24 Onset Date: 04/30/23 Plan of Care Certification Date: 04/29/24 Next Certification Due Date: 06/05/24 Patient Identified by Name and Date of : Yes REHABILITATION AND SPORTS THERAPY PHYSICAL THERAPY TREATMENT NOTE ASSESSMENT: Paolo Hernandez tolerated the session with fatigue and expected muscle soreness. He demonstrated difficulty with hip flexion with PiTB. The patient will continue to benefit from ongoing skilled physical therapy to progress toward set goals. PLAN FOR NEXT VISIT: Asses response to 3 way hip with PiTB. SUBJECTIVE: Pt reports that his hip is not feeling too bad, doesn't really notice his hip anymore. Pt had follow-up with yesterday and he says progress is good, but does not want pt to RTW yet due to heavy lifting at work. Pain: Pain Pain Location: Hip - Right Post Treatment Pain Post Treatment Pain Level: No Change OBJECTIVE MEASURES WITH LEVEL OF FUNCTION: Challenged with 3-way hip with PiTB. TREATMENT: Therapeutic Exercise: 1: Upright Stationary Bike: Seat 9, 5.5Min, Level 3.5. 2: Supine R HIP PROM (Flexion and ABD) 2x10 each. 3: *3 way hip with PiTB 2x10 each (PiTB vended) 4: TRX squats to chair 3x10 5: Lateral Walks: GTB Around Thighs: 4 Laps of 10 Feet 6: Step ups on 9 inch step 2x10 RLE 7: R LAQ: 3x10, 3#. Skilled Intervention: Patient was educated in proper exercise technique and purpose for exercises. Reviewed and educated patient on additions/changes for home exercise program as above (*). Skilled judgment was used in selection of appropriate interventions. Provided written instruction for home exercise program to facilitate proper performance and compliance. Correct performance of therapeutic exercises was facilitated with verbal and visual cuing. Billing Therapeutic Exercise Treatment Minutes: 42 Skilled Treatment Time Minutes (timed and untimed codes): 42 Total Session Time (minutes): 42 Session Start Time : 1400 Session Stop Time : 1442 MARVA Ragsdale, PT, DPT. [facility] 05-11-2024 Note HNO ID: [id number] Author: ALFREDITO MICHELE MD Service: ? Author Type: Physician Type: Progress Notes Filed: 06/06/2024 22:54 Note Text: Alfredito Michele MD Department of Orthopaedics Orthopaedics [address] [facility] [address] Dept: [phone] Dept May 11, 2024 CHIEF COMPLAINT: Post Op of the Right Hip (5 weeks 5 days post op Robotic assisted Right LOGAN). HPI Patient here for post op Robotic assisted right LOGAN. Patient denies any pain. Continuing home exercises. New x-rays done today. ASSESSMENT: Z96.641 History of total right hip arthroplasty (primary encounter diagnosis) SUMMARY/PLAN: Six weeks out and he is doing very well. Continue PT, hip precautions, etc. We'll see him back in 6 weeks. Exam: Healed incision. Walking well. Imaging: Normal post op films Supporting Information Below: Medications: Current Outpatient Medications Medication Sig ferrous sulfate (IRON) 325 mg (65 mg iron) tablet Take 325 mg by mouth once daily. aspirin, enteric coated (ASPIRIN, ENTERIC COATED) 81 mg EC tablet Take 1 tablet by mouth two times a day for 28 days. ascorbic acid, vitamin C, (VITAMIN C) 500 mg tablet Take 1 tablet by mouth two times a day with meals for 27 doses. No current facility-administered medications for this visit. Facility-Administered Medications Ordered in Other Visits Medication Dose Route Frequency lidocaine 10 mg/mL (1 %) injection (XYLOCAINE) OTHER PRN triamcinolone acetonide injection (KeNALog 40) INTRA-ARTICULAR PRN Allergies: Patient has no known allergies. Alfredito Michele MD [facility] 05-11-2024 History of Presen t illness Narrative Alfredito Michele MD Department of Orthopaedics Orthopaedics [address] [facility] [address] Dept: [phone] Dept May 11, 2024 CHIEF COMPLAINT: Post Op of the Right Hip (5 weeks 5 days post op Robotic assisted Right LOGAN). HPI Patient here for post op Robotic assisted right LOGAN. Patient denies any pain. Continuing home exercises. New x-rays done today. ASSESSMENT: Z96.641 History of total right hip arthroplasty (primary encounter diagnosis) SUMMARY/PLAN: Six weeks out and he is doing very well. Continue PT, hip precautions, etc. We'll see him back in 6 weeks. Exam: Healed incision. Walking well. Imaging: Normal post op films Supporting Information Below: Medications: Current Outpatient Medications Medication Sig ferrous sulfate (IRON) 325 mg (65 mg iron) tablet Take 325 mg by mouth once daily. aspirin, enteric coated (ASPIRIN, ENTERIC COATED) 81 mg EC tablet Take 1 tablet by mouth two times a day for 28 days. ascorbic acid, vitamin C, (VITAMIN C) 500 mg tablet Take 1 tablet by mouth two times a day with meals for 27 doses. No current facility-administered medications for this visit. Facility-Administered Medications Ordered in Other Visits Medication Dose Route Frequency lidocaine 10 mg/mL (1 %) injection (XYLOCAINE) OTHER PRN triamcinolone acetonide injection (KeNALog 40) INTRA-ARTICULAR PRN Allergies: Patient has no known allergies. Alfredito Michele MD documented in this encounter [facility] 05-11-2024 History of Presen t illness Narrative Radiology Service Progress Note PATIENT NAME: Paolo Hernandez DATE OF SERVICE: May 11, 2024 TIME: 3:07 PM PATIENT IDENTITY VERIFICATION COMPLETED USING TWO (2) IDENTIFIERS: Name and Date of confirmed by patient verbally. FALL SCREENING: Has the patient had 2 falls in the last year or 1 fall with injury or currently using an Ambulatory Assistive Device (Walker, Cane, Wheelchair, Crutches, etc.)? No PATIENT GENDER DATA: Assigned male at PATIENT RELEVANT IMPLANT DATA REVIEWED: Not Applicable PATIENT PRESENTS WITH AN IMPLANTABLE OR ATTACHED QUARRY MANAGER: No RADIOLOGY DEPARTMENT: General X-ray: Exam(s) Completed: Pelvis X-Ray: Pelvis with Hip Right PERIPHERAL IV DATA: Not applicable SIGNED BY: RT Fidelia(R) May 11, 2024 3:07 PM documented in this encounter [facility] 05-11-2024 Note HNO ID: [id number] Author: MELINDA ZIMMERMAN RT(R) Service: ? Author Type: Technologist Type: Progress Notes Filed: 05/11/2024 15:07 Note Text: Radiology Service Progress Note PATIENT NAME: Paolo Hernandez DATE OF SERVICE: May 11, 2024 TIME: 3:07 PM PATIENT IDENTITY VERIFICATION COMPLETED USING TWO (2) IDENTIFIERS: Name and Date of confirmed by patient verbally. FALL SCREENING: Has the patient had 2 falls in the last year or 1 fall with injury or currently using an Ambulatory Assistive Device (Walker, Cane, Wheelchair, Crutches, etc.)? No PATIENT GENDER DATA: Assigned male at PATIENT RELEVANT IMPLANT DATA REVIEWED: Not Applicable PATIENT PRESENTS WITH AN IMPLANTABLE OR ATTACHED QUARRY MANAGER: No RADIOLOGY DEPARTMENT: General X-ray: Exam(s) Completed: Pelvis X-Ray: Pelvis with Hip Right PERIPHERAL IV DATA: Not applicable SIGNED BY: RT Fidelia(R) May 11, 2024 3:07 PM [facility] 05-08-2024 History of Presen t illness Narrative Program_ID:[id number] Access Code: [email or web address] URL: [email or web address] Date: 05-08-2024 Prepared By: David Kimbrough Program Notes Exercises - Supine Active Straight Leg Raise - 2 x daily - 7 x weekly - 2-3 sets - 10-15 reps - Sidelying Hip Abduction - 2 x daily - 7 x weekly - 2-3 sets - 10 reps - Sit to Stand Without Arm Support - 2 x daily - 7 x weekly - 2 sets - 6-10 reps - Heel Toe Raises with Counter Support - 2 x daily - 7 x weekly - 2 sets - 10-15 reps - Seated Gastroc Stretch with Strap - 1 x daily - 7 x weekly - 1 sets - 3 reps - Seated Soleus Stretch with Strap - 1 x daily - 7 x weekly - 1 sets - 3 reps - Seated Long Arc Quad - 2 x daily - 7 x weekly - 2 sets - 10 reps - Side Stepping with Resistance at Thighs - 2 x daily - 7 x weekly - 3 sets - reps Episode Visit Count: 4 Therapist That Will Accept/Oversee The Plan Of Care: David Kimbrough PT. Start of Care Date: 04/29/24 Onset Date: 04/30/23 Plan of Care Certification Date: 04/29/24 Next Certification Due Date: 06/05/24 Patient Identified by Name and Date of : Yes REHABILITATION AND SPORTS THERAPY PHYSICAL THERAPY TREATMENT NOTE ASSESSMENT: Paolo Hernandez tolerated the session with expected muscle soreness. He demonstrated light right quad lag with added resistance to SLR. The patient will continue to benefit from ongoing skilled physical therapy to progress toward set goals and to continue with post-operative protocol. PLAN FOR NEXT VISIT: TRX Squats to Parallel Height or Chair. Can d/c supine exercises if too easy and progress to 3 way hip (no add). SUBJECTIVE: Reports light ache in the posterior R Hip today. Not that bothersome, just feels it with up and moving around. Saturday he overdid it at home with moving stuff around per report, flared his low back up some bit, better now. Feels like motion and strength is improving Pain: Pain Pain Level: 1 Pain Location: Hip - Right Description: Sore Post Treatment Pain Post Treatment Pain Level: No Change Post Treatment Pain Location: Hip - Right OBJECTIVE MEASURES WITH LEVEL OF FUNCTION: LE PROM R Hip Flexion: 115 Degrees R Hip ABduction: 45 Degrees TREATMENT: Therapeutic Exercise: 1: Upright Stationary Bike: Seat 9, 5.5Min, Level 3.5. 2: Supine R HIP PROM (Flexion and ABD) 2x10 each. 3: Seated R Hip IR Mobility with foam roll squeeze: 3x10. 4: Standing R Stool IR/ER Mobility: 3x15. 5: R SLR: 3x8, 3#. 6: R LAQ: 3x10, 3#. 7: R ABD in Standinx10, 3#. 8: *Lateral Walks: GTB Around Thighs: 4 Laps of 10 Feet Skilled Intervention: Patient was educated in proper exercise technique and purpose for exercises. Skilled judgment was used in selection of appropriate interventions. Correct performance of therapeutic exercises was facilitated with verbal cuing. Billing Therapeutic Exercise Treatment Minutes: 41 Skilled Treatment Time Minutes (timed and untimed codes): 41 Total Session Time (minutes): 41 Session Start Time : 829 Session Stop Time : 910 David Kimbrough PT documented in this encounter [facility] 05-08-2024 Note HNO ID: [id number] Author: DAVID KIMBROUGH PT Service: ? Author Type: Physical Therapist Type: Progress Notes Filed: 05/08/2024 09:12 Note Text: Episode Visit Count: 4 Therapist That Will Accept/Oversee The Plan Of Care: David Kimbrough PT. Start of Care Date: 04/29/24 Onset Date: 04/30/23 Plan of Care Certification Date: 04/29/24 Next Certification Due Date: 06/05/24 Patient Identified by Name and Date of : Yes REHABILITATION AND SPORTS THERAPY PHYSICAL THERAPY TREATMENT NOTE ASSESSMENT: Paolo Hernandez tolerated the session with expected muscle soreness. He demonstrated light right quad lag with added resistance to SLR. The patient will continue to benefit from ongoing skilled physical therapy to progress toward set goals and to continue with post-operative protocol. PLAN FOR NEXT VISIT: TRX Squats to Parallel Height or Chair. Can d/c supine exercises if too easy and progress to 3 way hip (no add). SUBJECTIVE: Reports light ache in the posterior R Hip today. Not that bothersome, just feels it with up and moving around. Saturday he overdid it at home with moving stuff around per report, flared his low back up some bit, better now. Feels like motion and strength is improving Pain: Pain Pain Level: 1 Pain Location: Hip - Right Description: Sore Post Treatment Pain Post Treatment Pain Level: No Change Post Treatment Pain Location: Hip - Right OBJECTIVE MEASURES WITH LEVEL OF FUNCTION: LE PROM R Hip Flexion: 115 Degrees R Hip ABduction: 45 Degrees TREATMENT: Therapeutic Exercise: 1: Upright Stationary Bike: Seat 9, 5.5Min, Level 3.5. 2: Supine R HIP PROM (Flexion and ABD) 2x10 each. 3: Seated R Hip IR Mobility with foam roll squeeze: 3x10. 4: Standing R Stool IR/ER Mobility: 3x15. 5: R SLR: 3x8, 3#. 6: R LAQ: 3x10, 3#. 7: R ABD in Standinx10, 3#. 8: *Lateral Walks: GTB Around Thighs: 4 Laps of 10 Feet Skilled Intervention: Patient was educated in proper exercise technique and purpose for exercises. Skilled judgment was used in selection of appropriate interventions. Correct performance of therapeutic exercises was facilitated with verbal cuing. Billing Therapeutic Exercise Treatment Minutes: 41 Skilled Treatment Time Minutes (timed and untimed codes): 41 Total Session Time (minutes): 41 Session Start Time : 829 Session Stop Time : 910 David Kimbrough PT [facility] 05-05-2024 Note HNO ID: [id number] Author: DAVID KIMBROUGH PT Service: ? Author Type: Physical Therapist Type: Progress Notes Filed: 05/05/2024 08:45 Note Text: Episode Visit Count: 3 Therapist That Will Accept/Oversee The Plan Of Care: David Kimbrough PT. Start of Care Date: 04/29/24 Onset Date: 04/30/23 Plan of Care Certification Date: 04/29/24 Next Certification Due Date: 06/05/24 Patient Identified by Name and Date of : Yes REHABILITATION AND SPORTS THERAPY PHYSICAL THERAPY TREATMENT NOTE ASSESSMENT: Paolo Hernandez tolerated the session with fatigue and expected muscle soreness. He demonstrated improvements in STS with weighted ball. The patient will continue to benefit from ongoing skilled physical therapy to progress toward set goals. PLAN FOR NEXT VISIT: Asses response to standing exercises. Consider mini squats at // bars. SUBJECTIVE: Pt reports that his hip is feeling pretty good today. Pain: Pain Pain Level: 0 Pain Location: Hip - Right Post Treatment Pain Post Treatment Pain Level: 0 Post Treatment Pain Location: Hip - Right OBJECTIVE MEASURES WITH LEVEL OF FUNCTION: Challenged with standing hip extensions. TREATMENT: Therapeutic Exercise: 1: Seated Scifit stepper x 5 minutes, seat # 13 (1:1 throughout. Pt provided update on condition) 2: Seated gastroc stretch 3x30 seconds RLE 3: Seated soleus strtch 3x30 seconds 4: Step ups on 6 inch step 2x10 RLE 5: Lateral step ups on 6 inch step 2x10 RLE 6: Standing hip abduction 3x10 RLE 7: Standing hip extension 3x10 RLE 8: LAQ 3x10 RLE 9: STS 1x10, then 2x10 with 7# medball Skilled Intervention: Patient was educated in proper exercise technique and purpose for exercises. Skilled judgment was used in selection of appropriate interventions. Correct performance of therapeutic exercises was facilitated with verbal and visual cuing. Billing Therapeutic Exercise Treatment Minutes: 38 Skilled Treatment Time Minutes (timed and untimed codes): 38 Total Session Time (minutes): 38 Session Start Time : 0800 Session Stop Time : 08 Becka Valle, MARVA Kimbrough, PT, DPT. [facility] 05-05-2024 History of Presen t illness Narrative Episode Visit Count: 3 Therapist That Will Accept/Oversee The Plan Of Care: David Kimbrough PT. Start of Care Date: 04/29/24 Onset Date: 04/30/23 Plan of Care Certification Date: 04/29/24 Next Certification Due Date: 06/05/24 Patient Identified by Name and Date of : Yes REHABILITATION AND SPORTS THERAPY PHYSICAL THERAPY TREATMENT NOTE ASSESSMENT: Paolo Hernandez tolerated the session with fatigue and expected muscle soreness. He demonstrated improvements in STS with weighted ball. The patient will continue to benefit from ongoing skilled physical therapy to progress toward set goals. PLAN FOR NEXT VISIT: Asses response to standing exercises. Consider mini squats at // bars. SUBJECTIVE: Pt reports that his hip is feeling pretty good today. Pain: Pain Pain Level: 0 Pain Location: Hip - Right Post Treatment Pain Post Treatment Pain Level: 0 Post Treatment Pain Location: Hip - Right OBJECTIVE MEASURES WITH LEVEL OF FUNCTION: Challenged with standing hip extensions. TREATMENT: Therapeutic Exercise: 1: Seated Scifit stepper x 5 minutes, seat # 13 (1:1 throughout. Pt provided update on condition) 2: Seated gastroc stretch 3x30 seconds RLE 3: Seated soleus strtch 3x30 seconds 4: Step ups on 6 inch step 2x10 RLE 5: Lateral step ups on 6 inch step 2x10 RLE 6: Standing hip abduction 3x10 RLE 7: Standing hip extension 3x10 RLE 8: LAQ 3x10 RLE 9: STS 1x10, then 2x10 with 7# medball Skilled Intervention: Patient was educated in proper exercise technique and purpose for exercises. Skilled judgment was used in selection of appropriate interventions. Correct performance of therapeutic exercises was facilitated with verbal and visual cuing. Billing Therapeutic Exercise Treatment Minutes: 38 Skilled Treatment Time Minutes (timed and untimed codes): 38 Total Session Time (minutes): 38 Session Start Time : 0800 Session Stop Time : 837 MARVA Ragsdale, PT, DPT. documented in this encounter [facility] 05-01-2024 History of Presen t illness Narrative Program_ID:[id number] Access Code: [email or web address] URL: [email or web address] Date: 05-01-2024 Prepared By: David Kimbrough Program Notes Exercises - Supine Active Straight Leg Raise - 2 x daily - 7 x weekly - 2-3 sets - 10-15 reps - Sidelying Hip Abduction - 2 x daily - 7 x weekly - 2-3 sets - 10 reps - Sit to Stand Without Arm Support - 2 x daily - 7 x weekly - 2 sets - 6-10 reps - Heel Toe Raises with Counter Support - 2 x daily - 7 x weekly - 2 sets - 10-15 reps - Seated Gastroc Stretch with Strap - 1 x daily - 7 x weekly - 1 sets - 3 reps - Seated Soleus Stretch with Strap - 1 x daily - 7 x weekly - 1 sets - 3 reps - Seated Long Arc Quad - 2 x daily - 7 x weekly - 2 sets - 10 reps Episode Visit Count: 2 Therapist That Will Accept/Oversee The Plan Of Care: David Kimbrough PT. Start of Care Date: 04/29/24 Onset Date: 04/30/23 Plan of Care Certification Date: 04/29/24 Next Certification Due Date: 06/05/24 Patient Identified by Name and Date of : Yes REHABILITATION AND SPORTS THERAPY PHYSICAL THERAPY TREATMENT NOTE ASSESSMENT: Paolo Hernandez tolerated the session with fatigue and expected muscle soreness. He demonstrated difficulty with SL hip abduction. The patient will continue to benefit from ongoing skilled physical therapy to progress toward set goals. PLAN FOR NEXT VISIT: Continue with RLE strengthening. SUBJECTIVE: Pt reports that his hip is still feeling about the same. Some stiffness in his calf. Does get occasional R low back discomfort with walking. Pain: Pain Pain Level: 0 Pain Location: Hip - Right OBJECTIVE MEASURES WITH LEVEL OF FUNCTION: Decreased neuro-muscular control with RLE with STS and use of SciFit. TREATMENT: Therapeutic Exercise: 1: Seated Scifit stepper x 5 minutes, seat # 13 (1:1 throughout. Pt provided update on condition) 2: *Seated gastroc stretch 3x30 seconds RLE 3: *Seated soleus strtch 3x30 seconds 4: R hip abduction in sidelying 2x10 5: SLR 2x10 6: Quad sets 2x10 7: *LAQ 2x10 9: STS 2x10 Skilled Intervention: Patient was educated in proper exercise technique and purpose for exercises. Reviewed and educated patient on additions/changes for home exercise program as above (*). Skilled judgment was used in selection of appropriate interventions. Provided written instruction for home exercise program to facilitate proper performance and compliance. Correct performance of therapeutic exercises was facilitated with verbal and visual cuing. Billing Therapeutic Exercise Treatment Minutes: 40 Skilled Treatment Time Minutes (timed and untimed codes): 40 Total Session Time (minutes): 40 Session Start Time : 1359 Session Stop Time : 1439 MARVA Ragsdale PT, DPT. documented in this encounter [facility] 05-01-2024 Note HNO ID: [id number] Author: DAVID KIMBROUGH PT Service: ? Author Type: Physical Therapist Type: Progress Notes Filed: 05/04/2024 10:04 Note Text: Episode Visit Count: 2 Therapist That Will Accept/Oversee The Plan Of Care: David Kimbrough PT. Start of Care Date: 04/29/24 Onset Date: 04/30/23 Plan of Care Certification Date: 04/29/24 Next Certification Due Date: 06/05/24 Patient Identified by Name and Date of : Yes REHABILITATION AND SPORTS THERAPY PHYSICAL THERAPY TREATMENT NOTE ASSESSMENT: Paolo Hernandez tolerated the session with fatigue and expected muscle soreness. He demonstrated difficulty with SL hip abduction. The patient will continue to benefit from ongoing skilled physical therapy to progress toward set goals. PLAN FOR NEXT VISIT: Continue with RLE strengthening. SUBJECTIVE: Pt reports that his hip is still feeling about the same. Some stiffness in his calf. Does get occasional R low back discomfort with walking. Pain: Pain Pain Level: 0 Pain Location: Hip - Right OBJECTIVE MEASURES WITH LEVEL OF FUNCTION: Decreased neuro-muscular control with RLE with STS and use of SciFit. TREATMENT: Therapeutic Exercise: 1: Seated Scifit stepper x 5 minutes, seat # 13 (1:1 throughout. Pt provided update on condition) 2: *Seated gastroc stretch 3x30 seconds RLE 3: *Seated soleus strtch 3x30 seconds 4: R hip abduction in sidelying 2x10 5: SLR 2x10 6: Quad sets 2x10 7: *LAQ 2x10 9: STS 2x10 Skilled Intervention: Patient was educated in proper exercise technique and purpose for exercises. Reviewed and educated patient on additions/changes for home exercise program as above (*). Skilled judgment was used in selection of appropriate interventions. Provided written instruction for home exercise program to facilitate proper performance and compliance. Correct performance of therapeutic exercises was facilitated with verbal and visual cuing. Billing Therapeutic Exercise Treatment Minutes: 40 Skilled Treatment Time Minutes (timed and untimed codes): 40 Total Session Time (minutes): 40 Session Start Time : 1359 Session Stop Time : 1439 MARVA Ragsdale, PT, DPT. [facility] 04-30-2024 History of Presen t illness Narrative Program_ID:[id number] Access Code: [email or web address] URL: [email or web address] Date: 04-30-2024 Prepared By: David Kimbrough Program Notes Exercises - Supine Active Straight Leg Raise - 2 x daily - 7 x weekly - 2-3 sets - 10-15 reps - Sidelying Hip Abduction - 2 x daily - 7 x weekly - 2-3 sets - 10 reps - Sit to Stand Without Arm Support - 2 x daily - 7 x weekly - 2 sets - 6-10 reps - Heel Toe Raises with Counter Support - 2 x daily - 7 x weekly - 2 sets - 10-15 reps - Gastroc Stretch on Wall - 2 x daily - 7 x weekly - sets - 3 reps Program_ID:[id number] Access Code: [email or web address] URL: [email or web address] Date: 04-29-2024 Prepared By: David Kimbrough Program Notes Exercises - Supine Active Straight Leg Raise - 2 x daily - 7 x weekly - 2-3 sets - 10-15 reps - Sidelying Hip Abduction - 2 x daily - 7 x weekly - 2-3 sets - 10 reps - Sit to Stand Without Arm Support - 2 x daily - 7 x weekly - 2 sets - 6-10 reps - Heel Toe Raises with Counter Support - 2 x daily - 7 x weekly - 2 sets - 10-15 reps - Gastroc Stretch on Wall - 2 x daily - 7 x weekly - sets - 3 reps Images from the original note were not included. Episode Visit Count: 1 Therapist That Will Accept/Oversee The Plan Of Care: David KimbroughPT. Start of Care Date: 04/29/24 Onset Date: 04/30/23 Plan of Care Certification Date: 04/29/24 Next Certification Due Date: 06/05/24 Patient Identified by Name and Date of : Yes REHABILITATION AND SPORTS THERAPY PHYSICAL THERAPY EVALUATION PLAN OF CARE: Assessment: Paolo Hernandez presents with diagnosis of 28 days status-post R Hip LOGAN (posterior) that interferes with stair negotiation, squatting, physical activities, working, walking in the community (Stiffness in the R Leg; Stairs without rail) . The patient presents with impairments in ADL's, balance, flexibility, gait, independence in exercise, overall function, range of motion, soft tissue healing, and strength. PROMIS (Patient-Reported Outcomes Measurement Information System) scores were reviewed and identified as within normal limits. Prognosis for therapy is Good due to: current objective clinical presentation, good overall health status, good support system/ coping skills .The patient will benefit from skilled therapy services to meet the goals established for this plan of care as noted below. Goals for Episode of Care: established 04/29/24 [place] in home exercise program. Patient will increase passive ROM of L hip to 120 degrees flexion to allow pt to improve performance of ADLs/IADLs. Improve R Hip ER, IR, & ABD to WFL for improved functional mobility. Patient will demonstrate increase in RHip strength to 5/5 during manual muscle testing in order to improve function for home management tasks, occupational demands, and prior functional tasks. Patient will be able to perform walking without pain and deviations. Reciprocal Stair Negotiation without use of hands for assist. 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 Planned Interventions, Frequency, and Duration: Current Frequency: 2x/week Duration: 8 weeks Total Number of Visits Planned: 16 Planned Treatment Interventions: Therapeutic exercise (62996), Neuromuscular re-education (12884), Manual therapy (93002), Therapeutic activities (12909), Self-senior care management (20440), Gait Training (75713), Patient/Family/Caregiver Education PLAN FOR NEXT VISIT: Hip ABD Series as tolerated; Hip A/AA/PROM as tolerated. Patient demonstrates good understanding of plan of care and treatment. The above goals and plan of care were discussed and agreed upon by patient/family. SUBJECTIVE: 4 Weeks status post R Hip LOGAN for primary OA. SNF stay following surgery due to conveinance of this and living alone, no HHPT. Ambulating now without FWW and SPC. Off pain meds, and back to driving. Has been walking around the block everyday, without issue just glute aches. Resolved pre-surgical pain. Appt with Dr. Michele on 05/11/24. 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 Recreation / Current Exercise: Walking everyday Home Environment Patient Lives With: Self/Alone Assistance Available: PRN Home Type: Ranch Entry To Home: Stairs, Without Rail Number Of Stairs Into Home: 2 Tub/Shower Type: tub shower with grab bars Laundry: daughter to assist Equipment Owned: Walker- Wheeled, Cane Intake Information: Prescription present Previous Treatment: Physical Therapy , Injections Falls Interview: No positive findings with falls interview Pain: Pain Pain Level: 0 Pain Location: Hip - Right PROMIS Scales 04/27/2024 06/16/2023 06/11/2023 Higher is Better Phys Func - T Score 43 (mild dysfunction) Phys Func - Percentile 24 Self-Eff Symptom - T Score 48 (Average) 43 (Average) Self-Eff Symptom - Percentile 42 24 Mobility - T Score 42 (mild dysfunction) Mobility - Percentile 21 T-scores: mean of general population = 50. 5 points is clinically meaningfully difference Percentiles provide an indication of how the patient's score ranks in relation to the general population. Higher percentile rankings indicate better function/quality of life. 50th percentile is the average of the general population and indicates half of respondents had a worse score. OBJECTIVE MEASURES WITH LEVEL OF FUNCTION: Hip Observations R Hip Presents with: Swelling, Incision R Hip Swelling Comments: Mild. Normal post-op appearance. R Hip Incision Comments: No drainage, redness, warmth. Well approximated and normal post-op healing appearance. R Hip Palpation Tenderness: No tenderness noted LE AROM R Hip Flexion: 90 Degrees R Hip ABduction: 35 Degrees R Hip Internal Rotation: 15 Degrees R Hip External Rotation: 20 Degrees LE PROM R Hip Flexion: 110 Degrees R Hip ABduction: 38 Degrees R Hip Internal Rotation: 20 Degrees R Hip External Rotation: 25 Degrees Joint Mobility - Hip Hip Joint Mobility Comments: Tightness throughout L Hip in multiple directions. Consistent with acute post-op status. LE Strength R LE Strength: SLR: 4/5. L LE Strength: Grossly 5/5 R Hip Extension: 4+/5 R Hip ABduction: 4-/5 R Hip ADduction: 4+/5 R Hip Internal Rotation: 4+/5 R Hip External Rotation: 4+/5 R Knee Extension (L3): 5/5 R Knee Flexion: 5/5 Gait Weight Bearing Status: FWB Gait: Independent Gait Device: Cane, Wheeled Walker Gait Observation: Mild Trendelenburg Bilaterally. Stairs: Able to reciprocate up & down with 1 UE use on rail. When UE assist taken away, patient with moderate impairment in stair negotiation, with decreased stability and ease overall. Balance Static Standing Balance: Single Leg Stance Single Leg Stance: R Le.5sec, L Leg 3sec. Functional Performance Test Results Assistive Device: None 30 Second Chair Stand Test: 12 reps (Mild push with hands from thighs) 5 Times Sit to Stand Test : 13.37 sec (Mild push with hands from thighs) Timed Up and Go (sec): 10.76 sec Education: Education Learning Preferences: Demonstration, Explanation, Printed Materials Barriers: None Learning/educational needs: Home exercise program, Plan of Care, Procedure / Surgery, Safety, Gait Training Education Provided: Yes, see treatment interventions for education provided Education Provided To: Patient Education Mode/Type: Demonstration, Explanation/Discussion, Literature/Printed Materials Response to Education/Teach Back: States/Identifies TREATMENT: PT Treatment Interventions: Therapeutic Exercise Evaluation Therapeutic Exercise: 1: Discussed exercise purpose and importance of compliance. Handout provided and educated on. Discussed exam findings and current clinical presentation; discussed rehab process, goals, tissue healing timelines. 2: *R Hip ABD: x10, verbal & tactile cues for appropriate form. 3: *R SLR: x10. 4: *STS with arms cross on chest: x10. 5: *Heel & Toe Raises: x10. 6: *R Gastroc Wall Stretch: x30, given for patient complaint of R Calf tightness. 7: Rediscussed Hip Precautions as follows... Posterior - Do not bend operative hip past a 90 degree angle - Don't cross your legs (No adduction past midline) - Don't twist your operative leg/foot inwards. Patient understands and can state back. 9: Discussed exam findings and current clinical presentation; discussed rehab process, goals, tissue healing timelines. Skilled Intervention: Patient was educated in proper exercise technique and purpose for exercises. Reviewed and educated patient on additions/changes for home exercise program as above (*). Skilled judgment was used in selection of appropriate interventions. Provided written instruction for home exercise program to facilitate proper performance and compliance. Correct performance of therapeutic exercises was facilitated with verbal and tactile cuing. Patient education as noted. Billing * Evaluation Low Complexity: 1 Unit Therapeutic Exercise Treatment Minutes: 25 Skilled Treatment Time Minutes (timed and untimed codes): 45 Total Session Time (minutes): 45 Session Start Time : 1330 Session Stop Time : 1415 David Kimbrough PT documented in this encounter [facility] 04-29-2024 Note HNO ID: [id number] Author: DAVID KIMBROUGH PT Service: ? Author Type: Physical Therapist Type: Progress Notes Filed: 04/30/2024 09:48 Note Text: Episode Visit Count: 1 Therapist That Will Accept/Oversee The Plan Of Care: David Kimbrough PT. Start of Care Date: 04/29/24 Onset Date: 04/30/23 Plan of Care Certification Date: 04/29/24 Next Certification Due Date: 06/05/24 Patient Identified by Name and Date of : Yes REHABILITATION AND SPORTS THERAPY PHYSICAL THERAPY EVALUATION PLAN OF CARE: Assessment: Paolo Hernandez presents with diagnosis of 28 days status-post R Hip LOGAN (posterior) that interferes with stair negotiation, squatting, physical activities, working, walking in the community (Stiffness in the R Leg; Stairs without rail) . The patient presents with impairments in ADL's, balance, flexibility, gait, independence in exercise, overall function, range of motion, soft tissue healing, and strength. PROMIS? (Patient-Reported Outcomes Measurement Information System) scores were reviewed and identified as within normal limits. Prognosis for therapy is Good due to: current objective clinical presentation, good overall health status, good support system/ coping skills .The patient will benefit from skilled therapy services to meet the goals established for this plan of care as noted below. Goals for Episode of Care: established 04/29/24 [place] in home exercise program. Patient will increase passive ROM of L hip to 120 degrees flexion to allow pt to improve performance of ADLs/IADLs. Improve R Hip ER, IR, AND ABD to WFL for improved functional mobility. Patient will demonstrate increase in RHip strength to 5/5 during manual muscle testing in order to improve function for home management tasks, occupational demands, and prior functional tasks. Patient will be able to perform walking without pain and deviations. Reciprocal Stair Negotiation without use of hands for assist. 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 Planned Interventions, Frequency, and Duration: Current Frequency: 2x/week Duration: 8 weeks Total Number of Visits Planned: 16 Planned Treatment Interventions: Therapeutic exercise (92940), Neuromuscular re-education (16776), Manual therapy (38345), Therapeutic activities (35724), Self-senior care management (18063), Gait Training (72687), Patient/Family/Caregiver Education PLAN FOR NEXT VISIT: Hip ABD Series as tolerated; Hip A/AA/PROM as tolerated. Patient demonstrates good understanding of plan of care and treatment. The above goals and plan of care were discussed and agreed upon by patient/family. SUBJECTIVE: 4 Weeks status post R Hip LOGAN for primary OA. SNF stay following surgery due to conveinance of this and living alone, no HHPT. Ambulating now without FWW and SPC. Off pain meds, and back to driving. Has been walking around the block everyday, without issue just glute aches. Resolved pre-surgical pain. Appt with Dr. Michele on 05/11/24. 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 Recreation / Current Exercise: Walking everyday Home Environment Patient Lives With: Self/Alone Assistance Available: PRN Home Type: Ranch Entry To Home: Stairs, Without Rail Number Of Stairs Into Home: 2 Tub/Shower Type: tub shower with grab bars Laundry: daughter to assist Equipment Owned: Walker- Wheeled, Cane Intake Information: Prescription present Previous Treatment: Physical Therapy , Injections Falls Interview: No positive findings with falls interview Pain: Pain Pain Level: 0 Pain Location: Hip - Right PROMIS Scales 04/27/2024 06/16/2023 06/11/2023 Higher is Better Phys Func - T Score 43 (mild dysfunction) Phys Func - Percentile 24 Self-Eff Symptom - T Score 48 (Average) 43 (Average) Self-Eff Symptom - Percentile 42 24 Mobility - T Score 42 (mild dysfunction) Mobility - Percentile 21 T-scores: mean of general population = 50. 5 points is clinically meaningfully difference Percentiles provide an indication of how the patient's score ranks in relation to the general population. Higher percentile rankings indicate better function/quality of life. 50th percentile is the average of the general population and indicates half of respondents had a worse score. OBJECTIVE MEASURES WITH LEVEL OF FUNCTION: Hip Observations (more content not included)... [facility] 04-27-2024 Note HNO ID: [id number] Author: RANDALL CHATMAN MA Service: ? Author Type: Javascript Developer Type: Progress Notes Filed: 04/28/2024 08:35 Note Text: [facility]) TRANSITIONAL CARE MANAGEMENT (TCM) POST-ACUTE CARE (PAC) PROGRAM Transitions Navigator Outreach Provider Action/FYI: Follow up 1 Colin note: Pt states he is doing well. Pt states no med changes. Pt only take otc Pt saw PCP. Pt is doing outpatient therapy. Pt has cane/walker but does not need it. Pt agrees to next outreach. Program Details Post Acute Care Status: Enrolled Effective Dates: 04/20/2024 - present Responsible Staff: Randall Chatman MA Support and Services: Post-SNF Transition Support TYPE OF OUTREACH: PAC TCM Follow-Up #1 Steve Boone this is Randall Chatman MA calling from the [facility] on behalf of Louis Scott MD I am calling to check in with you to see how you?re feeling since we spoke last. Do you have a few minutes to update me on how you?ve been doing?? Yes Contact with patient post discharge, spoke to patient. Patient identified by name and . PATIENT HEALTH STATUS Would you say you're feeling BETTER, WORSE, or the SAME since we spoke last week? Same ACTION TAKEN: Patient reports Better or Same - No action required - Continue outreach. FOLLOW-UP QUESTIONS FROM INITIAL OUTREACH Were you able to follow-up with your Primary or Specialty Providers from you health care team? Yes - Great, glad to hear that! - no action needed. Was seen by Primary Care Provider Were there any changes to your medications since we spoke last? No Do you have any questions about taking your medications or which medications you should be on? No Do you need any medication refills at this time? No ACTION TAKEN: No - No action required Do you have the equipment needed to be safe at home? Yes - That's good to hear! - no action needed Ask ONLY if patient was expecting Home Care Services to start. Has your Home Care Agency contacted you and/or been out to visit you yet? NA - Home Care not ordered SOCIAL It can also be quite common to feel anxious or down during a time of transition from one place to another or getting acclimated to changes in your health and well-being. Would you like to talk to a mental health professional (medical social worker) about how you have been feeling? No ACTION TAKEN: No - Patient has no needs at this time - No action taken FINANCIAL RESOURCE STRAIN How hard is it for you to pay for the very basics like food, housing, medical care and heating? (Very hard, hard, somewhat hard, not very hard, not hard at all). If very hard, hard, or somewhat hard, ask patient if they would like for someone from [employer] to reach out about a benefits assessment, including Medicaid eligibility. ACTION TAKEN: Patient does not have financial strain concerns. ADVANCE CARE PLANNING AND ADVANCE DIRECTIVES ?Thank you for providing updates to me about how you?ve been feeling. Before we go, I?d like to share some information with you about Advance Directives and Advance Care Planning so you can share your wishes and goals with your health care provider. Advance care planning is a process that supports adults at any age or stage of health in understanding and sharing their personal values, life goals, and preferences regarding future medical care. The goal of advance care planning is to help ensure that you receive medical care that is consistent with your values, goals, and preferences. The first step of Advance Care Planning is to complete Advance Directives. Advance Directives are legal documents that provide written instructions about who can make medical decisions on your behalf if a medical condition or injury renders you unable to make decisions or communicate. Determine if patient has AD on file. If AD noted in EPIC, confirm still accurate. If no AD on file, ask if and how patient would like to receive information about it. No ACTION TAKEN: No - Patient prefers to not receive information at this time - No action taken ?Thank you for taking the time to talk with me today. I?ll plan to call you in another week or so to see how you?re doing. Would you like to select a specific day next week that works well for you?? Yes - Thank the patient and provide direct phone number should they need anything between calls. End outreach [facility] 04-27-2024 History of Presen t illness Narrative [facility] TRANSITIONAL CARE MANAGEMENT (TCM) POST-ACUTE CARE (PAC) PROGRAM Transitions Navigator Outreach Provider Action/FYI: Follow up 1 Colin note: Pt states he is doing well. Pt states no med changes. Pt only take otc Pt saw PCP. Pt is doing outpatient therapy. Pt has cane/walker but does not need it. Pt agrees to next outreach. Program Details Post Acute Care Status: Enrolled Effective Dates: 04/20/2024 - present Responsible Staff: Randall Chatman MA Support and Services: Post-SNF Transition Support TYPE OF OUTREACH: PAC TCM Follow-Up #1 Steve Boone this is Randall Chatman MA calling from the [facility] on behalf of Louis Scott MD I am calling to check in with you to see how you re feeling since we spoke last. Do you have a few minutes to update me on how you ve been doing? Yes Contact with patient post discharge, spoke to patient. Patient identified by name and . PATIENT HEALTH STATUS Would you say you're feeling BETTER, WORSE, or the SAME since we spoke last week? Same ACTION TAKEN: Patient reports Better or Same - No action required - Continue outreach. FOLLOW-UP QUESTIONS FROM INITIAL OUTREACH Were you able to follow-up with your Primary or Specialty Providers from you health care team? Yes - Great, glad to hear that! - no action needed. Was seen by Primary Care Provider Were there any changes to your medications since we spoke last? No Do you have any questions about taking your medications or which medications you should be on? No Do you need any medication refills at this time? No ACTION TAKEN: No - No action required Do you have the equipment needed to be safe at home? Yes - That's good to hear! - no action needed Ask ONLY if patient was expecting Home Care Services to start. Has your Home Care Agency contacted you and/or been out to visit you yet? NA - Home Care not ordered SOCIAL It can also be quite common to feel anxious or down during a time of transition from one place to another or getting acclimated to changes in your health and well-being. Would you like to talk to a mental health professional (medical social worker) about how you have been feeling? No ACTION TAKEN: No - Patient has no needs at this time - No action taken FINANCIAL RESOURCE STRAIN How hard is it for you to pay for the very basics like food, housing, medical care and heating? (Very hard, hard, somewhat hard, not very hard, not hard at all). If very hard, hard, or somewhat hard, ask patient if they would like for someone from [employer] to reach out about a benefits assessment, including Medicaid eligibility. ACTION TAKEN: Patient does not have financial strain concerns. ADVANCE CARE PLANNING & ADVANCE DIRECTIVES Thank you for providing updates to me about how you ve been feeling. Before we go, I d like to share some information with you about Advance Directives and Advance Care Planning so you can share your wishes and goals with your health care provider. Advance care planning is a process that supports adults at any age or stage of health in understanding and sharing their personal values, life goals, and preferences regarding future medical care. The goal of advance care planning is to help ensure that you receive medical care that is consistent with your values, goals, and preferences. The first step of Advance Care Planning is to complete Advance Directives. Advance Directives are legal documents that provide written instructions about who can make medical decisions on your behalf if a medical condition or injury renders you unable to make decisions or communicate. Determine if patient has AD on file. If AD noted in EPIC, confirm still accurate. If no AD on file, ask if and how patient would like to receive information about it. No ACTION TAKEN: No - Patient prefers to not receive information at this time - No action taken Thank you for taking the time to talk with me today. I ll plan to call you in another week or so to see how you re doing. Would you like to select a specific day next week that works well for you? Yes - Thank the patient and provide direct phone number should they need anything between calls. End outreach documented in this encounter [facility] 04-27-2024 Note Patient Outreach (IN TMPA) PAOLO HERNANDEZ ([id number]) 1945 M Date Time Provider Department 04/27/24 RANDALL CHATMAN During your visit today, we recorded the following information about you: Randall Chatman MA 04/28/2024 8:35 AM Signed [facility] TRANSITIONAL CARE MANAGEMENT (TCM) POST-ACUTE CARE (PAC) PROGRAM Transitions Navigator Outreach Provider Action/FYI: Follow up 1 Colin note: Pt states he is doing well. Pt states no med changes. Pt only take otc Pt saw PCP. Pt is doing outpatient therapy. Pt has cane/walker but does not need it. Pt agrees to next outreach. Program Details Post Acute Care Status: Enrolled Effective Dates: 04/20/2024 - present Responsible Staff: Randall Chatman MA Support and Services: Post-SNF Transition Support TYPE OF OUTREACH: PAC TCM Follow-Up #1 Steve Paolo this is Randall Chatman MA calling from the [facility] on behalf of Louis Scott MD I am calling to check in with you to see how you?re feeling since we spoke last. Do you have a few minutes to update me on how you?ve been doing?? Yes Contact with patient post discharge, spoke to patient. Patient identified by name and . PATIENT HEALTH STATUS Would you say you're feeling BETTER, WORSE, or the SAME since we spoke last week? Same ACTION TAKEN: Patient reports Better or Same - No action required - Continue outreach. FOLLOW-UP QUESTIONS FROM INITIAL OUTREACH Were you able to follow-up with your Primary or Specialty Providers from you health care team? Yes - Great, glad to hear that! - no action needed. Was seen by Primary Care Provider Were there any changes to your medications since we spoke last? No Do you have any questions about taking your medications or which medications you should be on? No Do you need any medication refills at this time? No ACTION TAKEN: No - No action required Do you have the equipment needed to be safe at home? Yes - That's good to hear! - no action needed Ask ONLY if patient was expecting Home Care Services to start. Has your Home Care Agency contacted you and/or been out to visit you yet? NA - Home Care not ordered SOCIAL It can also be quite common to feel anxious or down during a time of transition from one place to another or getting acclimated to changes in your health and well-being. Would you like to talk to a mental health professional (medical social worker) about how you have been feeling? No ACTION TAKEN: No - Patient has no needs at this time - No action taken FINANCIAL RESOURCE STRAIN How hard is it for you to pay for the very basics like food, housing, medical care and heating? (Very hard, hard, somewhat hard, not very hard, not hard at all). If very hard, hard, or somewhat hard, ask patient if they would like for someone from [employer] to reach out about a benefits assessment, including Medicaid eligibility. ACTION TAKEN: Patient does not have financial strain concerns. ADVANCE CARE PLANNING AND ADVANCE DIRECTIVES ?Thank you for providing updates to me about how you?ve been feeling. Before we go, I?d like to share some information with you about Advance Directives and Advance Care Planning so you can share your wishes and goals with your health care provider. Advance care planning is a process that supports adults at any age or stage of health in understanding and sharing their personal values, life goals, and preferences regarding future medical care. The goal of advance care planning is to help ensure that you receive medical care that is consistent with your values, goals, and preferences. The first step of Advance Care Planning is to complete Advance Directives. Advance Directives are legal documents that provide written instructions about who can make medical decisions on your behalf if a medical condition or injury renders you unable to make decisions or communicate. Determine if patient has AD on file. If AD noted in EPIC, confirm still accurate. If no AD on file, ask if and how patient would like to receive information about it. No ACTION TAKEN: No - Patient prefers to not receive information at this time - No action taken ?Thank you for taking the time to talk with me today. I?ll plan to call you in another week or so to see how you?re doing. Would you like to select a specific day next week that works well for you?? Yes - Thank the patient and provide direct phone number should they need anything between calls. End outreach Allergies As of Date: 04/27/2024 (No Known Allergies) Date Reviewed: 04/23/2024 Reviewed by: Prudence Ornelas MA - Fully Assessed Prescriptions as of 04/28/2024 - ferrous sulfate (IRON) 325 mg (65 mg iron) tablet Take 325 mg by mouth once daily. - aspirin, enteric coated (ASPIRIN, ENTERIC COATED) 81 mg EC tablet Take 1 tablet by (more content not included)... [facility] 04-23-2024 History of Presen t illness Narrative Chief Complaint Patient presents with: Hospital Follow Up: Penitentiary release HPI Paolo Hernandez is a 78 year old male who presents here today for rehab follow up. Pt here for a follow up from SNF. Pt had T THR replaced on 04/01/24 and was just recently discharged from [facility] on 04/18/24. Pt currently taking ASA 81 mg bid, Vit C 1 tab po bid, and Iron 65 mg once daily. This was given to him on d/c from the Hospital. These were prescribed to take for 28 days. Pt at this time overall feels pretty good. Is able to get around fairly well since being home. Notes with the weather being nicer, he tries to get out and walk a little bit. Right leg feels stiff and has some issues with neuropathy. Does have some aching when up and moving around a lot. Does note that he feels much better than prior to having his surgery. Denies using anything for pain at this time. Was d/c home from SNF with walker, but has not used for the past couple of days. Was d/c home with restrictions with bending past 90 degree, twisting, and crossing legs as well as modifications such as using a shower bench. Would like to continue his PT and prefers to stay locally in [place]. Reports that when he was d/c from SNF they went through a checklist and he went from Doctor to Doctor and unsure what he needed to do. Scheduled today to get PT so he could continue this. Do not see outreach to Ortho to obtain PT order? Has f/u appt with Dr. Michele on 05/11/24. Pt notes that after surgery he had issues with balance, but this has improved. Plans on returning back to work, but will have to have restrictions due to his occupation. Plans on discussing this with Dr. Michele. Hospital visit 04/01/24-04/02/24: SUMMARY OF WHAT HAPPENED WHILE PATIENT WAS IN THE HOSPITAL: The patient was followed by Dr. Michele in clinic for right hip osteoarthritis. It was determined the patient would benefit from right total hip arthroplasty. The procedure, its risks, benefits, and potential complications were discussed in detail prior to surgery. The patient conveyed understanding of all topics and consented to surgery. The patient was admitted to the hospital. Underwent an elective right total hip arthroplasty on 04/01/[address] Michele. The patient tolerated the procedure well and was returned to the Post Anesthesia Care Unit in stable condition. Vital signs per PACU protocol. VTE risk assessment performed. O2 therapy monitored by Respiratory Therapy to include incentive spirometry, ADL, wound and support per physician order set postop protocol. PT and OT to evaluate and treat. IV antibiotics, antiemetics, DVT prophylaxis and pain medication were given. The patient progressed with physical therapy. Lab values and vital signs were monitored and remained stable. The incision remained clean, dry and intact. Thigh and calf are not swollen. No signs of DVT or infection. The patient progressed with physical therapy towards goal of safety and independence. Patient was determined safe for discharge to SNF on 04/02/2024. Past medical history, appointments, medications, allergies reviewed. Previous Medical History PAST MEDICAL HISTORY Diagnosis Date Right inguinal hernia Rotator cuff tear Right shoulder Vertigo Previous Surgical History PAST SURGICAL HISTORY Procedure Laterality Date APPENDECTOMY 02/18/1963 LAPAROSCOPY SURG RPR INITIAL INGUINAL HERNIA 12/09/2013 right PAST SURGICAL HISTORY OF 10/19/1969 wisdom teeth PAST SURGICAL HISTORY OF Bilateral 2020 B/L cataract surgery TOTAL HIP REPLACEMENT Right 04/01/2024 Robotic assisted Right total hip arthroplasty Family History FAMILY HISTORY Problem Relation Age of Onset Hypertension Mother Arthritis Mother other (tuberculosis [Other]) Mother Stroke Father Breast Cancer Maternal Grandmother Anesthesia Problems No Family History Patient Allergies ALLERGIES No Known Allergies Current Medications Current Outpatient Medications on File Prior to Visit Medication Sig ferrous sulfate (IRON) 325 mg (65 mg iron) tablet Take 325 mg by mouth once daily. aspirin, enteric coated (ASPIRIN, ENTERIC COATED) 81 mg EC tablet Take 1 tablet by mouth two times a day for 28 days. ascorbic acid, vitamin C, (VITAMIN C) 500 mg tablet Take 1 tablet by mouth two times a day with meals for 27 doses. docusate sodium (COLACE) 100 mg capsule Take 1 capsule by mouth two times a day as needed for constipation. pantoprazole DR (PROTONIX) 40 mg tablet Take 1 tablet by mouth every morning. Current Facility-Administered Medications on File Prior to Visit Medication lidocaine 10 mg/mL (1 %) injection (XYLOCAINE) triamcinolone acetonide injection (KeNALog 40) Social History Social History Tobacco Use Smoking status: Never Smokeless tobacco: Never Vaping Use Vaping status: Never Used Substance Use Topics Alcohol use: No Drug use: No EXAM: BP 118/78 (BP Site: Left Arm, BP Position: Sitting, BP Cuff Size: Regular Adult) Pulse 68 Resp 16 Wt 71.1 kg (156 lb 12 oz) BMI 22.49 kg/m General Appearance: Well appearing, alert, in no acute distress, well-hydrated, well nourished.. Lungs: Lungs clear to auscultation. No wheezing, rhonchi, rales.. Heart: RRR without murmur, gallop, or rubs. No ectopy. Extremities: No edema noted in right leg. Slight limp when ambulating. Health Maintenance List Depression Screening Never done Anxiety Screening Never done Shingrix Vaccine(1 of 2) Never done Covid-19 Vaccine( season) due on 01/29/2024 Advance Directive Discussion Never done Diabetes Screening due on 04/02/2027 DTaP,Tdap,Td Vaccine(3 - Td or Tdap) due on 06/02/2027 Influenza Vaccine Completed RSV Vaccine Completed Hepatitis C Screening Completed Pneumococcal Vaccine: 50+ Completed Colorectal Cancer Screening Discontinued Data reviewed None ASSESSMENT/PLAN: 1. Hospital discharge follow-up - ICD9: V67.59, ICD10: Z09 (primary diagnosis) - Stable on today's exam 2. S/P hip replacement, right - ICD9: V43.64, ICD10: Z96.641 - Will order outpt PT for joint rehab - Follow up with Ortho as scheduled Follow up prn I agree with the Chief Complaint, ROS, and Past Histories independently gathered by the clinical patient support partner and the remaining scribed note accurately describes my personal service to the patient. Medical Decision Making: Problems: Low: Stable chronic illness Data: Unique source(s) for external note(s) reviewed: 1 Risk: Low: Low risk from testing/treatment Medical Decision Making Level: 3 - Low Louis Scott MD The documentation for this note was completed by Prudence Ornelas MA acting as scribe for Louis Scott MD. April 23, 2024 10:05 AM. Prudence Ornelas MA documented in this encounter [facility] 04-23-2024 Note HNO ID: [id number] Author: LOUIS SCOTT MD Service: ? Author Type: Physician Type: Progress Notes Filed: 04/23/2024 11:31 Note Text: Chief Complaint Patient presents with: Hospital Follow Up: Penitentiary release HPI Paolo Hernandez is a 78 year old male who presents here today for rehab follow up. Pt here for a follow up from SNF. Pt had T THR replaced on 04/01/24 and was just recently discharged from [facility] on 04/18/24. Pt currently taking ASA 81 mg bid, Vit C 1 tab po bid, and Iron 65 mg once daily. This was given to him on d/c from the Hospital. These were prescribed to take for 28 days. Pt at this time overall feels pretty good. Is able to get around fairly well since being home. Notes with the weather being nicer, he tries to get out and walk a little bit. Right leg feels stiff and has some issues with neuropathy. Does have some aching when up and moving around a lot. Does note that he feels much better than prior to having his surgery. Denies using anything for pain at this time. Was d/c home from SNF with walker, but has not used for the past couple of days. Was d/c home with restrictions with bending past 90 degree, twisting, and crossing legs as well as modifications such as using a shower bench. Would like to continue his PT and prefers to stay locally in [place]. Reports that when he was d/c from SNF they went through a checklist and he went from Doctor to Doctor and unsure what he needed to do. Scheduled today to get PT so he could continue this. Do not see outreach to Ortho to obtain PT order? Hasf/u appt with Dr. Michele on 05/11/24. Pt notes that after surgery he had issues with balance, but this has improved. Plans on returning back to work, but will have to have restrictions due to his occupation. Plans on discussing this with Dr. Michele. Hospital visit 04/01/24-04/02/24: SUMMARY OF WHAT HAPPENED WHILE PATIENT WAS IN THE HOSPITAL: The patient was followed by Dr. Michele in clinic for right hip osteoarthritis. It was determined the patient would benefit from right total hip arthroplasty. The procedure, its risks, benefits, and potential complications were discussed in detail prior to surgery. The patient conveyed understanding of all topics and consented to surgery. The patient was admitted to the hospital. Underwent an elective right total hip arthroplasty on 04/01/[address] Michele. The patient tolerated the procedure well and was returned to the Post Anesthesia Care Unit in stable condition. Vital signs per PACU protocol. VTE risk assessment performed. O2 therapy monitored by Respiratory Therapy to include incentive spirometry, ADL, wound and support per physician order set postop protocol. PT and OT to evaluate and treat. IV antibiotics, antiemetics, DVT prophylaxis and pain medication were given. The patient progressed with physical therapy. Lab values and vital signs were monitored and remained stable. The incision remained clean, dry and intact. Thigh and calf are not swollen. No signs of DVT or infection. The patient progressed with physical therapy towards goal of safety and independence. Patient was determined safe for discharge to SNF on 04/02/2024. Past medical history, appointments, medications, allergies reviewed. Previous Medical History PAST MEDICAL HISTORY Diagnosis Date Right inguinal hernia Rotator cuff tear Right shoulder Vertigo Previous Surgical History PAST SURGICAL HISTORY Procedure Laterality Date APPENDECTOMY 02/18/1963 LAPAROSCOPY SURG RPR INITIAL INGUINAL HERNIA 12/09/2013 right PAST SURGICAL HISTORY OF 10/19/1969 wisdom teeth PAST SURGICAL HISTORY OF Bilateral 2020 B/L cataract surgery TOTAL HIP REPLACEMENT Right 04/01/2024 Robotic assisted Right total hip arthroplasty Family History FAMILY HISTORY Problem Relation Age of Onset Hypertension Mother Arthritis Mother other (tuberculosis [Other]) Mother Stroke Father Breast Cancer Maternal Grandmother Anesthesia Problems No Family History Patient Allergies ALLERGIES No Known Allergies Current Medications Current Outpatient Medications on File Prior to Visit Medication Sig ferrous sulfate (IRON) 325 mg (65 mg iron) tablet Take 325 mg by mouth once daily. aspirin, enteric coated (ASPIRIN, ENTERIC COATED) 81 mg EC tablet Take 1 tablet by mouth two times a day for 28 days. ascorbic acid, vitamin C, (VITAMIN C) 500 mg tablet Take 1 tablet by mouth two times a day with meals for 27 doses. docusate sodium (COLACE) 100 mg capsule Take 1 capsule by mouth two times a day as needed for constipation. pantoprazole DR (PROTONIX) 40 mg tablet Take 1 tablet by mouth every morning. Current Facility-Administered Medications on File Prior to Visit Medication lidocaine 10 mg/mL (1 %) injection (XYLOCAINE) triamcinolone acetonide injection (KeNALog 40) Social History Social History Tobacco Use Smoking status: Never (more content not included)... [facility] 04-20-2024 Note HNO ID: [id number] Author: RANDALL CHATMAN MA Service: ? Author Type: Javascript Developer Type: Progress Notes Filed: 04/28/2024 08:35 Note Text: [facility]) TRANSITIONAL CARE MANAGEMENT (TCM) POST-ACUTE CARE (PAC) PROGRAM Transitions Navigator Outreach Provider Action/FYI: Snf Initial discharge 04/18/24 [facility] Reason for hospitalization: neuropathy in feet, osteoarthritis, S/P right total hip arthroplasty 04/01/24 [facility] (Dr Michele) [facility] note Pt states he is doing well. Pt states he plans to go to outpatient therapy. Pt states their was no medication changes. Pt states he is using otc for most part. Pt states no refills needed. Pt states he will see PCP 05/03/24 to discuss medical decision. Pt agrees to next outreach. Program Details Post Acute Care Status: Enrolled Effective Dates: 04/20/2024 - present Responsible Staff: Randall Chatman MA Support and Services: Post-SNF Transition Support TYPE OF OUTREACH: PAC TCM Initial Outreach Transition from: [facility] Facility (SNF) Hi my name is Randall Chatman MA and I am calling from the [facility] on behalf of your PCP, Louis Scott MD, at [facility] [[id number]] We know that there can be many moving parts when transitioning home from a nursing facility. Our goal is to make sure you are doing well and that nothing slips through the cracks during this transition in regard to your care and you experience a safe recovery. Do you have a few minutes to update me on how you've been doing? Yes Contact with patient post discharge, spoke to patient. Patient identified by name and . Ask patient if there is a family member we have permission to speak with. If so, please confirm and document in the Contacts section in Demographics. Ask patient if they would like the family member to participate in this call or future calls. PATIENT HEALTH STATUS I am calling to see how you're feeling now that you're home. Do you feel BETTER, WORSE, or the SAME since leaving [facility] ([phone]) ? Better ACTION TAKEN: Patient reports Better or Same - No action required - Continue outreach. MEDICATIONS Were there any changes made to your medications during your recent hospital or nursing facility stay? No Do you have any questions about taking your medications or which medication you should be on? No Do you need any medication refills at this time, including any of the medications you might take only when needed? No ACTION TAKEN: No - No action required DISCHARGE INSTRUCTIONS Your discharge instructions talk about sullivan tasks and behaviors that can help you through the recovery process. Do you have any question of what you need to do to safely recover and manage your health at home? No ACTION TAKEN: No - No action required Do you have all the necessary equipment and supplies at home? No ACTION TAKEN: Yes - Patient has the necessary equipment and supplies - no action required Determine if the patient was ordered Home Care services upon transition. Was patient ordered Home Care services? No ACTION TAKEN: No - Home care not needed/ordered - no action required APPOINTMENTS A visit with your primary and/or specialty care doctor(s) is a great way for you to connect with a provider to ensure you have safely transitioned home. This will also give you an opportunity to ask any questions or address any concerns you may have directly with your provider. This appointment can be completed through a virtual visit or in-person appointment.? Appointments for Next 60 Days Date Time Provider Location Dept Phone 04/23/2024 10:00 AM LOUIS SCOTT [facility] [phone] 05/11/2024 1:00 PM ALFR[facility]O MICHE[facility] [phone] Does patient have an appointment scheduled? Yes - Patient has an appointment scheduled. Please remind patient of date, time, location, and provider. Inform the patient that if they have any questions or concerns prior to that appointment, to call their PCP's office right away. ACTION TAKEN: No action required - patient already has appointment SOCIAL We would like to make sure you have what you need so that your basic wishes are met - including your personal safety, food, housing, and/or desire to be connected to community resources. Would you like to speak with a social work steamship agent to help give you support for any of these needs? No ACTION TAKEN: No - Patient has no needs at this time - No action taken MYCHART Patient MyChart status: Active account ?Thank you for taking the time to talk with me today. Our team would like to stay connected with you to make sure you are feeling well. We want to work with you to ensure that you are staying healthy and out of the hospital. I?ll plan to call you in another week or so to see how you?re doing. Would you like to select a specific day next week that works well for you?? (more content not included)... [facility] 04-20-2024 History of Presen t illness Narrative [facility]) TRANSITIONAL CARE MANAGEMENT (TCM) POST-ACUTE CARE (PAC) PROGRAM Transitions Navigator Outreach Provider Action/FYI: Snf Initial discharge 04/18/24 [facility] Reason for hospitalization: neuropathy in feet, osteoarthritis, S/P right total hip arthroplasty 04/01/24 [facility] (Dr Michele) Colin note Pt states he is doing well. Pt states he plans to go to outpatient therapy. Pt states their was no medication changes. Pt states he is using otc for most part. Pt states no refills needed. Pt states he will see PCP 05/03/24 to discuss medical decision. Pt agrees to next outreach. Program Details Post Acute Care Status: Enrolled Effective Dates: 04/20/2024 - present Responsible Staff: Randall Chatman MA Support and Services: Post-SNF Transition Support TYPE OF OUTREACH: PAC TCM Initial Outreach Transition from: [facility] Facility (SNF) Hi my name is Randall Chatman MA and I am calling from the [facility] on behalf of your PCP, Louis Scott MD, at [facility] [[id number]] We know that there can be many moving parts when transitioning home from a nursing facility. Our goal is to make sure you are doing well and that nothing slips through the cracks during this transition in regard to your care and you experience a safe recovery. Do you have a few minutes to update me on how you've been doing? Yes Contact with patient post discharge, spoke to patient. Patient identified by name and . Ask patient if there is a family member we have permission to speak with. If so, please confirm and document in the Contacts section in Demographics. Ask patient if they would like the family member to participate in this call or future calls. PATIENT HEALTH STATUS I am calling to see how you're feeling now that you're home. Do you feel BETTER, WORSE, or the SAME since leaving [facility] [place] ([phone]) ? Better ACTION TAKEN: Patient reports Better or Same - No action required - Continue outreach. MEDICATIONS Were there any changes made to your medications during your recent hospital or nursing facility stay? No Do you have any questions about taking your medications or which medication you should be on? No Do you need any medication refills at this time, including any of the medications you might take only when needed? No ACTION TAKEN: No - No action required DISCHARGE INSTRUCTIONS Your discharge instructions talk about sullivan tasks and behaviors that can help you through the recovery process. Do you have any question of what you need to do to safely recover and manage your health at home? No ACTION TAKEN: No - No action required Do you have all the necessary equipment and supplies at home? No ACTION TAKEN: Yes - Patient has the necessary equipment and supplies - no action required Determine if the patient was ordered Home Care services upon transition. Was patient ordered Home Care services? No ACTION TAKEN: No - Home care not needed/ordered - no action required APPOINTMENTS A visit with your primary and/or specialty care doctor(s) is a great way for you to connect with a provider to ensure you have safely transitioned home. This will also give you an opportunity to ask any questions or address any concerns you may have directly with your provider. This appointment can be completed through a virtual visit or in-person appointment. Appointments for Next 60 Days Date Time Provider Location Dept Phone 04/23/2024 10:00 AM LOUIS SCOTT [facility] [phone] 05/11/2024 1:00 PM ALFREDITO MICHELE [facility] [phone] Does patient have an appointment scheduled? Yes - Patient has an appointment scheduled. Please remind patient of date, time, location, and provider. Inform the patient that if they have any questions or concerns prior to that appointment, to call their PCP's office right away. ACTION TAKEN: No action required - patient already has appointment SOCIAL We would like to make sure you have what you need so that your basic wishes are met - including your personal safety, food, housing, and/or desire to be connected to community resources. Would you like to speak with a social work steamship agent to help give you support for any of these needs? No ACTION TAKEN: No - Patient has no needs at this time - No action taken MYCHART Patient MyChart status: Active account Thank you for taking the time to talk with me today. Our team would like to stay connected with you to make sure you are feeling well. We want to work with you to ensure that you are staying healthy and out of the hospital. I ll plan to call you in another week or so to see how you re doing. Would you like to select a specific day next week that works well for you? Yes End outreach documented in this encounter [facility] 04-20-2024 Note HNO ID: [id number] Author: TONY KYLE LSW Service: ? Author Type: Legal Secretary Receptionist Type: Progress Notes Filed: 04/20/2024 13:07 Note Text: PAC TCM OUTREACH DOCUMENTION [facility] ([facility]) TRANSITIONAL CARE MANAGEMENT (TCM) POST-ACUTE CARE (PAC) PROGRAM LOS [employer] Outreach PAC Transition Navigator Action/FYI: - TCM scheduled with PCP for 04/23/24 - DVT prophylaxis with Aspirin 81 mg BID - Upgraded WBS to WBAT on 04/13/24, continue Posterior hip precautions - Pt plans to have outpatient PT following SNF discharge Program Details Post Acute Care Status: Enrolled Effective Dates: 04/20/2024 - present Responsible Staff: POST-ACUTE CARE ACO NAVIGATION Support and Services:Post-SNF Transition Support PAC Transition Navigator Handoff Hospitalization Reason for hospitalization: neuropathy in feet, osteoarthritis, S/P right total hip arthroplasty 04/01/24 [facility] ([facility] SNF Stay Summary: [facility] did not follow this patient during SNF rehab stay. Specialized Discharge Instructions/Needs Specialized discharge instructions/needs: N/A Prior Level of Function Prior level of function (PLOF)-Home setting: Lives alone (Apt with 1 step to enter) Prior level of function (PLOF)-Ambulation/locomotion: Ambulation with device (Intermittent use of cane) Prior level of function (PLOF)-Driving prior to admission: Yes Prior level of function (PLOF)-ADLs: Independent Prior level of function (PLOF)-iADLs: Independent Durable Medical Equipment DME owned: Walker/wheeled walker; Rollator; Cane; Shower chair; Other DME owned comments: Grab Bars- Shower DME ordered: No Home Care Services Home care ordered: No Current Resources Current/Active resources in the community: Family Patient has been recently discharged from a group home facility. Hospitalization Details Hospital discharged from: [facility] Hospital admission date: 04/01/24 Hospital discharge date: 04/02/24 [facility] Details [facility]) SNF Name: [facility] ([phone]) SNF admission date: 04/02/24 SNF discharge date: 04/18/24 SNF [facility] Sk[facility] LOS: 15.3 SNF Actual Skilled LOS: 16 Follow-up appts: Appointments for Next 60 Days Date Time Provider Location Dept Phone 04/23/2024 10:00 AM LOUIS SCOTT [facility] [phone] 05/11/2024 1:00 PM ALFREDITO MICHELE [facility] [phone] PAC Transition Navigator, please contact patient for PAC TCM Outreach and continuity of care. [facility] 04-20-2024 Note Patient Outreach (IN TMPA) PAOLO HERNANDEZ ([id number]) 1945 M Date Time Provider Department 04/20/24 RANDALL CHATMAN During your visit today, we recorded the following information about you: Randall Chatman MA 04/28/2024 8:35 AM Signed [facility]) TRANSITIONAL CARE MANAGEMENT (TCM) POST-ACUTE CARE (PAC) PROGRAM Transitions Navigator Outreach Provider Action/FYI: Snf Initial discharge 04/18/24 [facility] [place] Reason for hospitalization: neuropathy in feet, osteoarthritis, S/P right total hip arthroplasty 04/01/24 [facility] (Dr Michele) [facility] note Pt states he is doing well. Pt states he plans to go to outpatient therapy. Pt states their was no medication changes. Pt states he is using otc for most part. Pt states no refills needed. Pt states he will see PCP 05/03/24 to discuss medical decision. Pt agrees to next outreach. Program Details Post Acute Care Status: Enrolled Effective Dates: 04/20/2024 - present Responsible Staff: Randall Chatman MA Support and Services: Post-SNF Transition Support TYPE OF OUTREACH: PAC TCM Initial Outreach Transition from: [facility] Facility (SNF) Hi my name is Randall Chatman MA and I am calling from the [facility] on behalf of your PCP, Louis Scott MD, at [facility] [[id number]] We know that there can be many moving parts when transitioning home from a nursing facility. Our goal is to make sure you are doing well and that nothing slips through the cracks during this transition in regard to your care and you experience a safe recovery. Do you have a few minutes to update me on how you've been doing? Yes Contact with patient post discharge, spoke to patient. Patient identified by name and . Ask patient if there is a family member we have permission to speak with. If so, please confirm and document in the Contacts section in Demographics. Ask patient if they would like the family member to participate in this call or future calls. PATIENT HEALTH STATUS I am calling to see how you're feeling now that you're home. Do you feel BETTER, WORSE, or the SAME since leaving [facility] ([phone]) ? Better ACTION TAKEN: Patient reports Better or Same - No action required - Continue outreach. MEDICATIONS Were there any changes made to your medications during your recent hospital or nursing facility stay? No Do you have any questions about taking your medications or which medication you should be on? No Do you need any medication refills at this time, including any of the medications you might take only when needed? No ACTION TAKEN: No - No action required DISCHARGE INSTRUCTIONS Your discharge instructions talk about sullivan tasks and behaviors that can help you through the recovery process. Do you have any question of what you need to do to safely recover and manage your health at home? No ACTION TAKEN: No - No action required Do you have all the necessary equipment and supplies at home? No ACTION TAKEN: Yes - Patient has the necessary equipment and supplies - no action required Determine if the patient was ordered Home Care services upon transition. Was patient ordered Home Care services? No ACTION TAKEN: No - Home care not needed/ordered - no action required APPOINTMENTS A visit with your primary and/or specialty care doctor(s) is a great way for you to connect with a provider to ensure you have safely transitioned home. This will also give you an opportunity to ask any questions or address any concerns you may have directly with your provider. This appointment can be completed through a virtual visit or in-person appointment.? Appointments for Next 60 Days Date Time Provider Location Dept Phone 04/23/2024 10:00 AM LOUIS SCOTT [facility] [phone] 05/11/2024 1:00 PM ALFREDITO MICHELE [facility] [phone] Does patient have an appointment scheduled? Yes - Patient has an appointment scheduled. Please remind patient of date, time, location, and provider. Inform the patient that if they have any questions or concerns prior to that appointment, to call their PCP's office right away. ACTION TAKEN: No action required - patient already has appointment SOCIAL We would like to make sure you have what you need so that your basic wishes are met - including your personal safety, food, housing, and/or desire to be connected to community resources. Would you like to speak with a social work steamship agent to help give you support for any of these needs? No ACTION TAKEN: No - Patient has no needs at this time - No action taken MYCHART Patient MyChart status: Active account ?Thank you for taking the time to talk with me today. Our team would like to stay connected with you to make sure you are feeling well. We want to work with you to ensure that you are staying (more content not included)... [facility] 04-16-2024 Note HNO ID: [id number] Author: ROME FARR APRN.CRIMINOLOGY TEACHER Service: ? Author Type: Nurse Practitioner Type: Progress Notes Filed: 04/16/2024 17:03 Note Text: Connected Care Unit Discharge Summary SNF Connected Care Program [facility] [address], [address] ([address]) [place] [address] --- CONNECTED CARE DISCHARGE SUMMARY Service Date: 04/16/2024 Admission Date: 04/04/2024 Discharge Date: 04/18/2024 Facility: [facility] Level of Care: Skilled SNF Attending: Farzaneh Cabezas M.D. Connected Care Primary Care Physician: Louis Scott MD Principal Diagnosis: Right hip pain (primary encounter diagnosis) S/p total right hip arthroplasty Anemia, unspecified type Debility Subacute Course: 04/15/2024 Paolo presented to facility after having a right total hip replacement. He worked with therapy to regain his strength and endurance. He will go home and have outpatient therapy. He is safe to go home. Tests/Procedures: 04/15/2024 Show All Details Result Units Ref. Range Flag Status DIRECT BILIRUBIN 0.05 mg/dL 0.03 - 0.18 mg/dL Final TOTAL BILIRUBIN 0.31 mg/dL 0.0 - 1.2 mg/dL Final GLUCOSE Chemistry 76.28 mg/dL 74 - 99 mg/dL Final TOTAL PROTEIN 5.97 g/dL 6.4 - 8.2 g/dL L Final BICARBONATE (CO2) 23.62 mmol/L 21 - 32 mmol/L Final CREATININE Chemistry 0.81 mg/dL 0.6 - 1.3 mg/dL Final ALANINE AMINOTRANSFERASE 8.44 U/L 7-45 U/L Final ASPARTATE AMINOTRANSFERASE 13.69 U/L 9 - 39 U/L Final ALBUMIN 3.48 ppm 3.4 - 5.0 g/dL Final CALCIUM 9.09 ppm 8.6 - 10.3 mg/dL Final Blood Urea Nitrogen 13.52 mg/dL 6 - 23 mg/dL Final ALKALINE PHOSPHATASE 60.31 U/L 33 - 110 U/L Final Sodium 141.25 mmol/L 136 - 145 mmol/L Final POTASSIUM 5.0 mmol/L 3.5 - 5.3 mmol/L Final Chloride 103.76 mmol/L 98 - 107 mmol/L Final VALERIANO 97.43 ug/dL 25 - 130 ug/dL Final GGT 10.44 U/L 9-64 U/L Final (GFR) Glomerular filtration rate 91.00 ppm 90 - 120 mL/min/1.73 m2 Final Prealbumin 24.40 ppm 17 - 34 mg/dL Final Basophil 0.53 % 0.11 - 0.53 H Final Basophil # 0.03 103/uL 0 - 0.07 10 3/uL Final Eosinophil 3.99 % 0.84 - 70.67 Final Eosinophil # 0.20 103/uL 0.05 - 0.50 Final HCT 35.30 % 38.30 - 49.30 L Final HGB 11.00 g/dL 12.55 - 16.99 L Final Lymphocytes 28.51 % 20.23 - 43.53 Final Lymphocytes # 1.46 103/uL 1.15 - 3.13 Final MCH 26.60 pg 25.90 - 33.20 Final MCHC 31.20 g/dL 33.00 - 35.30 L Final MCV 85.40 fL 78.30 - 95.50 Final Monocyte 6.81 % 5.23 - 13.22 Final Monocyte # 0.35 x103/?L 0.25 - 1.06 Final MPV 7.76 fL 7.42 - 10.65 Final Neutrophils 60.17 % 40.62 - 70.51 Final Neutrophils # (ANC) 3.08 103/uL 1.85 - 5.94 Final PLT 299.40 x103/?L 146.50 - 351.50 Final RBC 4.13 103/uL 4.33 - 5.72 L Final RDW 17.60 % 12.90 - 15.50 H Final RDW-SD 51.90 fL 39.00 - 48.30 H Final WBC 5.12 103/uL 3.53 - 9.52 Final Transitions of Care Critical Issues: Imaging follow-up: None Lab Monitoring Needed: None Specialists Follow-Up: Yes, as listed below Discharge Physical Exam: Physical Exam Vitals and nursing note reviewed. Constitutional: Appearance: Normal appearance. HENT: Head: Normocephalic. Right Ear: External ear normal. Left Ear: External ear normal. Mouth/Throat: Mouth: Mucous membranes are moist. Pharynx: Oropharynx is clear. Eyes: Pupils: Pupils are equal, round, and reactive to light. Cardiovascular: Rate and Rhythm: Normal rate. Pulses: Normal pulses. Heart sounds: Normal heart sounds. Pulmonary: Effort: No respiratory distress. Breath sounds: No wheezing, rhonchi or rales. Chest: Chest wall: No tenderness. Abdominal: General: Bowel sounds are normal. There is no distension. Palpations: Abdomen is soft. Tenderness: There is no abdominal tenderness. Musculoskeletal: Cervical back: Normal range of motion. Right lower leg: No edema. Left lower leg: No edema. Skin: General: Skin is warm and dry. Neurological: Mental Status: He is alert and oriented to person, place, and time. Motor: Weakness present. Gait: Gait abnormal. Psychiatric: Mood and Affect: Mood normal. Behavior: Behavior normal. Discharge Condition: Improved Discharge Disposition: Home/Community Discharge Medications: ferrous sulfate (IRON) 325 mg (65 mg iron) tabletTake 325 mg by mouth once daily.Disp: Rfl: aspirin, enteric coated (ASPIRIN, ENTERIC COATED) 81 mg EC tabletTake 1 tablet by mouth two times a day for 28 days.Disp: 56 tabletRfl: 0 ascorbic acid, vitamin C, (VITAMIN C) 500 mg tabletTake 1 tablet by mouth two times a day with meals for 27 doses.Disp: 27 tabletRfl: 0 docusate sodium (COLACE) 100 mg capsuleTake 1 capsule by mouth two times a day as needed for constipation.Disp: 60 capsuleRfl: [address] (PROTONIX (more content not included)... [facility] 04-16-2024 History of Presen t illness Narrative Images from the original note were not included. Connected Care Unit Discharge Summary [facility] Connected Care Program [facility] [address], [address] ([address]) [place] [address] CONNECTED CARE DISCHARGE SUMMARY Service Date: 04/16/2024 Admission Date: 04/04/2024 Discharge Date: 04/18/2024 Facility: [facility] Level of Care: Skilled SNF Attending: Farzaneh Cabezas M.D. Connected Care Primary Care Physician: Louis Scott MD Principal Diagnosis: Right hip pain (primary encounter diagnosis) S/p total right hip arthroplasty Anemia, unspecified type Debility Subacute Course: 04/15/2024 Paolo presented to facility after having a right total hip replacement. He worked with therapy to regain his strength and endurance. He will go home and have outpatient therapy. He is safe to go home. Tests/Procedures: 04/15/2024 Show All Details Result Units Ref. Range Flag Status DIRECT BILIRUBIN 0.05 mg/dL 0.03 - 0.18 mg/dL Final TOTAL BILIRUBIN 0.31 mg/dL 0.0 - 1.2 mg/dL Final GLUCOSE Chemistry 76.28 mg/dL 74 - 99 mg/dL Final TOTAL PROTEIN 5.97 g/dL 6.4 - 8.2 g/dL L Final BICARBONATE (CO2) 23.62 mmol/L 21 - 32 mmol/L Final CREATININE Chemistry 0.81 mg/dL 0.6 - 1.3 mg/dL Final ALANINE AMINOTRANSFERASE 8.44 U/L 7-45 U/L Final ASPARTATE AMINOTRANSFERASE 13.69 U/L 9 - 39 U/L Final ALBUMIN 3.48 ppm 3.4 - 5.0 g/dL Final CALCIUM 9.09 ppm 8.6 - 10.3 mg/dL Final Blood Urea Nitrogen 13.52 mg/dL 6 - 23 mg/dL Final ALKALINE PHOSPHATASE 60.31 U/L 33 - 110 U/L Final Sodium 141.25 mmol/L 136 - 145 mmol/L Final POTASSIUM 5.0 mmol/L 3.5 - 5.3 mmol/L Final Chloride 103.76 mmol/L 98 - 107 mmol/L Final VALERIANO 97.43 ug/dL 25 - 130 ug/dL Final GGT 10.44 U/L 9-64 U/L Final (GFR) Glomerular filtration rate 91.00 ppm 90 - 120 mL/min/1.73 m2 Final Prealbumin 24.40 ppm 17 - 34 mg/dL Final Basophil 0.53 % 0.11 - 0.53 H Final Basophil # 0.03 10^3/uL 0 - 0.07 10 3/uL Final Eosinophil 3.99 % 0.84 - 70.67 Final Eosinophil # 0.20 10^3/uL 0.05 - 0.50 Final HCT 35.30 % 38.30 - 49.30 L Final HGB 11.00 g/dL 12.55 - 16.99 L Final Lymphocytes 28.51 % 20.23 - 43.53 Final Lymphocytes # 1.46 10^3/uL 1.15 - 3.13 Final MCH 26.60 pg 25.90 - 33.20 Final MCHC 31.20 g/dL 33.00 - 35.30 L Final MCV 85.40 fL 78.30 - 95.50 Final Monocyte 6.81 % 5.23 - 13.22 Final Monocyte # 0.35 x10^3/ L 0.25 - 1.06 Final MPV 7.76 fL 7.42 - 10.65 Final Neutrophils 60.17 % 40.62 - 70.51 Final Neutrophils # (ANC) 3.08 10^3/uL 1.85 - 5.94 Final PLT 299.40 x10^3/ L 146.50 - 351.50 Final RBC 4.13 10^3/uL 4.33 - 5.72 L Final RDW 17.60 % 12.90 - 15.50 H Final RDW-SD 51.90 fL 39.00 - 48.30 H Final WBC 5.12 10^3/uL 3.53 - 9.52 Final Transitions of Care Critical Issues: Imaging follow-up: None Lab Monitoring Needed: None Specialists Follow-Up: Yes, as listed below Discharge Physical Exam: Physical Exam Vitals and nursing note reviewed. Constitutional: Appearance: Normal appearance. HENT: Head: Normocephalic. Right Ear: External ear normal. Left Ear: External ear normal. Mouth/Throat: Mouth: Mucous membranes are moist. Pharynx: Oropharynx is clear. Eyes: Pupils: Pupils are equal, round, and reactive to light. Cardiovascular: Rate and Rhythm: Normal rate. Pulses: Normal pulses. Heart sounds: Normal heart sounds. Pulmonary: Effort: No respiratory distress. Breath sounds: No wheezing, rhonchi or rales. Chest: Chest wall: No tenderness. Abdominal: General: Bowel sounds are normal. There is no distension. Palpations: Abdomen is soft. Tenderness: There is no abdominal tenderness. Musculoskeletal: Cervical back: Normal range of motion. Right lower leg: No edema. Left lower leg: No edema. Skin: General: Skin is warm and dry. Neurological: Mental Status: He is alert and oriented to person, place, and time. Motor: Weakness present. Gait: Gait abnormal. Psychiatric: Mood and Affect: Mood normal. Behavior: Behavior normal. Discharge Condition: Improved Discharge Disposition: Home/Community Discharge Medications: ferrous sulfate (IRON) 325 mg (65 mg iron) tablet^Take 325 mg by mouth once daily.^Disp: ^Rfl: aspirin, enteric coated (ASPIRIN, ENTERIC COATED) 81 mg EC tablet^Take 1 tablet by mouth two times a day for 28 days.^Disp: 56 tablet^Rfl: 0 ascorbic acid, vitamin C, (VITAMIN C) 500 mg tablet^Take 1 tablet by mouth two times a day with meals for 27 doses.^Disp: 27 tablet^Rfl: 0 docusate sodium (COLACE) 100 mg capsule^Take 1 capsule by mouth two times a day as needed for constipation.^Disp: 60 capsule^Rfl: [address] (PROTONIX) 40 mg tablet^Take 1 tablet by mouth every morning.^Disp: 30 tablet^Rfl: 0 Functional Status: Independent + [facility] Scheduled Future Appointments: Future Appointments Date Time Provider Department Center 04/23/2024 10:00 AM Louis Scott MD [facility] 05/11/2024 1:00 PM Alfredito Michele MD [facility] [facility] 06/22/2024 8:30 AM Alfredito Michele MD [facility] [place] Prior to discharge, staff to schedule follow up appointment for patient to see PCP within 7-10 days of discharge. I spent 37 minutes in the visit, with more than 50% of the total [id number] time of the visit in counseling / coordination of care. Rome Farr APRN.CNP documented in this encounter [facility] 04-14-2024 Note HNO ID: [id number] Author: ROME FARR APRN.CNP Service: ? Author Type: Nurse Practitioner Type: Progress Notes Filed: 04/14/2024 13:18 Note Text: Connected Care Unit Progress Note Patient Name: Paolo Hernandez Patient Facility: [facility] Admit Date 04/04/2024 Level of Care: Skilled SNF Attending: Farzaneh Cabezas M.D. Service Date: 04/14/2024 Code Status: Full code Chief Complaint: Evaluation regarding debility and rehabilitation ASSESSMENT AND PLAN (M25.551) Right hip pain (primary encounter diagnosis) (Z96.641) S/P total right hip arthroplasty Remains in place Continue [place] for pain, continue aspirin follow-up with orthopedics as scheduled Monitor labs Monitor vital signs Continue to work with therapy (D64.9) Anemia, unspecified type Continue ferrous sulfate Monitor labs Monitor vital signs (R53.81) Debility Certify therapies Maintain high falls risk precautions - pt/staff verbalize understanding validated via teach back Monitor safety awareness Appointments for Next 60 Days Date Time Provider Location Dept Phone 05/11/2024 1:00 PM ALFREDITO MICHELE [phone] HPI: (Per hospital discharge) SUMMARY OF WHAT HAPPENED WHILE PATIENT WAS IN THE HOSPITAL: The patient was followed by Dr. Michele in clinic for right hip osteoarthritis. It was determined the patient would benefit from right total hip arthroplasty. The procedure, its risks, benefits, and potential complications were discussed in detail prior to surgery. The patient conveyed understanding of all topics and consented to surgery. The patient was admitted to the hospital. Underwent an elective right total hip arthroplasty on 04/01/[address] Michele. The patient tolerated the procedure well and was returned to the Post Anesthesia Care Unit in stable condition. Vital signs per PACU protocol. VTE risk assessment performed. O2 therapy monitored by Respiratory Therapy to include incentive spirometry, ADL, wound and support per physician order set postop protocol. PT and OT to evaluate and treat. IV antibiotics, antiemetics, DVT prophylaxis and pain medication were given. The patient progressed with physical therapy. Lab values and vital signs were monitored and remained stable. The incision remained clean, dry and intact. Thigh and calf are not swollen. No signs of DVT or infection. The patient progressed with physical therapy towards goal of safety and independence. Patient was determined safe for discharge to SNF on 04/02/2024. TREATMENT / WOUND CARE: If you have any concerns about your wound, please contact the office. Keep wound and incision area clean and dry. You may remove your dressing on POD #7-10 (7 to 10 days after surgery). If it remains drainage-free, you may leave the dressing off, keeping the wound open to air. If there is any drainage please contact the office You may not submerge the wound under standing water for 6 weeks time after surgery (i.e. no baths, no hot tubs, no swimming pools). Do not rub the wound, but rather pat dry. If you have non-absorbable sutures in place, these will be taken out on your 1st follow-up appointment. Observe the wound for signs of infection, including increased redness, swelling, or persistent drainage around the incision site. It is normal for your wound to be warmer immediately after surgery (even up to 4-6 weeks after surgery). If you begin to experience fevers, chills, night sweats, or flu-like symptoms and your wound shows signs concerning for wound infection, please call the orthopaedic office immediately 04/14/2024 update Paolo is resting in bed, he is alert and orient x 3. Denies any shortness of breath, chest comfort or pain. He continues to use a walker for mobility. Training to see if he can get in the car today with therapy. His daughter will be present. He is hoping to go home. He has been concerns. Staff has no concerns PAST MEDICAL HISTORY Diagnosis Date Right inguinal hernia Rotator cuff tear Right shoulder Vertigo SUBJECTIVE: Review of Systems Constitutional: Positive for activity change. Negative for unexpected weight change. HENT: Negative for congestion, drooling, ear pain and mouth sores. Eyes: Negative for pain, discharge, redness and itching. Respiratory: Negative for choking, shortness of breath and stridor. Cardiovascular: Negative for chest pain. Gastrointestinal: Negative for abdominal pain, constipation, nausea and rectal pain. Endocrine: Negative for cold intolerance, heat intolerance, polydipsia and polyuria. Genitourinary: Negative for difficulty urinating, dysuria, frequency, genital sores, penile swelling and scrotal swelling. Musculoskeletal: Positive for gait problem. Skin: Positive for wound (surgial incsion). Neurological: Positive for weakness. Hematological: Negative. Psychiatric/Behavioral: Negative. Medications: Medic (more content not included)... [facility] 04-14-2024 History of Presen t illness Narrative Images from the original note were not included. Connected Care Unit Progress Note Patient Name: Paolo Hernandez Patient Facility: [facility] Admit Date 04/04/2024 Level of Care: Skilled SNF Attending: Farzaneh Cabezas M.D. Service Date: 04/14/2024 Code Status: Full code Chief Complaint: Evaluation regarding debility and rehabilitation ASSESSMENT AND PLAN (M25.551) Right hip pain (primary encounter diagnosis) (Z96.641) S/P total right hip arthroplasty Remains in place Continue [place] for pain, continue aspirin follow-up with orthopedics as scheduled Monitor labs Monitor vital signs Continue to work with therapy (D64.9) Anemia, unspecified type Continue ferrous sulfate Monitor labs Monitor vital signs (R53.81) Debility Certify therapies Maintain high falls risk precautions - pt/staff verbalize understanding validated via teach back Monitor safety awareness Appointments for Next 60 Days Date Time Provider Location Dept Phone 05/11/2024 1:00 PM ALFREDITO MICHELE [phone] HPI: (Per hospital discharge) SUMMARY OF WHAT HAPPENED WHILE PATIENT WAS IN THE HOSPITAL: The patient was followed by Dr. Michele in clinic for right hip osteoarthritis. It was determined the patient would benefit from right total hip arthroplasty. The procedure, its risks, benefits, and potential complications were discussed in detail prior to surgery. The patient conveyed understanding of all topics and consented to surgery. The patient was admitted to the hospital. Underwent an elective right total hip arthroplasty on 04/01/[address] Michele. The patient tolerated the procedure well and was returned to the Post Anesthesia Care Unit in stable condition. Vital signs per PACU protocol. VTE risk assessment performed. O2 therapy monitored by Respiratory Therapy to include incentive spirometry, ADL, wound and support per physician order set postop protocol. PT and OT to evaluate and treat. IV antibiotics, antiemetics, DVT prophylaxis and pain medication were given. The patient progressed with physical therapy. Lab values and vital signs were monitored and remained stable. The incision remained clean, dry and intact. Thigh and calf are not swollen. No signs of DVT or infection. The patient progressed with physical therapy towards goal of safety and independence. Patient was determined safe for discharge to SNF on 04/02/2024. TREATMENT / WOUND CARE: If you have any concerns about your wound, please contact the office. Keep wound and incision area clean and dry. You may remove your dressing on POD #7-10 (7 to 10 days after surgery). If it remains drainage-free, you may leave the dressing off, keeping the wound open to air. If there is any drainage please contact the office You may not submerge the wound under standing water for 6 weeks time after surgery (i.e. no baths, no hot tubs, no swimming pools). Do not rub the wound, but rather pat dry. If you have non-absorbable sutures in place, these will be taken out on your 1st follow-up appointment. Observe the wound for signs of infection, including increased redness, swelling, or persistent drainage around the incision site. It is normal for your wound to be warmer immediately after surgery (even up to 4-6 weeks after surgery). If you begin to experience fevers, chills, night sweats, or flu-like symptoms and your wound shows signs concerning for wound infection, please call the orthopaedic office immediately 04/14/2024 update Paolo is resting in bed, he is alert and orient x 3. Denies any shortness of breath, chest comfort or pain. He continues to use a walker for mobility. Training to see if he can get in the car today with therapy. His daughter will be present. He is hoping to go home. He has been concerns. Staff has no concerns PAST MEDICAL HISTORY Diagnosis Date Right inguinal hernia Rotator cuff tear Right shoulder Vertigo SUBJECTIVE: Review of Systems Constitutional: Positive for activity change. Negative for unexpected weight change. HENT: Negative for congestion, drooling, ear pain and mouth sores. Eyes: Negative for pain, discharge, redness and itching. Respiratory: Negative for choking, shortness of breath and stridor. Cardiovascular: Negative for chest pain. Gastrointestinal: Negative for abdominal pain, constipation, nausea and rectal pain. Endocrine: Negative for cold intolerance, heat intolerance, polydipsia and polyuria. Genitourinary: Negative for difficulty urinating, dysuria, frequency, genital sores, penile swelling and scrotal swelling. Musculoskeletal: Positive for gait problem. Skin: Positive for wound (surgial incsion). Neurological: Positive for weakness. Hematological: Negative. Psychiatric/Behavioral: Negative. Medications: Medications listed in Epic during SNF admission may not be current. Refer to facility record. Patient records, current medications, most recent labs, family/social history (unchanged) Reviewed. Refer to facility records. OBJECTIVE: Labs/diagnostics: DIRECT BILIRUBIN 0.17 mg/dL 0.03 - 0.18 mg/dL Final TOTAL BILIRUBIN 0.79 mg/dL 0.0 - 1.2 mg/dL Final GLUCOSE Chemistry 95.49 mg/dL 74 - 99 mg/dL Final TOTAL PROTEIN 5.95 g/dL 6.4 - 8.2 g/dL L Final BICARBONATE (CO2) 27.84 mmol/L 21 - 32 mmol/L Final CREATININE Chemistry 0.86 mg/dL 0.6 - 1.3 mg/dL Final ALANINE AMINOTRANSFERASE 8.71 U/L 7-45 U/L Final ASPARTATE AMINOTRANSFERASE 20.27 U/L 9 - 39 U/L Final ALBUMIN 3.53 ppm 3.4 - 5.0 g/dL Final CALCIUM 9.45 ppm 8.6 - 10.3 mg/dL Final Blood Urea Nitrogen 13.72 mg/dL 6 - 23 mg/dL Final ALKALINE PHOSPHATASE 54.49 U/L 33 - 110 U/L Final Sodium 137.48 mmol/L 136 - 145 mmol/L Final POTASSIUM 4.5 mmol/L 3.5 - 5.3 mmol/L Final Chloride 101.38 mmol/L 98 - 107 mmol/L Final VALERIANO 101.33 ug/dL 25 - 130 ug/dL Final GGT 8.12 U/L 9-64 U/L L Final (GFR) Glomerular filtration rate 89.00 ppm 90 - 120 mL/min/1.73 m2 L Final Prealbumin 14.20 ppm 17 - 34 mg/dL L Final plete Blood Count with Differential Basophil 0.41 % 0.11 - 0.53 Final Basophil # 0.04 10^3/uL 0 - 0.07 10 3/uL H Final Eosinophil 0.65 % 0.84 - 70.67 L Final Eosinophil # 0.07 10^3/uL 0.05 - 0.50 Final HCT 36.00 % 38.30 - 49.30 L Final HGB 11.33 g/dL 12.55 - 16.99 L Final Lymphocytes 12.88 % 20.23 - 43.53 L Final Lymphocytes # 1.30 10^3/uL 1.15 - 3.13 Final MCH 26.30 pg 25.90 - 33.20 Final MCHC 31.50 g/dL 33.00 - 35.30 L Final MCV 83.80 fL 78.30 - 95.50 Final Monocyte 7.71 % 5.23 - 13.22 Final Monocyte # 0.78 x10^3/ L 0.25 - 1.06 Final MPV 9.24 fL 7.42 - 10.65 Final Neutrophils 78.35 % 40.62 - 70.51 H Final Neutrophils # (ANC) 7.88 10^3/uL 1.85 - 5.94 H Final PLT 264.90 x10^3/ L 146.50 - 351.50 Final RBC 4.30 10^3/uL 4.33 - 5.72 L Final RDW 18.80 % 12.90 - 15.50 H Final RDW-SD 50.40 fL 39.00 - 48.30 H Final WBC 10.06 10^3/uL 3.53 - 9.52 H Final Vital Signs: BP 118/54 Pulse 62 Temp 36.8 C (98.2 F) Resp 17 Wt 70.9 kg (156 lb 6.4 oz) SpO2 98% BMI 22.44 kg/m Physical Exam: Physical Exam Vitals and nursing note reviewed. Constitutional: Appearance: Normal appearance. HENT: Head: Normocephalic. Right Ear: External ear normal. Left Ear: External ear normal. Mouth/Throat: Mouth: Mucous membranes are moist. Pharynx: Oropharynx is clear. Eyes: Pupils: Pupils are equal, round, and reactive to light. Cardiovascular: Rate and Rhythm: Normal rate. Pulses: Normal pulses. Heart sounds: Normal heart sounds. Pulmonary: Effort: No respiratory distress. Breath sounds: No wheezing, rhonchi or rales. Chest: Chest wall: No tenderness. Abdominal: General: Bowel sounds are normal. There is no distension. Palpations: Abdomen is soft. Tenderness: There is no abdominal tenderness. Musculoskeletal: Cervical back: Normal range of motion. Right lower leg: No edema. Left lower leg: No edema. Skin: General: Skin is warm and dry. Neurological: Mental Status: He is alert and oriented to person, place, and time. Motor: Weakness present. Gait: Gait abnormal. Psychiatric: Mood and Affect: Mood normal. Behavior: Behavior normal. POC discussed with appropriate parties and nursing staff. Previous progress note was copied forward, updated where appropriate, and reflective of current medical decision making today, 04/14/2024 Electronically signed by Rome Farr APRN.CRIMINOLOGY TEACHER documented in this encounter [facility] 04-13-2024 Note HNO ID: [id number] Author: SHELBY COY PA-C Service: ? Author Type: Physician Airplane Pilot Helper Type: Progress Notes Filed: 04/13/2024 12:19 Note Text: Ortho Hip Follow Up Note Narrative Referring Provider: Alfreidto Michele [address] [facility] [id number] PCP: Louis Scott MD IMPRESSION/PLAN: Impressions indicate: 78 year old s/p Right Total Hip Replacement completed on 04/01/24. Patient here for post op visit Right LOGAN. Patient taking no med's for the pain. Continuing to use walker to ambulate. Has been getting therapy at nursing facility. Daughter with patient today. X-rays done today. Recent Surgeries this specialty 04/01/2024 (1w, 5d) ROBOTIC ASSISTED TOTAL HIP ARTHROPLASTY (Right), COMPUTER ASSIST MUSCULOSKETAL SURG NAVIGATION ORTHO PROCED W/IMAGE GUIDANCE BASED ON CT/MRI IMAGES (Right) Alfredito Michele MD - Posted PAIN EVALUATION 04/08/2024 5054 Pain Level: 2 Pain Location: Hip-Right Description: Aching Duration Amount of Time: 11 Duration Units: Months Frequency: Intermittent Intervention/Comfort measure: Reposition IMPRESSION: No complaints or limitations. PLAN: Continue current conservative treatment. Rest, Ice, Compression, Elevation PRN. Patient Reassurance: Progress appears to be with the normal speed of recovery. Patient reassured and supported. All questions answered. Follow up 1 month X-Rays Needed ACTIVE PROBLEM LIST Adhesive Capsulitis of Shoulder Vertigo Right Inguinal Hernia Right Hip Pain Neuropathy S/P Total Right Hip Arthroplasty HPI: Paolo Hernandez presents today for a routine 1st post-op visit. STATUS POST: BMI: There is no height or weight on file to calculate BMI. Post operative recovery was complicated by uneventful/none. Readmission(s) since surgery (90 days post)? No ED Visits AND Hospitalizations - Last 180 days 04/01/24 Alfredito Michele MD, ME2E Primary osteoarthritis of right hip, Admission (Discharged) Patient rates their condition as improving. Does the patient still experience pain? No. Post Op discharge patient location: at a rehab facility. Functional Assessment is as follows: remains in rehabilitation facility. Functional difficulties: None. Pain Medication: None 06/17/2023 Physical Therapy Data AROM R hip internal rotation 50 Degrees AROM R hip external rotation 50 Degrees AROM L hip internal rotation 60 Degrees AROM L hip external rotation 50 Degrees PROM R hip flexion 90 Degrees PROM L hip flexion 125 Degrees Therapist that will oversee plan of care Melinda Abernatyh Prognosis Good Prognosis limited by chronic nature of impairments;occupational demands Frequency 1 visit Duration 8 weeks Total number of visits 1 Planned treatment interventions Therapeutic exercise (99153);Manual therapy (74759);Self-senior care management (58064);Patient/Family/Caregiver Education;Gait Training (87467) Plan for next visit Assess response to HEP and modifications to work/daily activities. May progress exercises/HEP. May add manual soft tissue techniques as appropriate. May add gait training as needed. == EXAM: POST OP HIP == LEFT POST-OPERATIVE HIP SKIN: Appropriate postop appearance. Range of Motion: Pain Free Neurovascular Status: Sensation Intact, Moves foot and ankle up AND down, and 2+ dorsalis pedis Gait: Normal, the patient did not have trouble getting onto the exam table. HIP EXAM: Left: ROM: Extension: Normal Painless passive ROM Neurovascular Status: Sensation Intact and Moves foot and ankle up AND down IMAGING: X-ray Hips: Post op Implants are well fixed. Provider: Shelby Coy PA-C Completed by: Shelby Coy PA-C [facility] 04-13-2024 History of Presen t illness Narrative Images from the original note were not included. Ortho Hip Follow Up Note Narrative Referring Provider: Alfredito Michele [address] [facility] [id number] PCP: Louis Scott MD IMPRESSION/PLAN: Impressions indicate: 78 year old s/p Right Total Hip Replacement completed on 04/01/24. Patient here for post op visit Right LOGAN. Patient taking no med's for the pain. Continuing to use walker to ambulate. Has been getting therapy at nursing facility. Daughter with patient today. X-rays done today. Recent Surgeries this specialty 04/01/2024 (1w, 5d) ROBOTIC ASSISTED TOTAL HIP ARTHROPLASTY (Right), COMPUTER ASSIST MUSCULOSKETAL SURG NAVIGATION ORTHO PROCED W/IMAGE GUIDANCE BASED ON CT/MRI IMAGES (Right) Alfredito Michele MD - Posted PAIN EVALUATION 04/08/2024 9937 Pain Level: 2 Pain Location: Hip-Right Description: Aching Duration Amount of Time: 11 Duration Units: Months Frequency: Intermittent Intervention/Comfort measure: Reposition IMPRESSION: No complaints or limitations. PLAN: Continue current conservative treatment. Rest, Ice, Compression, Elevation PRN. Patient Reassurance: Progress appears to be with the normal speed of recovery. Patient reassured and supported. All questions answered. Follow up 1 month X-Rays Needed ACTIVE PROBLEM LIST Adhesive Capsulitis of Shoulder Vertigo Right Inguinal Hernia Right Hip Pain Neuropathy S/P Total Right Hip Arthroplasty HPI: Paolo Hernandez presents today for a routine 1st post-op visit. STATUS POST: BMI: There is no height or weight on file to calculate BMI. Post operative recovery was complicated by uneventful/none. Readmission(s) since surgery (90 days post)? No ED Visits & Hospitalizations - Last 180 days 04/01/24 Alfredito Michele MD, ME2E Primary osteoarthritis of right hip, Admission (Discharged) Patient rates their condition as improving. Does the patient still experience pain? No. Post Op discharge patient location: at a rehab facility. Functional Assessment is as follows: remains in rehabilitation facility. Functional difficulties: None. Pain Medication: None 06/17/2023 Physical Therapy Data AROM R hip internal rotation 50 Degrees AROM R hip external rotation 50 Degrees AROM L hip internal rotation 60 Degrees AROM L hip external rotation 50 Degrees PROM R hip flexion 90 Degrees PROM L hip flexion 125 Degrees Therapist that will oversee plan of care Melinda Abernathy Prognosis Good Prognosis limited by chronic nature of impairments;occupational demands Frequency 1 visit Duration 8 weeks Total number of visits 1 Planned treatment interventions Therapeutic exercise (20163);Manual therapy (75504);Self-senior care management (99810);Patient/Family/Caregiver Education;Gait Training (67781) Plan for next visit Assess response to HEP and modifications to work/daily activities. May progress exercises/HEP. May add manual soft tissue techniques as appropriate. May add gait training as needed. == EXAM: POST OP HIP == LEFT POST-OPERATIVE HIP SKIN: Appropriate postop appearance. Range of Motion: Pain Free Neurovascular Status: Sensation Intact, Moves foot and ankle up & down, and 2+ dorsalis pedis Gait: Normal, the patient did not have trouble getting onto the exam table. HIP EXAM: Left: ROM: Extension: Normal Painless passive ROM Neurovascular Status: Sensation Intact and Moves foot and ankle up & down IMAGING: X-ray Hips: Post op Implants are well fixed. Provider: Shelby Coy PA-C Completed by: Shelby Coy PA-C documented in this encounter [facility] 04-13-2024 Instructions Shelby Coy PA-C - 04/13/2024 10:05 AM EST Full weight bear as tolerated. Continue with hip protocol, follow up in 1 month as planned. documented in this encounter [facility] 04-13-2024 History of Presen t illness Narrative Radiology Service Progress Note PATIENT NAME: Paolo Hernandez DATE OF SERVICE: April 13, 2024 TIME: 9:12 AM PATIENT IDENTITY VERIFICATION COMPLETED USING TWO (2) IDENTIFIERS: Name and Date of confirmed by patient verbally. FALL SCREENING: Has the patient had 2 falls in the last year or 1 fall with injury or currently using an Ambulatory Assistive Device (Walker, Cane, Wheelchair, Crutches, etc.)? No PATIENT GENDER DATA: Assigned male at PATIENT RELEVANT IMPLANT DATA REVIEWED: Not Applicable PATIENT PRESENTS WITH AN IMPLANTABLE OR ATTACHED QUARRY MANAGER: No RADIOLOGY DEPARTMENT: General X-ray: Exam(s) Completed: Pelvis X-Ray: Pelvis with Hip Right PERIPHERAL IV DATA: Not applicable SIGNED BY: Eloy Espinal April 13, 2024 9:12 AM documented in this encounter [facility] 04-13-2024 Note HNO ID: [id number] Author: NETTA SELLERS Tech Service: ? Author Type: Technologist Type: Progress Notes Filed: 04/13/2024 09:27 Note Text: Radiology Service Progress Note PATIENT NAME: Paolo Hernandez DATE OF SERVICE: April 13, 2024 TIME: 9:12 AM PATIENT IDENTITY VERIFICATION COMPLETED USING TWO (2) IDENTIFIERS: Name and Date of confirmed by patient verbally. FALL SCREENING: Has the patient had 2 falls in the last year or 1 fall with injury or currently using an Ambulatory Assistive Device (Walker, Cane, Wheelchair, Crutches, etc.)? No PATIENT GENDER DATA: Assigned male at PATIENT RELEVANT IMPLANT DATA REVIEWED: Not Applicable PATIENT PRESENTS WITH AN IMPLANTABLE OR ATTACHED QUARRY MANAGER: No RADIOLOGY DEPARTMENT: General X-ray: Exam(s) Completed: Pelvis X-Ray: Pelvis with Hip Right PERIPHERAL IV DATA: Not applicable SIGNED BY: Eloy Espinal April 13, 2024 9:12 AM [facility] 04-09-2024 Note HNO ID: [id number] Author: ROME FARR APRN.CRIMINOLOGY TEACHER Service: ? Author Type: Nurse Practitioner Type: Progress Notes Filed: 04/09/2024 17:41 Note Text: Connected Care Unit Progress Note Patient Name: Paolo Hernandez Patient Facility: [facility] Admit Date 04/04/2024 Level of Care: Skilled SNF Attending: Farzaneh Cabezas M.D. Service Date: 04/09/2024 Code Status: Full code Chief Complaint: Evaluation regarding debility and rehabilitation ASSESSMENT AND PLAN (M25.551) Right hip pain (primary encounter diagnosis) (Z96.641) S/P total right hip arthroplasty Remains in place Continue [place] for pain, continue aspirin follow-up with orthopedics as scheduled Monitor labs Monitor vital signs Continue to work with therapy (D64.9) Anemia, unspecified type Continue ferrous sulfate Monitor labs Monitor vital signs (R53.81) Debility Certify therapies Maintain high falls risk precautions - pt/staff verbalize understanding validated via teach back Monitor safety awareness Appointments for Next 60 Days Date Time Provider Location Dept Phone 04/13/2024 9:00 AM SHELBY COY [phone] 05/11/2024 1:00 PM ALFREDITO MICHELE [phone] HPI: (Per hospital discharge) SUMMARY OF WHAT HAPPENED WHILE PATIENT WAS IN THE HOSPITAL: The patient was followed by Dr. Michele in clinic for right hip osteoarthritis. It was determined the patient would benefit from right total hip arthroplasty. The procedure, its risks, benefits, and potential complications were discussed in detail prior to surgery. The patient conveyed understanding of all topics and consented to surgery. The patient was admitted to the hospital. Underwent an elective right total hip arthroplasty on 04/01/[address] Michele. The patient tolerated the procedure well and was returned to the Post Anesthesia Care Unit in stable condition. Vital signs per PACU protocol. VTE risk assessment performed. O2 therapy monitored by Respiratory Therapy to include incentive spirometry, ADL, wound and support per physician order set postop protocol. PT and OT to evaluate and treat. IV antibiotics, antiemetics, DVT prophylaxis and pain medication were given. The patient progressed with physical therapy. Lab values and vital signs were monitored and remained stable. The incision remained clean, dry and intact. Thigh and calf are not swollen. No signs of DVT or infection. The patient progressed with physical therapy towards goal of safety and independence. Patient was determined safe for discharge to SNF on 04/02/2024. TREATMENT / WOUND CARE: If you have any concerns about your wound, please contact the office. Keep wound and incision area clean and dry. You may remove your dressing on POD #7-10 (7 to 10 days after surgery). If it remains drainage-free, you may leave the dressing off, keeping the wound open to air. If there is any drainage please contact the office You may not submerge the wound under standing water for 6 weeks time after surgery (i.e. no baths, no hot tubs, no swimming pools). Do not rub the wound, but rather pat dry. If you have non-absorbable sutures in place, these will be taken out on your 1st follow-up appointment. Observe the wound for signs of infection, including increased redness, swelling, or persistent drainage around the incision site. It is normal for your wound to be warmer immediately after surgery (even up to 4-6 weeks after surgery). If you begin to experience fevers, chills, night sweats, or flu-like symptoms and your wound shows signs concerning for wound infection, please call the orthopaedic office immediately 04/09/2024 update Paolo is sitting up in bed, he is alert and orient x 3. Denies any shortness of breath, chest comfort or pain. Surgical incision remains well-approximated. Continue to work with therapy to regain his strength and endurance. Parents. Staff has no concerns. PAST MEDICAL HISTORY Diagnosis Date Right inguinal hernia Rotator cuff tear Right shoulder Vertigo SUBJECTIVE: Review of Systems Constitutional: Positive for activity change. Negative for unexpected weight change. HENT: Negative for congestion, drooling, ear pain and mouth sores. Eyes: Negative for pain, discharge, redness and itching. Respiratory: Negative for choking, shortness of breath and stridor. Cardiovascular: Negative for chest pain. Gastrointestinal: Negative for abdominal pain, constipation, nausea and rectal pain. Endocrine: Negative for cold intolerance, heat intolerance, polydipsia and polyuria. Genitourinary: Negative for difficulty urinating, dysuria, frequency, genital sores, penile swelling and scrotal swelling. Musculoskeletal: Positive for gait problem. Skin: Positive for wound (surgial incsion). Neurological: Positive for weakness. Hematological: Negative. Psychiatric/Behavioral: Negative. Medications (more content not included)... [facility] 04-09-2024 History of Presen t illness Narrative Images from the original note were not included. Connected Care Unit Progress Note Patient Name: Paolo Hernandez Patient Facility: [facility] Admit Date 04/04/2024 Level of Care: Skilled SNF Attending: Farzaneh Cabezas M.D. Service Date: 04/09/2024 Code Status: Full code Chief Complaint: Evaluation regarding debility and rehabilitation ASSESSMENT AND PLAN (M25.551) Right hip pain (primary encounter diagnosis) (Z96.641) S/P total right hip arthroplasty Remains in place Continue [place] for pain, continue aspirin follow-up with orthopedics as scheduled Monitor labs Monitor vital signs Continue to work with therapy (D64.9) Anemia, unspecified type Continue ferrous sulfate Monitor labs Monitor vital signs (R53.81) Debility Certify therapies Maintain high falls risk precautions - pt/staff verbalize understanding validated via teach back Monitor safety awareness Appointments for Next 60 Days Date Time Provider Location Dept Phone 04/13/2024 9:00 AM SHELBY COY [phone] 05/11/2024 1:00 PM ALFREDITO MICHELE [phone] HPI: (Per hospital discharge) SUMMARY OF WHAT HAPPENED WHILE PATIENT WAS IN THE HOSPITAL: The patient was followed by Dr. Michele in clinic for right hip osteoarthritis. It was determined the patient would benefit from right total hip arthroplasty. The procedure, its risks, benefits, and potential complications were discussed in detail prior to surgery. The patient conveyed understanding of all topics and consented to surgery. The patient was admitted to the hospital. Underwent an elective right total hip arthroplasty on 04/01/[address] Michele. The patient tolerated the procedure well and was returned to the Post Anesthesia Care Unit in stable condition. Vital signs per PACU protocol. VTE risk assessment performed. O2 therapy monitored by Respiratory Therapy to include incentive spirometry, ADL, wound and support per physician order set postop protocol. PT and OT to evaluate and treat. IV antibiotics, antiemetics, DVT prophylaxis and pain medication were given. The patient progressed with physical therapy. Lab values and vital signs were monitored and remained stable. The incision remained clean, dry and intact. Thigh and calf are not swollen. No signs of DVT or infection. The patient progressed with physical therapy towards goal of safety and independence. Patient was determined safe for discharge to SNF on 04/02/2024. TREATMENT / WOUND CARE: If you have any concerns about your wound, please contact the office. Keep wound and incision area clean and dry. You may remove your dressing on POD #7-10 (7 to 10 days after surgery). If it remains drainage-free, you may leave the dressing off, keeping the wound open to air. If there is any drainage please contact the office You may not submerge the wound under standing water for 6 weeks time after surgery (i.e. no baths, no hot tubs, no swimming pools). Do not rub the wound, but rather pat dry. If you have non-absorbable sutures in place, these will be taken out on your 1st follow-up appointment. Observe the wound for signs of infection, including increased redness, swelling, or persistent drainage around the incision site. It is normal for your wound to be warmer immediately after surgery (even up to 4-6 weeks after surgery). If you begin to experience fevers, chills, night sweats, or flu-like symptoms and your wound shows signs concerning for wound infection, please call the orthopaedic office immediately 04/09/2024 update Paolo is sitting up in bed, he is alert and orient x 3. Denies any shortness of breath, chest comfort or pain. Surgical incision remains well-approximated. Continue to work with therapy to regain his strength and endurance. Parents. Staff has no concerns. PAST MEDICAL HISTORY Diagnosis Date Right inguinal hernia Rotator cuff tear Right shoulder Vertigo SUBJECTIVE: Review of Systems Constitutional: Positive for activity change. Negative for unexpected weight change. HENT: Negative for congestion, drooling, ear pain and mouth sores. Eyes: Negative for pain, discharge, redness and itching. Respiratory: Negative for choking, shortness of breath and stridor. Cardiovascular: Negative for chest pain. Gastrointestinal: Negative for abdominal pain, constipation, nausea and rectal pain. Endocrine: Negative for cold intolerance, heat intolerance, polydipsia and polyuria. Genitourinary: Negative for difficulty urinating, dysuria, frequency, genital sores, penile swelling and scrotal swelling. Musculoskeletal: Positive for gait problem. Skin: Positive for wound (surgial incsion). Neurological: Positive for weakness. Hematological: Negative. Psychiatric/Behavioral: Negative. Medications: Medications listed in Epic during SNF admission may not be current. Refer to facility record. Patient records, current medications, most recent labs, family/social history (unchanged) Reviewed. Refer to facility records. OBJECTIVE: Labs/diagnostics: DIRECT BILIRUBIN 0.17 mg/dL 0.03 - 0.18 mg/dL Final TOTAL BILIRUBIN 0.79 mg/dL 0.0 - 1.2 mg/dL Final GLUCOSE Chemistry 95.49 mg/dL 74 - 99 mg/dL Final TOTAL PROTEIN 5.95 g/dL 6.4 - 8.2 g/dL L Final BICARBONATE (CO2) 27.84 mmol/L 21 - 32 mmol/L Final CREATININE Chemistry 0.86 mg/dL 0.6 - 1.3 mg/dL Final ALANINE AMINOTRANSFERASE 8.71 U/L 7-45 U/L Final ASPARTATE AMINOTRANSFERASE 20.27 U/L 9 - 39 U/L Final ALBUMIN 3.53 ppm 3.4 - 5.0 g/dL Final CALCIUM 9.45 ppm 8.6 - 10.3 mg/dL Final Blood Urea Nitrogen 13.72 mg/dL 6 - 23 mg/dL Final ALKALINE PHOSPHATASE 54.49 U/L 33 - 110 U/L Final Sodium 137.48 mmol/L 136 - 145 mmol/L Final POTASSIUM 4.5 mmol/L 3.5 - 5.3 mmol/L Final Chloride 101.38 mmol/L 98 - 107 mmol/L Final VALERIANO 101.33 ug/dL 25 - 130 ug/dL Final GGT 8.12 U/L 9-64 U/L L Final (GFR) Glomerular filtration rate 89.00 ppm 90 - 120 mL/min/1.73 m2 L Final Prealbumin 14.20 ppm 17 - 34 mg/dL L Final plete Blood Count with Differential Basophil 0.41 % 0.11 - 0.53 Final Basophil # 0.04 10^3/uL 0 - 0.07 10 3/uL H Final Eosinophil 0.65 % 0.84 - 70.67 L Final Eosinophil # 0.07 10^3/uL 0.05 - 0.50 Final HCT 36.00 % 38.30 - 49.30 L Final HGB 11.33 g/dL 12.55 - 16.99 L Final Lymphocytes 12.88 % 20.23 - 43.53 L Final Lymphocytes # 1.30 10^3/uL 1.15 - 3.13 Final MCH 26.30 pg 25.90 - 33.20 Final MCHC 31.50 g/dL 33.00 - 35.30 L Final MCV 83.80 fL 78.30 - 95.50 Final Monocyte 7.71 % 5.23 - 13.22 Final Monocyte # 0.78 x10^3/ L 0.25 - 1.06 Final MPV 9.24 fL 7.42 - 10.65 Final Neutrophils 78.35 % 40.62 - 70.51 H Final Neutrophils # (ANC) 7.88 10^3/uL 1.85 - 5.94 H Final PLT 264.90 x10^3/ L 146.50 - 351.50 Final RBC 4.30 10^3/uL 4.33 - 5.72 L Final RDW 18.80 % 12.90 - 15.50 H Final RDW-SD 50.40 fL 39.00 - 48.30 H Final WBC 10.06 10^3/uL 3.53 - 9.52 H Final Vital Signs: BP 124/62 Pulse 67 Temp 36.7 C (98 F) Resp 18 Wt 70.9 kg (156 lb 6.4 oz) SpO2 97% BMI 22.44 kg/m Physical Exam: Physical Exam Vitals and nursing note reviewed. Constitutional: Appearance: Normal appearance. HENT: Head: Normocephalic. Right Ear: External ear normal. Left Ear: External ear normal. Mouth/Throat: Mouth: Mucous membranes are moist. Pharynx: Oropharynx is clear. Eyes: Pupils: Pupils are equal, round, and reactive to light. Cardiovascular: Rate and Rhythm: Normal rate. Pulses: Normal pulses. Heart sounds: Normal heart sounds. Pulmonary: Effort: No respiratory distress. Breath sounds: No wheezing, rhonchi or rales. Chest: Chest wall: No tenderness. Abdominal: General: Bowel sounds are normal. There is no distension. Palpations: Abdomen is soft. Tenderness: There is no abdominal tenderness. Musculoskeletal: Cervical back: Normal range of motion. Right lower leg: No edema. Left lower leg: No edema. Skin: General: Skin is warm and dry. Neurological: Mental Status: He is alert and oriented to person, place, and time. Motor: Weakness present. Gait: Gait abnormal. Psychiatric: Mood and Affect: Mood normal. Behavior: Behavior normal. POC discussed with appropriate parties and nursing staff. Previous progress note was copied forward, updated where appropriate, and reflective of current medical decision making today, 04/09/2024 Electronically signed by Rome Farr APRN.CRIMINOLOGY TEACHER documented in this encounter [facility] 04-06-2024 Note HNO ID: [id number] Author: ROME FARR APRN.BARB Service: ? Author Type: Nurse Practitioner Type: Progress Notes Filed: 04/06/2024 20:43 Note Text: Connected Care Unit Progress Note Patient Name: Paolo Hernandez Patient Facility: [facility] Admit Date 04/04/2024 Level of Care: Skilled SNF Attending: Farzaneh Cabezas M.D. Service Date: 04/06/2024 Code Status: Full code Chief Complaint: Evaluation regarding debility and rehabilitation ASSESSMENT AND PLAN (M25.551) Right hip pain (primary encounter diagnosis) (Z96.641) S/P total right hip arthroplasty Remains in place Continue [place] for pain, continue aspirin follow-up with orthopedics as scheduled Monitor labs Monitor vital signs Continue to work with therapy (D64.9) Anemia, unspecified type Continue ferrous sulfate Monitor labs Monitor vital signs (R53.81) Debility Certify therapies Maintain high falls risk precautions - pt/staff verbalize understanding validated via teach back Monitor safety awareness Appointments for Next 60 Days Date Time Provider Location Dept Phone 04/13/2024 9:00 AM ANNELIESESHELBY [phone] 05/11/2024 1:00 PM ALFREDITO MICHELE [phone] HPI: (Per hospital discharge) SUMMARY OF WHAT HAPPENED WHILE PATIENT WAS IN THE HOSPITAL: The patient was followed by Dr. Michele in clinic for right hip osteoarthritis. It was determined the patient would benefit from right total hip arthroplasty. The procedure, its risks, benefits, and potential complications were discussed in detail prior to surgery. The patient conveyed understanding of all topics and consented to surgery. The patient was admitted to the hospital. Underwent an elective right total hip arthroplasty on 04/01/[address] Michele. The patient tolerated the procedure well and was returned to the Post Anesthesia Care Unit in stable condition. Vital signs per PACU protocol. VTE risk assessment performed. O2 therapy monitored by Respiratory Therapy to include incentive spirometry, ADL, wound and support per physician order set postop protocol. PT and OT to evaluate and treat. IV antibiotics, antiemetics, DVT prophylaxis and pain medication were given. The patient progressed with physical therapy. Lab values and vital signs were monitored and remained stable. The incision remained clean, dry and intact. Thigh and calf are not swollen. No signs of DVT or infection. The patient progressed with physical therapy towards goal of safety and independence. Patient was determined safe for discharge to SNF on 04/02/2024. TREATMENT / WOUND CARE: If you have any concerns about your wound, please contact the office. Keep wound and incision area clean and dry. You may remove your dressing on POD #7-10 (7 to 10 days after surgery). If it remains drainage-free, you may leave the dressing off, keeping the wound open to air. If there is any drainage please contact the office You may not submerge the wound under standing water for 6 weeks time after surgery (i.e. no baths, no hot tubs, no swimming pools). Do not rub the wound, but rather pat dry. If you have non-absorbable sutures in place, these will be taken out on your 1st follow-up appointment. Observe the wound for signs of infection, including increased redness, swelling, or persistent drainage around the incision site. It is normal for your wound to be warmer immediately after surgery (even up to 4-6 weeks after surgery). If you begin to experience fevers, chills, night sweats, or flu-like symptoms and your wound shows signs concerning for wound infection, please call the orthopaedic office immediately 04/06/2024 update Paolo is resting in bed, he is alert and oriented x 3. Denies any shortness of breath, chest discomfort or pain. He denies any current pain in his rightlower extremity. Presently he does have pants on unable to visualize surgical incision. Dressing remains in place per patient. He has started working with therapy to regain his strength and endurance. He has no concerns. Staff has no concerns. Chart, labs, medications reviewed. PAST MEDICAL HISTORY Diagnosis Date Right inguinal hernia Rotator cuff tear Right shoulder Vertigo SUBJECTIVE: Review of Systems Constitutional: Positive for activity change. Negative for unexpected weight change. HENT: Negative for congestion, drooling, ear pain and mouth sores. Eyes: Negative for pain, discharge, redness and itching. Respiratory: Negative for choking, shortness of breath and stridor. Cardiovascular: Negative for chest pain. Gastrointestinal: Negative for abdominal pain, constipation, nausea and rectal pain. Endocrine: Negative for cold intolerance, heat intolerance, polydipsia and polyuria. Genitourinary: Negative for difficulty urinating, dysuria, frequency, genital sores, penile swelling and scrotal swelling. Musculoskeletal: Positive (more content not included)... [facility] 04-06-2024 History of Presen t illness Narrative Images from the original note were not included. Connected Care Unit Progress Note Patient Name: Paolo Hernandez Patient Facility: [facility] Admit Date 04/04/2024 Level of Care: Skilled SNF Attending: Farzaneh Cabezas M.D. Service Date: 04/06/2024 Code Status: Full code Chief Complaint: Evaluation regarding debility and rehabilitation ASSESSMENT AND PLAN (M25.551) Right hip pain (primary encounter diagnosis) (Z96.641) S/P total right hip arthroplasty Remains in place Continue [place] for pain, continue aspirin follow-up with orthopedics as scheduled Monitor labs Monitor vital signs Continue to work with therapy (D64.9) Anemia, unspecified type Continue ferrous sulfate Monitor labs Monitor vital signs (R53.81) Debility Certify therapies Maintain high falls risk precautions - pt/staff verbalize understanding validated via teach back Monitor safety awareness Appointments for Next 60 Days Date Time Provider Location Dept Phone 04/13/2024 9:00 AM SHELBY COY [phone] 05/11/2024 1:00 PM ALFREDITO MICHELE [phone] HPI: (Per hospital discharge) SUMMARY OF WHAT HAPPENED WHILE PATIENT WAS IN THE HOSPITAL: The patient was followed by Dr. Michele in clinic for right hip osteoarthritis. It was determined the patient would benefit from right total hip arthroplasty. The procedure, its risks, benefits, and potential complications were discussed in detail prior to surgery. The patient conveyed understanding of all topics and consented to surgery. The patient was admitted to the hospital. Underwent an elective right total hip arthroplasty on 04/01/[address] Michele. The patient tolerated the procedure well and was returned to the Post Anesthesia Care Unit in stable condition. Vital signs per PACU protocol. VTE risk assessment performed. O2 therapy monitored by Respiratory Therapy to include incentive spirometry, ADL, wound and support per physician order set postop protocol. PT and OT to evaluate and treat. IV antibiotics, antiemetics, DVT prophylaxis and pain medication were given. The patient progressed with physical therapy. Lab values and vital signs were monitored and remained stable. The incision remained clean, dry and intact. Thigh and calf are not swollen. No signs of DVT or infection. The patient progressed with physical therapy towards goal of safety and independence. Patient was determined safe for discharge to SNF on 04/02/2024. TREATMENT / WOUND CARE: If you have any concerns about your wound, please contact the office. Keep wound and incision area clean and dry. You may remove your dressing on POD #7-10 (7 to 10 days after surgery). If it remains drainage-free, you may leave the dressing off, keeping the wound open to air. If there is any drainage please contact the office You may not submerge the wound under standing water for 6 weeks time after surgery (i.e. no baths, no hot tubs, no swimming pools). Do not rub the wound, but rather pat dry. If you have non-absorbable sutures in place, these will be taken out on your 1st follow-up appointment. Observe the wound for signs of infection, including increased redness, swelling, or persistent drainage around the incision site. It is normal for your wound to be warmer immediately after surgery (even up to 4-6 weeks after surgery). If you begin to experience fevers, chills, night sweats, or flu-like symptoms and your wound shows signs concerning for wound infection, please call the orthopaedic office immediately 04/06/2024 update Paolo is resting in bed, he is alert and oriented x 3. Denies any shortness of breath, chest discomfort or pain. He denies any current pain in his rightlower extremity. Presently he does have pants on unable to visualize surgical incision. Dressing remains in place per patient. He has started working with therapy to regain his strength and endurance. He has no concerns. Staff has no concerns. Chart, labs, medications reviewed. PAST MEDICAL HISTORY Diagnosis Date Right inguinal hernia Rotator cuff tear Right shoulder Vertigo SUBJECTIVE: Review of Systems Constitutional: Positive for activity change. Negative for unexpected weight change. HENT: Negative for congestion, drooling, ear pain and mouth sores. Eyes: Negative for pain, discharge, redness and itching. Respiratory: Negative for choking, shortness of breath and stridor. Cardiovascular: Negative for chest pain. Gastrointestinal: Negative for abdominal pain, constipation, nausea and rectal pain. Endocrine: Negative for cold intolerance, heat intolerance, polydipsia and polyuria. Genitourinary: Negative for difficulty urinating, dysuria, frequency, genital sores, penile swelling and scrotal swelling. Musculoskeletal: Positive for gait problem. Skin: Positive for wound (surgial incsion). Neurological: Positive for weakness. Hematological: Negative. Psychiatric/Behavioral: Negative. Medications: Medications listed in Epic during SNF admission may not be current. Refer to facility record. Patient records, current medications, most recent labs, family/social history (unchanged) Reviewed. Refer to facility records. OBJECTIVE: Labs/diagnostics: Latest Reference Range & Units 04/02/24 10:18 Sodium 136 - 144 mmol/L 138 Potassium 3.7 - 5.1 mmol/L 4.2 Chloride 98 - 107 mmol/L 103 CO2 22 - 30 mmol/L 25 BUN 9 - 24 mg/dL 16 Creatinine 0.73 - 1.22 mg/dL 0.89 Glucose 74 - 99 mg/dL 124 (H) Calcium 8.5 - 10.2 mg/dL 9.9 Anion Gap 8 - 15 mmol/L 10 eGFR >=60 mL/min/1.73m 88 WBC 3.70 - 11.00 k/uL 10.47 RBC 4.20 - 6.00 m/uL 4.64 Hemoglobin 13.0 - 17.0 g/dL 12.3 (L) Hematocrit 39.0 - 51.0 % 38.1 (L) Platelet Count 150 - 400 k/uL 307 MCV 80.0 - 100.0 fL 82.1 MCH 26.0 - 34.0 pg 26.5 MCHC 30.5 - 36.0 g/dL 32.3 MPV 9.0 - 12.7 fL 10.2 RDW-CV 11.5 - 15.0 % 15.9 (H) Absolute nRBC <0.01 k/uL <0.01 (H): Data is abnormally high (L): Data is abnormally low Vital Signs: BP 121/66 Pulse 70 Temp 37.1 C (98.7 F) Resp 16 SpO2 98% Physical Exam: Physical Exam Vitals and nursing note reviewed. Constitutional: Appearance: Normal appearance. HENT: Head: Normocephalic. Right Ear: External ear normal. Left Ear: External ear normal. Mouth/Throat: Mouth: Mucous membranes are moist. Pharynx: Oropharynx is clear. Eyes: Pupils: Pupils are equal, round, and reactive to light. Cardiovascular: Rate and Rhythm: Normal rate. Pulses: Normal pulses. Heart sounds: Normal heart sounds. Pulmonary: Effort: No respiratory distress. Breath sounds: No wheezing, rhonchi or rales. Chest: Chest wall: No tenderness. Abdominal: General: Bowel sounds are normal. There is no distension. Palpations: Abdomen is soft. Tenderness: There is no abdominal tenderness. Musculoskeletal: Cervical back: Normal range of motion. Right lower leg: No edema. Left lower leg: No edema. Skin: General: Skin is warm and dry. Neurological: Mental Status: He is alert and oriented to person, place, and time. Motor: Weakness present. Gait: Gait abnormal. Psychiatric: Mood and Affect: Mood normal. Behavior: Behavior normal. POC discussed with appropriate parties and nursing staff. I spent a total of 30 minutes on the date of the service which included preparing to see the patient, [id number] patient care, completing clinical documentation, obtaining and/or reviewing separately obtained history, performing a medically appropriate examination, counseling and educating the patient/family/caregiver, ordering medications, tests, or procedures, communicating with other HCPs (not separately reported), independently interpreting results (not separately reported), communicating results to the patient/family/caregiver, and care coordination (not separately reported). This note was partially generated using ROLI voice recognition system, and there may be some incorrect words, spellings, and punctuation that were not noted in checking the note before saving. Electronically signed by Rome Farr APRN.BARB documented in this encounter [facility] 04-02-2024 Telephone encounter Note Patient would like to go to rehab. [facility] 04-02-2024 Miscellaneous Notes Patient would like to go to rehab. documented in this encounter [facility] 04-02-2024 Note HNO ID: [id number] Author: SHAMAR KIRAN MD Service: General Internal Medicine Author Type: Physician Type: Progress Notes Filed: 04/02/2024 08:30 Note Text: INPATIENT PROGRESS NOTES Patient Name: Paolo Hernandez DATE of SERVICE: 04/02/2024 TIME of SERVICE: 6:19 AM PRIMARY SERVICE: medicine INTERVAL HPI: Uneventful night, no nausea or vomiting. No lightheadedness or dizziness. 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 PERTINENT ROS: All other reviewed and negative other than HPI. MEDICATIONS: Current Facility-Administered Medications Medication Dose Route Frequency ondansetron orally disintegrating 4 mg tab(s) (ZOFRAN ODT) 4 mg ORAL q 6 H PRN Or ondansetron (PF) 4 mg injection (ZOFRAN) 4 mg INTRAVENOUS q 6 H PRN magnesium hydroxide 400 mg/5 mL 30 mL (MOM) 30 mL ORAL DAILY PRN [START ON 04/03/2024] bisacodyl EC 10 mg tab(s) (DULCOLAX) 10 mg ORAL DAILY aluminum-magnesium hydroxide-simethicone 200-200-20 mg/5 mL 30 mL 30 mL ORAL q 2 H PRN ferrous sulfate 325 mg tab(s) 325 mg ORAL DAILY wLUNCH ascorbic acid (vitamin C) 500 mg tab(s) (VITAMIN C) 500 mg ORAL BID w MEALS senna 17.2 mg tab(s) (SENOKOT) 17.2 mg ORAL AT BEDTIME aspirin, enteric coated 81 mg tab(s) 81 mg ORAL BID acetaminophen 1,000 mg tab(s) (TYLENOL) 1,000 mg ORAL q 8 H traMADol 50 mg tab(s) (ULTRAM) 50 mg ORAL q 6 H PRN HYDROcodone 5 mg - acetaminophen 325 mg tablet (NORCO) 1-2 tablet ORAL q 4 H PRN Facility-Administered Medications Ordered in Other Encounters Medication Dose Route Frequency lidocaine 10 mg/mL (1 %) injection (XYLOCAINE) OTHER PRN triamcinolone acetonide injection (KeNALog 40) INTRA-ARTICULAR PRN PHYSICAL EXAM: Patient Vitals for the past 24 hrs: BP Temp Temp src Pulse Resp SpO2 Height Weight 04/02/24 0758 126/64 36.9 ?C (98.4 ?F) Oral 103 16 97 % -- -- 04/02/24 0420 127/64 37 ?C (98.6 ?F) Oral 91 16 97 % -- -- 04/02/24 0004 123/61 36.7 ?C (98.1 ?F) Oral (!) 59 18 98 % -- -- 04/01/24 1958 125/57 36.8 ?C (98.2 ?F) Oral 61 18 99 % -- -- 04/01/24 1700 -- -- -- -- -- -- 177.8 cm (5' 10) 70 kg (154 lb 5.2 oz) 04/01/24 1643 118/60 36.3 ?C (97.3 ?F) Axillary (!) 52 18 99 % -- -- 04/01/24 1600 120/58 -- -- (!) 50 10 95 % -- -- 04/01/24 1515 105/56 -- -- (!) 46 11 96 % -- -- 04/01/24 1500 103/59 -- -- (!) 44 11 96 % -- -- 04/01/24 1445 100/54 -- -- (!) 45 11 96 % -- -- 04/01/24 1430 108/55 -- -- (!) 51 10 100 % -- -- 04/01/24 1415 96/55 -- -- (!) 56 12 96 % -- -- 04/01/24 1407 93/51 36.3 ?C (97.3 ?F) -- (!) 56 9 97 % -- -- Body mass index is 22.14 kg/m?. GENERAL: Alert, no distress, cooperative NECK: No jugulovenous distention LUNGS: Lungs clear to auscultation, CARDIAC: Normal S1 and S2; no rubs, murmurs, or gallops ABDOMEN: Abdomen soft, non-tender, BS normal, No masses or organomegaly EXTREMITIES: no edema CBC: Coags: CMP: Cardiac Enzymes: Liver Function, Amylase, Lipase: No results for input(s): TPROT, ALB, ALT, AST, ALKPHOS, TBILI, AMYLASE, LIPASE, LACTATE in the last 24 hours. ABG's: No results for input(s): PH, PCO2, PO2, BE, HCO3, CO2CT, O2HB, COHB, MHGB, TEMP, PHTC, PCO2T, PO2T, O2AD in the last 24 hours. MG/PHOS: No results for input(s): MG, P in the last 24 hours. SIGNATURE: Shamar Kiran MD [facility] 04-02-2024 Note HNO ID: [id number] Author: ARAM ALFARO PA-C Service: Orthopaedic Surgery Author Type: Physician Airplane Pilot Helper Type: Progress Notes Filed: 04/02/2024 10:09 Note Text: POSTOP NOTE ORTHOPAEDIC SURGERY SERVICE DATE: 04/02/2024 SERVICE TIME: 7:57 AM IMPRESSION/PLAN: S/P Procedure(s) (LRB): ROBOTIC ASSISTED TOTAL HIP ARTHROPLASTY (Right) on 04/01/2024 Physical Therapy evaluation PWB 40-50 lbs RLE, posterior hip precautions DVT prophylaxis: Intermittent pneumatic compression device (IPCD) and ASA 81 BID Pain control Case Management for discharge planning Plan of care discussed with: Provider, RN, Patient. Patient Active Hospital Problem List: No active hospital problems. POST OPERATIVE COMPLICATIONS: Complicated by uneventful/none SUBJECTIVE: Patient states that they are comfortable Well Controlled hip pain. Denies incisional pain. OBJECTIVE: VITAL SIGNS: BP 100/61 Pulse 105 Temp 36.9 ?C (98.4 ?F) (Oral) Resp 16 Ht 177.8 cm (5' 10) Wt 70 kg (154 lb 5.2 oz) SpO2 96% BMI 22.14 kg/m? INTAKE AND OUTPUT: Intake/Output Summary (Last 24 hours) at 04/02/2024 1007 Last data filed at 04/02/2024 0630 Gross per 24 hour Intake 1600 ml Output 1600 ml Net 0 ml LABS: Hemoglobin Date Value Ref Range Status 03/19/2024 12.9 (L) 13.0 - 17.0 g/dL Final 12/11/2022 13.6 13.0 - 17.0 g/dL Final Hematocrit Date Value Ref Range Status 03/19/2024 40.1 39.0 - 51.0 % Final 12/11/2022 42.2 39.0 - 51.0 % Final Platelet Count Date Value Ref Range Status 03/19/2024 370 150 - 400 k/uL Final 12/11/2022 322 150 - 400 k/uL Final WBC Date Value Ref Range Status 03/19/2024 7.19 3.70 - 11.00 k/uL Final 12/11/2022 7.19 3.70 - 11.00 k/uL Final Creatinine Date Value Ref Range Status 03/19/2024 0.79 0.73 - 1.22 mg/dL Final 12/11/2022 0.90 0.73 - 1.22 mg/dL Final Potassium Date Value Ref Range Status 03/19/2024 4.4 3.7 - 5.1 mmol/L Final 12/11/2022 4.2 3.7 - 5.1 mmol/L Final VTE Prophylaxis: Active VTE Risk Category Order: 04/01/24 1700 VTE RISK CATEGORY: SURGICAL HIGH RISK ([place]) Active VTE Medication Orders: Anticoagulant AND Antiplatelet Medications (From admission, onward) Start Dose Route Frequency Last Action Ordered Stop 04/02/24 0900 aspirin, enteric coated 81 mg tab(s) (Surgical Risk Categories) 81 mg ORAL 2 TIMES DAILY Given, 04/02 0745 04/01/24 1649 -- Active VTE Prophylaxis Orders: 04/01/24 170 PNEUMATIC COMPRESSION SLEEVE(S) ([place]) 04/01/24 170 ACTIVITY - MOBILIZE PATIENT ([place]) 04/01/24 1700 ACTIVITY - MOBILIZE PATIENT ([place]) 04/01/24 170 ACTIVITY - MOBILIZE PATIENT ([place]) PHYSICAL EXAMINATION: Right Lower Extremity: Dorsalis pedis pulses palpable. Posterior tibial pulses palpable. Dorsi flexion 5/5. Plantar flexion 5/5. Extensor hallucis extension: 5/5. Sensory intact to light touch L1-S1. Dressing clean, dry, and intact. Surgical site no drainage and [place] intact. Problem Review and Assessment: Skin and Abdominal Wall: Patient monitored, no new events overnight Cardiovascular and Vascular: Patient monitored, no new events overnight Respiratory: Patient monitored, no new events overnight Endocrine and Metabolic: Patient monitored, no new events overnight Gastrointestinal: Patient monitored, no new events overnight Genitourinary and Nephrology: Patient monitored, no new events overnight Behavioral, Cerebrovascular and Nervous: Patient monitored, no new events overnight Infectious: Patient monitored, no new events overnight DATA: Diagnostic tests reviewed for today's visit: Most recent labs and imaging results. SIGNATURE: Aram Alfaro PA-C PATIENT NAME: Paolo Hernandez DATE: April 02, 2024 TIME: 10:07 AM The patient has undergone major orthopedic surgery and participating in therapy. Pain cannot be managed within an average of 30 MED per day. Patient requiring average of higher than 30 MED per day in order to control pain and allow patient to actively and safely participate in therapy and this is the lowest dose consistent with patient's medical condition. Non-narcotic medication options have been discussed. In addition, the patient has been advised of the benefits and risks of the opioid (including the potential for addiction). Patient demonstrated understanding of risks versus benefits. [facility] 04-01-2024 Note HNO ID: [id number] Author: CHUCK ZAVALA PA-C Service: General Internal Medicine Author Type: Physician Airplane Pilot Helper Type: Progress Notes Filed: 04/01/2024 17:12 Note Text: POSTOP PROGRESS NOTE SERVICE DATE: 04/01/2024 SERVICE TIME: 5:11 PM Subjective CHIEF COMPLAINT: Right hip pain INTERVAL HISTORY OF PRESENT ILLNESS: This is a 78 year old male postop ROBOTIC ASSISTED TOTAL HIP ARTHROPLASTY - [facility] . Patient rates their pain 3/10 and states it is well controlled at this time. PT evaluated: No Objective PHYSICAL EXAM: BP 118/60 Pulse 52 Temp (Src) 97.3 (Axillary) Resp 18 Ht 5' 10 (1.78m) Wt 154 lb 5.2 oz (70.0kg) SpO2 99% BMI 22.14 kg/(m2). O2 Therapy: Room Air Physical Exam: Rt Leg: Sensation intact to light touch. Patient is able to dorsiflex and plantarflex the rt ankle. Patient is able to wiggle toes. [place] Wrap dressings and Ice Man dry and in place. Abdomen: No rashes, lacerations, or ecchymosis noted. No distension noted. Assessment AND Plan POSTOP PLANS: As indicated per Alfredito Michele MD services Proceed with Surgeon's post operative plan. Advised patient to reach out to nurse if issues occur. SIGNATURE: Chuck Zavala PA-C PATIENT NAME: Paolo Hrenandez DATE: April 01, 2024 TIME: 5:11 PM [facility] 04-01-2024 Note HNO ID: [id number] Author: YUDY WASHBURN APRN.TRANSPLANT WORKER Service: ? Author Type: Nurse Wallet Assembler Type: Anesthesia Procedure Notes Filed: 04/01/2024 11:54 Note Text: ANESTHESIOLOGY PROCEDURE NOTE Spinal Block General Information Procedure Start Time/Medication Administration: 04/01/2024 11:35 AM Procedure End time: 04/01/2024 11:36 AM Patient location during procedure: OR Timeout Performed Pre-procedure: timeout performed Reason for Block: primary surgical anesthetic Staffing Performed by: anesthesiologist Preparation Sterility Preparation: hand hygiene performed prior to procedure, sterile gloves, drapes, and procedure tray, surgical cap used, mask used, sterile drape used during line insertion, skin prep agent completely dried prior to procedure Site Prep: Duraprep Procedure Details Patient Position: sitting Ultrasound Guided: No Monitoring: Pulse Ox and NIBP Approach: Midline Location: L2-3 Injection Technique: single-shot Needle Needle Type: cutting Needle Gauge: 22 G Needle Length: 3.5 in CSF: CSF clear Assessment Events: tolerated well SIGNATURE: Yudy Washburn APRN.CRNA PATIENT NAME: Paolo Hernandez DATE: April 01, 2024 TIME: 11:54 AM CSN: [id number] [facility] 03-31-2024 Telephone encounter Note Patient has been notified of message from Shelby Coy PA-C and verbalized understanding. [facility] 03-31-2024 Miscellaneous Notes Patient has been notified of message from Shelby Coy PA-C and verbalized understanding. Patient should be fine to proceed with surgery as planned. Thank you. I spoke with the patient to further clarify. He reports throat is scratchy when he wakes up, but clears up quickly. He noticed this started about the same time that he started using mupirocin ointment in his nose for surgery. He denies any fever, congestion, nausea, vomiting, diarrhea, headache. He does not feel ill. Asking if ok to proceed with surgery tomorrow? Patient called in stating the last few mornings he has woken up with a slight sore throat that goes away during the day. He is asking if this will affect his surgery tomorrow. Please advise. documented in this encounter [facility] 03-31-2024 Telephone encounter Note Patient should be fine to proceed with surgery as planned. Thank you. [facility] Work Phone: 03-31-2024 Telephone encounter Note I spoke with the patient to further clarify. He reports throat is scratchy when he wakes up, but clears up quickly. He noticed this started about the same time that he started using mupirocin ointment in his nose for surgery. He denies any fever, congestion, nausea, vomiting, diarrhea, headache. He does not feel ill. Asking if ok to proceed with surgery tomorrow? [facility] 03-31-2024 Telephone encounter Note Patient called in stating the last few mornings he has woken up with a slight sore throat that goes away during the day. He is asking if this will affect his surgery tomorrow. Please advise. [facility] 03-19-2024 History and physical note Images from the original note were not included. [facility] HISTORY AND PHYSICAL EXAMINATION SERVICE DATE: 03/19/2024 SERVICE TIME: 2:54 PM PRIMARY CARE PHYSICIAN: Louis Scott MD Assessment Patient has the following medical conditions which may affect nicole-operative course: Neuropathy Assessment: b/l feet with elevation at the end of the day, not on medications [place] Activity Status Index: METS: Walk indoors, such as around the house (1.75 METs) Do light work around the house, such as dusting or washing dishes (2.70 METs) Take care of self; that is eating, dressing, bathing, using the toilet (2.75 METs) Walk a block or two on level ground (2.75 METs) Do moderate work around the house, such as vacuuming, sweeping floors, or carrying in groceries (3.50 METs) Do yardwork, such as raking leaves, weeding, or pushing a power mower (4.50 METs) Climb a flight of stairs or walk up a hill (5.50 METs) DASI Score: 23.45 Patient denies any chest pain or undue shortness of breath with the above physical activity. Clinical Frailty Scale: 2. Well STOP-Bang Score: STOP-Bang Score: 0 ANESTHESIA FINDINGS: Intubation History: No history of difficult intubation. No abnormal airway history Significant Anesthesia Considerations: none Airway History: No history of difficult airway No abnormal airway history I - PHYSICAL EVALUATION AIRWAY Patient intubated: No. Tracheostomy tube not present Mallampati: I. TM distance: >3 FB. Neck ROM: full ROM without neurological symptoms. Mouth opening: adequate. Short neck: no. Thick neck: no DENTAL Dental findings: teeth intact. II - ANESTHESIA PLAN Beta Vira Monitoring Plan Post Procedure Analgesic Plan Prepared for Surgery: optimally prepared for surgery, pending [see comment]. -EKG reviewed, labs pending -Given pre-op mupirocin rx & instructions CONSULTS: Patient does not require consults for optimization at this time Planned Anesthetic: anesthesia choice The Following Tests/Procedures Have Been Initiated: Orders Placed This Encounter CBC diff Standing Status: Future Standing Expiration Date: 06/18/2024 CMP Standing Status: Future Standing Expiration Date: 06/18/2024 mupirocin (BACTROBAN) 2 % ointment Sig: two times a day for 5 days. Apply 0.5 inch with cotton swab (Q-tip) to each nostril in the morning and evening for 5 days prior to and including day of surgery. Dispense: 22 g Refill: 0 ECG (IN OFFICE) REASON FOR VISIT: Paolo Hernandez is a 78 year old male who is scheduled for Procedure(s): ROBOTIC ASSISTED TOTAL HIP ARTHROPLASTY (Right) at the request of Dr. Alfredito Michele for consultation. My final recommendation will be communicated back to the requesting physician by way of shared medical record or letter. Subjective The patient has the following: COVID-19 Immunization Status Overdue - Covid-19 Vaccine () Overdue since 01/29/2024 12/04/2023 Imm Admin: COVID-19 original vaccine, age 12+ yr, monovalent ([employer]) 12/11/2022 Imm Admin: COVID-19 vaccine, age 12+ yr, season ([employer]) 11/22/2021 Imm Admin: COVID-19 vaccine, age 12+ yr, bivalent ([employer]) Only the first 3 history entries have been loaded, but more history exists. CHIEF COMPLAINT: Pre-op HPI: Patient is a 78 year old male presenting for pre-anesthesia consultation. Has been with right hip worsened over the past few months. Denies specific injury. Reports pain today of 4/10, described as sharp, aching, worsens with movement. Denies swelling, numbness or tingling. Has tried conservative methods with little relief. Patient denies other specific radiating, alleviating, or aggravating factors. Denies signs of infection or pain. Patient has completed a comprehensive course of conservative treatment and has elected for above surgery. REVIEW OF SYSTEMS: General: No weight loss, malaise or fevers. Neurological: Positive for: peripheral neuropathy. Negative for: dementia, headaches, impaired sensorium, seizures, TIA and strokes. Respiratory: Negative for: asthma, bronchitis, COPD, current cough, bronchodilator used daily for the last 3 months, dyspnea, home oxygen, orthopnea, pneumonia within 6 weeks, tobacco use, URI < 2 weeks and obstructive sleep apnea. Cardiovascular: Negative for: abdominal aortic aneurysm, AICD/PPM, angina, anticoagulation therapy, arrhythmia, atrial fibrillation, CAD, chest pain, CHF, congenital heart defect, DVT/PE, hyperlipidemia, hypertension, recent AL, murmur/valvular heart disease, PTCA, PVD, open heart surgery and valve surgery. GI: Negative for: abdominal pain, GERD, GI bleed <30 days, hepatitis, liver disease, nausea, vomiting and ETOH >2 drinks/day. : Negative for: on dialysis, dysuria, frequent urination, hematuria, renal failure and urinary tract infection. Endocrine: Negative for: diabetes mellitus, hyperthyroidism and hypothyroidism. Hematology: No history of bleeding or clotting disorder. Patient is not taking anti-coagulation or platelet medications. No history of hematological symptoms or problems. Oncology: No history of CA metastasis, chemo within 30 days, or radiotherapy within 90 days. No history of oncological symptoms or problems. Psych: No history of psychiatric symptoms or problems. Musculoskeletal: See HPI. Skin: Negative for lesions, rash and itching. Implanted Devices: No implanted devices. PAST MEDICAL HISTORY Diagnosis Date Right inguinal hernia Rotator cuff tear Right shoulder Vertigo PAST SURGICAL HISTORY Procedure Laterality Date APPENDECTOMY 02/18/1963 LAPAROSCOPY SURG RPR INITIAL INGUINAL HERNIA 12/09/2013 right PAST SURGICAL HISTORY OF 10/19/1969 wisdom teeth PAST SURGICAL HISTORY OF Bilateral 2020 B/L cataract surgery FAMILY HISTORY Problem Relation Age of Onset Hypertension Mother Arthritis Mother other (tuberculosis [Other]) Mother Stroke Father Breast Cancer Maternal Grandmother Anesthesia Problems No Family History Social History Tobacco Use Smoking status: Never Smokeless tobacco: Never Vaping Use Vaping status: Never Used Substance Use Topics Alcohol use: No Drug use: No Prior to Admission medications as of 03/19/24 1429 Medication Sig Last Dose Taking mupirocin (BACTROBAN) 2 % ointment two times a day for 5 days. Apply 0.5 inch with cotton swab (Q-tip) to each nostril in the morning and evening for 5 days prior to and including day of surgery. No medication comments found. ALLERGIES No Known Allergies Objective PHYSICAL EXAM: General: alert and oriented and healthy appearance. Pertinent negatives noted - not distressed. Skin: normal color, no rash or lesions. HEENT: EOM intact, pupils equal round and pupils reactive to light. Pertinent negatives noted - no carotid bruit. Cardiovascular: regular rate and rhythm, normal S1 and S2, no rub, murmurs, or gallop. Respiratory: normal breath sounds, no wheezes or crackles. No chest wall deformity or tenderness. Abdomen: bowel sounds present and soft. Pertinent negatives noted - not tender. Extremities: Positive for joint tenderness. Pertinent negatives noted - no cellulitis, no clubbing, no deformity, no edema, no joint swelling, no abnormal pulses, no ulcer, no vascular insufficiency and no varicose veins. Neurological: normal cognition and motor skills. Positive for abnormal gait (ambulatory with cane). Pertinent negatives noted - no tremors. PAIN ASSESSMENT: Pain Pain Level: 4 Pain Location: Knee-Right Description: Aching VITALS: BP 145/81 Pulse 87 Temp (Src) 98.4 (Temporal) Resp 16 Ht 5' 10 (1.78m) Wt 154 lb 1.6 oz (69.9kg) SpO2 99% BMI 22.11 kg/(m^2). Diagnostic tests reviewed for today's visit: Lab Value Units Date High Low HB No results within date range. HCT No results within date range. WBC No results within date range. PLT No results within date range. NA No results within date range. K No results within date range. GLUC No results within date range. BUN No results within date range. CREAT No results within date range. PTSEC No results within date range. INR No results within date range. APTT No results within date range. ALT No results within date range. AST No results within date range. TBILI No results within date range. TSH No results within date range. Lab Value Units Date High Low HCGQT No results within date range. UHCG No results within date range. HCG, BODY* No results within date range. Lab Value Units Date High Low ABORHD No results within date range. ABSCREEN No results within date range. No results found for: HBA1C No results found for this or any previous visit (from the past 8760 hour(s)). No results found for this or any previous visit (from the past 92711 hour(s)). Instructions Given to Patient: Instructions located in the after visit summary. Patient given verbal and written preop instructions and voices comprehension and compliance. SIGNATURE: Yudy Delacruz PA-C PATIENT NAME: Paolo Hernandez DATE: March 19, 2024 TIME: 2:51 PM PAGER/CONTACT #: [facility] 03-19-2024 History and physical note Images from the original note were not included. [facility] HISTORY AND PHYSICAL EXAMINATION SERVICE DATE: 03/19/2024 SERVICE TIME: 2:54 PM PRIMARY CARE PHYSICIAN: Louis Scott MD Assessment Patient has the following medical conditions which may affect nicole-operative course: Neuropathy Assessment: b/l feet with elevation at the end of the day, not on medications [place] Activity Status Index: METS: Walk indoors, such as around the house (1.75 METs) Do light work around the house, such as dusting or washing dishes (2.70 METs) Take care of self; that is eating, dressing, bathing, using the toilet (2.75 METs) Walk a block or two on level ground (2.75 METs) Do moderate work around the house, such as vacuuming, sweeping floors, or carrying in groceries (3.50 METs) Do yardwork, such as raking leaves, weeding, or pushing a power mower (4.50 METs) Climb a flight of stairs or walk up a hill (5.50 METs) DASI Score: 23.45 Patient denies any chest pain or undue shortness of breath with the above physical activity. Clinical Frailty Scale: 2. Well STOP-Bang Score: STOP-Bang Score: 0 ANESTHESIA FINDINGS: Intubation History: No history of difficult intubation. No abnormal airway history Significant Anesthesia Considerations: none Airway History: No history of difficult airway No abnormal airway history I - PHYSICAL EVALUATION AIRWAY Patient intubated: No. Tracheostomy tube not present Mallampati: I. TM distance: >3 FB. Neck ROM: full ROM without neurological symptoms. Mouth opening: adequate. Short neck: no. Thick neck: no DENTAL Dental findings: teeth intact. II - ANESTHESIA PLAN Beta Vira Monitoring Plan Post Procedure Analgesic Plan Prepared for Surgery: optimally prepared for surgery, pending [see comment]. -EKG reviewed, labs pending -Given pre-op mupirocin rx & instructions CONSULTS: Patient does not require consults for optimization at this time Planned Anesthetic: anesthesia choice The Following Tests/Procedures Have Been Initiated: Orders Placed This Encounter CBC diff Standing Status: Future Standing Expiration Date: 06/18/2024 CMP Standing Status: Future Standing Expiration Date: 06/18/2024 mupirocin (BACTROBAN) 2 % ointment Sig: two times a day for 5 days. Apply 0.5 inch with cotton swab (Q-tip) to each nostril in the morning and evening for 5 days prior to and including day of surgery. Dispense: 22 g Refill: 0 ECG (IN OFFICE) REASON FOR VISIT: Paolo Hernandez is a 78 year old male who is scheduled for Procedure(s): ROBOTIC ASSISTED TOTAL HIP ARTHROPLASTY (Right) at the request of Dr. Alfredito Michele for consultation. My final recommendation will be communicated back to the requesting physician by way of shared medical record or letter. Subjective The patient has the following: COVID-19 Immunization Status Overdue - Covid-19 Vaccine (2023- season) Overdue since 01/29/2024 12/04/2023 Imm Admin: COVID-19 original vaccine, age 12+ yr, monovalent ([employer]) 12/11/2022 Imm Admin: COVID-19 vaccine, age 12+ yr, 2022- season ([employer]) 11/22/2021 Imm Admin: COVID-19 vaccine, age 12+ yr, bivalent ([employer]) Only the first 3 history entries have been loaded, but more history exists. CHIEF COMPLAINT: Pre-op HPI: Patient is a 78 year old male presenting for pre-anesthesia consultation. Has been with right hip worsened over the past few months. Denies specific injury. Reports pain today of 4/10, described as sharp, aching, worsens with movement. Denies swelling, numbness or tingling. Has tried conservative methods with little relief. Patient denies other specific radiating, alleviating, or aggravating factors. Denies signs of infection or pain. Patient has completed a comprehensive course of conservative treatment and has elected for above surgery. REVIEW OF SYSTEMS: General: No weight loss, malaise or fevers. Neurological: Positive for: peripheral neuropathy. Negative for: dementia, headaches, impaired sensorium, seizures, TIA and strokes. Respiratory: Negative for: asthma, bronchitis, COPD, current cough, bronchodilator used daily for the last 3 months, dyspnea, home oxygen, orthopnea, pneumonia within 6 weeks, tobacco use, URI < 2 weeks and obstructive sleep apnea. Cardiovascular: Negative for: abdominal aortic aneurysm, AICD/PPM, angina, anticoagulation therapy, arrhythmia, atrial fibrillation, CAD, chest pain, CHF, congenital heart defect, DVT/PE, hyperlipidemia, hypertension, recent AL, murmur/valvular heart disease, PTCA, PVD, open heart surgery and valve surgery. GI: Negative for: abdominal pain, GERD, GI bleed <30 days, hepatitis, liver disease, nausea, vomiting and ETOH >2 drinks/day. : Negative for: on dialysis, dysuria, frequent urination, hematuria, renal failure and urinary tract infection. Endocrine: Negative for: diabetes mellitus, hyperthyroidism and hypothyroidism. Hematology: No history of bleeding or clotting disorder. Patient is not taking anti-coagulation or platelet medications. No history of hematological symptoms or problems. Oncology: No history of CA metastasis, chemo within 30 days, or radiotherapy within 90 days. No history of oncological symptoms or problems. Psych: No history of psychiatric symptoms or problems. Musculoskeletal: See HPI. Skin: Negative for lesions, rash and itching. Implanted Devices: No implanted devices. PAST MEDICAL HISTORY Diagnosis Date Right inguinal hernia Rotator cuff tear Right shoulder Vertigo PAST SURGICAL HISTORY Procedure Laterality Date APPENDECTOMY 02/18/1963 LAPAROSCOPY SURG RPR INITIAL INGUINAL HERNIA 12/09/2013 right PAST SURGICAL HISTORY OF 10/19/1969 wisdom teeth PAST SURGICAL HISTORY OF Bilateral 2020 B/L cataract surgery FAMILY HISTORY Problem Relation Age of Onset Hypertension Mother Arthritis Mother other (tuberculosis [Other]) Mother Stroke Father Breast Cancer Maternal Grandmother Anesthesia Problems No Family History Social History Tobacco Use Smoking status: Never Smokeless tobacco: Never Vaping Use Vaping status: Never Used Substance Use Topics Alcohol use: No Drug use: No Prior to Admission medications as of 03/19/24 1429 Medication Sig Last Dose Taking mupirocin (BACTROBAN) 2 % ointment two times a day for 5 days. Apply 0.5 inch with cotton swab (Q-tip) to each nostril in the morning and evening for 5 days prior to and including day of surgery. No medication comments found. ALLERGIES No Known Allergies Objective PHYSICAL EXAM: General: alert and oriented and healthy appearance. Pertinent negatives noted - not distressed. Skin: normal color, no rash or lesions. HEENT: EOM intact, pupils equal round and pupils reactive to light. Pertinent negatives noted - no carotid bruit. Cardiovascular: regular rate and rhythm, normal S1 and S2, no rub, murmurs, or gallop. Respiratory: normal breath sounds, no wheezes or crackles. No chest wall deformity or tenderness. Abdomen: bowel sounds present and soft. Pertinent negatives noted - not tender. Extremities: Positive for joint tenderness. Pertinent negatives noted - no cellulitis, no clubbing, no deformity, no edema, no joint swelling, no abnormal pulses, no ulcer, no vascular insufficiency and no varicose veins. Neurological: normal cognition and motor skills. Positive for abnormal gait (ambulatory with cane). Pertinent negatives noted - no tremors. PAIN ASSESSMENT: Pain Pain Level: 4 Pain Location: Knee-Right Description: Aching VITALS: BP 145/81 Pulse 87 Temp (Src) 98.4 (Temporal) Resp 16 Ht 5' 10 (1.78m) Wt 154 lb 1.6 oz (69.9kg) SpO2 99% BMI 22.11 kg/(m^2). Diagnostic tests reviewed for today's visit: Lab Value Units Date High Low HB No results within date range. HCT No results within date range. WBC No results within date range. PLT No results within date range. NA No results within date range. K No results within date range. GLUC No results within date range. BUN No results within date range. CREAT No results within date range. PTSEC No results within date range. INR No results within date range. APTT No results within date range. ALT No results within date range. AST No results within date range. TBILI No results within date range. TSH No results within date range. Lab Value Units Date High Low HCGQT No results within date range. UHCG No results within date range. HCG, BODY* No results within date range. Lab Value Units Date High Low ABORHD No results within date range. ABSCREEN No results within date range. No results found for: HBA1C No results found for this or any previous visit (from the past 8760 hour(s)). No results found for this or any previous visit (from the past 31582 hour(s)). Instructions Given to Patient: Instructions located in the after visit summary. Patient given verbal and written preop instructions and voices comprehension and compliance. SIGNATURE: Yudy Delacruz PA-C PATIENT NAME: Paolo Hernandez DATE: March 19, 2024 TIME: 2:51 PM PAGER/CONTACT #: Images from the original note were not included. [facility] HISTORY AND PHYSICAL EXAMINATION SERVICE DATE: 03/19/2024 SERVICE TIME: 3:11 PM PRIMARY CARE PHYSICIAN: Louis Scott MD Assessment Patient has the following medical conditions which may affect nicole-operative course: Neuropathy Assessment: b/l feet with elevation at the end of the day, not on medications [place] Activity Status Index: METS: Walk indoors, such as around the house (1.75 METs) Do light work around the house, such as dusting or washing dishes (2.70 METs) Take care of self; that is eating, dressing, bathing, using the toilet (2.75 METs) Walk a block or two on level ground (2.75 METs) Do moderate work around the house, such as vacuuming, sweeping floors, or carrying in groceries (3.50 METs) Do yardwork, such as raking leaves, weeding, or pushing a power mower (4.50 METs) Climb a flight of stairs or walk up a hill (5.50 METs) DASI Score: 23.45 Patient denies any chest pain or undue shortness of breath with the above physical activity. Clinical Frailty Scale: 2. Well STOP-Bang Score: STOP-Bang Score: 0 ANESTHESIA FINDINGS: Intubation History: No history of difficult intubation. No abnormal airway history Significant Anesthesia Considerations: none Airway History: No history of difficult airway No abnormal airway history I - PHYSICAL EVALUATION AIRWAY Patient intubated: No. Tracheostomy tube not present Mallampati: I. TM distance: >3 FB. Neck ROM: full ROM without neurological symptoms. Mouth opening: adequate. Short neck: no. Thick neck: no DENTAL Dental findings: teeth intact. II - ANESTHESIA PLAN Beta Vira Monitoring Plan Post Procedure Analgesic Plan Prepared for Surgery: optimally prepared for surgery, pending [see comment]. -EKG reviewed, labs pending -Given pre-op mupirocin rx & instructions CONSULTS: Patient does not require consults for optimization at this time Planned Anesthetic: anesthesia choice The Following Tests/Procedures Have Been Initiated: Orders Placed This Encounter CBC diff Standing Status: Future Number of Occurrences: 1 Standing Expiration Date: 06/18/2024 CMP Standing Status: Future Number of Occurrences: 1 Standing Expiration Date: 06/18/2024 mupirocin (BACTROBAN) 2 % ointment Sig: two times a day for 5 days. Apply 0.5 inch with cotton swab (Q-tip) to each nostril in the morning and evening for 5 days prior to and including day of surgery. Dispense: 22 g Refill: 0 ECG (IN OFFICE) REASON FOR VISIT: Paolo Hernandez is a 78 year old male who is scheduled for Procedure(s): ROBOTIC ASSISTED TOTAL HIP ARTHROPLASTY (Right) at the request of Dr. Alfredito Michele for consultation. My final recommendation will be communicated back to the requesting physician by way of shared medical record or letter. Subjective The patient has the following: COVID-19 Immunization Status Overdue - Covid-19 Vaccine ( season) Overdue since 01/29/2024 12/04/2023 Imm Admin: COVID-19 original vaccine, age 12+ yr, monovalent ([employer] [facility]) 12/11/2022 Imm Admin: COVID-19 vaccine, age 12+ yr, 2022- season ([employer]) 11/22/2021 Imm Admin: COVID-19 vaccine, age 12+ yr, bivalent ([employer]) Only the first 3 history entries have been loaded, but more history exists. CHIEF COMPLAINT: Pre-op HPI: Patient is a 78 year old male presenting for pre-anesthesia consultation. Has been with right hip pain significantly worse over the past few months. Denies specific injury. Reports pain today of 4/10, described as sharp, aching, worsens with movement. Denies swelling, numbness or tingling. Has tried conservative methods with little relief. Patient denies other specific radiating, alleviating, or aggravating factors. Denies signs of infection or pain. Patient has completed a comprehensive course of conservative treatment and has elected for above surgery. REVIEW OF SYSTEMS: General: No weight loss, malaise or fevers. Neurological: Positive for: peripheral neuropathy. Negative for: dementia, headaches, impaired sensorium, seizures, TIA and strokes. Respiratory: Negative for: asthma, bronchitis, COPD, current cough, bronchodilator used daily for the last 3 months, dyspnea, home oxygen, orthopnea, pneumonia within 6 weeks, tobacco use, URI < 2 weeks and obstructive sleep apnea. Cardiovascular: Negative for: abdominal aortic aneurysm, AICD/PPM, angina, anticoagulation therapy, arrhythmia, atrial fibrillation, CAD, chest pain, CHF, congenital heart defect, DVT/PE, hyperlipidemia, hypertension, recent AL, murmur/valvular heart disease, PTCA, PVD, open heart surgery and valve surgery. GI: Negative for: abdominal pain, GERD, GI bleed <30 days, hepatitis, liver disease, nausea, vomiting and ETOH >2 drinks/day. : Negative for: on dialysis, dysuria, frequent urination, hematuria, renal failure and urinary tract infection. Endocrine: Negative for: diabetes mellitus, hyperthyroidism and hypothyroidism. Hematology: No history of bleeding or clotting disorder. Patient is not taking anti-coagulation or platelet medications. No history of hematological symptoms or problems. Oncology: No history of CA metastasis, chemo within 30 days, or radiotherapy within 90 days. No history of oncological symptoms or problems. Psych: No history of psychiatric symptoms or problems. Musculoskeletal: See HPI. Skin: Negative for lesions, rash and itching. Implanted Devices: No implanted devices. PAST MEDICAL HISTORY Diagnosis Date Right inguinal hernia Rotator cuff tear Right shoulder Vertigo PAST SURGICAL HISTORY Procedure Laterality Date APPENDECTOMY 02/18/1963 LAPAROSCOPY SURG RPR INITIAL INGUINAL HERNIA 12/09/2013 right PAST SURGICAL HISTORY OF 10/19/1969 wisdom teeth PAST SURGICAL HISTORY OF Bilateral 2020 B/L cataract surgery FAMILY HISTORY Problem Relation Age of Onset Hypertension Mother Arthritis Mother other (tuberculosis [Other]) Mother Stroke Father Breast Cancer Maternal Grandmother Anesthesia Problems No Family History Social History Tobacco Use Smoking status: Never Smokeless tobacco: Never Vaping Use Vaping status: Never Used Substance Use Topics Alcohol use: No Drug use: No Prior to Admission medications as of 03/19/24 1429 Medication Sig Last Dose Taking mupirocin (BACTROBAN) 2 % ointment two times a day for 5 days. Apply 0.5 inch with cotton swab (Q-tip) to each nostril in the morning and evening for 5 days prior to and including day of surgery. No medication comments found. ALLERGIES No Known Allergies Objective PHYSICAL EXAM: General: alert and oriented and healthy appearance. Pertinent negatives noted - not distressed. Skin: normal color, no rash or lesions. HEENT: EOM intact, pupils equal round and pupils reactive to light. Pertinent negatives noted - no carotid bruit. Cardiovascular: regular rate and rhythm, normal S1 and S2, no rub, murmurs, or gallop. Respiratory: normal breath sounds, no wheezes or crackles. No chest wall deformity or tenderness. Abdomen: bowel sounds present and soft. Pertinent negatives noted - not tender. Extremities: Positive for joint tenderness. Pertinent negatives noted - no cellulitis, no clubbing, no deformity, no edema, no joint swelling, no abnormal pulses, no ulcer, no vascular insufficiency and no varicose veins. Neurological: normal cognition and motor skills. Gait normal. No weakness or sensory deficit. PAIN ASSESSMENT: Pain Pain Level: 4 Pain Location: Knee-Right Description: Aching VITALS: BP 145/81 Pulse 87 Temp (Src) 98.4 (Temporal) Resp 16 Ht 5' 10 (1.78m) Wt 154 lb 1.6 oz (69.9kg) SpO2 99% BMI 22.11 kg/(m^2). Diagnostic tests reviewed for today's visit: Lab Value Units Date High Low HB No results within date range. HCT No results within date range. WBC No results within date range. PLT No results within date range. NA No results within date range. K No results within date range. GLUC No results within date range. BUN No results within date range. CREAT No results within date range. PTSEC No results within date range. INR No results within date range. APTT No results within date range. ALT No results within date range. AST No results within date range. TBILI No results within date range. TSH No results within date range. Lab Value Units Date High Low HCGQT No results within date range. UHCG No results within date range. HCG, BODY* No results within date range. Lab Value Units Date High Low ABORHD No results within date range. ABSCREEN No results within date range. No results found for: HBA1C Recent Results (from the past 8760 hour(s)) ECG COMPLETE Collection Time: 03/19/24 2:32 PM Result Value Ventricular Rate 80 Atrial Rate 80 P-R Interval 174 QRS Duration 104 QT Interval 382 QTC Calculation (Bazett) 440 Calculated P Turner 39 Calculated R Turner -41 Calculated T Turner 45 Impression NORMAL SINUS RHYTHM WITH SINUS ARRHYTHMIA LEFT AXIS DEVIATION ABNORMAL ECG NO PREVIOUS ECGS AVAILABLE Confirmed by MD KAILEE, QARAB ([id number]) on 03/19/2024 3:09:12 PM No results found for this or any previous visit (from the past 80323 hour(s)). Instructions Given to Patient: Instructions located in the after visit summary. Patient given verbal and written preop instructions and voices comprehension and compliance. SIGNATURE: Yudy Delacruz PA-C PATIENT NAME: Paolo Hernandez DATE: March 19, 2024 TIME: 2:37 PM PAGER/CONTACT #: documented in this encounter [facility] 03-19-2024 History and physical note Images from the original note were not included. [facility] HISTORY AND PHYSICAL EXAMINATION SERVICE DATE: 03/19/2024 SERVICE TIME: 3:11 PM PRIMARY CARE PHYSICIAN: Louis Scott MD Assessment Patient has the following medical conditions which may affect nicole-operative course: Neuropathy Assessment: b/l feet with elevation at the end of the day, not on medications [place] Activity Status Index: METS: Walk indoors, such as around the house (1.75 METs) Do light work around the house, such as dusting or washing dishes (2.70 METs) Take care of self; that is eating, dressing, bathing, using the toilet (2.75 METs) Walk a block or two on level ground (2.75 METs) Do moderate work around the house, such as vacuuming, sweeping floors, or carrying in groceries (3.50 METs) Do yardwork, such as raking leaves, weeding, or pushing a power mower (4.50 METs) Climb a flight of stairs or walk up a hill (5.50 METs) DASI Score: 23.45 Patient denies any chest pain or undue shortness of breath with the above physical activity. Clinical Frailty Scale: 2. Well STOP-Bang Score: STOP-Bang Score: 0 ANESTHESIA FINDINGS: Intubation History: No history of difficult intubation. No abnormal airway history Significant Anesthesia Considerations: none Airway History: No history of difficult airway No abnormal airway history I - PHYSICAL EVALUATION AIRWAY Patient intubated: No. Tracheostomy tube not present Mallampati: I. TM distance: >3 FB. Neck ROM: full ROM without neurological symptoms. Mouth opening: adequate. Short neck: no. Thick neck: no DENTAL Dental findings: teeth intact. II - ANESTHESIA PLAN Beta Vira Monitoring Plan Post Procedure Analgesic Plan Prepared for Surgery: optimally prepared for surgery, pending [see comment]. -EKG reviewed, labs pending -Given pre-op mupirocin rx & instructions CONSULTS: Patient does not require consults for optimization at this time Planned Anesthetic: anesthesia choice The Following Tests/Procedures Have Been Initiated: Orders Placed This Encounter CBC diff Standing Status: Future Number of Occurrences: 1 Standing Expiration Date: 06/18/2024 CMP Standing Status: Future Number of Occurrences: 1 Standing Expiration Date: 06/18/2024 mupirocin (BACTROBAN) 2 % ointment Sig: two times a day for 5 days. Apply 0.5 inch with cotton swab (Q-tip) to each nostril in the morning and evening for 5 days prior to and including day of surgery. Dispense: 22 g Refill: 0 ECG (IN OFFICE) REASON FOR VISIT: Paolo Hernandez is a 78 year old male who is scheduled for Procedure(s): ROBOTIC ASSISTED TOTAL HIP ARTHROPLASTY (Right) at the request of Dr. Alfredito Michele for consultation. My final recommendation will be communicated back to the requesting physician by way of shared medical record or letter. Subjective The patient has the following: COVID-19 Immunization Status Overdue - Covid-19 Vaccine ( season) Overdue since 01/29/2024 12/04/2023 Imm Admin: COVID-19 original vaccine, age 12+ yr, monovalent (DorsaVI-BIONTGreystripe - [facility]) 12/11/2022 Imm Admin: COVID-19 vaccine, age 12+ yr, 2022- season (PFIZER-BIONTECH) 11/22/2021 Imm Admin: COVID-19 vaccine, age 12+ yr, bivalent (DorsaVI-BIONTECH) Only the first 3 history entries have been loaded, but more history exists. CHIEF COMPLAINT: Pre-op HPI: Patient is a 78 year old male presenting for pre-anesthesia consultation. Has been with right hip pain significantly worse over the past few months. Denies specific injury. Reports pain today of 4/10, described as sharp, aching, worsens with movement. Denies swelling, numbness or tingling. Has tried conservative methods with little relief. Patient denies other specific radiating, alleviating, or aggravating factors. Denies signs of infection or pain. Patient has completed a comprehensive course of conservative treatment and has elected for above surgery. REVIEW OF SYSTEMS: General: No weight loss, malaise or fevers. Neurological: Positive for: peripheral neuropathy. Negative for: dementia, headaches, impaired sensorium, seizures, TIA and strokes. Respiratory: Negative for: asthma, bronchitis, COPD, current cough, bronchodilator used daily for the last 3 months, dyspnea, home oxygen, orthopnea, pneumonia within 6 weeks, tobacco use, URI < 2 weeks and obstructive sleep apnea. Cardiovascular: Negative for: abdominal aortic aneurysm, AICD/PPM, angina, anticoagulation therapy, arrhythmia, atrial fibrillation, CAD, chest pain, CHF, congenital heart defect, DVT/PE, hyperlipidemia, hypertension, recent AL, murmur/valvular heart disease, PTCA, PVD, open heart surgery and valve surgery. GI: Negative for: abdominal pain, GERD, GI bleed <30 days, hepatitis, liver disease, nausea, vomiting and ETOH >2 drinks/day. : Negative for: on dialysis, dysuria, frequent urination, hematuria, renal failure and urinary tract infection. Endocrine: Negative for: diabetes mellitus, hyperthyroidism and hypothyroidism. Hematology: No history of bleeding or clotting disorder. Patient is not taking anti-coagulation or platelet medications. No history of hematological symptoms or problems. Oncology: No history of CA metastasis, chemo within 30 days, or radiotherapy within 90 days. No history of oncological symptoms or problems. Psych: No history of psychiatric symptoms or problems. Musculoskeletal: See HPI. Skin: Negative for lesions, rash and itching. Implanted Devices: No implanted devices. PAST MEDICAL HISTORY Diagnosis Date Right inguinal hernia Rotator cuff tear Right shoulder Vertigo PAST SURGICAL HISTORY Procedure Laterality Date APPENDECTOMY 02/18/1963 LAPAROSCOPY SURG RPR INITIAL INGUINAL HERNIA 12/09/2013 right PAST SURGICAL HISTORY OF 10/19/1969 wisdom teeth PAST SURGICAL HISTORY OF Bilateral 2020 B/L cataract surgery FAMILY HISTORY Problem Relation Age of Onset Hypertension Mother Arthritis Mother other (tuberculosis [Other]) Mother Stroke Father Breast Cancer Maternal Grandmother Anesthesia Problems No Family History Social History Tobacco Use Smoking status: Never Smokeless tobacco: Never Vaping Use Vaping status: Never Used Substance Use Topics Alcohol use: No Drug use: No Prior to Admission medications as of 03/19/24 1429 Medication Sig Last Dose Taking mupirocin (BACTROBAN) 2 % ointment two times a day for 5 days. Apply 0.5 inch with cotton swab (Q-tip) to each nostril in the morning and evening for 5 days prior to and including day of surgery. No medication comments found. ALLERGIES No Known Allergies Objective PHYSICAL EXAM: General: alert and oriented and healthy appearance. Pertinent negatives noted - not distressed. Skin: normal color, no rash or lesions. HEENT: EOM intact, pupils equal round and pupils reactive to light. Pertinent negatives noted - no carotid bruit. Cardiovascular: regular rate and rhythm, normal S1 and S2, no rub, murmurs, or gallop. Respiratory: normal breath sounds, no wheezes or crackles. No chest wall deformity or tenderness. Abdomen: bowel sounds present and soft. Pertinent negatives noted - not tender. Extremities: Positive for joint tenderness. Pertinent negatives noted - no cellulitis, no clubbing, no deformity, no edema, no joint swelling, no abnormal pulses, no ulcer, no vascular insufficiency and no varicose veins. Neurological: normal cognition and motor skills. Gait normal. No weakness or sensory deficit. PAIN ASSESSMENT: Pain Pain Level: 4 Pain Location: Knee-Right Description: Aching VITALS: BP 145/81 Pulse 87 Temp (Src) 98.4 (Temporal) Resp 16 Ht 5' 10 (1.78m) Wt 154 lb 1.6 oz (69.9kg) SpO2 99% BMI 22.11 kg/(m^2). Diagnostic tests reviewed for today's visit: Lab Value Units Date High Low HB No results within date range. HCT No results within date range. WBC No results within date range. PLT No results within date range. NA No results within date range. K No results within date range. GLUC No results within date range. BUN No results within date range. CREAT No results within date range. PTSEC No results within date range. INR No results within date range. APTT No results within date range. ALT No results within date range. AST No results within date range. TBILI No results within date range. TSH No results within date range. Lab Value Units Date High Low HCGQT No results within date range. UHCG No results within date range. HCG, BODY* No results within date range. Lab Value Units Date High Low ABORHD No results within date range. ABSCREEN No results within date range. No results found for: HBA1C Recent Results (from the past 8760 hour(s)) ECG COMPLETE Collection Time: 03/19/24 2:32 PM Result Value Ventricular Rate 80 Atrial Rate 80 P-R Interval 174 QRS Duration 104 QT Interval 382 QTC Calculation (Bazett) 440 Calculated P Turner 39 Calculated R Turner -41 Calculated T Turner 45 Impression NORMAL SINUS RHYTHM WITH SINUS ARRHYTHMIA LEFT AXIS DEVIATION ABNORMAL ECG NO PREVIOUS ECGS AVAILABLE Confirmed by MD KAILEE, AARON ([id number]) on 03/19/2024 3:09:12 PM No results found for this or any previous visit (from the past 59558 hour(s)). Instructions Given to Patient: Instructions located in the after visit summary. Patient given verbal and written preop instructions and voices comprehension and compliance. SIGNATURE: Yudy Delacruz PA-C PATIENT NAME: Paolo Hernandez DATE: March 19, 2024 TIME: 2:37 PM PAGER/CONTACT #: [facility] 03-19-2024 Instructions Yudy Delacruz PA-C - 03/19/2024 2:31 PM EST [facility] Pre[facility]Anest[facility] PATIENT PREOPERATIVE INSTRUCTIONS Alfredito Michele MD has scheduled you for your procedure at this surgery center: [facility]: [phone] -- [address] [address]. Please read below carefully for your personalized instructions. Arrival Time for Surgery: - The Surgery Center or hospital where you are having surgery will call the afternoon before surgery (or Saturday for Saturday surgery) with a scheduled arrival time. - If you have not heard by 4 pm, please contact the surgery center above. Dietary Restrictions: - No solid food after midnight. - You may have 12 ounces of clear liquids (water, clear juices such as apple juice or gatorade, carbonated beverages, clear tea, black coffee, jello) until 2 hours before scheduled arrival at facility. - Do not drink any alcohol after midnight the night before your surgery. - no milk/creamer or other additives like honey - no pulp juices Medications: If you start any new medications after today's visit, please contact the surgeon's office. If you are currently using a dtgh-bua-gkox injectable or oral medication for diabetes or weight loss such as Dulaglutide (Trulicity), Exenatide (Byetta, Bydureon), Liraglutide (Victoza, Saxenda), Semaglutide (Ozempic, Wegovy, Rybelsus), or Tirzepatide (Mounjaro), the medicine should be stopped at least 7 days before surgery. These medicines can cause food to remain in your stomach for a very long time and increase the risks from surgery and anesthesia. Not stopping the medication for a long enough time may result in your surgery being rescheduled. If you take any medications for erectile dysfunction-Cialis (Tadalafil), Levitra, Staxyn (Vardenafil) Viagra (Sildenenafil please do not take these for 48 hours before surgery. If you start any new medications after today's visit, please contact the surgeon's office. Apply 1/2 inch of the mupirocin ointment with a Q-tip to both nostrils in the morning and afternoon for 5 consecutive days before surgery. If you are scheduled for a pre-op Covid-19 test, please do not apply mupirocin the morning of your test. You may apply it right after the test instead. Blood Thinning Medications: - Stop NSAIDS (Ibuprofen, Advil, Aleve, Motrin, Celebrex, Mobic, etc.) 7 days before surgery, as directed by your surgeon. - Stop Aspirin 7 days before surgery, as directed by your surgeon. - Stop herbals and dietary supplements 7 days before surgery. - You may take Tylenol (Acetaminophen) or any of your pain medications that do not contain aspirin or NSAIDS as needed. Important Reminders: - If you use CPAP/BIPAP, bring the machine with you to the surgery center. - If you are prescribed inhalers for breathing, continue using them. If you are on dialysis, please check with your dialysis center or mingle operator to see if any adjustments need to be made to your schedule for the week of your surgery - Candy, mints, and tobacco products are NOT permitted the morning of surgery. - Hearing aids, dentures and glasses may be worn the morning of surgery. - NO jewelry, body piercings, makeup, hairpins or contacts are to be worn the day of surgery. If you develop symptoms such as a fever, cold, or flu, or have other changes to your health within TWO DAYS of scheduled surgery or the morning of surgery, please contact the surgery center above. Personal Belongings: -Please have photo ID and insurance cards. -If you do not have a copy of advance directives on file with us, please bring a copy with you on the day of surgery. - Leave ALL valuables and money at home or with family members. For Outpatient Procedures: - YOU MUST HAVE A RESPONSIBLE OIL WELL DIRECTIONAL SURVEYOR TAKE YOU HOME. A BUSINESS IMPROVEMENT MANAGER OR AIRCRAFT ORDNANCE TECHNICIAN CANNOT BE MADE A RESPONSIBLE OIL WELL DIRECTIONAL SURVEYOR. - We recommend that a responsible person stays with you overnight to take care of you. - You cannot stay in a hotel alone after outpatient surgery. You will not be permitted to have your surgery, if you do not have someone to take care of you. Please be aware that emergency situations arise, which may delay or change your surgical time. If this happens, we will notify you as soon as possible and regret any inconvenience. If you already have an Advance Directive, please fax a copy to [phone] or email to for it to be added to your chart. If you do not have an Advance Directive, you can find the appropriate form and more information at [email or web address]. We recommend that you complete the Advance Directive form found on the website and bring it with you the day of your surgery. It can be witnessed and scanned into your chart that day. Yudy Delacruz PA-C documented in this encounter [facility] 03-19-2024 History of Presen t illness Narrative Radiology Service Progress Note PATIENT NAME: Paolo Hernandez DATE OF SERVICE: March 19, 2024 TIME: 2:05 PM PATIENT IDENTITY VERIFICATION COMPLETED USING TWO (2) IDENTIFIERS: Name and Date of confirmed by patient verbally and Name and Date of confirmed by identification band. FALL SCREENING: Has the patient had 2 falls in the last year or 1 fall with injury or currently using an Ambulatory Assistive Device (Walker, Cane, Wheelchair, Crutches, etc.)? No PATIENT GENDER DATA: Assigned male at PATIENT RELEVANT IMPLANT DATA REVIEWED: Yes PATIENT PRESENTS WITH AN IMPLANTABLE OR ATTACHED QUARRY MANAGER: No RADIOLOGY DEPARTMENT: CT; Exam(s) Completed: christian hip right PERIPHERAL IV DATA: Not applicable SIGNED BY: TECHNOLOGIST Hernesto March 19, 2024 2:05 PM documented in this encounter [facility] 03-19-2024 Note HNO ID: [id number] Author: RICHARD BENAVIDEZ TECHNOLOGIST Service: Radiology Author Type: Technologist Type: Progress Notes Filed: 03/19/2024 14:06 Note Text: Radiology Service Progress Note PATIENT NAME: Paolo Hernandez DATE OF SERVICE: March 19, 2024 TIME: 2:05 PM PATIENT IDENTITY VERIFICATION COMPLETED USING TWO (2) IDENTIFIERS: Name and Date of confirmed by patient verbally and Name and Date of confirmed by identification band. FALL SCREENING: Has the patient had 2 falls in the last year or 1 fall with injury or currently using an Ambulatory Assistive Device (Walker, Cane, Wheelchair, Crutches, etc.)? No PATIENT GENDER DATA: Assigned male at PATIENT RELEVANT IMPLANT DATA REVIEWED: Yes PATIENT PRESENTS WITH AN IMPLANTABLE OR ATTACHED QUARRY MANAGER: No RADIOLOGY DEPARTMENT: CT; Exam(s) Completed: christian hip right PERIPHERAL IV DATA: Not applicable SIGNED BY: TECHNOLOGIST Hernesto March 19, 2024 2:05 PM [facility] 03-18-2024 Telephone encounter Note Surgery has been scheduled as requested. [facility] 03-18-2024 Miscellaneous Notes Surgery has been scheduled as requested. Surgical request completed for robotic assisted right LOGAN at [facility] on 04/01/2024. Post op appointments have been scheduled and mailed to the patient. CT scan scheduled on 03/19/2024. Email sent to [facility]. documented in this encounter [facility] 03-17-2024 Telephone encounter Note Surgical request completed for robotic assisted right LOGAN at [facility] on 04/01/2024. Post op appointments have been scheduled and mailed to the patient. CT scan scheduled on 03/19/2024. Email sent to [facility]. [facility] 03-17-2024 Telephone encounter Note TOTAL JOINT COMPLETE CARE PROGRAM PRE-OPERATIVE TEACHING Service Date: 03/17/2024 Service Time: 10:44 AM Date of : 1945 Gender: male Date of Surgery: 04/01/24 Procedure: Right Total Hip Replacement Complete Care Program was discussed with the patient: Scrap Preparation Supervisor Identification: Patient identified a acute care surgeon to help when discharged to home: daughter, plans to stay at her house for a little bit. Home Environment: Home Layout: Ranch, Entry Steps: 1, Bedroom Location: 1st floor, Bathroom Location: 1st floor, and tub shower. Has walker, cane, shower seat. Discussed with patient importance of attending joint education class and provided date and times of class: YES signed up for 03/19/24 Patient received Joint Education Binder: Yes Plans discharge home to daughters with [facility]. SIGNATURE: HERSON Novak PATIENT NAME: Paolo Hernandez DATE: March 17, 2024 TIME: 10:44 AM [facility] 03-17-2024 Miscellaneous Notes TOTAL JOINT COMPLETE CARE PROGRAM PRE-OPERATIVE TEACHING Service Date: 03/17/2024 Service Time: 10:44 AM Date of : 1945 Gender: male Date of Surgery: 04/01/24 Procedure: Right Total Hip Replacement Complete Care Program was discussed with the patient: Scrap Preparation Supervisor Identification: Patient identified a acute care surgeon to help when discharged to home: daughter, plans to stay at her house for a little bit. Home Environment: Home Layout: Ranch, Entry Steps: 1, Bedroom Location: 1st floor, Bathroom Location: 1st floor, and tub shower. Has walker, cane, shower seat. Discussed with patient importance of attending joint education class and provided date and times of class: YES signed up for 03/19/24 Patient received Joint Education Binder: Yes Plans discharge home to [facility] with [facility]. SIGNATURE: HERSON Novak PATIENT NAME: Paolo Hernandez DATE: March 17, 2024 TIME: 10:44 AM documented in this encounter [facility] 03-16-2024 Note HNO ID: [id number] Author: ALFREDITO MICHELE MD Service: ? Author Type: Physician Type: Progress Notes Filed: 03/16/2024 12:11 Note Text: CONSULT ORTHOPAEDIC: HIP PRIMARY CARE PHYSICIAN: Louis Scott MD REFERRING PROVIDER: No referring provider defined for this encounter. ASSESSMENT AND PLAN Impression: Right Avascular Necrosis, Idiopathic Diagnoses: (M25.561, G89.29) Chronic pain of right knee (primary encounter diagnosis) Based upon the evaluation today and after discussions with Paolo Hernandez, Paolo Hernandez has significant, worsening pain at the hip. This pain is increased with activity and weight bearing, and interferes with activities of daily living. These symptoms have continued despite a number of non-surgical measures, including a trial of oral pain medication (for at least 12 weeks). At this point, the patient will not benefit from further PT due to the severity of their condition. The patient's physical examination is consistent with limitations in range of motion, pain with passive range of motion, and an antalgic gait. These examination findings are corroborated by imaging findings of joint space narrowing, periarticular osteophyte formation, and subchondral sclerosis. The patient has been treated by the practice and all reasonable treatments have failed to control the disease, which causes significant pain andlimits activities of daily living. The patient has failed conservative treatment and joint replacement surgery was discussed and agreed upon by both provider and patient. The patient has elected to proceed with surgical management to improve function and relieve pain refractory to non-surgical measures: Right Primary Total Hip Arthroplasty as evidenced by six months of unsuccessful non-operative treatment as outlined in the HPI below and progressive symptoms. Progressive symptoms include: Pain impacting sleep or causing fatigue Pain impacting work Pain effecting living situation Pain limiting ability to stay fit and healthy. Surgery Details Date and Location: At [place] on TBD. Implants: Ainsley Robotic: Yes Predicted LOS: 2 days (Inpatient candidate) The risks and benefits of surgery were discussed at length including but not limited to the risks of infection, bleeding, nerve or blood vessel injury, deep venous thrombosis, pulmonary embolism, , paralysis, hip dislocation, leg length discrepancy (including requiring use of permanent shoe lift), bone fracture, component loosening or failure requiring re-operation or amputation. Informed consent was obtained and the patient was scheduled. We also discussed fixation strategies including cement and cementless fixation and modern alternative bearings including metal or ceramic with cross-linked polyethylene, [id number] and [id number] as well as advantages and disadvantages of each. We also discussed less invasive surgical approaches and reported benefits and risks of these approaches. The patient has been ordered: Office Visit on 03/16/24 CT KNEE WO IVCON RIGHT Paolo Hernandez meets the following criteria for CT: [facility] Protocol CONSULTS: Patient does not require consults for optimization at this time. Total Joint Arthroplasty: Risk Calculator Paolo Hernandez has a 21.51% chance of NOT returning home at discharge for a Primary total Hip replacement. Paolo's estimated Length of Stay is 2 days (Inpatient candidate). Paolo's 30 day chance of readmission is 5.52%. Readmission Probability 5.52 % (within 30 days following surgery) Estimated LOS 2 days Discharge Disposition Probability D/C to Home 78.49 % D/C to SNF 21.51 % These calculations are based on the following factors: - 78 years of age - sex is male - BMI of 22 kg/m2 - NarxCare score of 0 - 0 hospitalizations in the last 12 months - no history of heart disease - no history of diabetes - no history of COPD - no history of anemia - preoperative ambulation: impaired community distances - 2 step(s) to enter home - bed location is on the first floor - bath location is on the first floor - caregiver is inconsistent - home is not more than 150 miles away - PROMIS-10 Mental Health T score 50+ - Marital status: Risk Factors for Total Knee Arthroplasty (TKA) Major Risk Factors Obesity Unknown Risk High: BMI > 40 Moderate: BMI 30-40 Normal: BMI < 30 Diabetes normal High: A1C > 8 Moderate: A1C 7-8 Normal: A1C < 7 Hx of DVT / PE normal High: dx of DVT / PE Normal: no dx of DVT / PE Smoking normal High: Current smoker Normal: Non smoker Narcotics Use normal High:NarxCare >=300 Moderate: 100-299 Normal: 0-99 Depression normal High: PHQ-9 >14 Moderate: PHQ-9 5-14 Normal: PHQ-9 < 5 Area Deprivation Index (ZAKI) Unknown Risk High: ZAKI Score > 75 Moderate: ZAKI 50-75 Normal: ZAKI < 50 Obesity: height and/or weight are out of date (There is no height and/or weight reading in (more content not included)... [facility] 03-16-2024 History of Presen t illness Narrative Images from the original note were not included. CONSULT ORTHOPAEDIC: HIP PRIMARY CARE PHYSICIAN: Louis Scott MD REFERRING PROVIDER: No referring provider defined for this encounter. ASSESSMENT & PLAN Impression: Right Avascular Necrosis, Idiopathic Diagnoses: (M25.561, G89.29) Chronic pain of right knee (primary encounter diagnosis) Based upon the evaluation today and after discussions with Paolo Hernandez, Paolo Hernandez has significant, worsening pain at the hip. This pain is increased with activity and weight bearing, and interferes with activities of daily living. These symptoms have continued despite a number of non-surgical measures, including a trial of oral pain medication (for at least 12 weeks). At this point, the patient will not benefit from further PT due to the severity of their condition. The patient's physical examination is consistent with limitations in range of motion, pain with passive range of motion, and an antalgic gait. These examination findings are corroborated by imaging findings of joint space narrowing, periarticular osteophyte formation, and subchondral sclerosis. The patient has been treated by the practice and all reasonable treatments have failed to control the disease, which causes significant pain and limits activities of daily living. The patient has failed conservative treatment and joint replacement surgery was discussed and agreed upon by both provider and patient. The patient has elected to proceed with surgical management to improve function and relieve pain refractory to non-surgical measures: Right Primary Total Hip Arthroplasty as evidenced by six months of unsuccessful non-operative treatment as outlined in the HPI below and progressive symptoms. Progressive symptoms include: Pain impacting sleep or causing fatigue Pain impacting work Pain effecting living situation Pain limiting ability to stay fit and healthy. Surgery Details Date and Location: At [place] on TBD. Implants: [employer] Robotic: Yes Predicted LOS: 2 days (Inpatient candidate) The risks and benefits of surgery were discussed at length including but not limited to the risks of infection, bleeding, nerve or blood vessel injury, deep venous thrombosis, pulmonary embolism, , paralysis, hip dislocation, leg length discrepancy (including requiring use of permanent shoe lift), bone fracture, component loosening or failure requiring re-operation or amputation. Informed consent was obtained and the patient was scheduled. We also discussed fixation strategies including cement and cementless fixation and modern alternative bearings including metal or ceramic with cross-linked polyethylene, [id number] and [id number] as well as advantages and disadvantages of each. We also discussed less invasive surgical approaches and reported benefits and risks of these approaches. The patient has been ordered: Office Visit on 03/16/24 CT KNEE WO IVCON RIGHT Paolo Hernandez meets the following criteria for CT: CT [facility] Protocol CONSULTS: Patient does not require consults for optimization at this time. Total Joint Arthroplasty: Risk Calculator Paolo Hernandez has a 21.51% chance of NOT returning home at discharge for a Primary total Hip replacement. Paolo's estimated Length of Stay is 2 days (Inpatient candidate). Paolo's 30 day chance of readmission is 5.52%. Readmission Probability 5.52 % (within 30 days following surgery) Estimated LOS 2 days Discharge Disposition Probability D/C to Home 78.49 % D/C to SNF 21.51 % These calculations are based on the following factors: - 78 years of age - sex is male - BMI of 22 kg/m2 - NarxCare score of 0 - 0 hospitalizations in the last 12 months - no history of heart disease - no history of diabetes - no history of COPD - no history of anemia - preoperative ambulation: impaired community distances - 2 step(s) to enter home - bed location is on the first floor - bath location is on the first floor - caregiver is inconsistent - home is not more than 150 miles away - PROMIS-10 Mental Health T score 50+ - Marital status: Risk Factors for Total Knee Arthroplasty (TKA) Major Risk Factors Obesity Unknown Risk High: BMI > 40 Moderate: BMI 30-40 Normal: BMI < 30 Diabetes normal High: A1C > 8 Moderate: A1C 7-8 Normal: A1C < 7 Hx of DVT / PE normal High: dx of DVT / PE Normal: no dx of DVT / PE Smoking normal High: Current smoker Normal: Non smoker Narcotics Use normal High:NarxCare >=300 Moderate: 100-299 Normal: 0-99 Depression normal High: PHQ-9 >14 Moderate: PHQ-9 5-14 Normal: PHQ-9 < 5 Area Deprivation Index (ZAKI) Unknown Risk High: ZAKI Score > 75 Moderate: ZAKI 50-75 Normal: ZAKI < 50 Obesity: height and/or weight are out of date (There is no height and/or weight reading in the past 365 days, so the below BMI readings may be inaccurate) BMI Readings from Last 3 Encounters: 09/19/23 : 22.33 kg/m 04/16/23 : 22.60 kg/m 12/11/22 : 22.74 kg/m Area Deprivation Index (ZAKI) 12/10/2022 ZAKI Score National Score 75 Patient Health Questionnaire (PHQ-9) 12/11/2022 04/16/2023 06/11/2023 PHQ-9 PHQ-2 Score 0 0 0 (0-4) minimal depression, (5-9) mild depression, (10-14) moderate depression, (15-19) moderately severe depression, (20-27) severe depression Bone Density Risk Screen Paolo Hernandez is at risk for bone loss and has not had a bone densitometry scan in the last 2 years (date of last scan: None on file). Recommend a bone densitometry scan and if indicated on the bone density results, a consult to a bone health specialist (Rheumatology, Endocrinology, or Women's Health) for bone assessment. Risk Factors: Additional Risk Factors Past Orthopaedic Surgery: Paolo had hip surgery on 07/29/2023 with Slim Zhu. Malnutrition: No Malnutrition Screening Tool (MST) score on file- please complete the MST screening tool (click here to open) and refresh the note. ACTIVE PROBLEM LIST Adhesive Capsulitis of Shoulder Vertigo Right Inguinal Hernia Right Hip Pain SUBJECTIVE CHIEF COMPLAINT: Hip Pain HPI: Paolo Hernandez is a 78 year old patient with the presenting complaint of Pain and Follow Up of the Right Hip (Referred by Shelby - Here to discuss and sign consent Right LOGAN). Paolo Hernandez has had progressive problems with the hip(s) most of the day over the past 1 year(s) interfering with activities which include walking 2 blocks, doing tele rn, participating in family activities, enjoying hobbies, rising from a sitting position, getting in and out of a car, and climbing stairs. The problem began limiting activities 7-12 months ago. Paolo reports a current pain level of 4 (Hip-Right). He describes the pain as Aching, Stabbing. The pain is Intermittent, and has lasted for 12 Months. Interventions tried include Reposition, Relaxation. Patient here to discuss and sign consent Right LOGAN. Patient had x-rays done on 03/09/24. Patient states he is having difficulty walking long distances, getting up out of a chair and the car. He has pain with weight bearing. 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 Taking no med's for the pain. Patient limping when ambulating to exam room. PROMIS Physical Function Score 06/11/2023 PROMIS CAT Physical Function T-Score 43 (mild dysfunction) Percentile 24* FUNCTIONAL STATUS: Climb a flight of stairs or walk up a hill (5.50 METs) Do heavy work around the house, such as scrubbing floors, lifting or moving heavy furniture (8.00 METs) PREVIOUS TREATMENTS: Last hip-related PT visit: 06/17/2023 (Groin - Right;Hip - Right) Last Hip Surgery: 07/29/2023 with Slim Zhu Current Anti-Inflammatory medications: triamcinolone acetonide Past anti-inflammatory medications (not necessarily for this reason for visit): naproxen, triamcinolone acetonide Medical: Steroid Injections Left Hip REVIEW OF SYSTEMS: PAIN ASSESSMENT: See HPI. MUSCULOSKELETAL: See HPI. No data to display PAST MEDICAL HISTORY Diagnosis Date Right inguinal hernia Rotator cuff tear Right shoulder Vertigo PAST SURGICAL HISTORY Procedure Laterality Date APPENDECTOMY 02/18/1963 LAPAROSCOPY SURG RPR INITIAL INGUINAL HERNIA 12/09/2013 right PAST SURGICAL HISTORY OF 10/19/1969 wisdom teeth PAST SURGICAL HISTORY OF Bilateral 2020 B/L cataract surgery FAMILY HISTORY Problem Relation Age of Onset Hypertension Mother Arthritis Mother other (tuberculosis [Other]) Mother Stroke Father Breast Cancer Maternal Grandmother Social History Tobacco Use Smoking status: Never Smokeless tobacco: Never Vaping Use Vaping status: Never Used Substance Use Topics Alcohol use: No Drug use: No ALLERGIES: Patient has no known allergies. MEDICATIONS: No prescriptions on file. OBJECTIVE PHYSICAL EXAM There were no vitals taken for this visit. All other systems deferred. GENERAL: Appears healthy, well-nourished, no deformities. HABITUS: Thin GAIT: Antalgic to the right HIP EXAM: Right: ROM: Extension: full extension Flexion: 100 degrees Internal Rotation: 25 degrees External Rotation: 25 degrees Abduction: 30 degrees Adduction: 25 degrees Strength: Abduction 5/5 and Flexion 4/5 Palpation: No tenderness Log roll: painful. Straight leg raise: Negative Neurovascular Status: Sensation Intact, Moves foot and ankle up & down, and 2+ dorsalis pedis DATA: He was last seen in orthopaedic clinic for his hip/pelvis on 03/09/2024 with Shelby Coy. Most recent hip imaging was completed on 03/09/2024 (XR HIP GENERAL 3V PELV/AP/LAT RIGHT) . The last hip-related PT visit was completed on 06/17/2023 (Groin - Right;Hip - Right). Paolo had hip surgery on 07/29/2023 with Slim Zhu. Diagnostic tests reviewed for today's visit: Most recent labs Most recent films The following conditions were addressed during the office visit today: none SIGNATURE: Alfredito Michele MD PATIENT NAME: Paolo Hernandez DATE: March 16, 2024 TIME: 12:06 PM documented in this encounter [facility] 03-09-2024 Note HNO ID: [id number] Author: SHELBY COY PA-C Service: ? Author Type: Physician Airplane Pilot Helper Type: Progress Notes Filed: 03/09/2024 10:32 Note Text: Shelby Coy PA-C Department of Orthopaedics Orthopaedics [address] [facility] [address] Dept: [phone] Dept March 09, 2024 CHIEF COMPLAINT: New and Pain of the Right Hip and Last seen by Lilian Whatley 06/17/23 OA right hip (US Guided injection done on 07/29/23) Mr. Paolo Hernandez is a 78 year old male who presents with right hip pain which has been getting progressively worse over the past several years. Pain is a 5 out of 10 aching, stabbing that is worse with most activities. 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 He had an ultrasound guided injection a little over 6 months ago, the injection was somewhat helpful but the pain relief was only short-lived. The patient does take intermittent ibuprofen which again is only somewhat helpful. He is able to find a comfortable position for sleep and is able to find a comfortable position if he is seated and driving. ASSESSMENT: M16.11 Primary osteoarthritis of right hip (primary encounter diagnosis) PLAN: Patient has severe right hip osteoarthritis. We discussed his surgical options, he would like to get in with one of our surgeons to discuss total hip arthroplasty. Mr. Paolo Hernandez was advised as to contrast therapies and/or to take analgesics/anti-inflammatories as needed and all contraindications were reviewed. OBJECTIVE: Mr. Paolo Hernandez is a pleasant 78 year old in no apparent distress. Gen:There were no vitals taken for this visit. nl development, non obese, no deformities ENT: Normocephalic, normal hearing, moist mucosa CV: Pulses:Radial= 2+ and symmetric, capillary refill < 2 secs, no peripheral edema/varicosities Skin: no rash, bruising or lesions. Good turgor. Psych: cooperative and appropriate, alert and oriented x 3, good mood and affect. Musculoskeletal: HIP EXAM: Right: ROM: Extension: slight flexion contracture Flexion: 100 degrees Internal Rotation: 10 degrees External Rotation: 10 degrees Abduction: 20 degrees Adduction: 15 degrees Strength: Pain with resisted abduction and Pain with resisted hip flexion Palpation: Tenderness over right greater trochanter and SI joint Log roll: non-painful. Straight leg raise: Negative Neurovascular Status: Sensation Intact, Moves foot and ankle up AND down, and 2+ dorsalis pedis Imaging: IMPRESSION: Findings as discussed under Results portion of report. Rolling Up Machine Operator: DELISA Transcribe Date/Time: Mar 09 2024 8:17A Dictated by : SCOOBY HOLLY DO This examination was interpreted and the report reviewed and electronically signed by: SCOOBY HOLLY DO on Mar 09 2024 8:18AM EST Results-Findings * * *Final Report* * * DATE OF EXAM: Mar 09 2024 7:59AM [id number] - XR HIP 3V PELV+ AP/LAT RT / PROCEDURE REASON: Pain in right hip * * * * Physician Interpretation * * * * Pelvis and right hip HISTORY: Indication: Pain in right hip TECHNIQUE: Images: XR HIP 3V PELV+ AP/LAT RT Comparison: 04/16/2023 RESULT: Findings: Moderate LEFT convex rotoscoliosis Pelvis: No fractures or dislocations are seen. Mesh markers are noted projecting over the pelvis on the RIGHT side Right hip: No fractures or dislocations are seen. Significant change in RIGHT hip joint to previous study. There are multiple lucencies was surrounding sclerosis in the femoral head with sclerosis and some lucency in the superior lateral aspect of the acetabulum. Some of these changes probably represent osteonecrosis. Supporting Subjective Information Below: Past Surgical History: PAST SURGICAL HISTORY Procedure Laterality Date APPENDECTOMY 02/18/1963 LAPAROSCOPY SURG RPR INITIAL INGUINAL HERNIA 12/09/2013 right PAST SURGICAL HISTORY OF 10/19/1969 wisdom teeth PAST SURGICAL HISTORY OF Bilateral 2020 B/L cataract surgery Medications: No current outpatient medications on file. No current facility-administered medications for this visit. Facility-Administered Medications Ordered in Other Visits Medication Dose Route Frequency lidocaine 10 mg/mL (1 %) injection (XYLOCAINE) OTHER PRN triamcinolone acetonide injection (KeNALog 40) INTRA-ARTICULAR PRN Allergies: Patient has no known allergies. ROS: General (negative for fatigue, malaise, weight loss/gain) HEENT (negative for headache, earache, recent vision changes, sinus pain, sore throat) Respiratory (no recent shortness of breath, hemoptysis) CV (negative for chest tightness, palpitations) Musculoskeletal (see HPI) Psych (no depression, anxiety) This note was partially generated using ROLI voice recognition system, and there may be some incorrect words, spellings, and punctuation that were not (more content not included)... [facility] 03-09-2024 History of Presen t illness Narrative Shelby Coy PA-C Department of Orthopaedics Orthopaedics [address] [facility] [address] Dept: [phone] Dept March 09, 2024 CHIEF COMPLAINT: New and Pain of the Right Hip and Last seen by Lilian Whatley 06/17/23 OA right hip (US Guided injection done on 07/29/23) Mr. Paolo Hernandez is a 78 year old male who presents with right hip pain which has been getting progressively worse over the past several years. Pain is a 5 out of 10 aching, stabbing that is worse with most activities. 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 He had an ultrasound guided injection a little over 6 months ago, the injection was somewhat helpful but the pain relief was only short-lived. The patient does take intermittent ibuprofen which again is only somewhat helpful. He is able to find a comfortable position for sleep and is able to find a comfortable position if he is seated and driving. ASSESSMENT: M16.11 Primary osteoarthritis of right hip (primary encounter diagnosis) PLAN: Patient has severe right hip osteoarthritis. We discussed his surgical options, he would like to get in with one of our surgeons to discuss total hip arthroplasty. Mr. Paolo Hernandez was advised as to contrast therapies and/or to take analgesics/anti-inflammatories as needed and all contraindications were reviewed. OBJECTIVE: Mr. Paolo Hernandez is a pleasant 78 year old in no apparent distress. Gen:There were no vitals taken for this visit. nl development, non obese, no deformities ENT: Normocephalic, normal hearing, moist mucosa CV: Pulses:Radial= 2+ and symmetric, capillary refill < 2 secs, no peripheral edema/varicosities Skin: no rash, bruising or lesions. Good turgor. Psych: cooperative and appropriate, alert and oriented x 3, good mood and affect. Musculoskeletal: HIP EXAM: Right: ROM: Extension: slight flexion contracture Flexion: 100 degrees Internal Rotation: 10 degrees External Rotation: 10 degrees Abduction: 20 degrees Adduction: 15 degrees Strength: Pain with resisted abduction and Pain with resisted hip flexion Palpation: Tenderness over right greater trochanter and SI joint Log roll: non-painful. Straight leg raise: Negative Neurovascular Status: Sensation Intact, Moves foot and ankle up & down, and 2+ dorsalis pedis Imaging: IMPRESSION: Findings as discussed under Results portion of report. Rolling Up Machine Operator: DELISA Transcribe Date/Time: Mar 09 2024 8:17A Dictated by : SCOOBY HOLLY DO This examination was interpreted and the report reviewed and electronically signed by: SCOOBY HOLLY DO on Mar 09 2024 8:18AM EST Results-Findings * * *Final Report* * * DATE OF EXAM: Mar 09 2024 7:59AM [id number] - XR HIP 3V PELV+ AP/LAT RT / PROCEDURE REASON: Pain in right hip * * * * Physician Interpretation * * * * Pelvis and right hip HISTORY: Indication: Pain in right hip TECHNIQUE: Images: XR HIP 3V PELV+ AP/LAT RT Comparison: 04/16/2023 RESULT: Findings: Moderate LEFT convex rotoscoliosis Pelvis: No fractures or dislocations are seen. Mesh markers are noted projecting over the pelvis on the RIGHT side Right hip: No fractures or dislocations are seen. Significant change in RIGHT hip joint to previous study. There are multiple lucencies was surrounding sclerosis in the femoral head with sclerosis and some lucency in the superior lateral aspect of the acetabulum. Some of these changes probably represent osteonecrosis. Supporting Subjective Information Below: Past Surgical History: PAST SURGICAL HISTORY Procedure Laterality Date APPENDECTOMY 02/18/1963 LAPAROSCOPY SURG RPR INITIAL INGUINAL HERNIA 12/09/2013 right PAST SURGICAL HISTORY OF 10/19/1969 wisdom teeth PAST SURGICAL HISTORY OF Bilateral 2020 B/L cataract surgery Medications: No current outpatient medications on file. No current facility-administered medications for this visit. Facility-Administered Medications Ordered in Other Visits Medication Dose Route Frequency lidocaine 10 mg/mL (1 %) injection (XYLOCAINE) OTHER PRN triamcinolone acetonide injection (KeNALog 40) INTRA-ARTICULAR PRN Allergies: Patient has no known allergies. ROS: General (negative for fatigue, malaise, weight loss/gain) HEENT (negative for headache, earache, recent vision changes, sinus pain, sore throat) Respiratory (no recent shortness of breath, hemoptysis) CV (negative for chest tightness, palpitations) Musculoskeletal (see HPI) Psych (no depression, anxiety) This note was partially generated using ROLI voice recognition system, and there may be some incorrect words, spellings, and punctuation that were not noted in checking the note before saving. Shelby Coy PA-C Patient presents with: Right Hip - New, Pain Last seen by Lilian Whatley 06/17/23 OA right hip: US Guided injection done on 07/29/23 AMB ROOMING INTAKE FLOWSHEET DATA Risk Screening Do you have concerns about personal safety or safety in the home?: No Pain Pain Level: 5 Pain Location: Hip-Right Description: Aching, Stabbing Duration Amount of Time: 6 Duration Units: Months Frequency: Intermittent Intervention/Comfort measure: Reposition, Positioning Patient states he is having pain in groin area. His pain is mostly with weight bearing. He has difficulty getting up out of a chair, out of his car and tying his shoes. Patients US guided injection only helped for a short period and then his pain returns. Patient is limping when walking to the exam room. 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 Taking Ibuprofen only if he is going to be walking a long distances. He is not sure if helps. X-rays done today. documented in this encounter [facility] 03-09-2024 Note HNO ID: [id number] Author: MARBELLA CHICAS MA Service: ? Author Type: Javascript Developer Type: Progress Notes Filed: 03/09/2024 10:32 Note Text: Patient presents with: Right Hip - New, Pain Last seen by Lilian Whatley 06/17/23 OA right hip: US Guided injection done on 07/29/23 AMB ROOMING INTAKE FLOWSHEET DATA Risk Screening Do you have concerns about personal safety or safety in the home?: No Pain Pain Level: 5 Pain Location: Hip-Right Description: Aching, Stabbing Duration Amount of Time: 6 Duration Units: Months Frequency: Intermittent Intervention/Comfort measure: Reposition, Positioning Patient states he is having pain in groin area. His pain is mostly with weight bearing. He has difficulty getting up out of a chair, out of his car and tying his shoes. Patients US guided injection only helped for a short period and then his pain returns. Patient is limping when walking to the exam room. 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 Taking Ibuprofen only if he is going to be walking a long distances. He is not sure if helps. X-rays done today. [facility] 03-09-2024 History of Presen t illness Narrative Radiology Service Progress Note PATIENT NAME: Paolo Hernandez DATE OF SERVICE: March 09, 2024 TIME: 8:08 AM PATIENT IDENTITY VERIFICATION COMPLETED USING TWO (2) IDENTIFIERS: Name and Date of confirmed by patient verbally. FALL SCREENING: Has the patient had 2 falls in the last year or 1 fall with injury or currently using an Ambulatory Assistive Device (Walker, Cane, Wheelchair, Crutches, etc.)? No PATIENT GENDER DATA: Assigned male at PATIENT RELEVANT IMPLANT DATA REVIEWED: Not Applicable PATIENT PRESENTS WITH AN IMPLANTABLE OR ATTACHED QUARRY MANAGER: No RADIOLOGY DEPARTMENT: General X-ray: Exam(s) Completed: Pelvis X-Ray: Pelvis with Hip Right PERIPHERAL IV DATA: Not applicable SIGNED BY: RT Fidelia([place]) March 09, 2024 8:08 AM documented in this encounter [facility] 03-09-2024 Note HNO ID: [id number] Author: MELINDA ZIMMERMAN RT([place]) Service: ? Author Type: Technologist Type: Progress Notes Filed: 03/09/2024 08:09 Note Text: Radiology Service Progress Note PATIENT NAME: Paolo Hernandez DATE OF SERVICE: March 09, 2024 TIME: 8:08 AM PATIENT IDENTITY VERIFICATION COMPLETED USING TWO (2) IDENTIFIERS: Name and Date of confirmed by patient verbally. FALL SCREENING: Has the patient had 2 falls in the last year or 1 fall with injury or currently using an Ambulatory Assistive Device (Walker, Cane, Wheelchair, Crutches, etc.)? No PATIENT GENDER DATA: Assigned male at PATIENT RELEVANT IMPLANT DATA REVIEWED: Not Applicable PATIENT PRESENTS WITH AN IMPLANTABLE OR ATTACHED QUARRY MANAGER: No RADIOLOGY DEPARTMENT: General X-ray: Exam(s) Completed: Pelvis X-Ray: Pelvis with Hip Right PERIPHERAL IV DATA: Not applicable SIGNED BY: PRISCA MistryR) March 09, 2024 8:08 AM [facility] 03-02-2024 Telephone encounter Note Patient calling and states he is scheduled on March 20 to be seen for hip arthritis. He had traveled over the weekend and did a significant amount of walking and now is having trouble with increasing discomfort and difficulty with mobility. He wasn't sure if it would be best to be evaluated in urgent care or if he needs a sooner appt? Please advise. Bette Nichols LPN [facility] 03-02-2024 Miscellaneous Notes Patient calling and states he is scheduled on March 20 to be seen for hip arthritis. He had traveled over the weekend and did a significant amount of walking and now is having trouble with increasing discomfort and difficulty with mobility. He wasn't sure if it would be best to be evaluated in urgent care or if he needs a sooner appt? Please advise. Bette Nichols LPN documented in this encounter [facility] 09-19-2023 History of Presen t illness Narrative Subjective HPI HPI Paolo Hernandez is a 77 year old male who presents today for CC of cough, scratchy throat. This started 3 days ago. Has tried otc medication for relief. Symptoms are worsened by nothing. Risk factors sick exposures recently. nonsmoker. .Patient presents with: Sore Throat: Fever, cough, chest congestion x3 days PAST MEDICAL HISTORY No date: Right inguinal hernia No date: Rotator cuff tear Comment: Right shoulder No date: Vertigo PAST SURGICAL HISTORY 02/18/1963: APPENDECTOMY 12/09/2013: LAPAROSCOPY SURG RPR INITIAL INGUINAL HERNIA Comment: right 10/19/1969: PAST SURGICAL HISTORY OF Comment: wisdom teeth 2020: PAST SURGICAL HISTORY OF; Bilateral Comment: B/L cataract surgery ALLERGIES Patient has no known allergies. MEDICATIONS No prescriptions on file. FAMILY HISTORY Problem Relation Age of Onset Hypertension Mother Breast Cancer Maternal Grandmother Arthritis Mother Stroke Father other (tuberculosis [Other]) Mother Social History Tobacco Use Smoking status: Never Smokeless tobacco: Never Substance Use Topics Alcohol use: No Drug use: No Review of Systems Constitutional: Positive for fever. HENT: Positive for congestion and sore throat. Negative for ear pain and nosebleeds. Respiratory: Positive for cough. Negative for shortness of breath and wheezing. Musculoskeletal: Negative for neck pain. Skin: Negative for itching and rash. Objective Blood pressure 153/74, pulse 105, temperature (!) 38.6 C (101.5 F), resp. rate 18, weight 71.1 kg (156 lb 12 oz), SpO2 98%. Latest Ref Rng 12/11/2022 Protein, Total 6.3 - 8.0 g/dL 7.1 Albumin 3.9 - 4.9 g/dL 4.4 Calcium 8.5 - 10.2 mg/dL 9.9 Bilirubin, Total 0.2 - 1.3 mg/dL 0.3 Alkaline Phosphatase 38 - 113 U/L 74 AST 14 - 40 U/L 36 ALT 10 - 54 U/L 21 Glucose 74 - 99 mg/dL 90 BUN 9 - 24 mg/dL 21 Creatinine 0.73 - 1.22 mg/dL 0.90 Sodium 136 - 144 mmol/L 139 Potassium 3.7 - 5.1 mmol/L 4.2 Chloride 97 - 105 mmol/L 102 CO2 22 - 30 mmol/L 26 Anion Gap 9 - 18 mmol/L 11 eGFR >=60 mL/min/1.73m 89 Physical Exam Constitutional: General: He is not in acute distress. Appearance: He is not toxic-appearing or diaphoretic. HENT: Head: Normocephalic and atraumatic. Mouth/Throat: Lips: [place]. Mouth: Mucous membranes are moist. Pharynx: Oropharynx is clear. Uvula midline. Cardiovascular: Rate and Rhythm: Normal rate and regular rhythm. Heart sounds: Normal heart sounds, S1 normal and S2 normal. Pulmonary: Effort: Pulmonary effort is normal. Breath sounds: Normal breath sounds. Lymphadenopathy: Cervical: No cervical adenopathy. Right cervical: No superficial cervical adenopathy. Left cervical: No superficial cervical adenopathy. Neurological: Mental Status: He is alert and oriented to person, place, and time. Gait: Gait is intact. ASSESSMENT/PLAN: 1. URI, acute - ICD9: 465.9, ICD10: J06.9 (primary diagnosis) - Discussed viral etiology and rationale for treatment. - Symptomatic treatment with prn analgesia - Supportive care with fluids and rest - Follow up in 3-5 days if symptoms persist or sooner if worsening of symptoms -if positive discussed oral treatment, is going to think about it - COVID & INFLUENZA A/B & RSV NAAT, ROUTINE 2. Acute cough - ICD9: 786.2, ICD10: R05.1 - XR CHEST 2V FRONTAL/LAT IMPRESSION: No acute radiographic abnormality. Dictated by : DO Cecy ALICEA APRN.CNP documented in this encounter [facility] 09-19-2023 History of Presen t illness Narrative Radiology Service Progress Note PATIENT NAME: Paolo Hernandez DATE OF SERVICE: September 19, 2023 TIME: 4:47 PM PATIENT IDENTITY VERIFICATION COMPLETED USING TWO (2) IDENTIFIERS: Name and Date of confirmed by patient verbally. FALL SCREENING: Has the patient had 2 falls in the last year or 1 fall with injury or currently using an Ambulatory Assistive Device (Walker, Cane, Wheelchair, Crutches, etc.)? No PATIENT GENDER DATA: Male PATIENT RELEVANT IMPLANT DATA REVIEWED: Yes PATIENT PRESENTS WITH AN IMPLANTABLE OR ATTACHED QUARRY MANAGER: No RADIOLOGY DEPARTMENT: General X-ray: Exam(s) Completed: Chest X-Ray PERIPHERAL IV DATA: Not applicable SIGNED BY: RT Sandip(R) September 19, 2023 4:47 PM documented in this encounter [facility] 07-29-2023 Note HNO ID: [id number] Author: ANA LUISA URBANO RT(R) Service: Radiology Author Type: Technologist Type: Patient Education Filed: 07/29/2023 10:44 Note Text: WRITTEN [facility] 07-29-2023 History of Presen t illness Narrative 0.5cc visipaque 270 inj @1024a Radiology Service Progress Note PATIENT NAME: Paolo Hernandez DATE OF SERVICE: July 29, 2023 TIME: 10:51 AM PATIENT IDENTITY VERIFICATION COMPLETED USING TWO (2) IDENTIFIERS: Name and Date of confirmed by patient verbally. FALL SCREENING: Has the patient had 2 falls in the last year or 1 fall with injury or currently using an Ambulatory Assistive Device (Walker, Cane, Wheelchair, Crutches, etc.)? No PATIENT GENDER DATA: Male PATIENT RELEVANT IMPLANT DATA REVIEWED: Not Applicable PATIENT PRESENTS WITH AN IMPLANTABLE OR ATTACHED QUARRY MANAGER: No RADIOLOGY DEPARTMENT: General X-ray: Exam(s) Completed: GI/ Procedure(s): right hip inj PERIPHERAL IV DATA: Not applicable SIGNED BY: RT Letitia([place]) July 29, 2023 10:51 AM documented in this encounter [facility] 07-29-2023 Note HNO ID: [id number] Author: ANA LUISA URBANO RT([place]) Service: Radiology Author Type: Technologist Type: Progress Notes Filed: 07/29/2023 10:52 Note Text: 0.5cc visipaque 270 inj @1024a Radiology Service Progress Note PATIENT NAME: Paolo Hernandez DATE OF SERVICE: July 29, 2023 TIME: 10:51 AM PATIENT IDENTITY VERIFICATION COMPLETED USING TWO (2) IDENTIFIERS: Name and Date of confirmed by patient verbally. FALL SCREENING: Has the patient had 2 falls in the last year or 1 fall with injury or currently using an Ambulatory Assistive Device (Walker, Cane, Wheelchair, Crutches, etc.)? No PATIENT GENDER DATA: Male PATIENT RELEVANT IMPLANT DATA REVIEWED: Not Applicable PATIENT PRESENTS WITH AN IMPLANTABLE OR ATTACHED QUARRY MANAGER: No RADIOLOGY DEPARTMENT: General X-ray: Exam(s) Completed: GI/ Procedure(s): right hip inj PERIPHERAL IV DATA: Not applicable SIGNED BY: RT Letitia(R) July 29, 2023 10:51 AM [facility] 06-17-2023 Instructions Lilian Marshall PA-C - 06/17/2023 1:28 PM EDT Call [phone] to schedule your Hip Injection documented in this encounter [facility] 06-17-2023 History of Presen t illness Narrative Images from the original note were not included. CHIEF COMPLAINT: Paolo Hernandez is a 77 year old male who presents today for new evaluation of right groin pain. PAIN EVALUATION 06/11/2023 1207 Pain Location: Hip-Right Description: Aching;Dull;Sharp Duration Amount of Time: 3 Duration Units: Months Frequency: Intermittent Intervention/Comfort measure: Reposition;Relaxation;Positionin g HISTORY OF PRESENT ILLNESS: Paolo is here for evaluation of right hip and groin pain that started 3 months ago and has been persistently bothersome particularly with activities Denies injury or change in activities He had pain in that area in the past but typically will resolve after a day or 2 of rest and respond to ibuprofen Symptoms were improving with ibuprofen and he states that he is no longer taking it daily but at first he was Denies pain to the lateral or posterior hip Pain seems to worsen as the day goes on but he also occasionally have pain in the morning Denies previous injection or surgery to the hip Has had a hernia repair with mesh on the right side and states that it is in somewhat of a similar area but feels different and is mostly associated with certain positions and movements of the hip REVIEW OF SYMPTOMS: Constitutional: patient denies any recent fever or significant change in weight Gastrointestinal: patient denies any current abdominal discomfort and patient notes history to tolerance of NSAIDs Musculoskeletal: as noted in the HPI Neurologic: as noted in the HPI SOCIAL HISTORY: Tobacco Use: Never ALLERGIES: ALLERGIES No Known Allergies PAST MEDICAL HISTORY: PAST MEDICAL HISTORY Diagnosis Date Right inguinal hernia Rotator cuff tear Right shoulder Vertigo PHYSICAL EXAMINATION: Patient's vitals and nursing notes were reviewed. Vitals: There were no vitals taken for this visit. Skin: Skin color, texture, turgor normal, no suspicious rashes or lesions noted Cardiovascular: no signs of upper or lower extremity edema Psychiatric: mood and affect are appropriate, patient is oriented to time, place and person Neurologic: sensation is grossly intact Lymphatic: no asymetric limb swelling noted General Appearance: Well appearing, alert, in no acute distress, well-hydrated, and well nourished Respiratory: no respiratory distress, no audible wheezing, no labored breathing, symmetric thoracic excursion Musculoskeletal Examination: ROM: restricted range of motion secondary to pain Muscle Strength: Knee Flex/Ext: Appropriate strength Hip Flex: Appropriate strength with exacerbation of deep groin pain Neurologic: Sensation: L2-S1 symmetrically normal, Special Tests: Straight Leg Raise (SLR): negative on the right AUDIE Test: negative on the right FADIR Test::positive on the right Log Roll: positive on the right Nontender to palpation over the lateral hip IMAGING: Final results and radiologist's interpretation, available in the [facility] health record. Images were reviewed with the patient/family members in the office today. My personal interpretation of the performed imaging is chronic degenerative changes. CLINICAL IMPRESSION / ASSESSMENT: (M16.11) Primary osteoarthritis of right hip (primary encounter diagnosis) (M25.551) Right hip pain RECOMMENDATION / PLAN: Based on the location of his discomfort in the groin as well as his pain with internal and external rotation and degenerative changes seen on x-ray I believe his discomfort is coming from an intra-articular source. Certainly with his history of hernia surgery on that side that could also produce groin pain however he does not have any findings concerning for hernia on exam and pain is reproduced with internal rotation of the hip more consistent with an intra-articular source of pain. We discussed treatment options and he will continue with physical therapy as scheduled I will place an order for an image guided cortisone injection which I think will be beneficial both diagnostically as well as therapeutically. He will contact me if his symptoms return or if the injection does not help Follow up: if symptoms persist or worsen Films prior to visit: No additional imaging warranted. Verbal health education was given to patient. Patient verbalizes understanding and agrees with the treatment plan as detailed above. Consultation requested by Dr. Louis Scott for an opinion regarding hip pain. My final recommendations will be communicated back to the requesting physician by way of shared Medical record or letter to requesting physician via [place] mail. I spent 30 minutes in the visit, with more than 50% of the total [id number] time of the visit in counseling / coordination of care. I spent a total of 30 minutes on the date of the service which included preparing to see the patient, [id number] patient care, completing clinical documentation, performing a medically appropriate examination, counseling and educating the patient/family/caregiver, ordering medications, tests, or procedures, and communicating results to the patient/family/caregiver. Lilian Marshall PA-C, [facility] documented in this encounter [facility] 06-17-2023 History of Presen t illness Narrative Program_ID:[id number] Access Code: [email or web address] URL: [email or web address] Date: 06-17-2023 Prepared By: Melinda Abernathy Program Notes Exercises - Kneeling Hip Flexor Stretch - 2 x daily - 7 x weekly - sets - 3-5 reps - Vipul Stretch on Table - 2 x daily - 7 x weekly - sets - 3-5 reps - Seated Table Hamstring Stretch - 2 x daily - 7 x weekly - sets - 3-5 reps Images from the original note were not included. Episode Visit Count: 1 Therapist That Will Accept/Oversee The Plan Of Care: Melinda Abernathy Start of Care Date: 06/17/23 Onset Date: 03/20/23 (end of February) Plan of Care Certification Date: 06/17/23 Next Certification Due Date: 08/17/23 Patient Identified by Name and Date of : Yes REHABILITATION AND SPORTS THERAPY PHYSICAL THERAPY EVALUATION PLAN OF CARE: Assessment: Paolo Hernandez presents with chief complaint of R hip pain that interferes with walking in the community, stair negotiation, working, sleeping (walking more than a few hundred yards; stepping up into his truck-now steps up with L leg first, feel it a little bit getting down out of truck; used to do some biking in the evenings and would like to get back to that (5-7miles)) . He presents with impairments in flexibility, gait, overall function, range of motion, and symptom management. PROMIS (Patient-Reported Outcomes Measurement Information System) scores were reviewed and identified as within normal limits. Prognosis for therapy is Good due to: current objective clinical presentation, good overall health status, good support system/ coping skills, Prognosis may be limited due to chronic nature of impairments, occupational demands . He will benefit from skilled therapy services to meet the goals established for this plan of care as noted below. Goals for Episode of Care: created on 06/17/23 through 07/17/23 [place] in home exercise program. Patient will decrease pain rating by 2 points to meet minimal clinical important difference for numeric pain rating scale. Patient will increase active ROM of R hip to 110deg hip flex and 30 deg hip ext. to allow pt to to improve performance of ADLs and to improve gait mechanics / gait pattern . Patient will increase flexibility of R hip to equal unaffected extremity/side and WNL to improve ability to maintain proper posture, improve mechanics, and decrease pain. Perform walking in the community;stair negotiation;working;sleeping; with decreased report of symptoms/pain in 4-8 weeks. Normal gait. Patient Goals: Would like to be able to walk distances and get back to biking. Planned Interventions, Frequency, and Duration: Current Frequency: 1 visit Duration: 8 weeks Total Number of Visits Planned: 1 Planned Treatment Interventions: Therapeutic exercise (62367), Manual therapy (36762), Self-senior care management (44604), Patient/Family/Caregiver Education, Gait Training ([id number]) PLAN FOR NEXT VISIT: Assess response to HEP and modifications to work/daily activities. May progress exercises/HEP. May add manual soft tissue techniques as appropriate. May add gait training as needed. Patient demonstrates good understanding of plan of care and treatment. The above goals and plan of care were discussed and agreed upon by patient/family. SUBJECTIVE: Pt reports history of hip pain intemittently that would get better on it's own. Pain occurs the more he is up on his feet. Sometimes at night, but resolves with position change. No pain at rest (seated/lying). Was able to do some yardwork yesterday without much issue. Pt also notes if he walks a distance he may get an ache in his R knee also, which goes away when stops walking. Patient Goals: Would like to be able to walk distances and get back to biking. Functional Limitations: walking in the community, stair negotiation, working, sleeping (walking more than a few hundred yards; stepping up into his truck-now steps up with L leg first, feel it a little bit getting down out of truck; used to do some biking in the evenings and would like to get back to that (5-7miles)) At end of session, pt reported he would not be able to get off of work anymore to attend follow up therapy visits. Suggested he may call therapist with any questions regarding his HEP and could possibly progress over the phone if appropriate or, if he is able to attend one more follow up visit in a few weeks this would also be appropriate. He has appt with orthopedics later today. 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 5 points is clinically meaningfully difference Percentiles provide an indication of how the patient's score ranks in relation to the general population. Higher percentile rankings indicate better function/quality of life. 50th percentile is the average of the general population and indicates half of respondents had a worse score. OBJECTIVE MEASURES WITH LEVEL OF FUNCTION: LE AROM R Hip Internal Rotation: 50 Degrees R Hip External Rotation: 50 Degrees L Hip Internal Rotation: 60 Degrees L Hip External Rotation: 50 Degrees LE PROM R Hip Flexion: 90 Degrees (with knee bent, end range pain) L Hip Flexion: 125 Degrees (with knee bent) LE Flexibility Flexibility: Straight Leg Raise, Hip Internal Rotation Flexibility, Hip External Rotation Flexibility R SLR Flexibility: 45 deg, pain/pulling R anterior and lateral hip L SLR Flexibility: 60 deg, hamstring pull R Hip Internal Rotation Flexibility: limited L Hip Internal Rotation Flexibility: WNL L Hip External Rotation Flexibility: WNL LE Strength R Hip Flexion (L2): 4/5 (pain) R Hip ABduction: 4+/5 (pain) R Knee Extension (L3): 4+/5 R Knee Flexion: 5/5 L Hip Flexion (L2): 4+/5 L Hip ABduction: 4+/5 L Hip ADduction: 5/5 L Knee Extension (L3): 4+/5 L Knee Flexion: 5/5 Vitals BP: (not assessed today) Education: Education Learning Preferences: Demonstration, Explanation Barriers: None, Other: See Comment (Work schedule prevents him from ability to attend follow up therapy sessions.) Learning/educational needs: Home exercise program, Plan of Care Education Provided: Yes, see treatment interventions for education provided Education Provided To: Patient Education Mode/Type: Demonstration, Explanation/Discussion, Literature/Printed Materials, Performance Response to Education/Teach Back: States/Identifies, Return Demonstration TREATMENT: PT Treatment Interventions: Therapeutic Exercise Evaluation Therapeutic Exercise: 1: *supine hip flexor stretch (Vipul position) 3 x 30 sec holds 2: *kneeling hip flexor stretch 3 x 30 sec holds 3: *seated hamstring stretch 3 x 3 sec holds 4: Discussed pt's work activities, postures/positions and educated pt in recommendations to prevent further tightness/loss of motion of hip and also to allow for decreased stress/irritation ot hip joint. Skilled Intervention: Patient was educated in proper exercise technique and purpose for exercises. Skilled judgment was used in selection of appropriate interventions. Provided written instruction for home exercise program to facilitate proper performance and compliance. Correct performance of therapeutic exercises was facilitated with verbal and visual cuing. Patient education as noted. Billing * Evaluation Low Complexity: 1 Unit Therapeutic Exercise Treatment Minutes: 25 Skilled Treatment Time Minutes (timed and untimed codes): 44 Total Session Time (minutes): 44 Session Start Time : 829 Session Stop Time : 913 Melinda Abernathy PT documented in this encounter [facility] 04-16-2023 History of Presen t illness Narrative Chief Complaint Patient presents with: Right Hip Pain HPI Paolo Hernandez is a 77 year old male who presents here today for hip pain. No advanced directive. HM: Depression screening; denies feeling depressed or hopeless. Depression screening tool completed and reviewed. Based on score and interview, patient is not at risk for depression. Screening tool discussed with patient, and I recommended no further intervention at this time Pt c/o right hip pain x 3-4 weeks with no improvement. No apparent injury. Pain will be slight ache with sitting but will worsen with movement like walking, climbing stairs, sharp pains. Some ache when laying on the right side but not all the time. Pain is an ache. He has had issues with this before but typically will resolve within a week but this time it hasn't resolved. No heat, ice, or OTC Pain relievers used. Admits today it is better, but hasn't had to work or do much today. 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 Pain gets worse with activity. Denies any pain to the left hip. Denies any cracking or popping of the hip. Past medical history, appointments, medications, allergies reviewed. Previous Medical History PAST MEDICAL HISTORY Diagnosis Date Right inguinal hernia Rotator cuff tear Right shoulder Vertigo Previous Surgical History PAST SURGICAL HISTORY Procedure Laterality Date APPENDECTOMY 02/18/1963 LAPAROSCOPY SURG RPR INITIAL INGUINAL HERNIA 12/09/2013 right PAST SURGICAL HISTORY OF 10/19/1969 wisdom teeth PAST SURGICAL HISTORY OF Bilateral 2020 B/L cataract surgery Family History FAMILY HISTORY Problem Relation Age of Onset Hypertension Mother Breast Cancer Maternal Grandmother Arthritis Mother Stroke Father other (tuberculosis [Other]) Mother Patient Allergies ALLERGIES No Known Allergies Current Medications No current outpatient medications on file prior to visit. No current facility-administered medications on file prior to visit. Social History Social History Tobacco Use Smoking status: Never Smokeless tobacco: Never Substance Use Topics Alcohol use: No Drug use: No EXAM: BP 116/70 Pulse 74 Resp 16 Wt 71.9 kg (158 lb 9.6 oz) BMI 22.60 kg/m General Appearance: Well appearing, alert, in no acute distress, well-hydrated, well nourished.. Extremities: right hip; pain with ext rotation, no pain to push on the hip, ache with lifting leg up, no pain to outer hip. Health Maintenance List Shingrix Vaccine(1 of 2) Never done RSV Vaccine(1 - 1-dose 60+ series) Never done Advance Directive Discussion Never done Depression Assessment due on 02/18/2023 Diabetes Screening due on 12/11/2025 DTaP,Tdap,Td Vaccine(3 - Td or Tdap) due on 06/02/2027 Influenza Vaccine Completed Hepatitis C Screening Completed Covid-19 Vaccine Completed Pneumococcal Vaccine: 65+ Completed Colorectal Cancer Screening Discontinued Data reviewed None ASSESSMENT/PLAN: Start with XR right hip today Recommend using Tylenol prn pain May try heat or ice He would prefer to avoid any NSAIDs or other medications at this time Consider PT or Ortho eval if not improving Follow up as needed or if no improvement. Will notify of xray results. I agree with the Chief Complaint, ROS, and Past Histories independently gathered by the clinical patient support partner and the remaining scribed note accurately describes my personal service to the patient. Medical Decision Making: Problems: Low: Acute, uncomplicated illness or injury Data: Unique test(s) ordered: 1 Risk: Moderate: Drug management Medical Decision Making Level: 3 - Low Louis Scott MD The documentation for this note was completed by Gabriela Maxwell Ma acting as scribe for Louis Scott MD. April 16, 2023 3:14 PM. Gabriela Maxwell Ma documented in this encounter [facility] 04-16-2023 History of Presen t illness Narrative Radiology Service Progress Note PATIENT NAME: Paolo Hernandez DATE OF SERVICE: April 16, 2023 TIME: 3:43 PM PATIENT IDENTITY VERIFICATION COMPLETED USING TWO (2) IDENTIFIERS: Name and Date of confirmed by patient verbally. FALL SCREENING: Has the patient had 2 falls in the last year or 1 fall with injury or currently using an Ambulatory Assistive Device (Walker, Cane, Wheelchair, Crutches, etc.)? No PATIENT GENDER DATA: Male PATIENT RELEVANT IMPLANT DATA REVIEWED: Yes PATIENT PRESENTS WITH AN IMPLANTABLE OR ATTACHED QUARRY MANAGER: No RADIOLOGY DEPARTMENT: General X-ray: Exam(s) Completed: Pelvis X-Ray: Pelvis with Hip Right PERIPHERAL IV DATA: Not applicable SIGNED BY: RT Deo(R) April 16, 2023 3:43 PM documented in this encounter [facility] 04-16-2023 Instructions Gabriela Maxwell Ma - 04/16/2023 3:23 PM EST Recommend heat or ice for pain. Can use Tylenol as needed for pain. Can consider anti inflammatories or Physical Therapy if no improvement. documented in this encounter [facility] 12-11-2022 Instructions Prudence Ornelas Ma - 12/11/2022 3:58 PM EDT Follow up Annually or at least within three years to stay active. We will call you with lab results. documented in this encounter [facility] 12-11-2022 History of Presen t illness Narrative Chief Complaint Patient presents with: Establish Care HPI Paolo Hernandez is a 77 year old male who presents here today to re-establish care. Pt here to re-establish care, last visit August 2018 for Medicare Wellness, has not been seen since. Still doing some driving and working. 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 GI/Uro - No bowel, Gi, or urinary issues. Denies nocturia usually, will on occasion. Pt at this time declines Colorectal screening. Cardio - No chest pains, dizziness, or SOB. Previously took ASA 81 mg but no longer taking this. Diet/Exercise - Overall feels his diet is pretty good, stays away from processed foods. Exercises a little bit by riding bike couple times per week. Has noticed balance isn't as good as it used to be so he rides a bike to help this. Denies any falls. Vertigo - Has used Trileptal 300 mg daily at bedtime for vertigo in the past. Notes he was forgetting to take the medication more than he was taking and was not having any issues so he d/c the medication. Has been stable without use of medication. Feet - Reports ongoing numbness and tingling in his feet for the past 3 years, that's intermittent. Most noticeable when he puts his feet up in the recliner at night. States that the bottom of his feet feel like cardboard at times. Denies any burning. States when he pokes his lower legs/feet he can feel himself touching his feet. States he believes his Dad had neuropathy. Has been trying to add vitamin B12 in his diet. Believes he had b/l cataract surgery in 2020, uncertain of the date. Reports shortly after he got an infection. Was given an abx that caused constipation for several months. HM - Agreeable to Flu vaccine and Covid vaccine. Agreeable to Hep C screening. Declines feeling down, depressed or hopeless. Declines having Adv Dir/Living Will. Discussed Shingrix, if wanting to receive to get through Pharmacy due to Medicare Insurance. Discussed RSV if wanting he can receive through Pharmacy. Past medical history, appointments, medications, allergies reviewed. Previous Medical History PAST MEDICAL HISTORY Diagnosis Date Right inguinal hernia Rotator cuff tear Right shoulder Vertigo Previous Surgical History PAST SURGICAL HISTORY Procedure Laterality Date APPENDECTOMY 1963 LAPAROSCOPY SURG RPR INITIAL INGUINAL HERNIA 12/09/13 right PAST SURGICAL HISTORY OF wisdom teeth Family History FAMILY HISTORY Problem Relation Age of Onset Hypertension Mother Breast Cancer Maternal Grandmother Arthritis Mother Stroke Father other (tuberculosis [Other]) Mother Patient Allergies ALLERGIES No Known Allergies Current Medications Current Outpatient Medications on File Prior to Visit Medication Sig aspirin(ECOTRIN LOW STRENGTH 81 MG TAB) Take one(1) tablet daily. multivitamin ORAL tablet Take 1 tablet by mouth once daily. OXcarbazepine (TRILEPTAL) 300 mg tablet Take 1 tablet by mouth daily at bedtime. No current facility-administered medications on file prior to visit. Social History Social History Tobacco Use Smoking status: Never Smokeless tobacco: Never Substance Use Topics Alcohol use: No Drug use: No EXAM: BP 122/78 (BP Site: Left Arm, BP Position: Sitting, BP Cuff Size: Regular Adult) Pulse 70 Resp 16 Wt 72.4 kg (159 lb 9.6 oz) BMI 22.74 kg/m General Appearance: Well appearing, alert, in no acute distress, well-hydrated, well nourished.. Lungs: Lungs clear to auscultation. No wheezing, rhonchi, rales.. Heart: RRR without murmur, gallop, or rubs. No ectopy. Abdomen: Normal abdominal exam, Abdomen soft, non-tender. Bowel sounds normal. No masses, organomegaly. Feet: Shoes and socks removed, No deformities, ulcers, calluses, normal distal pulses, and sensitive to touch on exam. Health Maintenance List Hepatitis C Screening Never done Shingrix Vaccine(1 of 2) Never done Diabetes Screening due on 09/01/2021 Advance Directive Discussion Never done Depression Assessment Never done Influenza Vaccine(1) due on 10/19/2022 Covid-19 Vaccine(2 - season) due on 10/19/2022 DTaP,Tdap,Td Vaccine(3 - Td or Tdap) due on 06/02/2027 Pneumococcal Vaccine: 65+ Completed Colorectal Cancer Screening Discontinued Data reviewed None ASSESSMENT/PLAN: 1. Encounter to establish care - ICD9: V65.8, ICD10: Z76.89 (primary diagnosis) - Re-established 2. Numbness and tingling of both feet - ICD9: 782.0, ICD10: R20.0, R20.2 - Check labs as ordered, will call with results 3. Vertigo - ICD9: 780.4, ICD10: R42 - Stable without medication at this time 4. Encounter for hepatitis C virus screening test for high risk patient - ICD9: V73.89, ICD10: Z11.59, Z91.89 - Check lab as ordered 5. Need for influenza vaccination - ICD9: V04.81, ICD10: Z23 - INFLUENZA VACCINE, PRSV FREE, AGE 65+ YR, HIGH DOSE, QUADRIVALENT (FLUZONE HIGH-DOSE) - Receive Flu shot in office. 6. Need for vaccination - ICD9: V05.9, ICD10: Z23 - Receive Covid vaccine in office. 7. Lipidemia Check non fasting lipids Complete labs today, will call with results. Follow up Annually or as needed. I agree with the Chief Complaint, ROS, and Past Histories independently gathered by the clinical patient support partner and the remaining scribed note accurately describes my personal service to the patient. Medical Decision Making: Problems: Moderate: New problem with uncertain prognosis Data: Unique test(s) ordered: 3+ Medical Decision Making Level: 4 - Moderate Louis Scott MD The documentation for this note was completed by Prudence Ornelas Ma acting as scribe for Louis Scott MD. December 11, 2022 3:51 PM. Prudence Ornelas Ma documented in this encounter [facility] Evaluation note Diagnosis Numbness and tingling of both feet- Primary Encounter to establish care Other reasons for seeking consultation Vertigo Dizziness and giddiness Encounter for hepatitis C virus screening test for high risk patient Need for influenza vaccination Need for prophylactic vaccination and inoculation against influenza Need for vaccination Need for prophylactic vaccination and inoculation against unspecified single disease Hyperlipidemia, unspecified hyperlipidemia type [facility] Diagnosis Arthritis of hip- Primary Unspecified arthropathy, pelvic region and thigh [facility] Diagnosis Primary osteoarthritis of right hip- Primary Primary localized osteoarthrosis, pelvic region and thigh Right hip pain Pain in joint, pelvic region and thigh [facility] Diagnosis Right hip pain Pain in joint, pelvic region and thigh [facility] Diagnosis Primary osteoarthritis of right hip Primary localized osteoarthrosis, pelvic region and thigh [facility] Diagnosis URI, acute- Primary Acute upper respiratory infections of unspecified site Acute cough [facility] Diagnosis Arthritis of hip Unspecified arthropathy, pelvic region and thigh [facility] Diagnosis Pain in right hip- Primary Pain in joint, pelvic region and thigh [facility] Diagnosis Primary osteoarthritis of right hip- Primary Primary localized osteoarthrosis, pelvic region and thigh [facility] Diagnosis Pain in right hip Pain in joint, pelvic region and thigh [facility] Diagnosis Chronic pain of right knee- Primary [facility] Diagnosis Primary osteoarthritis of right hip- Primary Primary localized osteoarthrosis, pelvic region and thigh Primary osteoarthritis of right hip Primary localized osteoarthrosis, pelvic region and thigh [facility] Diagnosis Chronic pain of right knee Pain of right hip Pre-op evaluation- Primary Preoperative examination, unspecified Neuropathy Mononeuritis of unspecified site Pain of right hip- Primary Primary osteoarthritis of right hip Primary localized osteoarthrosis, pelvic region and thigh [facility] Diagnosis Pre-op evaluation- Primary Preoperative examination, unspecified Neuropathy Mononeuritis of unspecified site Primary osteoarthritis of right hip Primary localized osteoarthrosis, pelvic region and thigh * Assessment & Plan Note - Yudy Delacruz PA-C - 03/19/2024 2:52 PM EST Associated Problem(s): Neuropathy Assessment: b/l feet with elevation at the end of the day, not on medications documented in this encounter [facility] note* Diagnosis Chronic pain of right knee Pain of right hip Pre-op evaluation- Primary Preoperative examination, unspecified Neuropathy Mononeuritis of unspecified site Primary osteoarthritis of right hip Primary localized osteoarthrosis, pelvic region and thigh documented in this encounter [facility] note* Diagnosis Pre-op evaluation- Primary Preoperative examination, unspecified Neuropathy Mononeuritis of unspecified site Right hip pain- Primary Pain in joint, pelvic region and thigh S/P total right hip arthroplasty Anemia, unspecified type Debility Debility, unspecified [facility]* Diagnosis Pre-op evaluation- Primary Preoperative examination, unspecified Neuropathy Mononeuritis of unspecified site OPENED IN ERROR- Primary To allow closing an encounter opened in error (used in SmartSet) documented in this encounter [facility]* Diagnosis Pre-op evaluation- Primary Preoperative examination, unspecified Neuropathy Mononeuritis of unspecified site Primary osteoarthritis of right hip- Primary Primary localized osteoarthrosis, pelvic region and thigh Status post total hip replacement, right documented in this encounter [facility]* Diagnosis Pre-op evaluation- Primary Preoperative examination, unspecified Neuropathy Mononeuritis of unspecified site Primary osteoarthritis of right hip- Primary Primary localized osteoarthrosis, pelvic region and thigh documented in this encounter [facility]* Diagnosis Pre-op evaluation- Primary Preoperative examination, unspecified Neuropathy Mononeuritis of unspecified site Primary osteoarthritis of right hip Primary localized osteoarthrosis, pelvic region and thigh Status post total hip replacement, right documented in this encounter [facility]* Diagnosis Pre-op evaluation- Primary Preoperative examination, unspecified Neuropathy Mononeuritis of unspecified site Right hip pain- Primary Pain in joint, pelvic region and thigh S/P total right hip arthroplasty Anemia, unspecified type Debility Debility, unspecified documented in this encounter [facility]* Diagnosis Pre-op evaluation- Primary Preoperative examination, unspecified Neuropathy Mononeuritis of unspecified site Hospital discharge follow-up- Primary Other follow-up examination S/P hip replacement, right documented in this encounter [facility]* Diagnosis Pre-op evaluation- Primary Preoperative examination, unspecified Neuropathy Mononeuritis of unspecified site Primary osteoarthritis of right hip- Primary Primary localized osteoarthrosis, pelvic region and thigh Status post total hip replacement, right documented in this encounter [facility]* Diagnosis Pre-op evaluation- Primary Preoperative examination, unspecified Neuropathy Mononeuritis of unspecified site S/P hip replacement, right- Primary documented [facility] this [facility]* Diagnosis Pre-op evaluation- Primary Preoperative examination, unspecified Neuropathy Mononeuritis of unspecified site S/P hip replacement, right- Primary documented in this [facility]* Diagnosis Pre-op evaluation- Primary Preoperative examination, unspecified Neuropathy Mononeuritis of unspecified site S/P hip replacement, right- Primary documented in this [facility]* Diagnosis Pre-op evaluation- Primary Preoperative examination, unspecified Neuropathy Mononeuritis of unspecified site Primary osteoarthritis of right hip Primary localized osteoarthrosis, pelvic region and thigh Status post total hip replacement, right documented in this encounter [facility]* Diagnosis Pre-op evaluation- Primary Preoperative examination, unspecified Neuropathy Mononeuritis of unspecified site S/P hip replacement, right- Primary documented [facility] this [facility]* Diagnosis Pre-op evaluation- Primary Preoperative examination, unspecified Neuropathy Mononeuritis of unspecified site S/P hip replacement, right- Primary documented [facility] this [facility]* Diagnosis Pre-op evaluation- Primary Preoperative examination, unspecified Neuropathy Mononeuritis of unspecified site S/P hip replacement, right- Primary documented [facility] this [facility]* Diagnosis Pre-op evaluation- Primary Preoperative examination, unspecified Neuropathy Mononeuritis of unspecified site S/P hip replacement, right- Primary documented [facility] this [facility]* Diagnosis Pre-op evaluation- Primary Preoperative examination, unspecified Neuropathy Mononeuritis of unspecified site S/P hip replacement, right- Primary documented in this encounter [facility] note* Diagnosis Pre-op evaluation- Primary Preoperative examination, unspecified Neuropathy Mononeuritis of unspecified site Primary osteoarthritis of right hip- Primary Primary localized osteoarthrosis, pelvic region and thigh Status post total replacement of right hip documented in this encounter [facility] note* Diagnosis Pre-op evaluation- Primary Preoperative examination, unspecified Neuropathy Mononeuritis of unspecified site History of total right hip arthroplasty- Primary documented in this encounter [facility] note* Diagnosis Pre-op evaluation- Primary Preoperative examination, unspecified Neuropathy Mononeuritis of unspecified site S/P hip replacement, right- Primary documented in this encounter [facility] note* Diagnosis Pre-op evaluation- Primary Preoperative examination, unspecified Neuropathy Mononeuritis of unspecified site S/P hip replacement, right- Primary documented in this encounter [facility] note* Diagnosis Pre-op evaluation- Primary Preoperative examination, unspecified Neuropathy Mononeuritis of unspecified site History of total right hip arthroplasty- Primary documented in this encounter [facility] note* Diagnosis Pre-op evaluation- Primary Preoperative examination, unspecified Neuropathy Mononeuritis of unspecified site S/P hip replacement, right- Primary documented in this encounter [facility] note* Diagnosis Pre-op evaluation- Primary Preoperative examination, unspecified Neuropathy Mononeuritis of unspecified site Primary osteoarthritis of right hip Primary localized osteoarthrosis, pelvic region and thigh Status post total replacement of right hip documented in this encounter [facility] note* Diagnosis Pre-op evaluation- Primary Preoperative examination, unspecified Neuropathy Mononeuritis of unspecified site S/P hip replacement, right- Primary documented in this encounter [facility] for referral (narrative)* Diagnostic Procedure Only (Routine) - Closed Specialty Diagnoses / Procedures Referred By Jesus t Referred To Contact XR IMAGING Diagnoses Arthritis of hip Procedures XR HIP GENERAL 3V PELV/AP/LAT RIGHT RADEX HIP UNILATERAL WITH PELVIS 2-3 VIEWS Louis Scott MD [address] [place] [address] [place] [address] Referral ID Status Reason Start Date Expiration Date V isits Requested Visits Authorized [id number] Closed Auto-Generate d Referral 04/16/2023 05/15/2024 1 1 [facility] for referral (narrative)* Diagnostic Procedure Only (Routine) - Closed Specialty Diagnoses / Procedures Referred By Contac t Referred To Contact XR IMAGING Diagnoses Arthritis of hip Procedures XR HIP GENERAL 3V PELV/AP/LAT RIGHT RADEX HIP UNILATERAL WITH PELVIS 2-3 VIEWS Louis Scott MD [address] [place] [address] [place] [address] Referral ID Status Reason Start Date Expiration Date V isits Requested Visits Authorized [id number] Closed Auto-Generate d Referral 04/16/2023 05/15/2024 1 1 [facility] for referral (narrative)* Diagnostic Procedure Only (Routine) - New Request Specialty Diagnoses / Procedures Referred By Contac t Referred To Contact XR IMAGING Diagnoses Pain in right hip Procedures XR HIP GENERAL 3V PELV/AP/LAT RIGHT RADEX HIP UNILATERAL WITH PELVIS 2-3 VIEWS Shelby Coy PA-C [address] [place] [address] [place] [address] Referral ID Status Reason Start Date Expiration Date Visits Requested Visits Authorized [id number] New Request Auto-Generat ed Referral 03/05/2024 04/04/2025 1 1 [facility] for referral (narrative)* Diagnostic Procedure Only (Routine) - Closed Specialty Diagnoses / Procedures Referred By Contac t Referred To Contact XR IMAGING Diagnoses Pain in right hip Procedures XR HIP GENERAL 3V PELV/AP/LAT RIGHT RADEX HIP UNILATERAL WITH PELVIS 2-3 VIEWS Shelby Coy PA-C [address] [place] [address] [place] [address] Referral ID Status Reason Start Date Expiration Date V isits Requested Visits Authorized [id number] Closed Auto-Generate d Referral 03/05/2024 04/04/2025 1 1 [facility] for referral (narrative)* Outpatient Procedure (Routine) - New Request Specialty Diagnoses / Procedures Referred By Contac t Referred To Contact [facility] Diagnoses Pre-op evaluation Procedures ECG COMPLETE ECG ROUTINE ECG W/LEAST 12 LDS W/I&R Yudy Delacruz PA-C [address] [place] [address] [facility] [address] [place] [address] Referral ID Status Reason Start Date Expiration Date Visits Requested Visits Authorized [id number] New Request Auto-Generat ed Referral 03/19/2024 03/19/2025 1 1 [facility] for visit Narrative* Diagnostic Procedure Only (Routine) - Closed Specialty Diagnoses / Procedures Referred By Contac t Referred To Contact XR IMAGING Diagnoses Arthritis of hip Procedures XR HIP GENERAL 3V PELV/AP/LAT RIGHT RADEX HIP UNILATERAL WITH PELVIS 2-3 VIEWS Louis Scott MD [address] [place] [address] [place] [address] Referral ID Status Reason Start Date Expiration Date V isits Requested Visits Authorized [id number] Closed Auto-Generate d Referral 04/16/2023 05/15/2024 1 1 [facility] for visit Narrative* Diagnostic Procedure Only (Routine) - Closed Specialty Diagnoses / Procedures Referred By Contac t Referred To Contact XR IMAGING Diagnoses Pain in right hip Procedures XR HIP GENERAL 3V PELV/AP/LAT RIGHT RADEX HIP UNILATERAL WITH PELVIS 2-3 VIEWS Shelby Coy PA-C [address] [place] [address] [place] [address] Referral ID Status Reason Start Date Expiration Date V isits Requested Visits Authorized [id number] Closed Auto-Generate d Referral 03/05/2024 04/04/2025 1 1 [facility] for visit Narrative* Diagnostic Procedure Only (Routine) - Closed Specialty Diagnoses / Procedures Referred By Contac t Referred To Contact XR IMAGING Diagnoses Primary osteoarthritis of right hip Status post total hip replacement, right Procedures XR HIP GENERAL 3V PELV/AP/LAT RIGHT RADEX HIP UNILATERAL WITH PELVIS 2-3 VIEWS Shelby Coy PA-C [address] [place] [address] Phone: tel: fax: [place] [address] Referral ID Status Reason Start Date Expiration Date V isits Requested Visits Authorized [id number] Closed Auto-Generate d Referral 04/08/2024 05/08/2025 1 1 [facility] for visit Narrative* Diagnostic Procedure Only (Routine) - Closed Specialty Diagnoses / Procedures Referred By Contac t Referred To Contact XR IMAGING Diagnoses Primary osteoarthritis of right hip Status post total hip replacement, right Procedures XR HIP GENERAL 3V PELV/AP/LAT RIGHT RADEX HIP UNILATERAL WITH PELVIS 2-3 VIEWS Alfredito Michele MD [address] [place] [address] Phone: tel: fax: [place] [address] Referral ID Status Reason Start Date Expiration Date V isits Requested Visits Authorized [id number] Closed Auto-Generate d Referral 04/27/2024 05/27/2025 1 1 [facility] for visit Narrative* Diagnostic Procedure Only (Routine) - Closed Specialty Diagnoses / Procedures Referred By Contac t Referred To Contact XR IMAGING Diagnoses Primary osteoarthritis of right hip Status post total replacement of right hip Procedures XR HIP GENERAL 3V PELV/AP/LAT RIGHT RADEX HIP UNILATERAL WITH PELVIS 2-3 VIEWS Alfredito Michele MD [address] [place] [address] Phone: tel: fax: [place] [address] Referral ID Status Reason Start Date Expiration Date V isits Requested Visits Authorized [id number] Closed Auto-Generate d Referral 06/03/2024 07/03/2025 1 1 [facility] Reason for Referral Specialty Diagnoses / Procedures Referred By Contac t Referred To Contact [facility] Diagnoses Primary osteoarthritis of right hip Procedures CONSULT TO PHYSICAL THERAPY PHYSICAL THERAPY EVALUATION HIGH COMPLEX 45 MINS Lilian Marshall PA-C [address] [address] [facility] [address] [place] [address] Referral ID Status Reason Start Date Expiration Date Visits Requested Visits Authorized [id number] Authorized PCP Requested Referral Auto-Generate d Referral 06/17/2023 06/16/2024 99 99 Specialty Diagnoses / Procedures Referred By Contac t Referred To Contact CT IMAGING Diagnoses Chronic pain of right knee Procedures CT KNEE WO IVCON RIGHT CT LOWER EXTREMITY W/O CONTRAST MATERIAL Shelby Coy PA-C [address] [place] [address] Ct Imaging [place] [address] Referral ID Status Reason Start Date Expiration Date Visits Requested Visits Authorized [id number] Authorized Auto-Generat ed Referral 03/16/2024 04/15/2025 1 1 Specialty Diagnoses / Procedures Referred By Contac t Referred To Contact CT IMAGING Diagnoses Pain of right hip Procedures CT HIP WO IVCON RIGHT CT LOWER EXTREMITY W/O CONTRAST MATERIAL Shelby Coy PA-C [address] [place] [address] Ct Imaging [place] [address] Referral ID Status Reason Start Date Expiration Date Visits Requested Visits Authorized [id number] New Request Auto-Generat ed Referral 03/19/2024 04/18/2025 1 1 Summary Purpose Family History No Family History Records FoundNo Family History Records FoundNo Family History Records Found Advance Directives No Advanced Directives Records FoundNo Advanced Directives Records FoundNo Advanced Directives Records Found Additional Source Comments Source Comments (unrecognize d section and content) In the event this informatio n is protected by the Federal Confidentiality of Alcohol and Drug Abuse Patient Records regulations: The Federal rules restrict any use of the information to criminally investigate or prosecute any alcohol or drug abuse patient.[facility] HospitalIn the event this information is protected by the Federal Confidentiality of Alcohol and Drug Abuse Patient Records regulations: The Federal rules restrict any use of the information to criminally investigate or prosecute any alcohol or drug abuse patient.[facility] HospitalIn the event this information is protected by the Federal Confidentiality of Alcohol and Drug Abuse Patient Records regulations: The Federal rules restrict any use of the information to criminally investigate or prosecute any alcohol or drug abuse patient.[facility] HospitalIn the event this information is protected by the Federal Confidentiality of Alcohol and Drug Abuse Patient Records regulations: The Federal rules restrict any use of the information to criminally investigate or prosecute any alcohol or drug abuse patient.[facility] HospitalIn the event this information is protected by the Federal Confidentiality of Alcohol and Drug Abuse Patient Records regulations: The Federal rules restrict any use of the information to criminally investigate or prosecute any alcohol or drug abuse patient.[facility] HospitalIn the event this information is protected by the Federal Confidentiality of Alcohol and Drug Abuse Patient Records regulations: The Federal rules restrict any use of the information to criminally investigate or prosecute any alcohol or drug abuse patient.[facility] HospitalIn the event this information is protected by the Federal Confidentiality of Alcohol and Drug Abuse Patient Records regulations: The Federal rules restrict any use of the information to criminally investigate or prosecute any alcohol or drug abuse patient.[facility] HospitalIn the event this information is protected by the Federal Confidentiality of Alcohol and Drug Abuse Patient Records regulations: The Federal rules restrict any use of the information to criminally investigate or prosecute any alcohol or drug abuse patient.[facility] HospitalIn the event this information is protected by the Federal Confidentiality of Alcohol and Drug Abuse Patient Records regulations: The Federal rules restrict any use of the information to criminally investigate or prosecute any alcohol or drug abuse patient.[facility] HospitalIn the event this information is protected by the Federal Confidentiality of Alcohol and Drug Abuse Patient Records regulations: The Federal rules restrict any use of the information to criminally investigate or prosecute any alcohol or drug abuse patient.[facility] HospitalIn the event this information is protected by the Federal Confidentiality of Alcohol and Drug Abuse Patient Records regulations: The Federal rules restrict any use of the information to criminally investigate or prosecute any alcohol or drug abuse patient.[facility] HospitalIn the event this information is protected by the Federal Confidentiality of Alcohol and Drug Abuse Patient Records regulations: The Federal rules restrict any use of the information to criminally investigate or prosecute any alcohol or drug abuse patient.[facility] HospitalIn the event this information is protected by the Federal Confidentiality of Alcohol and Drug Abuse Patient Records regulations: The Federal rules restrict any use of the information to criminally investigate or prosecute any alcohol or drug abuse patient.[facility] HospitalIn the event this information is protected by the Federal Confidentiality of Alcohol and Drug Abuse Patient Records regulations: The Federal rules restrict any use of the information to criminally investigate or prosecute any alcohol or drug abuse patient.[facility] HospitalIn the event this information is protected by the Federal Confidentiality of Alcohol and Drug Abuse Patient Records regulations: The Federal rules restrict any use of the information to criminally investigate or prosecute any alcohol or drug abuse patient.[facility] HospitalIn the event this information is protected by the Federal Confidentiality of Alcohol and Drug Abuse Patient Records regulations: The Federal rules restrict any use of the information to criminally investigate or prosecute any alcohol or drug abuse patient.[facility] HospitalIn the event this information is protected by the Federal Confidentiality of Alcohol and Drug Abuse Patient Records regulations: The Federal rules restrict any use of the information to criminally investigate or prosecute any alcohol or drug abuse patient.[facility] HospitalIn the event this information is protected by the Federal Confidentiality of Alcohol and Drug Abuse Patient Records regulations: The Federal rules restrict any use of the information to criminally investigate or prosecute any alcohol or drug abuse patient.[facility] HospitalIn the event this information is protected by the Federal Confidentiality of Alcohol and Drug Abuse Patient Records regulations: The Federal rules restrict any use of the information to criminally investigate or prosecute any alcohol or drug abuse patient.[facility] HospitalIn the event this information is protected by the Federal Confidentiality of Alcohol and Drug Abuse Patient Records regulations: The Federal rules restrict any use of the information to criminally investigate or prosecute any alcohol or drug abuse patient.[facility] HospitalIn the event this information is protected by the Federal Confidentiality of Alcohol and Drug Abuse Patient Records regulations: The Federal rules restrict any use of the information to criminally investigate or prosecute any alcohol or drug abuse patient.[facility] HospitalIn the event this information is protected by the Federal Confidentiality of Alcohol and Drug Abuse Patient Records regulations: The Federal rules restrict any use of the information to criminally investigate or prosecute any alcohol or drug abuse patient.[facility] HospitalIn the event this information is protected by the Federal Confidentiality of Alcohol and Drug Abuse Patient Records regulations: The Federal rules restrict any use of the information to criminally investigate or prosecute any alcohol or drug abuse patient.[facility] HospitalIn the event this information is protected by the Federal Confidentiality of Alcohol and Drug Abuse Patient Records regulations: The Federal rules restrict any use of the information to criminally investigate or prosecute any alcohol or drug abuse patient.[facility] HospitalIn the event this information is protected by the Federal Confidentiality of Alcohol and Drug Abuse Patient Records regulations: The Federal rules restrict any use of the information to criminally investigate or prosecute any alcohol or drug abuse patient.[facility] HospitalIn the event this information is protected by the Federal Confidentiality of Alcohol and Drug Abuse Patient Records regulations: The Federal rules restrict any use of the information to criminally investigate or prosecute any alcohol or drug abuse patient.[facility] HospitalIn the event this information is protected by the Federal Confidentiality of Alcohol and Drug Abuse Patient Records regulations: The Federal rules restrict any use of the information to criminally investigate or prosecute any alcohol or drug abuse patient.[facility] HospitalIn the event this information is protected by the Federal Confidentiality of Alcohol and Drug Abuse Patient Records regulations: The Federal rules restrict any use of the information to criminally investigate or prosecute any alcohol or drug abuse patient.[facility] HospitalIn the event this information is protected by the Federal Confidentiality of Alcohol and Drug Abuse Patient Records regulations: The Federal rules restrict any use of the information to criminally investigate or prosecute any alcohol or drug abuse patient.[facility] HospitalIn the event this information is protected by the Federal Confidentiality of Alcohol and Drug Abuse Patient Records regulations: The Federal rules restrict any use of the information to criminally investigate or prosecute any alcohol or drug abuse patient.[facility] HospitalIn the event this information is protected by the Federal Confidentiality of Alcohol and Drug Abuse Patient Records regulations: The Federal rules restrict any use of the information to criminally investigate or prosecute any alcohol or drug abuse patient.[facility] HospitalIn the event this information is protected by the Federal Confidentiality of Alcohol and Drug Abuse Patient Records regulations: The Federal rules restrict any use of the information to criminally investigate or prosecute any alcohol or drug abuse patient.[facility] HospitalIn the event this information is protected by the Federal Confidentiality of Alcohol and Drug Abuse Patient Records regulations: The Federal rules restrict any use of the information to criminally investigate or prosecute any alcohol or drug abuse patient.[facility] HospitalIn the event this information is protected by the Federal Confidentiality of Alcohol and Drug Abuse Patient Records regulations: The Federal rules restrict any use of the information to criminally investigate or prosecute any alcohol or drug abuse patient.[facility] HospitalIn the event this information is protected by the Federal Confidentiality of Alcohol and Drug Abuse Patient Records regulations: The Federal rules restrict any use of the information to criminally investigate or prosecute any alcohol or drug abuse patient.[facility] HospitalIn the event this information is protected by the Federal Confidentiality of Alcohol and Drug Abuse Patient Records regulations: The Federal rules restrict any use of the information to criminally investigate or prosecute any alcohol or drug abuse patient.[facility] the event this information is protected by the Federal Confidentiality of Alcohol and Drug Abuse Patient Records regulations: The Federal rules restrict any use of the information to criminally investigate or prosecute any alcohol or drug abuse patient.[facility] HospitalIn the event this information is protected by the Federal Confidentiality of Alcohol and Drug Abuse Patient Records regulations: The Federal rules restrict any use of the information to criminally investigate or prosecute any alcohol or drug abuse patient.[facility] HospitalIn the event this information is protected by the Federal Confidentiality of Alcohol and Drug Abuse Patient Records regulations: The Federal rules restrict any use of the information to criminally investigate or prosecute any alcohol or drug abuse patient.[facility]In the event this information is protected by the Federal Confidentiality of Alcohol and Drug Abuse Patient Records regulations: The Federal rules restrict any use of the information to criminally investigate or prosecute any alcohol or drug abuse patient.[facility] HospitalIn the event this information is protected by the Federal Confidentiality of Alcohol and Drug Abuse Patient Records regulations: The Federal rules restrict any use of the information to criminally investigate or prosecute any alcohol or drug abuse patient.[facility] HospitalIn the event this information is protected by the Federal Confidentiality of Alcohol and Drug Abuse Patient Records regulations: The Federal rules restrict any use of the information to criminally investigate or prosecute any alcohol or drug abuse patient.[facility] HospitalIn the event this information is protected by the Federal Confidentiality of Alcohol and Drug Abuse Patient Records regulations: The Federal rules restrict any use of the information to criminally investigate or prosecute any alcohol or drug abuse patient.[facility] HospitalIn the event this information is protected by the Federal Confidentiality of Alcohol and Drug Abuse Patient Records regulations: The Federal rules restrict any use of the information to criminally investigate or prosecute any alcohol or drug abuse patient.[facility] HospitalIn the event this information is protected by the Federal Confidentiality of Alcohol and Drug Abuse Patient Records regulations: The Federal rules restrict any use of the information to criminally investigate or prosecute any alcohol or drug abuse patient.[facility] HospitalIn the event this information is protected by the Federal Confidentiality of Alcohol and Drug Abuse Patient Records regulations: The Federal rules restrict any use of the information to criminally investigate or prosecute any alcohol or drug abuse patient.[facility] HospitalIn the event this information is protected by the Federal Confidentiality of Alcohol and Drug Abuse Patient Records regulations: The Federal rules restrict any use of the information to criminally investigate or prosecute any alcohol or drug abuse patient.[facility] HospitalIn the event this information is protected by the Federal Confidentiality of Alcohol and Drug Abuse Patient Records regulations: The Federal rules restrict any use of the information to criminally investigate or prosecute any alcohol or drug abuse patient.[facility] HospitalIn the event this information is protected by the Federal Confidentiality of Alcohol and Drug Abuse Patient Records regulations: The Federal rules restrict any use of the information to criminally investigate or prosecute any alcohol or drug abuse patient.[facility] HospitalIn the event this information is protected by the Federal Confidentiality of Alcohol and Drug Abuse Patient Records regulations: The Federal rules restrict any use of the information to criminally investigate or prosecute any alcohol or drug abuse patient.[facility] HospitalIn the event this information is protected by the Federal Confidentiality of Alcohol and Drug Abuse Patient Records regulations: The Federal rules restrict any use of the information to criminally investigate or prosecute any alcohol or drug abuse patient.[facility] HospitalIn the event this information is protected by the Federal Confidentiality of Alcohol and Drug Abuse Patient Records regulations: The Federal rules restrict any use of the information to criminally investigate or prosecute any alcohol or drug abuse patient.[facility] HospitalIn the event this information is protected by the Federal Confidentiality of Alcohol and Drug Abuse Patient Records regulations: The Federal rules restrict any use of the information to criminally investigate or prosecute any alcohol or drug abuse patient.[facility] HospitalIn the event this information is protected by the Federal Confidentiality of Alcohol and Drug Abuse Patient Records regulations: The Federal rules restrict any use of the information to criminally investigate or prosecute any alcohol or drug abuse patient.[facility] Reason for Visit (unrecogniz ed section and content) Reason Comments PT Discharge Specialty Diagnoses / Procedures Referred By Contac t Referred To Contact [facility] Diagnoses S/P hip replacement, right Procedures CONSULT TO PHYSICAL THERAPY PHYSICAL THERAPY EVALUATION HIGH COMPLEX 45 MINS Louis Scott MD [address] [place] [address] Phone: tel: fax: [facility] [address] [place] [address] Referral ID Status Reason Start Date Expiration Date Visits Requested Visits Authorized [id number] Authorized PCP Requested Referral Auto-Generate d Referral 04/23/2024 04/23/2025 99 99 Reason Comments Physical Therapy Reason Onset Date Comments Establish Care Immunizations 12/11/2022 Flu vaccination Reason Comments Right Hip Pain Reason Comments New Specialty Diagnoses / Procedures Referred By Contac t Referred To Contact Orthopedics Diagnoses Right hip pain Procedures CONSULT TO ORTHOPAEDICS OFFICE/OUTPATIENT NEW HIGH MDM 60 MINUTES Louis Scott MD [address] [place] [address] Referral ID Status Reason Start Date Expiration Date V isits Requested Visits Authorized [id number] Closed PCP Requested Referral 05/30/2023 05/28/2024 1 1 Reason Comments PT Eval Specialty Diagnoses / Procedures Referred By Contac t Referred To Contact [facility] Diagnoses Right hip pain Procedures CONSULT TO PHYSICAL THERAPY PHYSICAL THERAPY EVALUATION HIGH COMPLEX 45 MINS Louis Scott MD [address] [place] [address] [facility] [place] [address] [place] [id number] Referral ID Status Reason Start Date Expiration Date Visits Requested Visits Authorized [id number] Authorized PCP Requested Referral Auto-Generate d Referral 05/30/2023 05/28/2024 99 99 Reason Comments Sore Throat Fever, cough, chest congestion x3 days Reason Comments Appointment Reason Comments New Pain Last seen by Lilian sarabia 06/17/23 OA right hip US Guided injection done on 07/29/23 Reason Comments Pain Referred by Shelby Douglas to discuss and sign consent Right LOGAN Follow Up Referred by Shelby Douglas to discuss and sign consent Right LOGAN Reason Comments Pre-Op Teaching Reason Comments Schedule Surgery Reason Comments Anesthesia Consult Specialty Diagnoses / Procedures Referred By Contac t Referred To Contact CT IMAGING Diagnoses Chronic pain of right knee Procedures CT KNEE WO IVCON RIGHT CT LOWER EXTREMITY W/O CONTRAST MATERIAL Shelby Coy PA-C [address] [place] [address] [place] [address] Referral ID Status Reason Start Date Expiration Date V isits Requested Visits Authorized [id number] Closed Auto-Generate d Referral 03/16/2024 04/15/2025 1 1 Reason Comments Patient Question Reason Comments Home Care Confirmation Call Reason Comments Post Op 1 week 5 days post o p Robotic assisted Right LOGAN Reason Comments Hospital Follow Up Penitentiary release Reason Comments Post Op 5 weeks 5 days post op Robotic assisted Right LOGAN Reason Comments Post Op 11 weeks 5 days post op Robotic Assisted Right LOGAN Care Teams (unrecognized sec tion and content) Vp Global Relationship Specialty Start Date End Date Loius Scott MD [address] [place] [address] PCP - General Family Medicine 12/11/22 Vp Global Relationship Specialty Start Date End Date Louis Scott MD [address] [place] [address] PCP - General Family Medicine 12/11/22 Vp Global Relationship Specialty Start Date End Date Louis Scott MD [address] [place] [address] PCP - General Family Medicine 12/11/22 Vp Global Relationship Specialty Start Date End Date Louis Scott MD [address] [place] [address] PCP - General Family Medicine 12/11/22 Vp Global Relationship Specialty Start Date End Date Louis Scott MD [address] [place] [address] PCP - General Family Medicine 12/11/22 Vp Global Relationship Specialty Start Date End Date Louis Scott MD [address] [facility] [place] [address] PCP - General Family Medicine 12/11/22 Vp Global Relationship Specialty Start Date End Date Louis Scott MD [address] [facility] [place] [address] PCP - General Family Medicine 12/11/22 Vp Global Relationship Specialty Start Date End Date Louis Scott MD [address] [facility] [place] [address] PCP - General Family Medicine 12/11/22 Vp Global Relationship Specialty Start Date End Date Louis Scott MD [address] [facility] [place] [address] PCP - General Family Medicine 12/11/22 Enid Hung APRN.CRIMINOLOGY TEACHER [address] [facility] [place] [address] Scrap Preparation Supervisor Family Medicine 01/26/24 Patrice Salmeron APRN.CRIMINOLOGY TEACHER [address] [facility] [place] [address] Scrap Preparation Supervisor Family Medicine 02/04/24 Vp Global Relationship Specialty Start Date End Date Louis Scott MD [address] [facility] [place] [address] PCP - General Family Medicine 12/11/22 Enid Hung APRN.CRIMINOLOGY TEACHER [address] [facility] [place] [address] Scrap Preparation Supervisor Family Medicine 01/26/24 Patrice Salmeron APRN.CRIMINOLOGY TEACHER [address] [facility] [place] [address] Scrap Preparation Supervisor Family Medicine 02/04/24 Vp Global Relationship Specialty Start Date End Date Louis Scott MD [address] [facility] [place] [address] PCP - General Family Medicine 12/11/22 Enid Hung APRN.CRIMINOLOGY TEACHER [address] [facility] [place] [address] Scrap Preparation Supervisor Family Medicine 01/26/24 Patrice Salmeron APRN.CRIMINOLOGY TEACHER [address] [facility] [place] [address] Scrap Preparation Supervisor Family Medicine 02/04/24 Vp Global Relationship Specialty Start Date End Date Louis Scott MD [address] [facility] [place] [address] PCP - General Family Medicine 12/11/22 Enid Hung APRN.CRIMINOLOGY TEACHER [address] [facility] [place] [address] Scrap Preparation Supervisor Family Medicine 01/26/24 Patrice Salmeron APRN.CRIMINOLOGY TEACHER [address] [facility] [place] [address] Scrap Preparation Supervisor Family Medicine 02/04/24 Vp Global Relationship Specialty Start Date End Date Louis Scott MD [address] [facility] [place] [address] PCP - General Family Medicine 12/11/22 Enid Hung APRN.CRIMINOLOGY TEACHER [address] [place] [address] Scrap Preparation Supervisor Family Medicine 01/26/24 Patrice Salmeron APRN.CRIMINOLOGY TEACHER [address] [place] [address] Scrap Preparation Supervisor Family Medicine 02/04/24 Vp Global Relationship Specialty Start Date End Date Louis Scott MD [address] [place] [address] PCP - General Family Medicine 12/11/22 Enid Hung APRN.CRIMINOLOGY TEACHER [address] [place] [address] Scrap Preparation Supervisor Family Medicine 01/26/24 Patrice Salmeron APRN.CRIMINOLOGY TEACHER [address] [place] [address] Scrap Preparation Supervisor Family Medicine 02/04/24 Chano Conklin, [facility] [address] [place] [address] Specialty [employer] Supervisor Orthopedics 03/17/24 05/05/24 Vp Global Relationship Specialty Start Date End Date Louis Scott MD [address] [place] [address] PCP - General Family Medicine 12/11/22 Enid Hung APRN.CRIMINOLOGY TEACHER [address] [place] [address] Scrap Preparation Supervisor Family Medicine 01/26/24 Patrice Salmeron APRN.CRIMINOLOGY TEACHER [address] [place] [address] Scrap Preparation Supervisor Family Medicine 02/04/24 Chano Conklin, [facility] [address] [place] [address] Specialty [employer] Supervisor Orthopedics 03/17/24 05/05/24 Vp Global Relationship Specialty Start Date End Date Louis Scott MD [address] [place] [address] PCP - General Family Medicine 12/11/22 nEid Hung BELT NOTCHER.CRIMINOLOGY TEACHER [address] [place] [address] Scrap Preparation Supervisor Family Medicine 01/26/24 Patrice Salmeron BELT NOTCHER.CRIMINOLOGY TEACHER [address] [place] [address] Scrap Preparation Supervisor Family Medicine 02/04/24 Chano Conklin, [facility] [address] [place] [address] [employer]ty [employer] Supervisor Orthopedics 03/17/24 05/05/24 Vp Global Relationship Specialty Start Date End Date Louis Scott MD [address] [place] [address] PCP - General Family Medicine 12/11/22 Enid Hung BELT NOTCHER.CRIMINOLOGY TEACHER [address] [place] [address] Scrap Preparation Supervisor Family Medicine 01/26/24 Patrice Salmeron BELT NOTCHER.CRIMINOLOGY TEACHER [address] [place] [address] Scrap Preparation Supervisor Family Medicine 02/04/24 Chano Conklin, [facility] [address] [place] [address] [employer] Supervisor Orthopedics 03/17/24 05/05/24 Vp Global Relationship Specialty Start Date End Date Louis Scott MD [address] [place] [address] PCP - General Family Medicine 12/11/22 Enid Hung APRN.CRIMINOLOGY TEACHER [address] [place] [address] Scrap Preparation Supervisor Family Medicine 01/26/24 Patrice Salmeron APRN.CRIMINOLOGY TEACHER [address] [place] [address] Scrap Preparation Supervisor Family Medicine 02/04/24 Chano Conklin, [facility] [address] [place] [address] [employer] Supervisor Orthopedics 03/17/24 05/05/24 Vp Global Relationship Specialty Start Date End Date Louis Scott MD [address] [place] [address] PCP - General Family Medicine 12/11/22 Enid Hung APRN.CRIMINOLOGY TEACHER [address] [place] [address] Scrap Preparation Supervisor Family Medicine 01/26/24 Patrice Salmeron APRN.CRIMINOLOGY TEACHER [address] [place] [address] Scrap Preparation Supervisor Family Medicine 02/04/24 Chano Conklin, [facility] [address] [place] [address] [employer] Supervisor Orthopedics 03/17/24 05/05/24 Vp Global Relationship Specialty Start Date End Date Louis Scott MD [address] [place] [address] PCP - General Family Medicine 12/11/22 Enid Hung APRN.CRIMINOLOGY TEACHER [address] [place] [address] Scrap Preparation Supervisor Family Medicine 01/26/24 Patrice Salmeron APRN.CRIMINOLOGY TEACHER [address] [place] [address] Scrap Preparation Supervisor Family Medicine 02/04/24 SissenChano, [facility] [address] [place] [address] [employer] Supervisor Orthopedics 03/17/24 05/05/24 Vp Global Relationship Specialty Start Date End Date Louis Scott MD [address] [place] [address] PCP - General Family Medicine 12/11/22 Enid Hung APRN.CRIMINOLOGY TEACHER [address] [place] [address] Scrap Preparation Supervisor Family Medicine 01/26/24 Patrice Salmeron APRN.CRIMINOLOGY TEACHER [address] [place] [address] Scrap Preparation Supervisor Family [facility] 02/04/24 Chano Conklin, [facility] [address] [place] [address] [employer] Supervisor Orthopedics 03/17/24 05/05/24 Vp Global Relationship Specialty Start Date End Date Louis Scott MD [address] [place] [address] PCP - General Family Medicine 12/11/22 Enid Hung APRN.CRIMINOLOGY TEACHER [address] [place] [address] Scrap Preparation Supervisor Family Medicine 01/26/24 Patrice Salmeron APRN.CRIMINOLOGY TEACHER [address] [place] [address] Scrap Preparation Supervisor Family Medicine 02/04/24 Chano Conklin, [facility] [address] [place] [address] [employer] Supervisor Orthopedics 03/17/24 05/05/24 Vp Global Relationship Specialty Start Date End Date Louis Scott MD [address] [place] [address] PCP - General Family Medicine 12/11/22 Enid Hung APRN.CRIMINOLOGY TEACHER [address] [place] [address] Scrap Preparation Supervisor Family Medicine 01/26/24 Patrice Salmeron APRN.CRIMINOLOGY TEACHER [address] [place] [address] Scrap Preparation Supervisor Family Medicine 02/04/24 Chano Conklin, [facility] [address] [place] [address] [employer] Supervisor Orthopedics 03/17/24 05/05/24 Vp Global Relationship Specialty Start Date End Date Louis Scott MD [address] [place] [address] PCP - General Family Medicine 12/11/22 Enid Hung BELT NOTCHER.CRIMINOLOGY TEACHER [address] [place] [address] Scrap Preparation Supervisor Family Medicine 01/26/24 Patrice Salmeron APRN.CRIMINOLOGY TEACHER [address] [place] [address] Scrap Preparation Supervisor Family Medicine 02/04/24 Dez Conklinin, P[facility] [address] [place] [address] Specialty [employer] Supervisor Orthopedics 03/17/24 05/05/24 Vp Global Relationship Specialty Start Date End Date Louis Scott MD [address] [place] [address] PCP - General Family Medicine 12/11/22 Enid Hung APRN.CRIMINOLOGY TEACHER [address] [place] [address] Scrap Preparation Supervisor Family Medicine 01/26/24 Patrice Salmeron BELT NOTCHER.CRIMINOLOGY TEACHER [address] [place] [address] Scrap Preparation Supervisor Family Medicine 02/04/24 Chano Conklin, [facility] [address] [place] [address] Specialty [employer] Supervisor Orthopedics 03/17/24 05/05/24 Randall Chatman MA Network Navigator 04/20/24 Vp Global Relationship Specialty Start Date End Date Louis Scott MD [address] [place] [address] PCP - General Family Medicine 12/11/22 Enid Hung BELT NOTCHER.CRIMINOLOGY TEACHER [address] [place] [address] Scrap Preparation Supervisor Family Medicine 01/26/24 Patrice Salmeron, BELT NOTCHER.CRIMINOLOGY TEACHER [address] [place] [address] Scrap Preparation Supervisor Family Medicine 02/04/24 Chano Conklin, [facility] [address] [place] [address] Specialty [employer] Supervisor Orthopedics 03/17/24 05/05/24 Randall Chatman MA Network Navigator 04/20/24 Vp Global Relationship Specialty Start Date End Date Louis Scott MD [address] [place], [place] [address] PCP - General Family Medicine 12/11/22 Enid Hung APRN.CRIMINOLOGY TEACHER [address] [place] [address] Scrap Preparation Supervisor Family Medicine 01/26/24 Patrice Salmeron APRN.CRIMINOLOGY TEACHER [address] [place] [address] Scrap Preparation Supervisor Family [facility] 02/04/24 [facility], [facility] [address] [place] [address] Specialty [employer] Supervisor Orthopedics 03/17/24 05/05/24 Randall Chatman MA Network Navigator 04/20/24 Vp Global Relationship Specialty Start Date End Date Louis Scott MD [address] [place] [address] PCP - General Family Medicine 12/11/22 Enid Hung BELT NOTCHER.CRIMINOLOGY TEACHER [address] [place] [address] Scrap Preparation Supervisor Family Medicine 01/26/24 Patrice Salmeron APRN.CRIMINOLOGY TEACHER [address] [place] [address] Scrap Preparation Supervisor Family Medicine 02/04/24 Chano Conklin, [facility] [address] [place] [address] Specialty [employer] Supervisor Orthopedics 03/17/24 05/05/24 Randall Chatman MA Network Navigator 04/20/24 Vp Global Relationship Specialty Start Date End Date Louis Scott MD [address] [place], [place] [address] PCP - General Family Medicine 12/11/22 Enid Hung, BELT NOTCHER.CRIMINOLOGY TEACHER [address] [place] [address] Scrap Preparation Supervisor Family Medicine 01/26/24 Patrice Salmeron BELT NOTCHER.CRIMINOLOGY TEACHER [address] [place] [address] Scrap Preparation Supervisor Family [facility] 02/04/24 Chano Conklin, [facility] [address] [place] [address] Special[employer] Supervisor Orthopedics 03/17/24 05/05/24 Randall Chatman MA Network Navigator 04/20/24 Vp Global Relationship Specialty Start Date End Date Louis Scott MD [address] [place] [address] PCP - General Family Medicine 12/11/22 Enid Hung, BELT NOTCHER.CRIMINOLOGY TEACHER [address] [place] [address] Scrap Preparation Supervisor Family Medicine 01/26/24 Patrice Salmeron BELT NOTCHER.CRIMINOLOGY TEACHER [address] [place] [address] Scrap Preparation Supervisor Family Medicine 02/04/24 Chano Conklin, [facility] [address] [place] [address] Special[employer] Supervisor Orthopedics 03/17/24 05/05/24 Randall Chatman MA Network Navigator 04/20/24 Vp Global Relationship Specialty Start Date End Date Louis Scott MD [address] [place] [address] PCP - General Family Medicine 12/11/22 Enid Hung, SANDI.CRIMINOLOGY TEACHER [address] [place] [address] Scrap Preparation Supervisor Family Medicine 01/26/24 Patrice Salmeron BELT NOTCHER.CRIMINOLOGY TEACHER [address] [place] [address] Scrap Preparation Supervisor Family [facility] 02/04/24 [facility] [address] [place] [address] Special[employer] Supervisor Orthopedics 03/17/24 05/05/24 Randall Chatman MA Network Navigator 04/20/24 Vp Global Relationship Specialty Start Date End Date Louis Scott MD [address] [place] [address] PCP - General Family Medicine 12/11/22 Eind Hung, BELT NOTCHER.CRIMINOLOGY TEACHER [address] [place] [address] Scrap Preparation Supervisor Family Medicine 01/26/24 Patrice Salmeron BELT NOTCHER.CRIMINOLOGY TEACHER [address] [place] [address] Scrap Preparation Supervisor Family Medicine 02/04/24 Randall Chatman MA Network Navigator 04/20/24 Vp Global Relationship Specialty Start Date End Date Louis Scott MD [address] [facility] [place] [address] PCP - General Family Medicine 12/11/22 Enid Hung APRN.CRIMINOLOGY TEACHER [address] [facility] [place] [address] Scrap Preparation Supervisor Family Medicine 01/26/24 Patrice Salmeron APRN.CRIMINOLOGY TEACHER [address] [facility] [place] [address] Scrap Preparation Supervisor Family Medicine 02/04/24 Randall Chatman MA Network Navigator 04/20/24 Vp Global Relationship Specialty Start Date End Date Louis Scott MD [address] [facility] [place] [address] PCP - General Family Medicine 12/11/22 Enid Hnug APRN.CRIMINOLOGY TEACHER [address] [facility] [place] [address] Scrap Preparation Supervisor Family Medicine 01/26/24 Patrice Salmeron APRN.CRIMINOLOGY TEACHER [address] [facility] [place] [address] Scrap Preparation Supervisor Family Medicine 02/04/24 Randall Chatman MA Network Navigator 04/20/24 Vp Global Relationship Specialty Start Date End Date Louis Scott MD [address] [facility] [place] [address] PCP - General Family Medicine 12/11/22 Enid Hung APRN.CRIMINOLOGY TEACHER [address] [facility] [place] [address] Scrap Preparation Supervisor Family Medicine 01/26/24 Patrice Salmeron APRN.CRIMINOLOGY TEACHER [address] [facility] [address] Scrap Preparation Supervisor Family Medicine 02/04/24 Randall Chatman MA Network Navigator 04/20/24 05/15/24 Vp Global Relationship Specialty Start Date End Date Louis Scott MD [address] [place] [address] PCP - General Family Medicine 12/11/22 Enid Hung APRN.CRIMINOLOGY TEACHER [address] [facility] [place] [address] Scrap Preparation Supervisor Family Medicine 01/26/24 Patrice Salmeron APRN.CRIMINOLOGY TEACHER [address] [place] [address] Scrap Preparation Supervisor Family Medicine 02/04/24 Vp Global Relationship Specialty Start Date End Date Louis Scott MD [address] [facility] [place] [address] PCP - General Family Medicine 12/11/22 Enid Hung APRN.CRIMINOLOGY TEACHER [address] [facility] [place] [address] Scrap Preparation Supervisor Family Medicine 01/26/24 Patrice Salmeron APRN.CRIMINOLOGY TEACHER [address] [facility] [place] [address] Scrap Preparation Supervisor Family Medicine 02/04/24 Vp Global Relationship Specialty Start Date End Date Louis Scott MD [address] [place] [address] PCP - General Family Medicine 12/11/22 Enid Hung BELT NOTCHER.CRIMINOLOGY TEACHER [address] [place] [address] Scrap Preparation Supervisor Family Medicine 01/26/24 Patrice Salmeron BELT NOTCHER.CRIMINOLOGY TEACHER [address] [place] [address] Scrap Preparation Supervisor Family Medicine 02/04/24 Vp Global Relationship Specialty Start Date End Date Louis Scott MD [address] [place] [address] PCP - General Family Medicine 12/11/22 Enid Hung BELT NOTCHER.CRIMINOLOGY TEACHER [address] [place] [address] Scrap Preparation Supervisor Family Medicine 01/26/24 Patrice Salmeron BELT NOTCHER.CRIMINOLOGY TEACHER [address] [place] [address] Scrap Preparation Supervisor Family Medicine 02/04/24 Vp Global Relationship Specialty Start Date End Date Louis Scott MD [address] [place] [address] PCP - General Family Medicine 12/11/22 Enid Hung APRN.CRIMINOLOGY TEACHER [address] [facility] [place] [address] Scrap Preparation Supervisor Family Medicine 01/26/24 Patrice Salmeron BELT NOTCHER.CRIMINOLOGY TEACHER [address] [place] [address] Scrap Preparation Supervisor Family Medicine 02/04/24 Vp Global Relationship Specialty Start Date End Date Louis Scott MD [address] [facility] [place] [address] PCP - General Family Medicine 12/11/22 Enid Hung APRN.CRIMINOLOGY TEACHER [address] [facility] [place] [address] Scrap Preparation Supervisor Family Medicine 01/26/24 Patrice Salmeron APRN.CRIMINOLOGY TEACHER [address] [facility] [place] [address] Scrap Preparation Supervisor Family Medicine 02/04/24 Vp Global Relationship Specialty Start Date End Date Louis Scott MD [address] [place] [address] PCP - General Family Medicine 12/11/22 Enid Hung APRN.CRIMINOLOGY TEACHER [address] [facility] [place] [address] Scrap Preparation Supervisor Family Medicine 01/26/24 Patrice Salmeron APRN.CRIMINOLOGY TEACHER [address] [facility] [place] [address] Scrap Preparation Supervisor Family Medicine 02/04/24 Randall Chatman MA Network Navigator 04/20/24 05/15/24 Vp Global Relationship Specialty Start Date End Date Louis Scott MD [address] [place] [address] PCP - General Family Medicine 12/11/22 Enid Hung APRN.CRIMINOLOGY TEACHER [address] [facility] [place] [address] Scrap Preparation Supervisor Family Medicine 01/26/24 Patrice Salmeron APRN.CRIMINOLOGY TEACHER [address] [facility] [address] Scrap Preparation Supervisor Family Medicine 02/04/24 Vp Global Relationship Specialty Start Date End Date Louis Scott MD [address] [facility] [address] PCP - General Family Medicine 12/11/22 Enid Hung APRN.CRIMINOLOGY TEACHER [address] [facility] [place] [address] Scrap Preparation Supervisor Family Medicine 01/26/24 Patrice Salmeron APRN.CRIMINOLOGY TEACHER [address] [facility] [place] [address] Scrap Preparation Supervisor Family Medicine 02/04/24 Vp Global Relationship Specialty Start Date End Date Louis Scott MD [address] [facility] [place] [address] PCP - General Family Medicine 12/11/22 Enid Hung APRN.CRIMINOLOGY TEACHER [address] [facility] [place] [address] Scrap Preparation Supervisor Family Medicine 01/26/24 Patrice Salmeron BELT NOTCHER.CRIMINOLOGY TEACHER [address] [facility] [place] [address] Scrap Preparation Supervisor Family Medicine 02/04/24 Vp Global Relationship Specialty Start Date End Date Louis Scott MD [address] [facility] [place] [address] PCP - General Family Medicine 12/11/22 Enid Hung APRN.CRIMINOLOGY TEACHER [address] [facility] [place] [address] Scrap Preparation Supervisor Family Medicine 01/26/24 Patrice Salmeron APRN.CRIMINOLOGY TEACHER [address] [place] [address] Scrap Preparation Supervisor Family Medicine 02/04/24 Vp Global Relationship Specialty Start Date End Date Louis Scott MD [address] [facility] [address] PCP - General Family Medicine 12/11/22 Enid Hung APRN.CRIMINOLOGY TEACHER [address] [facility] [address] Scrap Preparation Supervisor Family Medicine 01/26/24 Patrice Salmeron APRN.CRIMINOLOGY TEACHER [address] [place] [address] Scrap Preparation Supervisor Family Medicine 02/04/24 Vp Global Relationship Specialty Start Date End Date Louis Scott MD [address] [place] [address] PCP - General Family Medicine 12/11/22 Enid Hung APRN.CRIMINOLOGY TEACHER [address] [place] [address] Scrap Preparation Supervisor Family Medicine 01/26/24 Patrice Salmeron APRN.CRIMINOLOGY TEACHER [address] [place] [address] Scrap Preparation Supervisor Family Medicine 02/04/24 Vp Global Relationship Specialty Start Date End Date Louis Scott MD [address] [place] [address] PCP - General Family Medicine 12/11/22 Enid Hung APRN.CRIMINOLOGY TEACHER [address] [facility] [address] [facility] 01/26/24 Patrice Salmeron, BELT NOTCHER.CRIMINOLOGY TEACHER [address] [facility] [id number] [facility] 02/04/24 Vp Global Relationship Specialty Start Date End Date Louis Scott MD [address] [place] [address] PCP - General Family Medicine 12/11/22 Enid Hung, BELT NOTCHER.CRIMINOLOGY TEACHER [address] [facility] [place] [id number] [facility] 01/26/24 Patrice Salmeron, BELT NOTCHER.CRIMINOLOGY TEACHER [address] [facility] [place] [address] [facility] 02/04/24 (unrecognized sect ion and content) No Status Records FoundNo Status Records FoundNo Status Records Found INFORMATION SOURCE (unrecogn ized section and content) DATE CREATED AUTHOR 07/29/2023 [facility] nt DATE CREATED AUTHOR AUTHOR'S ORGANIZ ATION 04/17/2024 [facility] DATE CREATED AUTHOR AUTHOR'S ORGANIZ ATION 12/20/2024 [facility] FOR RECORDS PERTAINING TO PATIENTS WHO ARE OR HAVE BEEN ENROLLED IN A CHEMICAL DEPENDENCY/SUBSTANCEABUSE PROGRAM, SOME INFORMATION MAY BE OMITTED. This clinical summary was aggregated from multiple sources. Caution should be exercised in using it in the provision of clinical care. This summary normalizes information from multiple sources, and as a consequence, information in this document may materially change the coding, format and clinical context of patient data. In addition, data may be omitted in some cases. CLINICAL DECISIONS SHOULD BE BASED ON THE PRIMARY CLINICAL RECORDS. [employer] provides no warranty or guarantee of the accuracy or completeness of information in this document.
[2025-02-12 12:19] VITALS: BP 144/77; PULSE 60; RESP 16; TEMP 36.6; O2SAT 99
== END 2025-02-12 12:20 | disposition home or self-care (01) ==
PROVIDERS: Emergency Provider Emergency Medicine; PCP Family Medicine; Visit Provider Emergency Medicine
DX: S27.1XXA Traumatic hemothorax, initial encounter (principal); S22.42XA Multiple fractures of ribs, left side, initial encounter for closed fracture; W00.0XXA Fall on same level due to ice and snow, initial encounter
CPT/HCPCS: 71250; 99282